=== PATIENT | female | born 1950 | race Caucasian/White ===

== ENCOUNTER 2023-05-04 09:55 | Outpatient (OUT) | payer MEDICARE, OTHER, SELFPAY | END 2023-05-04 09:56 | disposition home or self-care (01) | LOC: LAB 09:59 | PROVIDERS: PCP Family Medicine | DX: Z79.899 Other long term (current) drug therapy (principal) | CPT/HCPCS: 36415; 82607; 84443 ==

== ENCOUNTER 2023-08-05 08:02 | Outpatient (OUT) | payer MEDICARE, OTHER, SELFPAY ==
[2023-08-05 08:24] LABS: Basophils Percent Auto 0.4 % (0.2-2.0); Eosinophils Absolute Auto 0.1 10^3/uL (0.0-0.7); Eosinophils Percent Auto 2.2 % (0.9-7.0); Hematocrit 41.2 % (36.0-48.0); Hemoglobin 14.1 g/dL (12.0-16.0); Immature Granulocytes Abs Auto 0.01 10^3/uL (0.00-0.03); Immature Granulocytes Pct Auto 0.2 % (0.0-0.5); Lymphocytes Absolute Auto 1.4 10^3/uL (1.2-3.8); Lymphocytes Percent Auto 25.9 % (20.5-60.0); Mean Corpuscular HGB Conc 34.2 g/dL (29.9-35.2); Mean Corpuscular Hemoglobin 31.1 pg (26.7-34.0); Mean Corpuscular Volume 90.7 fL (81.0-99.0); Mean Platelet Volume 9.1 fL (9.5-13.5); Monocytes Absolute Auto 0.5 10^3/uL (0.3-0.8); Monocytes Percent Auto 9.2 % (1.7-12.0); Neutrophils Absolute Auto 3.4 10^3/uL (1.4-6.5); Neutrophils Percent Auto 62.1 % (43.0-75.0); Platelet Count 208 10^3/uL (150-450); Red Blood Count 4.54 10^6/uL (4.20-5.40); Red Cell Distribution Width 12.2 % (11.0-15.0); White Blood Count 5.5 10^3/uL (4.0-11.0)
[2023-08-05 09:19] LABS: Alanine Aminotransferase 31 U/L (14-59); Albumin Level 3.5 g/dL (3.4-5.0); Alkaline Phosphatase 61 U/L (46-116); Anion Gap 9.3; Aspartate Amino Transferase 14 U/L (15-37); BUN Creatinine Ratio 24.5; Bilirubin Total 0.5 mg/dL (0.2-1.0); Carbon Dioxide 30.6 mmol/L (21.0-32.0); Chloride 106 mmol/L (98-107); Chol HDL Ratio 3.9; Cholesterol 205 mg/dL (<=200); Estimated GFR (African America >60 (>=60); Estimated GFR (Non-African Ame >60 (>=60); Globulin 3.4 g/dL; Glucose 95 mg/dL (74-106); HDL Cholesterol 53 mg/dL (40-60); Potassium 3.9 mmol/L (3.5-5.1); Sodium 142 mmol/L (136-145); Total Protein 6.9 g/dL (6.4-8.2); Triglycerides 349 mg/dL (<=150); VLDL CHOLESTEROL 69.8 mg/dL
[2023-08-05 09:32] LABS: Free T4 1.32 ng/dL (0.76-1.46)
== END 2023-08-05 08:03 | disposition home or self-care (01) ==
LOC: LAB 08:05
PROVIDERS: PCP Family Medicine; Visit Provider Family Medicine
DX: Z00.00 Encounter for general adult medical examination without abnormal findings (principal); E03.9 Hypothyroidism, unspecified; E78.5 Hyperlipidemia, unspecified; I10 Essential (primary) hypertension
CPT/HCPCS: 36415; 80053; 80061; 84439; 84443; 85025

== ENCOUNTER 2023-10-29 09:12 | Outpatient (OUT) | payer MEDICARE, OTHER, SELFPAY ==
--- NOTE | 2023-10-29 09:16 | XR_ITS ---
The [address] [address] Patient Name: JAMES WOODS MRN: [id number] date: 1950 Sex: F Assigned Patient Location: [facility] Current Patient Location: [facility] Accession/Order Number: [id number] Exam Date: 10/29/2023 09:18 Report Date: 10/29/2023 10:54 At the request of: MARIFER BOYLE Procedure: XR hand LT min 3V PROCEDURE: XR hand LT min 3V COMPARISON: None. HISTORY: pain of left hand M79.642 FINDINGS: BONES:No acute fracture or dislocation. Degenerative changes most significant along the medial carpus with [id number] articulation of the scaphoid with the trapezium and trapezoid SOFT TISSUES:Negative. No visible soft tissue swelling. EFFUSION:None visible. OTHER: Negative. 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
== END 2023-10-29 09:13 | disposition home or self-care (01) ==
LOC: RAD 09:13
PROVIDERS: PCP Family Medicine; Visit Provider Family Medicine
DX: M79.642 Pain in left hand (principal)
CPT/HCPCS: 73130

== ENCOUNTER 2023-12-23 07:45 | Outpatient (OUT) | payer MEDICARE, OTHER, SELFPAY ==
--- NOTE | 2023-12-23 | NM_ITS ---
Patient Name: JAMES WOODS MR#: [id number] : 1950 Exam Date: 12/23/2023 Ordering Doctor: DR Shruthi Salvador M.D. RADIOLOGY REPORT PROCEDURE: NM YOLI PERF SPECT REST STR COMPARISON: None. INDICATIONS: DYSPNEA ON EXERTION TECHNIQUE: Exam Description: Stress/Rest one day protocol gated SPECT Rest Imagin.3 mCi Tc-99m Cardiolite IV on 12/23/2023 Stress Imaging 31.6 mCi Tc-99m Cardiolite IV on 12/23/2023 Exercise Protocol: Marlon Heart Rate (bpm): Rest: 71 Max: 134 PMHR: 90 Blood Pressure: Rest: 144/82 Max: 194/86 Exercise Time: Minutes: 7 Seconds: 43 Stage Reached: Stage: 3 Mets 10.10 Symptoms: Rest and peak stress ECG findings were normal and the exercise portion of the study was normal per attending physician Dr. Goss . For more details please see separate cardiac stress test report. FINDINGS: QUALITY OF STUDY: Excellent. PERFUSION DEFECT: None. LOCATION: N/A SIZE: N/A. SEVERITY: N/A. TYPE: N/A. WALL MOTION: Normal. LV SIZE: Normal. 74 mL. TID / TCD: None; 1.0 LVEF: Normal. Calculated EF 80%. SUMMARY: Myocardial perfusion imaging study is NORMAL. CONCLUSION: 1. Normal nuclear medicine myocardial perfusion scan. Dictated by: Martin Knight M.D. on 12/24/2023 at 14:40 Approved by: Martin Knight M.D. on 12/24/2023 at 14:44
--- NOTE | 2023-12-23 07:45 | PCN_ITS ---
CARDIAC STRESS TEST Requesting Physician:? Procedure Date:? 12/23/2023 INDICATION:? Dyspnea on exertion. METHOD:? After risks, benefits and alternatives were explained, written informed consent was obtained.? The patient was brought to the stress lab in a resting and fasting state. She was connected to the appropriate hemodynamic and electrocardiographic monitoring. She underwent a Marlon protocol for exercise.? At peak exercise, Technetium Cardiolite was injected.? She tolerated the procedure well.? There were no complications.? She was to be transferred to the nuclear lab for imaging. FINDINGS: STRESS TEST INFORMATION:? The patient exercised for 7 minutes and 43 seconds, reaching stage 3 of the Marlon protocol and 10.10 METS.?? Resting heart rate was 71 beats per minute, increasing to a maximum of 134 beats per minute, which is 90% of maximum predicted heart rate.? Resting blood pressure was 144/82, with a maximum heart rate of 194/86.? The patient had no symptoms during the test. ELECTROCARDIOGRAPHY:? Rest EKG:? This was sinus rhythm, 71 beats per minute, low voltage QRS complexes in the precordial leads, septal infarct age indeterminate, abnormal EKG. During exercise and recovery:? No significant ST-T wave changes noted, frequent premature ventricular contractions and supraventricular contractions noted. FINAL IMPRESSIONS: 1.? No ischemic EKG changes seen on treadmill Cardiolite stress test. 2.? Normal heart rate and blood pressure response to exercise. 3.? Lou treadmill score of 7.4; this is associated with a 0.5-0.6% estimated one year mortality.? Risk category is low risk.? Angiography is usually not indicated.? 4.? Nuclear images are to be read, interpreted and reported in a separate dictation. [facility]
--- OUTSIDE RECORDS SUMMARY | 2023-12-23 07:49 | XMS_ITS | CCD ---
Author Organization [facility] Care Team Providers Care Cage Maker Name Role Phone Gabriella Means Unavailable SHRUTHI BOYLE Primary Care Physician Shruthi Boyle Unavailable [place], DR SHRUTHI Hwang Primary Care Unavailable CHRISTINA, DR KAREN Woodard Attending Unavailable CHRISTINA, DR KAREN Woodard Admitting Unavailable CHRISTINA, DR KAREN Woodard Consulting Unavailable OROSCO, MARCOS Consulting Unavailable JB, DR FREY Primary Care Unavailable MONTA[place], DR SHRUTHI Hwang Attending Unavailable [place], DR SHRUTHI Hwang Admitting Unavailable GILDARDO, DR MARTIN Woodard Consulting Unavailable BOYLE, DR SHRUTHI Hwang Consulting Unavailable JB, DR FREY Primary Care Unavailable JB, DR FREY Consulting Unavailable JB, DR FREY Attending Unavailable JB, DR FREY Admitting Unavailable GILDARDO, DR MARTIN Woodard Consulting Unavailable Simone Muhammad Unavailable Stephanie Dover Unavailable Alonso CRUZ Attending Unavailable Sanam Salas Attending Unavailable Allergies Allergy Classification Reported Allergen(s) Allergy Type Date of Onset Reaction(s) Facility (16 sources) penicillAMINE Drug Allergy 4 [facility] (14 sources) Acetaminophen / HYDROcodone; Translations: [acetaminophen-hy drocodone] Drug Allergy Nausea (finding) [facility] (3 sources) Penicillin; Translations: [penicillin] Drug Allergy Unknown (qualifier value) [facility] (1 source) Acetaminophen / HYDROcodone Drug Allergy [facility] (4 sources) Penicillins Drug allergy (disorder) 4 Hives [facility] (11 sources) Substance with penicillin structure and antibacterial mechanism of action (substance) Drug allergy 1 Unknown [facility] Other (3 sources) Acetaminophen Drug Allergy 4 [facility] (3 sources) HYDROcodone Drug Allergy 4 [facility] Medications Current Medications Medication Drug Class(es) Dates Sig (Normalized) Sig (Original) [id number] 200 actuat albuterol 0.09 mg/actuat metered dose inhaler (10 sources) beta2-Adrenergic Agonist Start: 10-25-2023 take 2 puff(s) by inhalation every four hours as needed Albuterol Sulfate Active 2 PUFF INHALATION Every 4 hours October 25, 2023 12:00am FreeTextSi puff Inhalation every 4 hrs prn; Note: Source Status: Start; Refills: 1; Qty: 1 Each; Provider: [place] Hwang Start: 07-10-2023 take 2 puff(s) by in halation every four hours as needed Albuterol Sulfate HFA 108 (90 Base) MCG/ACT 2 puff Inhalation every 4 hrs prn Jun, Not-Taking/PRN amLODIPine 5 mg oral tablet (3 sources) Dihydropyridine Calcium Channel Alysha Start: 11-27-2023 End: 12-19-2023 take 5 mg by mouth once daily Amlodipine Active 5 MG PO Daily December 19, 2023 12:07pm Ascorbic Acid (11 sources) Vitamin C Vitamin C Active atorvastatin 20 mg oral tablet (20 sources) HMG-CoA Reductase Inhibitor Start: 10-21-2023 Atorvastatin Active 0 .ROUTE .COMPLEX October 21, 2023 11:53am TAKE 1 TABLET DAILY Start: 11-03-2020 End: 10-21-2023 take 20 mg by mouth once daily Atorvastatin Discontinu ed 20 MG PO Daily October 21, 2023 12:00am October 21, 2023 11:53am Atorvastatin Carlos cium Active azithromycin 250 mg oral tablet (2 sources) Macrolide Antimicrobial Start: 09-02-2023 Azithromycin 250 MG Take 2 tablets on first day then 1 tablet daily for 4 days Orally as directed for 5 Aug, Active Suzi-C (2 sources) Start: 11-04-2020 Suzi-C Oral, Daily, Refills(s) 0 Start Date: 11/04/20 Status: Ordered estradiol 0.1 mg/ml vaginal cream (4 sources) Estrogen Start: 01-09-2023 estradiol 0.1 mg/g Vag Crm 1 gm, Vaginal, MonWedFri, 42.5 gm, Refill(s) 4, [employer] [id number], 170, cm, 08/31/22 11:21:00 EST, Height/Length Dosing, 69.1, kg, 08/31/22 11:21:00 EST, Weight Dosing Start Date: 01/09/23 Status: Ordered Start: 12-29-2021 estradiol 0.1 mg/g Vag Crm 1 gm, Vaginal, MonWedFri, 42.5 gm, Refill(s) 4, [employer] [id number], 170, cm, 08/28/21 14:33:00 EST, Height/Length Dosing, 70, kg, 08/28/21 14:33:00 EST, Weight Dosing Start Date: 12/29/21 Status: Ordered Estradiol Active estrogens, conjugated (snf) 0.625 mg/ml vaginal cream (14 sources) Estrogen Start: 10-25-2023 Conjugated Est rogens (Premarin) 0.625 mg/gram cream Active 0.625 MG VAGINAL As Directed October 25, 2023 12:00am FreeTextSig: as directed Vaginal; Note: Source Status: Taking; Provider: [place] Hawkins ( ) Premarin 0.625 M G/GM as directed Vaginal Active Premarin 0.625 M G/GM as directed Vaginal Active levothyroxine sodium 0.137 mg oral tablet (18 sources) l-Thyroxine Start: 10-25-2023 take 1 tablet by mouth once daily Levothyroxine Active 137 MCG PO Daily October 25, 2023 12:00am FreeTextSig: TAKE 1 TABLET DAILY; Note: Source Status: Refill; Refills: 3; Qty: 90 Tablet; Provider: [place] Hwang Start: 11-03-2020 take 1 tablet by rene th once daily levothyroxine 112 mcg (0.112 mg) Tab 112 mcg = 1 tab(s), Oral, Daily, # 30 tab(s), Refills(s) 0 Start Date: 11/03/20 Status: Ordered Levothyroxine So dium 137 MCG TAKE 1 TABLET DAILY for 90 days Active Levothyroxine So dium 137 MCG TAKE 1 TABLET DAILY for 90 days Active Synthroid Active lisinopril 20 mg oral tablet (20 sources) Angiotensin Converting Enzyme Inhibitor Start: 10-21-2023 Lisinopril Active 0 .ROUTE .COMPLEX 90 October 21, 2023 11:53am TAKE 1 TABLET DAILY Start: 11-03-2020 End: 10-21-2023 take 20 mg by mouth once daily Lisinopril Discontinued 20 MG PO Daily October 21, 2023 12:00am October 21, 2023 11:53am Lisinopril Activ e methylPREDNISolone 4 mg oral tablet (8 sources) Corticosteroid Start: 12-19-2023 take 1 tablet by mouth once Methylprednisolone (Medrol (Jovany)) 4 mg tablets,dose pack Active 0 PO per package directions December 19, 2023 12:00am PO PER PKG DIR for 6 days Start: 07-10-2023 methylPREDNISo lone 4 MG as directed Orally for 6 days Jun, Not-Taking/PRN Multi Vitamin+ (2 sources) Start: 11-04-2020 Multi Vitamin+ Refill(s) 0 Start Date: 11/04/20 Status: Ordered Woodridge 3 (11 sources) Woodridge 3 Active Woodridge-3 (2 sources) Start: 11-04-2020 Woodridge-3 Refill (s) 0 Start Date: 11/04/20 Status: Ordered POLYETHYLENE GLYCOL 3350 (11 sources) Osmotic Laxative MiraLax Active Womens Multi (11 sources) Womens Multi Act tremayne Completed/Discontinued Medications Medication Drug Class(es) Dates Sig (Normalized) Sig (Original) benzonatate 200 mg oral capsule (10 sources) Non-narcotic Antitussive Start: 10-25-2023 End: 10-25-2023 take 1 capsule by mouth three times daily Benzonatate Discontinued 1 CAP PO Three times daily October 25, 2023 12:00am October 25, 2023 2:07pm FreeTextSi capsule Orally Three times a day; Note: Source Status: Start; Refills: 0; Qty: 30 Capsule; Provider: [place] Hwang Start: 07-10-2023 take 1 capsule by [facility] every eight hours Benzonatate 200 MG 1 capsule Orally Three times a day for 10 day(s) Jun, Not-Taking/PRN doxycycline hyclate 100 mg oral capsule (14 sources) Tetracycline-class Drug Start: 10-25-2023 End: 10-25-2023 take 1 capsule by mouth twice daily Doxycycline Hyclate Discontinued 1 CAP PO Twice daily October 25, 2023 12:00am October 25, 2023 2:07pm FreeTextSi capsule Orally twice daily; Note: Source Status: Taking; Refills: 0; Provider: Jb Hwang Start: 03-08-2023 take 1 capsule by mo uth twice daily as needed Doxycycline Hyclate 100 MG 1 capsule Orally twice daily for 7 days Feb, Not-Taking/PRN Melatonin (11 sources) Melatonin Not-Ta alexander/PRN Melatonin Active ondansetron 4 mg oral tablet (14 sources) Serotonin-3 Receptor Antagonist Start: 10-25-2023 End: 10-25-2023 take 1 tablet by mouth once daily Ondansetron Hcl Discontinued 1 TAB PO Daily October 25, 2023 12:00am October 25, 2023 2:08pm FreeTextSi tablet Orally Once a day; Note: Source Status: Not-Taking\PRN; Provider: [place] Hawkins ( ) take 1 tablet by rene th every twenty-four hours Ondansetron HCl 4 MG 1 tablet Orally Onc e a day Not-Taking/PRN paxlovid (300/100) 20 x 150 mg & 10 x 100mg tablet therapy pack (7 sources) Paxlovid (300/10 0) 20 x 150 MG & 10 x 100MG as directed Orally Not-Taking/PRN Paxlovid (300/10 0) 20 x 150 MG & 10 x 100MG as directed Orally Active Problems Active Problems Problem Classification Problem Date Documented Da te Episodic/Chronic Diseases of mouth; excluding dental (1 source) Cellulitis and abscess of mouth Episodic Disorders of lipid metabolism (20 sources) Hyperlipidemia, unspecified; Translations: [Pure hypercholesterolemi a, unspecified] Onset: 12-28-2021 Chronic Diverticulosis and diverticulitis (11 sources) Diverticulitis; Translations: [Diverticulitis of intestine, part unspecified, without perforation or abscess without bleeding] Chronic Essential hypertension (20 sources) Essential hypertension; Translations: [Essential (primary) hypertension] Onset: 09-28-2022 11-03-2020 Chronic Genitourinary congenital anomalies (2 sources) 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 Chronic Genitourinary symptoms and ill-defined conditions (4 sources) Stress incontinence (female) (male); Translations: [Genuine stress incontinence] Onset: 08-31-2022 Chronic Genitourinary symptoms and ill-defined conditions (4 sources) Retention of urine; Translations: [Retention of urine, unspecified] Onset: 08-31-2022 Episodic Menopausal disorders (6 sources) Atrophic vaginitis; Translations: [Postmenopausal atrophic vaginitis] Onset: 08-31-2022 Chronic Mycoses (2 sources) Candidiasis of vagina 11-03-2020 Episodic Nausea and vomiting (12 sources) Nausea with vomiting, unspecified; Translations: [Nausea] Onset: 12-28-2021 Episodic Other connective tissue disease (3 sources) Hand pain; Translations: [Pain in left hand] 10-29-2023 Episodic Other connective tissue disease (3 sources) Pain in left hand; Translations: [Pain in limb] 10-29-2023 Episodic Other diseases of bladder and urethra (4 sources) Urethral stricture; Translations: [Other urethral stricture, female] Onset: 08-31-2022 Episodic Other ear and sense organ disorders (11 sources) Tinnitus; Translations: [Tinnitus, right ear] Episodic Other hereditary and degenerative nervous system conditions (11 sources) Hereditary essential tremor; Translations: [Essential tremor] Chronic Other lower respiratory disease (12 sources) Dyspnea on exertion; Translations: [Other forms of dyspnea] 11-03-2020 Episodic Other lower respiratory disease (5 sources) Other forms of dyspnea; Translations: [Other respiratory abnormalities] 11-27-2023 Episodic Other screening for suspected conditions (not mental disorders or infectious disease) (20 sources) Serum lipids high; Translations: [Encounter for screening mammogram for malignant neoplasm of breast] Onset: 01-04-2022 11-03-2020 Episodic Residual codes; unclassified (2 sources) Family history of breast cancer 11-03-2020 Episodic Residual codes; unclassified (2 sources) Family history of diabetes mellitus 11-03-2020 Episodic Residual codes; unclassified (2 sources) Requires vaccination 11-03-2020 Episodic Residual codes; unclassified (1 source) Family history of malignant neoplasm of breast; Translations: [FAMILY HX MALIG NEOPLASM OF BREAST] Onset: 09-28-2022 Episodic Residual codes; unclassified (1 source) Family history of malignant neoplasm of other organs or systems; Translations: [FAM HX MALIG NEOPLASM OTH ORGN/SYS] Onset: 09-28-2022 Episodic Skin and subcutaneous tissue infections (1 source) Cellulitis of left upper limb Episodic Thyroid disorders (20 sources) Hypothyroidism; Translations: [Hypothyroidism, unspecified] Onset: 09-28-2022 11-03-2020 Chronic Past or Other Problems Problem Classification Problem Date Documented Da te Episodic/Chronic Conditions associated with dizziness or vertigo (5 sources) Dizziness and giddiness; Translations: [Labyrinthitis, unspecified ear] Onset: 12-27-2021 Episodic Open wounds of extremities (1 source) Laceration without foreign body of right thumb without damage to nail, initial encounter Onset: 12-11-2021 Resolved: 12-11-2021 Episodic Residual codes; unclassified (1 source) Acquired absence of other specified parts of digestive tract; Translations: [ACQ ABSENCE OTH PART DIGESTV TRACT] Onset: 12-28-2021 Episodic Screening and history of mental health and substance abuse codes (1 source) Personal history of nicotine dependence; Translations: [PERSONAL HISTORY OF NICOTINE DEPEND] Onset: 12-28-2021 Episodic Unclassified (1 source) Acute cough R05.1 Viral infection (1 source) COVID-19 Results Test Name Value Interpretation Reference Range Facility Screenson 11-27-2023 Screens [id number] Normal [facility] Patient Educationon 11-26-19 Patient Education Obstetrics and Gynecology Atrophic Vaginitis Atrophic vaginitis is a condition in which the tissues that line the vagina become dry and thin. This condition is most common in women who have stopped having regular menstrual periods (are in menopause). This usually starts when a woman is 45 to 55 years old. That is the time when a woman's estrogen levels begin to decrease. Estrogen is a female hormone. It helps to keep the tissues of the vagina moist. It stimulates the vagina to produce a clear fluid that lubricates the vagina for sex. This fluid also protects the vagina from infection. Lack of estrogen can cause the lining of the vagina to get thinner and dryer. The vagina may also shrink in size. It may become less elastic. Atrophic vaginitis tends to get worse over time as a woman's estrogen level drops. What are the causes? This condition is caused by the normal drop in estrogen that happens around the time of menopause. What increases the risk? Certain conditions or situations may lower a woman's estrogen level, leading to a higher risk for atrophic vaginitis. You are more likely to develop this condition if: ? You are taking medicines that block estrogen. ? You have had your ovaries removed. ? You are being treated for cancer with radiation or medicines (chemotherapy). ? You have given or are . ? You are older than age 50. ? You smoke. What are the signs or symptoms? Symptoms of this condition include: ? Pain, soreness, a feeling of pressure, or bleeding during sex (dyspareunia). ? Vaginal burning, irritation, or itching. ? Pain or bleeding when a speculum is used in a vaginal exam. ? Having burning pain while urinating. ? Vaginal discharge. In some cases, there are no symptoms. How is this diagnosed? This condition is diagnosed based on your medical history and a physical exam. This will include a pelvic exam that checks the vaginal tissues. Though rare, you may also have other tests, including: ? A urine test. ? A test that checks the acid balance in your vagina (acid balance test). How is this treated? Treatment for this condition depends on how severe your symptoms are. Treatment may include: ? Using an ddjr-mmp-swoyahc vaginal lubricant before sex. ? Using a long-acting vaginal moisturizer. ? Using low-dose estrogen for moderate to severe symptoms that do not respond to other treatments. Options include creams, tablets, and inserts (vaginal rings). Before you use a vaginal estrogen, tell your health care provider if you have a history of: ? Breast cancer. ? Endometrial cancer. ? Blood clots. If you are not sexually active and your symptoms are very mild, you may not need treatment. Follow these instructions at home: Medicines ? Take hvkp-iwc-gbcaqev and prescription medicines only as told by your health care provider. ? Do not use herbal or alternative medicines unless your health care provider says that you can. ? Use iodh-aza-fmqrqpd creams, lubricants, or moisturizers for dryness only as told by your health care provider. General instructions ? If your atrophic vaginitis is caused by menopause, discuss all of your menopause symptoms and treatment options with your health care provider. ? Do not douche. ? Do not use products that can make your vagina dry. These include: ? Scented feminine sprays. ? Scented tampons. ? Scented soaps. ? Vaginal sex can help to improve blood flow and elasticity of vaginal tissue. If you choose to have sex and it hurts, try using a water-soluble lubricant or moisturizer right before having sex. Contact a health care provider if: ? Your discharge looks different than normal. ? Your vagina has an unusual smell. ? You have new symptoms. ? Your symptoms do not improve with treatment. ? Your symptoms get worse. Summary ? Atrophic vaginitis is a condition in which the tissues that line the vagina become dry and thin. It is most common in women who have stopped having regular menstrual periods (are in menopause). ? Treatment options include using vaginal lubricants and low-dose vaginal estrogen. ? Contact a health care provider if your vagina has an unusual smell, or if your symptoms get worse or do not improve after treatment. This information is not intended to replace advice given to you by your health care provider. Make sure you discuss any questions you have with your health care provider. Document Revised: 01/05/2021 Document Reviewed: 01/05/2021 [employer] Patient Education ? 2022 [employer]. Kegel Exercises Kegel exercises can help strengthen your pelvic floor muscles. The pelvic floor is a group of muscles that support your rectum, small intestine, and bladder. In females, pelvic floor muscles also help support the uterus. These muscles help you control the flow of urine and stool (feces). Kegel exercises are painless and simple. They do not require (more content not included)... Normal [facility] Urology Office/Clinic Noteon 11-26-2023 Urology Office/Clinic Note Chief Complaint 1 yr f/u HPI Staff PRW pt 1yr DX: Atrophic Vaginitis, Incomplete Bladder Emptying, Urethral Stricture & Stress Incontinence *Estradiol cream 1gm 3x/week decreased to 2x/wk at last encounter Dysuria: denies Incomplete bladder emptying: denies Hematuria: denies Frequency: denies Urgency: yes Nocturia: denies Stream: stop and go Leaking: denies Post void dripping: denies Wearing pads/ Depends: denies Urge incontinence: denies Stress incontinence: yes Incontinence without Sensory Awareness: denies Abdominal pain: denies Flank pain: denies Sexual complaints: _ History of Present Illness I have reviewed and verified the staff HPI to be accurate for this encounter. Portions of this record may have been created with voice recognition artificial intelligence software, specifically Pictrition App, real trends and or Molecular Sensing. Substitutions may have occurred due to the inherent limitations of voice recognition and artificial intelligence software. Review of Systems PHQ Score Initial Depression Screen Score: 0 SCORE Physical Exam Vitals & Measurements T: 36.7 ?C(Temporal Artery) HR: 84(Peripheral) RR: 16 BP: 139/87 HT: 67 in HT: 170 cm WT: 72.7 kg WT: 159.94 lb BMI: 25.16 General: Well developed, well nourished, in no acute distress. Genitourinary: Flank Pain: none. Bladder: nonpalpable. Assessment/Plan 1. Atrophic vaginitis (N95.2: Postmenopausal atrophic vaginitis) Currently using Estrace cream 1 g 2 times/week vaginally as well as pea-sized amount around the urethra. This was reduced at prior office visit from 3 times/week. She is tolerating this well without side effects. Has not noticed any worsening symptoms with reduced dose. Patient does inquire if she should continue to reduce dose. However, we discussed that symptoms may increase with reduced dose. Continue current dose at 2 times/week. Patient to call for refills. UA today with trace intact blood. No signs of infection. Patient denies any episode of gross hematuria or urinary infection since prior office visit. Ordered: Urnls Dip Stick Auto w/o Microscopy POC 09734 2. Incomplete bladder emptying (R33.9: Retention of urine, unspecified) Patient notes that she routinely double voids and uses voiding maneuvers. She does feel empty after doing that. Ordered: Urnls Dip Stick Auto w/o Microscopy POC 35501 3. Other urethral stricture, female (N35.82: Other urethral stricture, female) S/p Cysto/UD done 11/08/20 [1] She denies any stream issues at this time. Does not feel that she needs repeat dilation. Ordered: Urnls Dip Stick Auto w/o Microscopy POC 82921 4. Stress incontinence (N39.3: Stress incontinence (female) (male)) BBSQ 12-13 Mild leaking with laughing Only wears a pad when she feels it is necessary which is rare Not bothersome to the patient at this time Strengthening pelvic floor with Kegel exercises, timed voids. Ordered: Urnls Dip Stick Auto w/o Microscopy POC 75642 Follow-up With When Contact Information Orzech [employer], [employer], Sanam X, FAM, URL Additional Instructions: 1 year Patient Education Atrophic Vaginitis Urinary Incontinence Kegel Exercises Problem List/Past Medical History Ongoing Atrophic vaginitis Dyspnea on exertion Essential hypertension Family history of breast cancer FH: diabetes mellitus Hypothyroid Incomplete bladder emptying Need for prophylactic vaccination against Streptococcus pneumoniae (pneumococcus) Other urethral stricture, female Postmenopausal atrophic vaginitis Serum lipids high Stress incontinence 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 Medications atorvastatin 20 mg Tab, Oral, Daily Suzi-C, Oral, Daily estradiol 0.1 mg/g Vag Crm, 1 gm, Vaginal, MonWedFri, 4 refills levothyroxine 112 mcg (0.112 mg) Tab, 112 mcg= 1 tab(s), Oral, Daily lisinopril 20 mg Tab, Oral, Daily Multi Vitamin+ Woodridge-3 Allergies Vicodin (Nausea) penicillin (Unknown) Social History Tobacco Former smoker, quit more than 30 days ago Tobacco Use:., 11/26/2023 Family History Hypertension: Mother and Father. Migraine: Child. Primary malignant neoplasm of female breast: Mother. Primary malignant neoplasm of lung: Grandparent. Stroke: Grandparent. Immunizations Vaccine Date Status influenza virus vaccine, inactivated 05/22/2023 Recorded tetanus-diphtheria toxoids 12/11/2021 Recorded SARSCoV2 mRNA(hxeybezxf-xrmn-dc cros) vac 09/01/2021 Recorded SARS-CoV-2 (COVID-19) mRNA BNT-162b2 vax 02/02/2021 Recorded SARS-CoV-2 (COVID-19) mRNA BNT-162b2 vax 01/12/2021 Recorded SARS-CoV-2 (COVID-19) mRNA BNT-162b2 vax 2020 Recorded influenza virus vaccine, inactivated 05/12/2020 Recorded pneumococcal 23-valent vaccine 06/05/2018 Alf (more content not included)... Normal [facility] Comment on above: Result Comment: Elec tronically Signed By: ANA LUISA Salas APRN, Sanam Allen\meggan\Date and Time Signed: 11/26/23 09:48 EDT COVID + FLU Quick Testingon 09-02-2023 SARS-CoV-2 (COVID-19) RNA ZOIE+probe Ql (Unsp spec) Negative [employer] [facility] Other COVID + FLU Quick Testing Negative [facility] Other CBC AUTO DIFFon 09-26-2022 BASO # 0.0 103/ul Normal 0.0-0.1 [facility] Comment on above: Performed By: #### C BC #### [facility] [address] [place] [address] Dr. Pam Rodgers Basophils/100 WBC (Bld) 0.6 % Normal 0.2-2.0 [facility] Comment on above: Performed By: #### C BC #### [facility] [address] [address] [address] Pam Rodgers EO # 0.2 103/ul Normal 0.0-0.7 [facility] Comment on above: Performed By: #### C BC #### [facility] [address] [address] [address] Pam Rodgers Eosinophils/100 WBC (Bld) 2.4 % Normal 0.9-7.0 [facility] Comment on above: Performed By: #### C BC #### [facility] [address] [address] [address] Pam Rodgers Erythrocyte distribution width (RBC) [Ratio] 12.0 % Normal 11.0-15.0 [facility] Comment on above: Performed By: #### C BC #### [facility] [address] [place] [address] Dr. Pam Rodgers Hematocrit (Bld) [Volume fraction] 44.2 % Normal 36.0-48.0 [facility] Comment on above: Performed By: #### C BC #### [facility] [address] [place] [place] [address] Dr. Pam Rodgers Hemoglobin (Bld) [Mass/Vol] 15.0 g/dL Normal 12.0-16.0 [facility] Comment on above: Performed By: #### C BC #### [facility] [address] [place] [address] Dr. Pam Rodgers IG # 0.01 10e3/ul Normal 0.00-0.03 [facility] Comment on above: Performed By: #### C BC #### [facility] [address] [place] [address] Dr. Pam Rodgers IG % 0.2 % Normal 0.0-0.5 [facility] Comment on above: Performed By: #### C BC #### [facility] [address] [place] [address] Dr. Pam Rodgers LYMPH # 1.4 103/ul Normal 1.2-3.8 [facility] Comment on above: Performed By: #### C BC #### [facility] [address] [place] [address] Dr. Pam Rodgers Lymphocytes/100 WBC (Bld) 22.6 % Normal 20.5-60.0 [facility] Comment on above: Performed By: #### C BC #### [facility] [address] [place] [address] Dr. Pam Rodgers MANUAL DIFF REQ NO Normal [facility] Comment on above: Performed By: #### C BC #### [facility] [address] [place] [address] Dr. Pam Rodgers MCH (RBC) [Entitic mass] 30.0 pg Normal 26.7-34.0 [facility] Comment on above: Performed By: #### C BC #### [facility] [address] [place] [address] Dr. Pam Rodgers MCHC (RBC) [Mass/Vol] 33.9 g/dL Normal 29.9-35.2 [facility] Comment on above: Performed By: #### C BC #### [facility] [address] [place] [address] Dr. Pam Rodgers MCV (RBC) [Entitic vol] 88.4 fL Normal 81.0-99.0 [facility] Comment on above: Performed By: #### C BC #### [facility] [address] [place] [address] Dr. Pam Rodgers MONO # 0.6 103/ul Normal 0.3-0.8 [facility] Comment on above: Performed By: #### C BC #### [facility] [address] [place] [address] Dr. Pam Rodgers Monocytes/100 WBC (Bld) 8.8 % Normal 1.7-12.0 [facility] Comment on above: Performed By: #### C BC #### [facility] [address] [place] [address] Dr. Pam Rodgers NEUT # 4.2 103/ul Normal 1.4-6.5 [facility] Comment on above: Performed By: #### C BC #### [facility] [address] [place] [address] Dr. Pam Rodgers Neutrophils/100 WBC (Bld) 65.4 % Normal 43.0-75.0 [facility] Comment on above: Performed By: #### C BC #### [facility] [address] [place] [address] Dr. Pam Rodgers Platelet mean volume (Bld) [Entitic vol] 9.2 fL Critically low 9.5-13.5 [facility] Comment on above: Performed By: #### C BC #### [facility] [address] [place] [address] Dr. Pam Rodgers PLT 243 103/ul Normal 150-450 [facility] Comment on above: Performed By: #### C BC #### [facility] [address] [place] [address] Dr. Pam Rodgers RBC 5.00 106/ul Normal 4.20-5.40 [facility] Comment on above: Performed By: #### C BC #### [facility] [address] [place] [address] Dr. Pam Rodgers WBC 6.4 103/ul Normal 4.0-11.0 [facility] Comment on above: Performed By: #### C BC #### [facility] [address] [address] [address] Pam Rodgers FREE T4on 09-26-2022 Free T4 [Mass/Vol] 1.06 ng/dL Normal 0.76-1.46 [facility] Comment on above: Performed By: #### F T4 #### [facility] [address] [address] [address] Pam Rodgers LIPID PROFILEon 09-26-2022 CHOL-HDL RATIO NORM SEE BELOW Normal [facility] Comment on above: Result Comment: 3.3 - 4.4 LOW RISK 4.4 - 7.1 AVERAGE RISK 7.1 - 11.0 MODERATE RISK >11.0 HIGH RISK Performed By: #### L IPID, TSH, CMP #### [facility] [address] [address] [address] Pam Rodgers Cholesterol [Mass/Vol] 189 mg/dL Normal <=200 [facility] Comment on above: Performed By: #### L IPID, TSH, CMP #### [facility] [address] [address] [address] Pam Rodgers Cholesterol in HDL [Mass/Vol] 60 mg/dL Normal 40-60 [facility] Comment on above: Performed By: #### L IPID, TSH, CMP #### [facility] [address] [address] [address] Pam Rodgers Cholesterol in LDL [Mass/Vol] 97.0 mg/dL Normal [facility] Comment on above: Performed By: #### L IPID, TSH, CMP #### [facility] [address] [address] [address] Pam Rodgers Cholesterol.total /Cholesterol in HDL [Mass ratio] 3.2 {ratio} Normal [facility] Comment on above: Performed By: #### L IPID, TSH, CMP #### [facility] [address] [address] [address] Pam Rodgers HDL NORMAL > or = 60 mg/dl - LO W CARDIOVASCULAR RISK <40 mg/dl - HIGH CARDIOVASCULAR RISK Normal [facility] Comment on above: Performed By: #### L IPID, TSH, CMP #### [facility] [address] [address] [address] Pam Rodgers LDL CALC NORMAL SEE BELOW Normal [facility] Comment on above: Result Comment: <100 mg/dl OPTIMAL 100 - 129 mg/dl NEAR OR ABOVE OPTIMAL 130 - 159 mg/dl BORDERLINE HIGH 160 - 189 mg/dl HIGH >190 mg/dl VERY HIGH Performed By: #### L IPID, TSH, CMP #### [facility] [address] [place], [place] [address] Dr. Pam Rodgers Triglyceride [Mass/Vol] 160 mg/dL Critically high <=150 [facility] Comment on above: Performed By: #### L IPID, TSH, CMP #### [facility] [address] [address] [address] Pam Rodgers VLDL CALC 32.0 mg/dL Normal [facility] Comment on above: Performed By: #### L IPID, TSH, CMP #### [facility] [address] [address] [address] Pam Rodgers MG MAMM SCREEN 3D GISELE CADon 09-26-2022 MG MAMM SCREEN 3D GISELE CAD Patient: JAMES WOODS Exam Date: 09/26/2022 : 1950 Gender:F Ordering : DR SHRUTHI BOYLE M.D. Admission #: [id number] Family : Order #: [id number] CLICK HERE TO VIEW EXAM RADIOLOGY REPORT PROCEDURE: MAMMOGRAM SCREENING 3D BILATERAL CAD COMPARISON: MG MAMM SCREEN 3D GISELE CAD, 04/17/2021. MG MAMM SCREEN GISELE W CAD, 04/01/2020. MG MAMM SCREEN GISELE W CAD, 09/16/2018. DIGITIZED_MAMMO, 05/13/2009. INDICATIONS: Screening mammography Calculator Name NCI Breast Cancer Risk Assessment Tool 5 Year Breast Cancer Risk 4.90% Lifetime Breast Cancer Risk 13.90% Personal Breast Cancer No Personal Ovarian Cancer No Treatments None Family Cancers Mother with breast cancer at age 50; Daughter with nasal cancer cancer at age 20; Unknown with brain cancer cancer at age 5. LOCATION: [facility] BREAST COMPOSITION: Scattered areas fibroglandular density. FINDINGS: DIAGNOSTIC CATEGORY 2--BENIGN FINDING: RIGHT BREAST: No significant suspicious finding. No significant change has occurred. LEFT BREAST: No significant suspicious finding. Stable chronic asymmetry posterior upper-outer quadrant. No significant change has occurred. RECOMMENDATIONS: ROUTINE MAMMOGRAM AND CLINICAL EVALUATION IN 12 MONTHS. PLEASE NOTE: A NORMAL MAMMOGRAM DOES NOT EXCLUDE THE POSSIBILITY OF BREAST CANCER. A CLINICALLY SUSPICIOUS PALPABLE LUMP SHOULD BE BIOPSIED. Dictated by: Martin Knight M.D. on 09/26/2022 at 17:08 Approved by: Martin Knight M.D. on 09/26/2022 at 17:14 Normal [facility] PROF 14(COMP METB)on 023 Albumin [Mass/Vol] 4.1 g/dL Normal 3.4-5.0 [facility] Comment on above: Performed By: #### L IPID, TSH, CMP #### [facility] [address] [address] [address] Pam Rodgers Albumin/Globulin [Mass ratio] 1.3 {ratio} Normal [facility] Comment on above: Performed By: #### L IPID, TSH, CMP #### [facility] [address] [address] [address] Pam Rodgers ALP [Catalytic activity/Vol] 63 U/L Normal 46-116 [facility] Comment on above: Performed By: #### L IPID, TSH, CMP #### [facility] [address] [address] [address] Pam Rodgers ALT [Catalytic activity/Vol] 27 U/L Normal 14-59 [facility] Comment on above: Performed By: #### L IPID, TSH, CMP #### [facility] [address] [address] [address] Pam Rodgers Anion gap [Moles/Vol] 12.1 mmol/L Normal [facility] Comment on above: Performed By: #### L IPID, TSH, CMP #### [facility] [address] [address] [address] Pam Rodgers AST [Catalytic activity/Vol] 22 U/L Normal 15-37 [facility] Comment on above: Performed By: #### L IPID, TSH, CMP #### [facility] [address] [address] [address] Pam Rodgers Bilirubin [Mass/Vol] 0.6 mg/dL Normal 0.2-1.0 [facility] Comment on above: Performed By: #### L IPID, TSH, CMP #### [facility] [address] [place] [address] Dr. Pam Rodgers Calcium [Mass/Vol] 9.3 mg/dL Normal 8.5-10.1 [facility] Comment on above: Performed By: #### L IPID, TSH, CMP #### [facility] [address] [place] [address] Dr. Pam Rodgers Chloride [Moles/Vol] 104 mmol/L Normal 98-107 [facility] Comment on above: Performed By: #### L IPID, TSH, CMP #### [facility] [address] [place] [address] Dr. Pam Rodgers CO2 [Moles/Vol] 28.2 mmol/L Normal 21.0-32.0 [facility] Comment on above: Performed By: #### L IPID, TSH, CMP #### [facility] [address] [place] [address] Dr. Pam Rodgers Creatinine [Mass/Vol] 0.62 mg/dL Normal 0.55-1.02 [facility] Comment on above: Performed By: #### L IPID, TSH, CMP #### [facility] [address] [place] [address] Dr. Pam Rodgers EGFR-AF [place] >60 Normal >=60 [facility] Comment on above: Performed By: #### L IPID, TSH, CMP #### [facility] [address] [place] [address] Dr. Pam Rodgers EGFR-NON AF [place] >60 Normal >=60 [facility] Comment on above: Performed By: #### L IPID, TSH, CMP #### [facility] [address] [place] [address] Dr. Pam Rodgers Globulin (S) [Mass/Vol] 3.2 g/dL Normal [facility] Comment on above: Performed By: #### L IPID, TSH, CMP #### [facility] [address] [address] [address] Pam Rodgers Glucose [Mass/Vol] 108 mg/dL Critically high 74-106 [facility] Comment on above: Performed By: #### L IPID, TSH, CMP #### [facility] [address] [address] [address] Pam Rodgers Potassium [Moles/Vol] 4.3 mmol/L Normal 3.5-5.1 [facility] Comment on above: Performed By: #### L IPID, TSH, CMP #### [facility] [address] [place] [address] Dr. Pam Rodgers Protein [Mass/Vol] 7.3 g/dL Normal 6.4-8.2 [facility] Comment on above: Performed By: #### L IPID, TSH, CMP #### [facility] [address] [place] [address] Dr. Pam Rodgers Sodium [Moles/Vol] 140 mmol/L Normal 136-145 [facility] Comment on above: Performed By: #### L IPID, TSH, CMP #### [facility] [address] [place] [address] Dr. Pam Rodgers Urea nitrogen [Mass/Vol] 12.0 mg/dL Normal 7.0-18.0 [facility] Comment on above: Performed By: #### L IPID, TSH, CMP #### [facility] [address] [place] [address] Dr. Pam Rodgers Urea nitrogen/Creatini ne [Mass ratio] 19.4 mg/mg Normal [facility] Comment on above: Performed By: #### L IPID, TSH, CMP #### [facility] [address] [place] [address] Dr. Pam Rodgers TSHon 09-26-2022 TSH 5.421 uIU/mL Critically high 0.358-3.740 [facility] Comment on above: Performed By: #### L IPID, TSH, CMP #### [facility] [address] [address] [address] Pam Rodgers NM STRESS/REST MULTIon 01-04 NM STRESS/REST MULTI Patient: JAMES WOODS Exam Date: 01/04/2022 : 1950 Gender:F Ordering : DR SIMONE MUHAMMAD D.O. Admission #: [id number] Family : Order #: [id number] CLICK HERE TO VIEW EXAM RADIOLOGY REPORT PROCEDURE: RADIONUCLIDE IMAGING STRESS/REST MULTI COMPARISON: NM STRESS/REST MULTI, 05/26/2020. INDICATIONS: Electrocardiogram abnormal TECHNIQUE: Exam Description: Stress/Rest one day protocol gated SPECT Rest Imagin.4 mCi Tc-99m Cardiolite IV on 01/04/2022 Stress Imaging 31.8 mCi Tc-99m Cardiolite IV on 01/04/2022 Exercise Protocol: Marlon Heart Rate (bpm): Rest: 71 Max: 137 PMHR: 91 Blood Pressure: Rest: 124/80 Max: 172/86 Exercise Time: Minutes: 5 Seconds: 00 Stage Reached: Stage: 1 Mets 7.0 Symptoms: Rest and peak stress ECG findings were normal and the exercise portion of the study was normal per attending physician Dr. Jas Muhammad . For more details please see separate cardiac stress test report. FINDINGS: QUALITY OF STUDY: Excellent. PERFUSION DEFECT: None. LOCATION: N/A SIZE: N/A. SEVERITY: N/A. TYPE: N/A. WALL MOTION: Normal. LV SIZE: Normal. 58 mL. TID / TCD: None; 0.8 LVEF: Normal. Calculated EF 81%. SUMMARY: Myocardial perfusion imaging study is NORMAL. CONCLUSION: 1. Normal nuclear medicine myocardial perfusion scan. Dictated by: Martin Knight M.D. on 01/05/2022 at 12:02 Approved by: Martin Knight M.D. on 01/05/2022 at 12:03 Normal [facility] CBC AUTO DIFFon 12-27-2021 BASO # 0.0 103/ul Normal 0.0-0.1 [facility] Comment on above: Performed By: #### C BC #### [facility] [address] [address] [address] Pam Rodgers Basophils/100 WBC (Bld) 0.5 % Normal 0.2-2.0 [facility] Comment on above: Performed By: #### C BC #### [facility] [address] [place] [address] Dr. Pam Rodgers EO # 0.1 103/ul Normal 0.0-0.7 [facility] Comment on above: Performed By: #### C BC #### [facility] [address] [place] [address] Dr. Pam Rodgers Eosinophils/100 WBC (Bld) 1.1 % Normal 0.9-7.0 [facility] Comment on above: Performed By: #### C BC #### [facility] [address] [place] [address] Dr. Pam Rodgers Erythrocyte distribution width (RBC) [Ratio] 17.7 % Critically high 11.0-15.0 [facility] Comment on above: Performed By: #### C BC #### [facility] [address] [place] [address] Dr. Pam Rodgers Hematocrit (Bld) [Volume fraction] 38.4 % Normal 36.0-48.0 [facility] Comment on above: Performed By: #### C BC #### [facility] [address] [place] [address] Dr. Pam Rodgers Hemoglobin (Bld) [Mass/Vol] 12.6 g/dL Normal 12.0-16.0 [facility] Comment on above: Performed By: #### C BC #### [facility] [address] [place] [address] Dr. Pam Rodgers IG # 0.03 10e3/ul Normal 0.00-0.03 [facility] Comment on above: Performed By: #### C BC #### [facility] [address] [place] [address] Dr. Pam Rodgers IG % 0.4 % Normal 0.0-0.5 [facility] Comment on above: Performed By: #### C BC #### [facility] [address] [place] [address] Dr. Pam Rodgers LYMPH # 1.4 103/ul Normal 1.2-3.8 [facility] Comment on above: Performed By: #### C BC #### [facility] [address] [place] [address] Dr. Pam Rodgers Lymphocytes/100 WBC (Bld) 18.3 % Critically low 20.5-60.0 [facility] Comment on above: Performed By: #### C BC #### [facility] [address] [place] [address] Dr. Pam Rodgers MANUAL DIFF REQ NO Normal [facility] Comment on above: Performed By: #### C BC #### [facility] [address] [place] [address] Dr. Pam Rodgers MCH (RBC) [Entitic mass] 27.9 pg Normal 26.7-34.0 [facility] Comment on above: Performed By: #### C BC #### [facility] [address] [place] [address] Dr. Pam Rodgers MCHC (RBC) [Mass/Vol] 32.8 g/dL Normal 29.9-35.2 [facility] Comment on above: Performed By: #### C BC #### [facility] [address] [place] [address] Dr. Pam Rodgers MCV (RBC) [Entitic vol] 85.1 fL Normal 81.0-99.0 [facility] Comment on above: Performed By: #### C BC #### [facility] [address] [place] [address] Dr. Pam Rodgers MONO # 0.6 103/ul Normal 0.3-0.8 [facility] Comment on above: Performed By: #### C BC #### [facility] [address] [place] [address] Dr. Pam Rodgers Monocytes/100 WBC (Bld) 7.3 % Normal 1.7-12.0 [facility] Comment on above: Performed By: #### C BC #### [facility] [address] [place] [address] Dr. Pam Rodgers NEUT # 5.7 103/ul Normal 1.4-6.5 [facility] Comment on above: Performed By: #### C BC #### [facility] [address] [place] [address] Dr. Pam Rodgers Neutrophils/100 WBC (Bld) 72.4 % Normal 43.0-75.0 [facility] Comment on above: Performed By: #### C BC #### [facility] [address] [place] [address] Dr. Pam Rodgers Platelet mean volume (Bld) [Entitic vol] 9.2 fL Critically low 9.5-13.5 [facility] Comment on above: Performed By: #### C BC #### [facility] [address] [place] [address] Dr. Pam Rodgers PLT 242 103/ul Normal 150-450 [facility] Comment on above: Performed By: #### C BC #### [facility] [address] [place] [address] Dr. Pam Rodgers RBC 4.51 106/ul Normal 4.20-5.40 [facility] Comment on above: Performed By: #### C BC #### [facility] [address] [place] [address] Dr. Pam Rodgers WBC 7.9 103/ul Normal 4.0-11.0 [facility] Comment on above: Performed By: #### C BC #### [facility] [address] [place] [address] HEAD WO CONon 12-27-2021 CT HEAD WO CON EXAMINATION: CT HEAD WO CON HISTORY: BENIGN PAROXYSMAL VERTIGO, UNSPECIFIED EAR COMPARISON: Correlation is made with MRI brain examination dated 08/15/2021. TECHNIQUE: CT examination of the head without IV contrast. Dose reduction techniques were achieved by using automated exposure control and/or adjustment of mA and/or kV according to patient size and/or use of iterative reconstruction technique. FINDINGS: There is mild generalized volume loss. The density of the cerebrum, brainstem, and cerebellum is unremarkable. There is no evidence of intracranial hemorrhage, mass, or midline shift. No extra-axial fluid collection is seen. The visualized paranasal sinuses and mastoid air cells are clear. No skull abnormalities are identified. IMPRESSION: 1. No acute intracranial abnormality. Electronically authenticated by: Mona OROSCO Date: 2021-12-26 23:43 Normal [facility] PROF 14(COMP METB)on 022 Albumin [Mass/Vol] 3.6 g/dL Normal 3.4-5.0 [facility] Comment on above: Performed By: #### C MP #### [facility] [address] [place] [address] Dr. Pam Rodgers Albumin/Globulin [Mass ratio] 1.1 {ratio} Normal [facility] Comment on above: Performed By: #### C MP #### [facility] [address] [place] [address] Dr. Pam Rodgers ALP [Catalytic activity/Vol] 77 U/L Normal 46-116 [facility] Comment on above: Performed By: #### C MP #### [facility] [address] [place] [address] Dr. Pam Rodgers ALT [Catalytic activity/Vol] 29 U/L Normal 14-59 [facility] Comment on above: Performed By: #### C MP #### [facility] [address] [place] [address] Dr. Pam Rodgers Anion gap [Moles/Vol] 11.2 mmol/L Normal [facility] Comment on above: Performed By: #### C MP #### [facility] [address] [place] [address] Dr. Pam Rodgers AST [Catalytic activity/Vol] 20 U/L Normal 15-37 [facility] Comment on above: Performed By: #### C MP #### [facility] [address] [place] [address] Dr. Pam Rodgers Bilirubin [Mass/Vol] 0.4 mg/dL Normal 0.2-1.0 [facility] Comment on above: Performed By: #### C MP #### [facility] [address] [place] [address] Dr. Pam Rodgers Calcium [Mass/Vol] 8.4 mg/dL Critically low 8.5-10.1 [facility] Comment on above: Performed By: #### C MP #### [facility] [address] [address] [address] Pam Rodgers Chloride [Moles/Vol] 104 mmol/L Normal 98-107 [facility] Comment on above: Performed By: #### C MP #### [facility] [address] [address] [address] Pam Rodgers CO2 [Moles/Vol] 27.7 mmol/L Normal 21.0-32.0 [facility] Comment on above: Performed By: #### C MP #### [facility] [address] [address] [address] Pam Rodgers Creatinine [Mass/Vol] 0.63 mg/dL Normal 0.55-1.02 [facility] Comment on above: Performed By: #### C MP #### [facility] [address] [place] [address] Dr. Pam Rodgers EGFR-AF [place] >60 Normal >=60 [facility] Comment on above: Performed By: #### C MP #### [facility] [address] [address] [address] Pam Rodgers EGFR-NON AF [place] >60 Normal >=60 [facility] Comment on above: Performed By: #### C MP #### [facility] [address] [address] [address] Pam Rodgers Globulin (S) [Mass/Vol] 3.2 g/dL Normal [facility] Comment on above: Performed By: #### C MP #### [facility] [address] [address] [address] Pam Rodgers Glucose [Mass/Vol] 131 mg/dL Critically high 74-106 [facility] Comment on above: Performed By: #### C MP #### [facility] [address] [address] [address] Pam Rodgers Potassium [Moles/Vol] 3.9 mmol/L Normal 3.5-5.1 [facility] Comment on above: Performed By: #### C MP #### [facility] [address] [address] [address] Pam Rodgers Protein [Mass/Vol] 6.8 g/dL Normal 6.4-8.2 [facility] Comment on above: Performed By: #### C MP #### [facility] [address] [address] [address] Pam Rodgers Sodium [Moles/Vol] 139 mmol/L Normal 136-145 [facility] Comment on above: Performed By: #### C MP #### [facility] [address] [address] [address] Pam Rodgers Urea nitrogen [Mass/Vol] 15.0 mg/dL Normal 7.0-18.0 [facility] Comment on above: Performed By: #### C MP #### [facility] [address] [address] [address] Pam Rodgers Urea nitrogen/Creatini ne [Mass ratio] 23.8 mg/mg Normal [facility] Comment on above: Performed By: #### C MP #### [facility] [address] [address] [address] Pam Rodgers Vital Signs Date Time Vital Sign Value Performing Clinician Facility 12-19-2023 11:55-0400 Body height 170.[address] [facility] 12-19-2023 11:55-0400 Body mass index (BMI) [Ratio] 25 kg/m2 [facility] 12-19-2023 11:55-0400 Body temperature 98.3 [degF] [facility] 12-19-2023 11:55-0400 Body weight 72.[address] [facility] 12-19-2023 11:55-0400 Diastolic blood pressure 81 mm[Hg] [facility] 12-19-2023 11:55-0400 Heart rate 80 /min [facility] 12-19-2023 11:55-0400 Systolic blood pressure 144 mm[Hg] [facility] 11-27-2023 08:33-0400 Body height 170.[address] [facility] 11-27-2023 08:33-0400 Body mass index (BMI) [Ratio] 25.3 kg/m2 [facility] 11-27-2023 08:33-0400 Body weight 73.[address] [facility] 11-27-2023 08:33-0400 Diastolic blood pressure 82 mm[Hg] [facility] 11-27-2023 08:33-0400 Heart rate 80 /min [facility] 11-27-2023 08:33-0400 Systolic blood pressure 159 mm[Hg] [facility] 11-26-2023 09:18-0400 Body temperature 98.06 [degF] Sanam Or[facility] 11-26-2023 09:18-0400 Diastolic blood pressure 87 mm[Hg] Sanam Orzech [facility] 11-26-2023 09:18-0400 Heart rate 84 /min Sanam Orzech [facility] 11-26-2023 09:18-0400 Respiratory rate 16 /min Sanam Orzech [facility] 11-26-2023 09:18-0400 Systolic blood pressure 139 mm[Hg] Sanam Orzech [facility] 10-29-2023 08:35-0400 Body height 170.[address] [facility] 10-29-2023 08:35-0400 Body mass index (BMI) [Ratio] 25 kg/m2 [facility] 10-29-2023 08:35-0400 Body weight 72.[address] [facility] 10-29-2023 08:35-0400 Diastolic blood pressure 78 mm[Hg] [facility] [facility] 10-29-2023 08:35-0400 Heart rate 87 /min [facility] 10-29-2023 08:35-0400 Systolic blood pressure 142 mm[Hg] [facility] 09-02-2023 09:25-0500 Body height 170.18 cm Stephanie Stanislaw Other [employer] Other 09-02-2023 09:25-0500 Body mass index (BMI) [Ratio] 25.06 kg/m2 Stephanie Stanislaw Other [employer] Other 09-02-2023 09:25-0500 Body temperature 99.8 [degF] Stephanie Stanislaw Other [employer] Other 09-02-2023 09:25-0500 Body weight 72.58 kg Stephanie Stanislaw Other [employer] Other 09-02-2023 09:25-0500 Respiratory rate 18 /min Stephanie Stanislaw Other [facility] Other 09-02-2023 09:25-0500 SaO2% (BldA) [Mass fraction] 97 % Stephanie Stanislaw Other [facility] Other 05-17-2023 09:30-0400 Body height 170.18 cm Shruthi Boyle Other [employer] Other 05-17-2023 09:30-0400 Body mass index (BMI) [Ratio] 25.21 kg/m2 Shruthi Boyle Other [employer] Other 05-17-2023 09:30-0400 Body weight 73.03 kg Shruthi Boyle Other [employer] Other 05-17-2023 09:30-0400 Diastolic blood pressure 74 mm[Hg] Shruthi Boyle Other [employer] Other 05-17-2023 09:30-0400 Systolic blood pressure 144 mm[Hg] Shruthi Boyle Other [employer] Other 03-08-2023 10:30-0400 Body height 170.18 cm Simone Ball Other [employer] Other 03-08-2023 10:30-0400 Body mass index (BMI) [Ratio] 25.09 kg/m2 Simone Ball Other [facility] Other 03-08-2023 10:30-0400 Body weight 72.67 kg Simone Ball Other [employer] [facility] Other 03-08-2023 10:30-0400 Diastolic blood pressure 77 mm[Hg] Simone Ball Other [employer] [facility] Other 03-08-2023 10:30-0400 Respiratory rate 12 /min Simone Ball Other [employer] [facility] Other 03-08-2023 10:30-0400 Systolic blood pressure 160 mm[Hg] Siomne Ball Other [employer] [facility] Other 08-31-2022 11:03-0500 Blood Pressure Location Alonso CRUZ [facility] 08-31-2022 11:03-0500 Diastolic blood pressure 83 mm[Hg] Alonso CRUZ [facility] 08-31-2022 11:03-0500 Heart rate 80 /min Alonso CRUZ [facility] 08-31-2022 11:03-0500 Respiratory rate 16 /min Alonso CRUZ [facility] 08-31-2022 11:03-0500 Systolic blood pressure 130 mm[Hg] Alonso CRUZ [facility] 12-11-2021 17:30-0400 Body temperature 97.9 [degF] Gabriella Leongmond Other [facility] Other 12-11-2021 17:30-0400 Respiratory rate 18 /min Gabriella Leongmond Other [facility] Other 12-11-2021 17:30-0400 SaO2% (BldA) [Mass fraction] 98 % Gabriella Means Other [employer] Other Encounters Encounter Date Encounter Type Care Provider Facility Start: 12-19-2023 End: 12-19-2023 ambulatory [facility] Work Phone: Start: 12-19-2023 End: 12-19-2023 Patient encounter procedure [facility] Work Phone: Start: 11-27-2023 End: 11-27-2023 ambulatory [facility] Work Phone: Start: 11-27-2023 End: 11-27-2023 Patient encounter procedure [facility] Work Phone: Start: 11-26-2023 End: 11-27-2023 ambulatory Sanam X Orzech Facility:[facility] Start: 11-26-2023 End: 11-26-2023 Patient encounter procedure Sanam X Orzech [facility] Start: 11-19-2023 ambulatory Alonso Quintanillai ty:ELVIN Stern Start: 10-29-2023 End: 10-29-2023 ambulatory [facility] Work Phone: Start: 10-29-2023 End: 10-29-2023 Patient encounter procedure [facility] Work Phone: Start: 10-21-2023 Non-patient / Non-visit [facility] [employer] Work Phone: Start: 09-02-2023 End: 09-02-2023 ambulatory Stephanienato Corderob Other [employer] Other Start: 09-02-2023 Office outpatient vi sit 15 minutes Stephanie Stanislaw [facility] Start: 09-02-2023 Telephone encounter Shruthi Montana [facility] Start: 08-06-2023 End: 08-06-2023 ambulatory Shruthi Boyle Other [facility] Other Start: 08-06-2023 Telephone encounter [facility]ruthi Boyle [facility] Start: 08-05-2023 End: 08-05-2023 ambulatory Shruthi Boyle Other [facility] Other Start: 08-05-2023 Encounter by compute r link Shruthi Boyle [facility] Start: 07-10-2023 End: 07-10-2023 ambulatory Shruthi Boyle Other [facility] Other Start: 07-10-2023 Office outpatient vi sit [address] [facility] Start: 05-17-2023 End: 05-17-2023 ambulatory Shruthi Boyle Other [employer] Other Start: 05-17-2023 Office outpatient vi sit [address] [facility] Start: 05-10-2023 End: 05-10-2023 ambulatory Shruthi Boyle Other [facility] Other Start: 05-10-2023 Telephone encounter Shruthi Boyle [facility] Start: 04-01-2023 End: 04-01-2023 ambulatory Shruthi Boyle Other [facility] Other Start: 04-01-2023 Telephone encounter Shruthi Boyle [facility] Start: 03-08-2023 End: 03-08-2023 ambulatory Simone Muhammad Other [facility] Other Start: 03-08-2023 Office outpatient vi sit [address] [facility] Start: 09-26-2022 End: 09-27-[address] SIMONE MUHAMMAD Facility:[facility] Start: 08-31-2022 End: 08-31-2022 Patient encounter procedure Alonso CRUZ [facility] Start: 08-03-2022 End: 08-03-2022 ambulatory Shruthi Boyle Other [facility] Other Start: 08-03-2022 Telephone encounter [facility]ruthi Boyle [facility] Start: 01-04-2022 End: 01-05-[address] SIMONE MUHAMMAD Facility:[facility] Start: 12-27-2021 End: 12-27-[address] SHRUTHI BOYLE Facility:[facility] Start: 12-11-2021 End: 12-11-2021 ambulatory Gabriella Means Other [facility] Other Start: 12-11-2021 Office outpatient ne w 20 minutes Gabriella Means [facility] Procedures Date Procedure Procedure Detail Performing Clinician Cholecystectomy Alonso MATIAS Colonoscopy Alonso CRUZ Hyperlipidemia (disorder) Jacek CRUZ Hypertensive disorde r, systemic arterial (disorder) Alonso CRUZ Tonsillectomy Alonso CRUZ Plan of Treatment Date Care Activity Detail Author MG Breast - bilateral Screening [facility] US Heart Transthoracic [facility] XR Hand - left GE 3 Views Fi [facility] ER Immunizations Immunization Date Immunization Notes Care Provider J Luis mireles 05-22-2023 influenza virus vaccine, unspecified formulation [facility] 04-30-2022 influenza virus vaccine, split virus (incl. purified surface antigen) Simone Muhammad Other [employer] Other 04-30-2022 influenza virus vaccine, unspecified formulation [facility] 12-11-2021 tetanus and diphther ia toxoids, adsorbed, preservative free, for adult use (5 Lf of tetanus toxoid and 2 Lf of diphtheria toxoid) Gabriella Clary Other [facility] 12-11-2021 tetanus and diphther ia toxoids, adsorbed, preservative free, for adult use (2 Lf of tetanus toxoid and 2 Lf of diphtheria toxoid) [facility] 09-01-2021 SARS-CoV-2 mRNA (rnrkjablakw-vhrq-asfyw se) vaccine [facility] 05-24-2021 influenza virus vaccine, split virus (incl. purified surface antigen) Simone Muhammad Other [employer] Other 05-24-2021 influenza virus vaccine, unspecified formulation [facility] 02-02-2021 COVID-19 Vaccine Pfi zer - Documentation Purposes Only Simone Muhammad Other [facility] 01-12-2021 COVID-19 Vaccine Pfi zer - Documentation Purposes Only Simone Muhammad Other [facility] 07-22-2020 SARS-CoV-2 (COVID-19 ) mRNA BNT-162b2 vax Alonso ANTHONY [facility] 05-12-2020 influenza virus vaccine, unspecified formulation [facility] 04-26-2020 influenza virus vaccine, split virus (incl. purified surface antigen) Simone Muhammad Other [employer] [facility] [employer] Other 04-26-2020 influenza virus vaccine, unspecified formulation [facility] 05-21-2019 influenza virus vaccine, split virus (incl. purified surface antigen) Simone Muhammad Other [facility] [employer] Other 05-21-2019 influenza virus vaccine, unspecified formulation [facility] 06-05-2018 influenza virus vaccine, split virus (incl. purified surface antigen) Simone Muhammad Other [facility] [employer] Other 06-05-2018 influenza virus vaccine, unspecified formulation [facility] 06-05-2018 pneumococcal polysaccharide vaccine, 23 valent Simone Muhammad Other [facility] 04-10-2017 influenza virus vaccine, split virus (incl. purified surface antigen) Simone Muhammad Other [facility] [employer] Other 04-10-2017 influenza virus vaccine, unspecified formulation [facility] 04-10-2017 pneumococcal conjuga te vaccine, 13 valent Simone Muhammad Other [facility] 05-07-2016 influenza virus vaccine, unspecified formulation Sanam Salas [facility] 07-05-2014 zoster vaccine, live Benjami yoni Muhammad Other [facility] 05-05-2013 tetanus and diphther ia toxoids, adsorbed, preservative free, for adult use (5 Lf of tetanus toxoid and 2 Lf of diphtheria toxoid) Simone Muhammad Other [facility] Payers Date Payer Category Payer Medicare [id number] [id number] [id number] 1958 Unknown [id number] 1950 Unknown [id number] 1950 Unknown [id number] 1950 Unknown [id number] 1950 Unknown [id number] 1950 Unknown [id number] Social History Date Type Detail Facility Unknown if ever smoked [employer] Other Sex Assigned At [facility] Start: 11-04-2020 End: 11-27-2023 Tobacco smoking status Ex-smoker (finding) [facility] Start: 1950 Sex Assigned At Female [facility] Functional Status Date Assessment Result Facility 11-26-2023 Functional Status N/A [facility] 08-31-2022 Functional Status N/A [facility] Clinical Notes 12-11-2021 to 11-26-2023 Note Date & Type Note Facility 11-26-2023 Hospital Discharg e instructions Patient Education 11/26/2023 09:47:56 Atrophic Vaginitis Atrophic Vaginitis Atrophic vaginitis is a condition in which the tissues that line the vagina become dry and thin. This condition is most common in women who have stopped having regular menstrual periods (are in menopause). This usually starts when a woman is 45 to 55 years old. That is the time when a woman's estrogen levels begin to decrease. Estrogen is a female hormone. It helps to keep the tissues of the vagina moist. It stimulates the vagina to produce a clear fluid that lubricates the vagina for sex. This fluid also protects the vagina from infection. Lack of estrogen can cause the lining of the vagina to get thinner and dryer. The vagina may also shrink in size. It may become less elastic. Atrophic vaginitis tends to get worse over time as a woman's estrogen level drops. What are the causes? This condition is caused by the normal drop in estrogen that happens around the time of menopause. What increases the risk? Certain conditions or situations may lower a woman's estrogen level, leading to a higher risk for atrophic vaginitis. You are more likely to develop this condition if: You are taking medicines that block estrogen. You have had your ovaries removed. You are being treated for cancer with radiation or medicines (chemotherapy). You have given or are . You are older than age 50. You smoke. What are the signs or symptoms? Symptoms of this condition include: Pain, soreness, a feeling of pressure, or bleeding during sex (dyspareunia). Vaginal burning, irritation, or itching. Pain or bleeding when a speculum is used in a vaginal exam. Having burning pain while urinating. Vaginal discharge. In some cases, there are no symptoms. How is this diagnosed? This condition is diagnosed based on your medical history and a physical exam. This will include a pelvic exam that checks the vaginal tissues. Though rare, you may also have other tests, including: A urine test. A test that checks the acid balance in your vagina (acid balance test). How is this treated? Treatment for this condition depends on how severe your symptoms are. Treatment may include: Using an cycq-gwc-hyhukke vaginal lubricant before sex. Using a long-acting vaginal moisturizer. Using low-dose estrogen for moderate to severe symptoms that do not respond to other treatments. Options include creams, tablets, and inserts (vaginal rings). Before you use a vaginal estrogen, tell your health care provider if you have a history of: ?Breast cancer. ?Endometrial cancer. ?Blood clots. If you are not sexually active and your symptoms are very mild, you may not need treatment. Follow these instructions at home: Medicines Take njko-qyk-lspkizu and prescription medicines only as told by your health care provider. Do not use herbal or alternative medicines unless your health care provider says that you can. Use fvfp-uuz-ujajxem creams, lubricants, or moisturizers for dryness only as told by your health care provider. General instructions If your atrophic vaginitis is caused by menopause, discuss all of your menopause symptoms and treatment options with your health care provider. Do not douche. Do not use products that can make your vagina dry. These include: ?Scented feminine sprays. ?Scented tampons. ?Scented soaps. Vaginal sex can help to improve blood flow and elasticity of vaginal tissue. If you choose to have sex and it hurts, try using a water-soluble lubricant or moisturizer right before having sex. Contact a health care provider if: Your discharge looks different than normal. Your vagina has an unusual smell. You have new symptoms. Your symptoms do not improve with treatment. Your symptoms get worse. Summary Atrophic vaginitis is a condition in which the tissues that line the vagina become dry and thin. It is most common in women who have stopped having regular menstrual periods (are in menopause). Treatment options include using vaginal lubricants and low-dose vaginal estrogen. Contact a health care provider if your vagina has an unusual smell, or if your symptoms get worse or do not improve after treatment. This information is not intended to replace advice given to you by your health care provider. Make sure you discuss any questions you have with your health care provider. Document Revised: 01/05/2021 Document Reviewed: 01/05/2021 [employer] Patient Education 2022 [employer]. 11/26/2023 09:47:53 Urinary Incontinence Urinary Incontinence Urinary incontinence refers to a condition in which a person is unable to control where and when to pass urine. A person with this condition will urinate involuntarily. This means that the person urinates when he or she does not mean to. What are the causes? This condition may be caused by: Medicines. Infections. Constipation. Overactive bladder muscles. Weak bladder muscles. Weak pelvic floor muscles. These muscles provide support for the bladder, intestine, and, in women, the uterus. Enlarged prostate in men. The prostate is a gland near the bladder. When it gets too big, it can pinch the urethra. With the urethra blocked, the bladder can weaken and lose the ability to empty properly. Surgery. Emotional factors, such as anxiety, stress, or post-traumatic stress disorder (PTSD). Spinal cord injury, nerve injury, or other neurological conditions. Pelvic organ prolapse. This happens in women when organs move out of place and into the vagina. This movement can prevent the bladder and urethra from working properly. What increases the risk? The following factors may make you more likely to develop this condition: Age. The older you are, the higher the risk. Obesity. Being physically inactive. and childbirth. Menopause. Diseases that affect the nerves or spinal cord. Long-term, or chronic, coughing. This can increase pressure on the bladder and pelvic floor muscles. What are the signs or symptoms? Symptoms may vary depending on the type of urinary incontinence you have. They include: A sudden urge to urinate, and passing urine involuntarily before you can get to a bathroom (urge incontinence). Suddenly passing urine when doing activities that force urine to pass, such as coughing, laughing, exercising, or sneezing (stress incontinence). Needing to urinate often but urinating only a small amount, or constantly dribbling urine (overflow incontinence). Urinating because you cannot get to the bathroom in time due to a physical disability, such as arthritis or injury, or due to a communication or thinking problem, such as Alzheimer's disease (functional incontinence). How is this diagnosed? This condition may be diagnosed based on: Your medical history. A physical exam. Tests, such as: ?Urine tests. ?X-rays of your kidney and bladder. ?Ultrasound. ?CT scan. ?Cystoscopy. In this procedure, a health care provider inserts a tube with a light and camera (cystoscope) through the urethra and into the bladder to check for problems. ?Urodynamic testing. These tests assess how well the bladder, urethra, and sphincter can store and release urine. There are different types of urodynamic tests, and they vary depending on what the test is measuring. To help diagnose your condition, your health care provider may recommend that you keep a log of when you urinate and how much you urinate. How is this treated? Treatment for this condition depends on the type of incontinence that you have and its cause. Treatment may include: Lifestyle changes, such as: ?Quitting smoking. ?Maintaining a healthy weight. ?Staying active. Try to get 150 minutes of moderate-intensity exercise every week. Ask your health care provider which activities are safe for you. ?Eating a healthy diet. ?Avoid high-fat foods, like fried foods. ?Avoid refined carbohydrates like white bread and white rice. ?Limit how much alcohol and caffeine you drink. ?Increase your fiber intake. Healthy sources of fiber include beans, whole grains, and fresh fruits and vegetables. Behavioral changes, such as: ?Pelvic floor muscle exercises. ?Bladder training, such as lengthening the amount of time between bathroom breaks, or using the bathroom at regular intervals. ?Using techniques to suppress bladder urges. This can include distraction techniques or controlled breathing exercises. Medicines, such as: ?Medicines to relax the bladder muscles and prevent bladder spasms. ?Medicines to help slow or prevent the growth of a man's prostate. ?Botox injections. These can help relax the bladder muscles. Treatments, such as: ?Using pulses of electricity to help change bladder reflexes (electrical nerve stimulation). ?For women, using a medical record consultant to prevent urine leaks. This is a small, tampon-like, disposable device that is inserted into the urethra. ?Injecting collagen or carbon beads (bulking agents) into the urinary sphincter. These can help thicken tissue and close the bladder opening. ?Surgery. Follow these instructions at home: Lifestyle Limit alcohol and caffeine. These can fill your bladder quickly and irritate it. Keep yourself clean to help prevent odors and skin damage. Ask your health care provider about special skin creams and cleansers that can protect the skin from urine. Consider wearing pads or adult diapers. Make sure to change them regularly, and always change them right after experiencing incontinence. General instructions Take pvod-ued-nnbkrsn and prescription medicines only as told by your health care provider. Use the bathroom about every 3 4 hours, even if you do not feel the need to urinate. Try to empty your bladder completely every time. After urinating, wait a minute. Then try to urinate again. Make sure you are in a relaxed position while urinating. If your incontinence is caused by nerve problems, keep a log of the medicines you take and the times you go to the bathroom. Keep all follow-up visits. This is important. Where to find more information [employer] [place] of [employer] and [employer]estive and Kidney Diseases: www.niddk.nih.gov [employer]: www.urologyhealth.org Contact a health care provider if: You have pain that gets worse. Your incontinence gets worse. Get help right away if: You have a fever or chills. You are unable to urinate. You have redness in your groin area or down your legs. Summary Urinary incontinence refers to a condition in which a person is unable to control where and when to pass urine. This condition may be caused by medicines, infection, weak bladder muscles, weak pelvic floor muscles, enlargement of the prostate (in men), or surgery. Factors such as older age, obesity, and childbirth, menopause, neurological diseases, and chronic coughing may increase your risk for developing this condition. Types of urinary incontinence include urge incontinence, stress incontinence, overflow incontinence, and functional incontinence. This condition is usually treated first with lifestyle and behavioral changes, such as quitting smoking, eating a healthier diet, and doing regular pelvic floor exercises. Other treatment options include medicines, bulking agents, medical devices, electrical nerve stimulation, or surgery. This information is not intended to replace advice given to you by your health care provider. Make sure you discuss any questions you have with your health care provider. Document Revised: 02/10/2021 Document Reviewed: 02/10/2021 [employer] Patient Education 2022 [employer]. 11/26/2023 09:47:52 Kegel Exercises Kegel Exercises Kegel exercises can help strengthen your pelvic floor muscles. The pelvic floor is a group of muscles that support your rectum, small intestine, and bladder. In females, pelvic floor muscles also help support the uterus. These muscles help you control the flow of urine and stool (feces). Kegel exercises are painless and simple. They do not require any equipment. Your provider may suggest Kegel exercises to: Improve bladder and bowel control. Improve sexual response. Improve weak pelvic floor muscles after surgery to remove the uterus (hysterectomy) or after , in females. Improve weak pelvic floor muscles after prostate gland removal or surgery, in males. Kegel exercises involve squeezing your pelvic floor muscles. These are the same muscles you squeeze when you try to stop the flow of urine or keep from passing gas. The exercises can be done while sitting, standing, or lying down, but it is best to vary your position. Ask your health care provider which exercises are safe for you. Do exercises exactly as told by your health care provider and adjust them as directed. Do not begin these exercises until told by your health care provider. Exercises How to do Kegel exercises: 1.Squeeze your pelvic floor muscles tight. You should feel a tight lift in your rectal area. If you are a female, you should also feel a tightness in your vaginal area. Keep your stomach, buttocks, and legs relaxed. 2.Hold the muscles tight for up to 10 seconds. 3.Breathe normally. 4.Relax your muscles for up to 10 seconds. 5.Repeat as told by your health care provider. Repeat this exercise daily as told by your health care provider. Continue to do this exercise for at least 4 6 weeks, or for as long as told by your health care provider. You may be referred to a physical therapist who can help you learn more about how to do Kegel exercises. Depending on your condition, your health care provider may recommend: Varying how long you squeeze your muscles. Doing several sets of exercises every day. Doing exercises for several weeks. Making Kegel exercises a part of your regular exercise routine. This information is not intended to replace advice given to you by your health care provider. Make sure you discuss any questions you have with your health care provider. Document Revised: 11/16/2021 Document Reviewed: 11/16/2021 [employer] Patient Education 2022 [employer]. Follow Up Care 08/31/2022 11:36:52 With:ANA LUISA Salas APRN, CHRISTOPHER Mcclelland, URL Address: When: Unknown Comments:1 year [facility] 11-26-2023 Note - From: Silvia Mckenzie To: EU - Administrative; Sent: 11/26/2023 09:38:12 EDT Show up: 11/26/2023 09:38:00 EDT Subject: Ambulatory Reminder Reminder/Recall Patient needs scheduled for a 1 yr follow up with [facility] office, around 11/28/[address] [facility] 09-02-2023 Evaluation note Encounter Date Diagnosis Assessment Notes Aug, Acute cough (ICD-10 - R05.1) Aug, Uvulitis (ICD-10 - K12.2) This. Plenty of fluids. Take ejpr-tfp-hiwith r Tylenol Motrin as needed for fever or discomfort. Take the antibiotic azithromycin as prescribed. As discussed follow-up with your primary care provider if symptoms persist or go to the ER if symptoms worsen or you develop difficulty swallowing difficulty breathing. Patient is a 72-year-old female who presents to urgent care with complaints of sore throat, nasal congestion, runny nose, fever, chills for the past day and a half. Patient denies any nausea, vomiting, diarrhea. Patient states that the symptoms slightly improved last night but worsened again today. Patient was swabbed during the visit for COVID and flu and was negative. Exam of the patient is indicative of uvulitis with a swollen uvula erythematous with exudate present. Patient has an erythematous posterior pharynx as well. No white patches present. Tonsils are surgically absent. Patient is being diagnosed with uvulitis likely of bacterial nature and prescribed azithromycin to take as directed. She is to follow-up with her primary care provider if symptoms persist or go to the ER if symptoms worsen and she can continue with rest, fluids, Tylenol Motrin chrs-fcw-aghbip r for fever or discomfort. [employer] [facility] 01-16-2024 Evaluation note* Encounter Date Diagnosis Assessment Notes Treatment Notes Treatment Clinical Notes Jul, Hypothyroid (ICD-10 - E03.9) [facility] 12-20-2023 Evaluation note* Encounter Date Diagnosis Assessment Notes Treatment Notes Treatment Clinical Notes Jun, Acute COVID-19 (ICD-10 - U07.1) Discussed quarantine protocol. had COVID before her. She agrees to the steroid and inhaler due to chest tightness. Tara understands to hold her lipitor while on paxlovid. [facility] 10-27-2023 Evaluation note* Encounter Date Diagnosis Assessment Notes Treatment Notes Treatment Clinical Notes Apr, Hypothyroid (ICD-10 - E03.9) Increased dose. Recheck labs in ~6 weeks. Chronic problem. Monitor results. [facility] 08-18-2023 Evaluation note* Encounter Date Diagnosis Assessment Notes Treatment Notes Treatment Clinical Notes Feb, Cellulitis of left upper extremity (ICD-10 - L03.114) Elevate and warm compresses. Call if worsens over the weekend. Warned about increased sun sensitivity w/ antibiotics Feb, Primary hypertension (ICD-10 - I10) This patient is instructed to consume a healthy, low-fat, low-salt diet. They are also encouraged to continue exercise to achieve/maintain a normal BMI. Patient is instructed on home BP measurements: - rest for 5 minutes w/o talking- positioned w/ feet on floor and arm supported- average best 2/3 readings w/ goal < 135-85 [facility] 02-10-2023 Hospital Discharge instructions Patient Education 08/31/2022 11:29:59 Atrophic Vaginitis Atrophic Vaginitis Atrophic vaginitis is a condition in which the tissues that line the vagina become dry and thin. This condition is most common in women who have stopped having regular menstrual periods (are in menopause). This usually starts when a woman is 45 55 years old. That is the time when a woman's estrogenlevels begin to drop (decrease). Estrogen is a female hormone. It helps to keep the tissues of the vagina moist. It stimulates the vagina to produce a clear fluid that lubricates the vagina for sexual intercourse. This fluid also protects the vagina from infection. Lack of estrogen can cause the lining of the vagina to get thinnerand dryer. The vagina may also shrink in size. It may become less elastic. Atrophic vaginitis tendsto get worse over time as a woman's estrogen level drops. What are the causes? This condition is caused by the normal drop in estrogen that happens around the time of menopause. What increases the risk? Certain conditions or situations may lower a woman's estrogen level, leading to a higher risk for atrophic vaginitis. You are more likely to develop this condition if: You are taking medicines that block estrogen. You have had your ovaries removed. You are being treated for cancer with X-ray (radiation) or medicines (chemotherapy). You have given or are . You are older than age 50. You smoke. What are the signs or symptoms? Symptoms of this condition include: Pain, soreness, or bleeding during sexual intercourse (dyspareunia). Vaginal burning, irritation, or itching. Pain or bleeding when a speculum is used in a vaginal exam (pelvic exam). Having burning pain when passing urine. Vaginal discharge that is brown or yellow. In some cases, there are no symptoms. How is this diagnosed? This condition is diagnosed by taking a medical history and doing a physical exam. This will include a pelvic exam that checks the vaginal tissues. Though rare, you may also have other tests, including: A urine test. A test that checks the acid balance in your vagina (acid balance test). How is this treated? Treatment for this condition depends on how severe your symptoms are. Treatment may include: Using an aont-bcj-cyjpplx vaginal lubricant before sex. Using a long-acting vaginal moisturizer. Using low-dose vaginal estrogen for moderate to severe symptoms that do not respond to other treatments. Options include creams, tablets, and inserts (vaginal rings). Before you use a vaginal estrogen, tell your health care provider if you have a history of: ?Breast cancer. ?Endometrial cancer. ?Blood clots. If you are not sexually active and your symptoms are very mild, you may not need treatment. Follow these instructions at home: Medicines Take exwd-kgq-qrxbzcr and prescription medicines only as told by your health care provider. Do not use herbal or alternative medicines unless your health care provider says that you can. Use lvsz-xtd-rrvclyp creams, lubricants, or moisturizers for dryness only as directed by your health care provider. General instructions If your atrophic vaginitis is caused by menopause, discuss all of your menopause symptoms and treatment options with your health care provider. Do not douche. Do not use products that can make your vagina dry. These include: ?Scented feminine sprays. ?Scented tampons. ?Scented soaps. Vaginal intercourse can help to improve blood flow and elasticity of vaginal tissue. If it hurts tohave sex, try using a lubricant or moisturizer just before having intercourse. Contact a health care provider if: Your discharge looks different than normal. Your vagina has an unusual smell. You have new symptoms. Your symptoms do not improve with treatment. Your symptoms get worse. Summary Atrophic vaginitis is a condition in which the tissues that line the vagina become dry and thin. Itis most common in women who have stopped having regular menstrual periods (are in menopause). Treatment options include using vaginal lubricants and low-dose vaginal estrogen. Contact a health care provider if your vagina has an unusual smell, or if your symptoms get worse or do not improve after treatment. This information is not intended to replace advice given to you by your health care provider. Make sure you discuss any questions you have with your health care provider. Document Released: 11/22/2015 Document Revised: 06/20/2018 Document Reviewed: 04/03/2018 [employer] Patient Education 2020 [employer]. Follow Up Care 08/28/2021 15:08:21 With:ANTHONY BYRD, Alonso Woodard, URL Address: [address] [place] [address]- When: Unknown [facility] 05-23-2022 Evaluation note* Encounter Date Diagnosis Assessment Notes Treatment Notes Treatment Clinical Notes November, Laceration of right thumb without foreign body without damage to nail, initial encounter (ICD-10 - S61.011A) Keep the wound clean and dry. Apply antibiotic ointment and a Band-Aid to the wound daily and change whenever it becomes dirty or wet. You may shower without covering the wound. Do not do dishes until the wound is completely healed. If he have to do dishes wear gloves. Have the stitches removed in 10 days by your physician, at this urgent care or any urgent care or emergency room. November, Other Laceration repa ir material was printed [employer] Other Evaluation + Plan note Future Appointments Appointment Date:09/06/2023 11:45:00 AM Scheduled Provider:Alonso CRUZ MD Location:[facility] Appointment Type:URO Office Visit [facility] evaluation noteNo Information[employer] Other Evaluation note* Diagnosis Onset Date Resolution Status Left hand pain acute [facility] Work Phone: Evaluation note* Diagnosis Onset Date Resolution Status Left hand pain acute Dyspnea on exertion acute Medicare annual wellness visit, subsequent acute [facility] Work Phone: Evaluation note* Diagnosis Onset Date Resolution Status Left hand pain acute Dyspnea on exertion acute Hyperlipidemia acute Hypertension acute Hypothyroid acute Medicare annual wellness visit, subsequent acute Screening mammogram, encounter for acute [facility] Work Phone: History general Narrative - Reported* Type Description Date Medical History High blood pressure Medical History High cholesterol Medical History Thyroid disease Surgical History tonsillectomy and adenoidectomy Surgical History laparoscopy cholecystectomy Surgical History D&C Hospitalization History Cellulitis [employer] [facility] Other History general Narrative - Reported* Type Description Date Medical History High blood pressure Medical History High cholesterol Medical History Thyroid disease Medical History Hypothyroid Medical History Abnormal EKG Medical History Diverticulitis Medical History Hyperlipidemia Medical History Tinnitus, right Medical History Hypertension Medical History Dyspnea on exertion Medical History Nausea alone Surgical History tonsillectomy and adenoidectomy Surgical History laparoscopy cholecystectomy Surgical History D&C Hospitalization History Cellulitis Hospitalization History SEE SRUGICAL HX [facility] [facility] Other Hospital course Narrative No data available for this section [facility] [employer] progress note No data available for this section [facility] [employer] Summary Purpose Family History Relationship Condition Age at Onset Recorded Date/T corky brother Heart disease Unknown Diabetes mellitus Unknown father Unknown Heart disease Unknown Not Specified Unknown Malignant neoplasm Unknown Advance Directives Advance Directive Response Recorded Date/ Time Advance Directives No October 20 10:14am Chief Complaint and Reason for Visit Chief Complaint Amb Documentation Finger Reason for Visit Left hand pain Chief Complaint Amb Documentation Finger Medicare Wellness Reason for Visit Left hand pain Dyspnea on exertion Medicare annual wellness visit, subsequent Chief Complaint Amb Documentation Finger Medicare Wellness cough Reason for Visit Left hand pain Dyspnea on exertion Hyperlipidemia Hypertension Hypothyroid Medicare annual wellness visit, subsequent Screening mammogram, encounter for Additional Source Comments REASON FOR VISIT (unrecogniz ed section and content) RIGHT THUMB LACERATIONNew Pa tient?left arm pain/rashRefilllab resultslab [phone] possible COVIDUpdate Demographics - Personal InfoUpdate Demographics - Personal InfolabsRefillCOUGH, CONGESTION, BODYACHES, FEVERSNo Information Patient Care team informatio n (unrecognized section and content) Team Status: Active Member Role Status Dates Shruthi Boyle MD Primary Care Provider Active Team Status: Active Member Role Status Dates Shruthi Boyle MD Primary Care Provider Active Start: October 21, 2023 HERIBERTO Triana Attending Provider Active Start : October 21, 2023 Team Status: Inactive Member Role Status Dates Shruthi Boyle MD Primary Care Provide r, Attending Provider Active Start: October 29, 2023 End: October 29, 2023 Team Status: Inactive Member Role Status Dates Shruthi Boyle MD Primary Care Provide r, Attending Provider Active Start: November 27, 2023 End: November 27, 2023 Team Status: Inactive Member Role Status Dates Shruthi Boyle MD Primary Care Provide r, Attending Provider Active Start: December 19, 2023 End: December 19, 2023 INFORMATION SOURCE (unrecogn ized section and content) DATE CREATED AUTHOR 09/29/2022 [facility] DATE CREATED AUTHOR AUTHOR'S ORGANIZ ATION 2023 [facility] Goals (unrecognized section and content) Goals may be documented in a n alternate section FOR RECORDS PERTAINING TO PATIENTS WHO ARE OR HAVE BEEN ENROLLED IN A CHEMICAL DEPENDENCY/SUBSTANCEABUSE PROGRAM, SOME INFORMATION MAY BE OMITTED. This clinical summary was aggregated from multiple sources. Caution should be exercised in using it in the provision of clinical care. This summary normalizes information from multiple sources, and as a consequence, information in this document may materially change the coding, format and clinical context of patient data. In addition, data may be omitted in some cases. CLINICAL DECISIONS SHOULD BE BASED ON THE PRIMARY CLINICAL RECORDS. [employer] [facility]. provides no warranty or guarantee of the accuracy or completeness of information in this document.
--- NOTE | 2023-12-23 08:49 | CA_ITS ---
Patient Name: JAMES WOODS MR#: [id number] : 1950 Exam Date: 12/23/2023 Ordering Doctor: DR Shruthi Salvador M.D. ECHOCARDIOGRAM REPORT PROCEDURE: CA ECHO DOPPLER COMPLETE INDICATIONS: [place] COMPARISON: None. DESCRIPTION: COMPLETE ECHOCARDIOGRAM Real-time transthoracic echocardiography with 2D, M-mode, spectral and color flow Doppler performed. QUALITY: Technical quality was good. LEFT VENTRICLE: Normal chamber size. Moderate concentric left ventricular hypertrophy. LV EF: Global left ventricular systolic function is normal. Visual estimation of left ventricular ejection fraction is 60-65%. No significant valvular abnormalities. DIASTOLIC: Normal diastolic function. ATRIAL SEPTUM: Inadequately seen. LEFT ATRIUM: Normal chamber size. RIGHT ATRIUM: Normal chamber size. RIGHT VENTRICLE: Normal chamber size. Normal right ventricular systolic function. TRICUSPID VALVE: Normal mobility and thickness. No stenosis with trivial regurgitation. No evidence of pulmonary hypertension. RVSP 32mmHg MITRAL VALVE: Normal mobility and thickness. No evidence of mitral valve stenosis. Moderate, nodular mitral annular calcification. Trivial mitral regurgitation. AORTIC VALVE: Normal trileaflet appearance. No visible sclerosis. Normal leaflet mobility. No evidence of aortic valve stenosis. No aortic regurgitation. AORTIC ROOT: Normal diameter and appearance. PULMONIC VALVE: Normal thickness and mobility. No stenosis. Trivial regurgitation. PERICARDIUM: No evidence of pericardial effusion. IVC: Collapses with inspirations. Mild dilatation measuring 2.2cm. CONCLUSION: 1. Global left ventricular systolic function is normal; visually estimated ejection fraction is 60 to 65% 2. Normal right ventricular size and systolic function 3. Moderately increased left ventricular wall thickness 4. Normal diastolic function 5. No significant valvular abnormalities Adult Echocardiography Procedure Report Left Ventricle LVEDD (3.7 - 5.6 cm): 4.40 cm LVESD (2.2 - 4.0 cm): 2.85 cm LVIVS thickness (0.6 - 1.2 cm): 1.32 cm LVPW thickness (0.5 - 1.0 cm): 1.31 cm e': 0.07 m/s E - e': 10.04 LVOT Max Gradient: 5.24 mm[Hg] LVOT Area (cm2): 1.14 m/s Peak Velocity (LVOT): 1.14 m/s Mean Velocity (LVOT): 0.77 m/s LVOT Diameter 2.29 cm Left Ventricular Ejection Fraction: 71.66 % Left Atrium LA Volume Index (2D A2C): 24.70 ml/m2 Left Atrium Systolic Dimension: 3.39 cm Mitral Valve MV E to A Ratio: 0.81 Mitral Valve A-Wave Peak Velocity: 0.92 m/s Mitral Valve E-Wave Peak Velocity: 0.74 m/s Right Ventricle RV Internal Diastolic Dimension: 3.13 cm Aorta AO Root Diam: 2.76 cm Ascending Ao Diam: 3.00 cm Aortic Valve AoV Area (Peak Huey): 2.88 cm2, 2.88 cm2 AoV Area (VTI): 2.66 cm2, 2.66 cm2 Peak Velocity(Antegrade Flow): 1.64 m/s Peak Gradient(Antegrade Flow): 10.72 mm[Hg] Mean Velocity(Antegrade Flow): 1.11 m/s Mean Gradient(Antegrade Flow): 5.66 mm[Hg] Velocity Time Integral: 42.32 cm Tricuspid Valve Peak Velocity (Regurgitant Flow): 1.90 m/s, 2.03 m/s, 2.50 m/s Pulmonic Valve Mean Gradient: 2.09 mm[Hg], 1.47 mm[Hg] Mean Velocity: 0.65 m/s, 0.56 m/s Peak Velocity: 1.08 m/s Peak Gradient: 5.65 mm[Hg], 3.84 mm[Hg] Right Atrium Right Atrium Systolic Pressure: 35.70 ml, 35.70 ml Dictated by: Mabel Goss M.D. on 12/23/2023 at 16:14 Approved by: Mabel Goss M.D. on 12/23/2023 at 16:18
== END 2023-12-23 07:46 | disposition home or self-care (01) ==
LOC: NM 07:45
PROVIDERS: PCP Family Medicine; Visit Provider Family Medicine
DX: R06.09 Other forms of dyspnea (principal)
CPT/HCPCS: 78452; 93017; 93306; A9500

== ENCOUNTER 2024-01-08 07:29 | Outpatient (OUT) | payer MEDICARE, OTHER, SELFPAY ==
--- NOTE | 2024-01-08 07:31 | MM_ITS ---
Patient Name: JAMES WOODS MR#: [id number] : 1950 Exam Date: 01/08/2024 Ordering Doctor: DR Shruthi Salvador M.D. RADIOLOGY REPORT PROCEDURE: MM TOMOSYNTHESIS SCREENING BI COMPARISON: MG MAMM SCREEN 3D GISELE CAD, 09/26/2022. MG MAMM SCREEN 3D GISELE CAD, 04/17/2021. MG MAMM SCREEN GISELE W CAD, 04/01/2020. MG MAMM GISELE SCRN W CAD DIG, 09/15/2013. INDICATIONS: Screening Calculator Name NCI Breast Cancer Risk Assessment Tool 5 Year Breast Cancer Risk 5.00% Lifetime Breast Cancer Risk 12.60% Personal Breast Cancer No Personal Ovarian Cancer No Treatments None Family Cancers Mother with breast cancer at age 50; Daughter with nasal cancer cancer at age ~20; Unknown with brain cancer cancer at age 5. LOCATION: [facility] BREAST COMPOSITION: There are scattered areas of fibroglandular density. FINDINGS: DIAGNOSTIC CATEGORY 1--NEGATIVE. RIGHT BREAST: No significant suspicious finding. No significant change has occurred. LEFT BREAST: No significant suspicious finding. No significant change has occurred. RECOMMENDATIONS: ROUTINE MAMMOGRAM AND CLINICAL EVALUATION IN 12 MONTHS. PLEASE NOTE: A NORMAL MAMMOGRAM DOES NOT EXCLUDE THE POSSIBILITY OF BREAST CANCER. A CLINICALLY SUSPICIOUS PALPABLE LUMP SHOULD BE BIOPSIED. Dictated by: Martin Knight M.D. on 01/09/2024 at 08:59 Approved by: Martin Knight M.D. on 01/09/2024 at 09:01
--- OUTSIDE RECORDS SUMMARY | 2024-01-08 07:32 | XMS_ITS | CCD ---
Author Organization [facility] Care Team Providers Care Gem Setter Name Role Phone ClarySuzetteGabriella Unavailable SHRUTHI BOYLE Primary Care Physician [phone] Shruthi Boyle Unavailable MON[place], DR SHRUTHI Hwang Primary Care Unavailable CHRISTINA, DR KAREN Woodard Attending Unavailable CHRISTINA, DR KAREN Woodard Admitting Unavailable CHRISTINA, DR KAREN Woodard Consulting Unavailable ANA LUISA, MARCOS Consulting Unavailable JB, DR FREY Primary Care Unavailable MONTA[place], DR SHRUTHI Hwang Attending Unavailable [place], DR SHRUTHI Hwang Admitting Unavailable GILDARDO, DR MARTIN Woodard Consulting Unavailable BOYLE, DR SHRUTHI Hwang Consulting Unavailable JB, DR FREY Primary Care Unavailable JB, DR FREY Consulting Unavailable JB, DR FREY Attending Unavailable BJ, DR FREY Admitting Unavailable ZISHIN, DR MARTIN Woodard Consulting Unavailable Jb, Simone Unavailable Stephanie Dover Unavailable Alonso CRUZ Attending Unavailable Sanam Salas Attending Unavailable Allergies Allergy Classification Reported Allergen(s) Allergy Type Date of Onset Reaction(s) Facility (16 sources) penicillAMINE Drug Allergy 4 [facility] (14 sources) Acetaminophen / HYDROcodone; Translations: [acetaminophen-hy drocodone] Drug Allergy Nausea (finding) [facility] (3 sources) Penicillin; Translations: [penicillin] Drug Allergy Unknown (qualifier value) [facility] (1 source) Acetaminophen / HYDROcodone Drug Allergy [facility] (4 sources) Penicillins Drug allergy (disorder) 4 Hives [facility] (11 sources) Substance with penicillin structure and antibacterial mechanism of action (substance) Drug allergy 1 Unknown [facility] Other (3 sources) Acetaminophen Drug Allergy 4 [facility] (3 sources) HYDROcodone Drug Allergy 4 [facility] Medications Current Medications Medication Drug Class(es) Dates Sig (Normalized) Sig (Original) [id number] 200 actuat albuterol 0.09 mg/actuat metered dose [...] gm, Vaginal, MonWedFri, 42.5 gm, Refill(s) 4, [email or web address] [facility], 170, cm, 08/31/22 11:21:00 EST, Height/Length Dosing, 69.1, kg, 08/31/22 11:21:00 EST, Weight Dosing Start Date: 01/09/23 Status: Ordered Start: 12-29-2021 estradiol 0.1 mg/g Vag Crm 1 gm, Vaginal, MonWedFri, 42.5 gm, Refill(s) 4, [email or web address] [facility], 170, cm, 08/28/21 14:33:00 EST, Height/Length Dosing, 70, kg, 08/28/21 14:33:00 EST, Weight Dosing Start Date: 12/29/21 Status: Ordered Estradiol Active estrogens, conjugated (halfway) 0.625 mg/ml vaginal cream (14 sources) Estrogen [...] Refill(s) 0 Start Date: 11/04/20 Status: Ordered [place] 3 (11 sources) [place] 3 Active [place]-3 (2 sources) Start: 11-04-2020 [place]-3 Refill (s) 0 Start Date: 11/04/20 Status: [...] Hwang Start: 07-10-2023 take 1 capsule by [facility] every eight hours Benzonatate 200 MG 1 [...] ( ) take 1 tablet by rene every twenty-four hours Ondansetron HCl 4 MG [...] Interpretation Reference Range Facility [facility] 11-27-2023 Screens [id number] Normal [facility] Patient Educationon 11-26-19 Patient Education Obstetrics and [...] are. Treatment may include: ? Using an pjfq-vzg-ebnidvv vaginal lubricant before sex. ? Using a [...] these instructions at home: Medicines ? Take bmtz-gnh-fswmysc and prescription medicines only as told by your health care provider. ? Do not use herbal or alternative medicines unless your health care provider says that you can. ? Use cnqv-mrn-rccsaai creams, lubricants, or moisturizers for dryness only [...] provider. Document Revised: 01/05/2021 Document Reviewed: 01/05/2021 [employer] Patient Education ? 2022 [employer]. Kegel Exercises Kegel exercises can help strengthen [...] (more content not included)... Normal [facility] Urology Office/Clinic Noteon 11-26-2023 Urology Office/Clinic Note [...] with voice recognition artificial intelligence software, specifically [employer] Mobile, Stream[employer] Era and or [employer]. Substitutions may have occurred due to the [...] Urnls Dip Stick Auto w/o Microscopy POC 90118 2. Incomplete bladder emptying (R33.9: Retention of urine, unspecified) Patient notes that she routinely double voids and uses voiding maneuvers. She does feel empty after doing that. Ordered: Urnls Dip Stick Auto w/o Microscopy POC 72235 3. Other urethral stricture, female (N35.82: Other urethral stricture, female) S/p Cysto/UD done 11/08/20 [1] She denies any stream issues at this time. Does not feel that she needs repeat dilation. Ordered: Urnls Dip Stick Auto w/o Microscopy POC 65414 4. Stress incontinence (N39.3: Stress incontinence (female) (male)) BBSQ 12-13 Mild leaking with laughing Only wears a pad when she feels it is necessary which is rare Not bothersome to the patient at this time Strengthening pelvic floor with Kegel exercises, timed voids. Ordered: Urnls Dip Stick Auto w/o Microscopy POC 96343 Follow-up With When Contact Information [place] CEASAR, [employer]IEF-C, Sanam X, FAM, URL Additional Instructions: 1 [...] 20 mg Tab, Oral, Daily Multi Vitamin+ [place]-3 Allergies Vicodin (Nausea) penicillin (Unknown) Social History Tobacco Former smoker, quit more than 30 days ago Tobacco Use:., 11/26/2023 Family History Hypertension: Mother and Father. Migraine: Child. Primary malignant neoplasm of female breast: Mother. Primary malignant neoplasm of lung: Grandparent. Stroke: Grandparent. Immunizations Vaccine Date Status influenza virus vaccine, inactivated 05/22/2023 Recorded tetanus-diphtheria toxoids 12/11/2021 Recorded SARSCoV2 mRNA(wyhlmzwcp-taah-qr cros) vac 09/01/2021 Recorded SARS-CoV-2 (COVID-19) mRNA BNT-162b2 vax 02/02/2021 Recorded SARS-CoV-2 (COVID-19) mRNA BNT-162b2 vax 01/12/2021 Recorded SARS-CoV-2 (COVID-19) mRNA BNT-162b2 vax 2020 Recorded influenza virus vaccine, inactivated 05/12/2020 Recorded pneumococcal 23-valent vaccine 06/05/2018 Alf (more content not included)... Normal [facility] Comment on above: Result Comment: Elec tronically Signed By: ANA LUISA Salas APRN, Sanam Allen\.batool\Date and Time Signed: 11/26/23 09:48 EDT COVID + FLU Quick Testingon 09-02-2023 SARS-CoV-2 (COVID-19) RNA ZOIE+probe Ql (Unsp spec) Negative [facility] Other COVID + FLU Quick Testing Negative [employer] [facility] Other CBC AUTO DIFFon 09-26-2022 BASO # 0.0 103/ul Normal 0.0-0.1 [facility] Comment on above: Performed By: #### C BC #### [facility] [address] [place] [address] Dr. Pam Rodgers Basophils/100 WBC (Bld) 0.6 % Normal 0.2-2.0 [facility] Comment on above: Performed By: #### C BC #### [facility] [address] [address] [address] Pam Rodgers EO # 0.2 103/ul Normal 0.0-0.7 [facility] Comment on above: Performed By: #### C BC #### [facility] [address] [place] [address] Dr. Pam Rodgers Eosinophils/100 WBC (Bld) 2.4 % Normal 0.9-7.0 [facility] Comment on above: Performed By: #### C BC #### [facility] [address] [place] [address] Dr. Pam Rodgers Erythrocyte distribution width (RBC) [Ratio] 12.0 % Normal 11.0-15.0 [facility] Comment on above: Performed By: #### C BC #### [facility] [address] [address] [address] Pam Rodgers Hematocrit (Bld) [Volume fraction] 44.2 % Normal 36.0-48.0 [facility] Comment on above: Performed By: #### C BC #### [facility] [address] [place] [address] Dr. Pam Rodgers Hemoglobin (Bld) [Mass/Vol] 15.0 g/dL Normal 12.0-16.0 [facility] Comment on above: Performed By: #### C BC #### [facility] [address] [place] [address] Dr. Pam Rodgers IG # 0.01 10e3/ul Normal 0.00-0.03 [facility] Comment on above: Performed By: #### C BC #### [facility] [address] [place] [address] Dr. Pam Rodgers IG % 0.2 % Normal 0.0-0.5 [facility] Comment on above: Performed By: #### C BC #### [facility] [address] [place] [address] Dr. Pam Rodgers LYMPH # 1.4 103/ul Normal 1.2-3.8 [facility] Comment on above: Performed By: #### C BC #### [facility] [address] [place] [address] Dr. Pam Rodgers Lymphocytes/100 WBC (Bld) 22.6 % Normal 20.5-60.0 [facility] Comment on above: Performed By: #### C BC #### [facility] [address] [place] [address] Dr. Pam Rodgers MANUAL DIFF REQ NO Normal [facility] Comment on above: Performed By: #### C BC #### [facility] [address] [place] [address] Dr. Pam Rodgers MCH (RBC) [Entitic mass] 30.0 pg Normal 26.7-34.0 [facility] Comment on above: Performed By: #### C BC #### [facility] [address] [place] [address] Dr. Pam Rodgers MCHC (RBC) [Mass/Vol] 33.9 g/dL Normal 29.9-35.2 [facility] Comment on above: Performed By: #### C BC #### [facility] [address] [place] [address] Dr. Pam Rodgers MCV (RBC) [Entitic vol] 88.4 fL Normal 81.0-99.0 [facility] Comment on above: Performed By: #### C BC #### [facility] [address] [place] [address] Dr. Pam Rodgers MONO # 0.6 103/ul Normal 0.3-0.8 [facility] Comment on above: Performed By: #### C BC #### [facility] [address] [place] [address] Dr. Pam Rodgers Monocytes/100 WBC (Bld) 8.8 % Normal 1.7-12.0 [facility] Comment on above: Performed By: #### C BC #### [facility] [address] [place] [address] Dr. Pam Rodgers NEUT # 4.2 103/ul Normal 1.4-6.5 [facility] Comment on above: Performed By: #### C BC #### [facility] [address] [place] [address] Dr. Pam Rodgers Neutrophils/100 WBC (Bld) 65.4 % Normal 43.0-75.0 [facility] Comment on above: Performed By: #### C BC #### [facility] [address] [place] [address] Dr. Pam Rodgers Platelet mean volume (Bld) [Entitic vol] 9.2 fL Critically low 9.5-13.5 [facility] Comment on above: Performed By: #### C BC #### [facility] [address] [place] [address] Dr. Pam Rodgers PLT 243 103/ul Normal 150-450 [facility] Comment on above: Performed By: #### C BC #### [facility] [address] [place] [address] Dr. Pam Rodgers RBC 5.00 106/ul Normal 4.20-5.40 [facility] Comment on above: Performed By: #### C BC #### [facility] [address] [place] [address] Dr. Pam Rodgers WBC 6.4 103/ul Normal 4.0-11.0 [facility] Comment on above: Performed By: #### C BC #### [facility] [address] [address] [address] Pam Rodgers FREE T4on 09-26-2022 Free T4 [Mass/Vol] 1.06 ng/dL Normal 0.76-1.46 [facility] Comment on above: Performed By: #### F T4 #### [facility] [address] [address] [address] Pam Rodgers LIPID PROFILEon 09-26-2022 CHOL-HDL RATIO NORM SEE BELOW Normal [facility] Comment on above: Result Comment: 3.3 - 4.4 LOW RISK 4.4 - 7.1 AVERAGE RISK 7.1 - 11.0 MODERATE RISK >11.0 HIGH RISK Performed By: #### L IPID, TSH, CMP #### [facility] [address] [place] [address] Dr. Pam Rodgers Cholesterol [Mass/Vol] 189 mg/dL Normal <=200 [facility] Comment on above: Performed By: #### L IPID, TSH, CMP #### [facility] [address] [address] [address] Pam Rodgers Cholesterol in HDL [Mass/Vol] 60 mg/dL Normal 40-60 [facility] Comment on above: Performed By: #### L IPID, TSH, CMP #### [facility] [address] [address] [address] Pam Rodgers Cholesterol in LDL [Mass/Vol] 97.0 mg/dL Normal [facility] Comment on above: Performed By: #### L IPID, TSH, CMP #### [facility] [address] [address] [address] Pam Rodgers Cholesterol.total /Cholesterol in HDL [Mass ratio] 3.2 {ratio} Normal [facility] Comment on above: Performed By: #### L IPID, TSH, CMP #### [facility] [address] [address] [address] Pam Rodgers HDL NORMAL > or = 60 mg/dl - LO W CARDIOVASCULAR RISK <40 mg/dl - HIGH CARDIOVASCULAR RISK Normal [facility] Comment on above: Performed By: #### L IPID, TSH, CMP #### [facility] [address] [address] [address] Pam Rodgers LDL CALC NORMAL SEE BELOW Normal [facility] Comment on above: Result Comment: <100 mg/dl OPTIMAL 100 - 129 mg/dl NEAR OR ABOVE OPTIMAL 130 - 159 mg/dl BORDERLINE HIGH 160 - 189 mg/dl HIGH >190 mg/dl VERY HIGH Performed By: #### L IPID, TSH, CMP #### [facility] [address] [address] [address] Pam Rodgers Triglyceride [Mass/Vol] 160 mg/dL Critically high <=150 [facility] Comment on above: Performed By: #### L IPID, TSH, CMP #### [facility] [address] [address] [address] Pam Rodgers VLDL CALC 32.0 mg/dL Normal [facility] Comment on above: Performed By: #### L IPID, TSH, CMP #### [facility] [address] [address] [address] Pam Rodgers MG MAMM SCREEN 3D GISELE CADon 09-26-2022 MG MAMM SCREEN 3D GISELE CAD Patient: JAMES WOODS Exam Date: 09/26/2022 : 1950 Gender:F Ordering : DR SHRUTHI BOYLE M.D. Admission #: [id number] Family : Order #: [id number] CLICK HERE TO VIEW EXAM RADIOLOGY REPORT [...] cancer cancer at age 6. LOCATION: [facility] BREAST COMPOSITION: Scattered areas fibroglandular density. FINDINGS: [...] M.D. on 09/26/2022 at 17:14 Normal [facility] PROF 14(COMP METB)on 023 Albumin [Mass/Vol] 4.1 g/dL Normal 3.4-5.0 [facility] Comment on above: Performed By: #### L IPID, TSH, CMP #### [facility] [address] [address] [address] Pam Rodgers Albumin/Globulin [Mass ratio] 1.3 {ratio} Normal [facility] Comment on above: Performed By: #### L IPID, TSH, CMP #### [facility] [address] [address] [address] Pam Rodgers ALP [Catalytic activity/Vol] 63 U/L Normal 46-116 [facility] Comment on above: Performed By: #### L IPID, TSH, CMP #### [facility] [address] [address] [address] Pam Rodgers ALT [Catalytic activity/Vol] 27 U/L Normal 14-59 [facility] Comment on above: Performed By: #### L IPID, TSH, CMP #### [facility] [address] [address] [address] Pam Rodgers Anion gap [Moles/Vol] 12.1 mmol/L Normal [facility] Comment on above: Performed By: #### L IPID, TSH, CMP #### [facility] [address] [address] [address] Pam Rodgers AST [Catalytic activity/Vol] 22 U/L Normal 15-37 [facility] Comment on above: Performed By: #### L IPID, TSH, CMP #### [facility] [address] [place] [address] Dr. Pam Rodgers Bilirubin [Mass/Vol] 0.6 mg/dL Normal 0.2-1.0 [facility] Comment on above: Performed By: #### L IPID, TSH, CMP #### [facility] [address] [place] [address] Dr. Pam Rodgers Calcium [Mass/Vol] 9.3 mg/dL Normal 8.5-10.1 [facility] Comment on above: Performed By: #### L IPID, TSH, CMP #### [facility] [address] [place] [address] Dr. Pam Rodgers Chloride [Moles/Vol] 104 mmol/L Normal 98-107 [facility] Comment on above: Performed By: #### L IPID, TSH, CMP #### [facility] [address] [place] [address] Dr. Pam Rodgers CO2 [Moles/Vol] 28.2 mmol/L Normal 21.0-32.0 [facility] Comment on above: Performed By: #### L IPID, TSH, CMP #### [facility] [address] [place] [address] Dr. Pam Rodgers Creatinine [Mass/Vol] 0.62 mg/dL Normal 0.55-1.02 [facility] Comment on above: Performed By: #### L IPID, TSH, CMP #### [facility] [address] [place] [address] Dr. Pam Rodgers EGFR-AF BHUTANESE >60 Normal >=60 [facility] Comment on above: Performed By: #### L IPID, TSH, CMP #### [facility] [address] [place] [address] Dr. Pam Rodgers EGFR-NON AF BHUTANESE >60 Normal >=60 [facility] Comment on above: Performed By: #### L IPID, TSH, CMP #### [facility] [address] [place] [address] Dr. Pam Rodgers Globulin (S) [Mass/Vol] 3.2 g/dL Normal [facility] Comment on above: Performed By: #### L IPID, TSH, CMP #### [facility] [address] [place] [address] Dr. Pam Rodgers Glucose [Mass/Vol] 108 mg/dL Critically high 74-106 [facility] Comment on above: Performed By: #### L IPID, TSH, CMP #### [facility] [address] [place] [address] Dr. Pam Rodgers Potassium [Moles/Vol] 4.3 mmol/L Normal 3.5-5.1 [facility] Comment on above: Performed By: #### L IPID, TSH, CMP #### [facility] [address] [place] [address] Dr. Pam Rodgers Protein [Mass/Vol] 7.3 g/dL Normal 6.4-8.2 [facility] Comment on above: Performed By: #### L IPID, TSH, CMP #### [facility] [address] [place] [address] Dr. Pam Rodgers Sodium [Moles/Vol] 140 mmol/L Normal 136-145 [facility] Comment on above: Performed By: #### L IPID, TSH, CMP #### [facility] [address] [place] [address] Dr. Pam Rodgers Urea nitrogen [Mass/Vol] 12.0 mg/dL Normal 7.0-18.0 [facility] Comment on above: Performed By: #### L IPID, TSH, CMP #### [facility] [address] [place] [address] Dr. Pam Rodgers Urea nitrogen/Creatini ne [Mass ratio] 19.4 mg/mg Normal [facility] Comment on above: Performed By: #### L IPID, TSH, CMP #### [facility] [address] [place] [address] Dr. Pam Rodgers TSHon 09-26-2022 TSH 5.421 uIU/mL Critically high 0.358-3.740 [facility] Comment on above: Performed By: #### L IPID, TSH, CMP #### [facility] [address] [address] [address] Pam Rodgers NM STRESS/REST MULTIon 01-04 NM STRESS/REST MULTI Patient: JAMES WOOSD Exam Date: 01/04/2022 : 1950 Gender:F Ordering : DR SIMONE MUHAMMAD D.O. Admission #: [id number] Family : Order #: [id number] CLICK HERE TO VIEW EXAM RADIOLOGY REPORT [...] M.D. on 01/05/2022 at 12:03 Normal [facility] CBC AUTO DIFFon 12-27-2021 BASO # 0.0 103/ul Normal 0.0-0.1 [facility] Comment on above: Performed By: #### C BC #### [facility] [address] [address] [address] Pam Rodgers Basophils/100 WBC (Bld) 0.5 % Normal 0.2-2.0 [facility] Comment on above: Performed By: #### C BC #### [facility] [address] [place] [address] Dr. Pam Rodgers EO # 0.1 103/ul Normal 0.0-0.7 [facility] Comment on above: Performed By: #### C BC #### [facility] [address] [place] [address] Dr. Pam Rodgers Eosinophils/100 WBC (Bld) 1.1 % Normal 0.9-7.0 [facility] Comment on above: Performed By: #### C BC #### [facility] [address] [place] [address] Dr. Pam Rodgers Erythrocyte distribution width (RBC) [Ratio] 17.7 % Critically high 11.0-15.0 [facility] Comment on above: Performed By: #### C BC #### [facility] [address] [place] [address] Dr. Pam Rodgers Hematocrit (Bld) [Volume fraction] 38.4 % Normal 36.0-48.0 [facility] Comment on above: Performed By: #### C BC #### [facility] [address] [place] [address] Dr. Pam Rodgers Hemoglobin (Bld) [Mass/Vol] 12.6 g/dL Normal 12.0-16.0 [facility] Comment on above: Performed By: #### C BC #### [facility] [address] [place] [address] Dr. Pam Rodgers IG # 0.03 10e3/ul Normal 0.00-0.03 [facility] Comment on above: Performed By: #### C BC #### [facility] [address] [place] [address] Dr. Pam Rodgers IG % 0.4 % Normal 0.0-0.5 [facility] Comment on above: Performed By: #### C BC #### [facility] [address] [place] [address] Dr. Pam Rodgers LYMPH # 1.4 103/ul Normal 1.2-3.8 [facility] Comment on above: Performed By: #### C BC #### [facility] [address] [place] [address] Dr. Pam Rodgers Lymphocytes/100 WBC (Bld) 18.3 % Critically low 20.5-60.0 [facility] Comment on above: Performed By: #### C BC #### [facility] [address] [place] [address] Dr. Pam Rodgers MANUAL DIFF REQ NO Normal [facility] Comment on above: Performed By: #### C BC #### [facility] [address] [place] [address] Dr. Pam Rodgers MCH (RBC) [Entitic mass] 27.9 pg Normal 26.7-34.0 [facility] Comment on above: Performed By: #### C BC #### [facility] [address] [place] [address] Dr. Pam Rodgers MCHC (RBC) [Mass/Vol] 32.8 g/dL Normal 29.9-35.2 [facility] Comment on above: Performed By: #### C BC #### [facility] [address] [place] [address] Dr. Pam Rodgers MCV (RBC) [Entitic vol] 85.1 fL Normal 81.0-99.0 [facility] Comment on above: Performed By: #### C BC #### [facility] [address] [place] [address] Dr. Pam Rodgers MONO # 0.6 103/ul Normal 0.3-0.8 [facility] Comment on above: Performed By: #### C BC #### [facility] [address] [place] [address] Dr. Pam Rodgers Monocytes/100 WBC (Bld) 7.3 % Normal 1.7-12.0 [facility] Comment on above: Performed By: #### C BC #### [facility] [address] [place] [address] Dr. Pam Rodgers NEUT # 5.7 103/ul Normal 1.4-6.5 [facility] Comment on above: Performed By: #### C BC #### [facility] [address] [address] [address] Pam Rodgers Neutrophils/100 WBC (Bld) 72.4 % Normal 43.0-75.0 [facility] Comment on above: Performed By: #### C BC #### [facility] [address] [place] [address] Dr. Pam Rodgers Platelet mean volume (Bld) [Entitic vol] 9.2 fL Critically low 9.5-13.5 [facility] Comment on above: Performed By: #### C BC #### [facility] [address] [place] [address] Dr. Pam Rodgers PLT 242 103/ul Normal 150-450 [facility] Comment on above: Performed By: #### C BC #### [facility] [address] [place] [address] Dr. Pam Rodgers RBC 4.51 106/ul Normal 4.20-5.40 [facility] Comment on above: Performed By: #### C BC #### [facility] [address] [place] [address] Dr. Pam Rodgers WBC 7.9 103/ul Normal 4.0-11.0 [facility] Comment on above: Performed By: #### C BC #### [facility] [address] [place] [address] HEAD WO CONon [...] Mona OROSCO Date: 2021-12-26 23:43 Normal [facility] PROF 14(COMP METB)on 022 Albumin [Mass/Vol] 3.6 g/dL Normal 3.4-5.0 [facility] Comment on above: Performed By: #### C MP #### [facility] [address] [place] [address] Dr. Pam Rodgers Albumin/Globulin [Mass ratio] 1.1 {ratio} Normal [facility] Comment on above: Performed By: #### C MP #### [facility] [address] [place] [address] Dr. Pam Rodgers ALP [Catalytic activity/Vol] 77 U/L Normal 46-116 [facility] Comment on above: Performed By: #### C MP #### [facility] [address] [place] [address] Dr. Pam Rodgers ALT [Catalytic activity/Vol] 29 U/L Normal 14-59 [facility] Comment on above: Performed By: #### C MP #### [facility] [address] [address] [address] Pam Rodgers Anion gap [Moles/Vol] 11.2 mmol/L Normal [facility] Comment on above: Performed By: #### C MP #### [facility] [address] [place] [address] Dr. Pam Rodgers AST [Catalytic activity/Vol] 20 U/L Normal 15-37 [facility] Comment on above: Performed By: #### C MP #### [facility] [address] [place] [address] Dr. Pam Rodgers Bilirubin [Mass/Vol] 0.4 mg/dL Normal 0.2-1.0 [facility] Comment on above: Performed By: #### C MP #### [facility] [address] [place] [address] Dr. Pam Rodgers Calcium [Mass/Vol] 8.4 mg/dL Critically low 8.5-10.1 [facility] Comment on above: Performed By: #### C MP #### [facility] [address] [address] [address] Pam Rodgers Chloride [Moles/Vol] 104 mmol/L Normal 98-107 [facility] Comment on above: Performed By: #### C MP #### [facility] [address] [place] [address] Dr. Pam Rodgers CO2 [Moles/Vol] 27.7 mmol/L Normal 21.0-32.0 [facility] Comment on above: Performed By: #### C MP #### [facility] [address] [place] [address] Dr. Pam Rodgers Creatinine [Mass/Vol] 0.63 mg/dL Normal 0.55-1.02 [facility] Comment on above: Performed By: #### C MP #### [facility] [address] [place] [address] Dr. Pam Rodgers EGFR-AF BHUTANESE >60 Normal >=60 [facility] Comment on above: Performed By: #### C MP #### [facility] [address] [place] [address] Dr. Pam Rodgers EGFR-NON AF BHUTANESE >60 Normal >=60 [facility] Comment on above: Performed By: #### C MP #### [facility] [address] [address] [address] Pam Rodgers Globulin (S) [Mass/Vol] 3.2 g/dL Normal [facility] Comment on above: Performed By: #### C MP #### [facility] [address] [address] [address] Pam Rodgers Glucose [Mass/Vol] 131 mg/dL Critically high 74-106 [facility] Comment on above: Performed By: #### C MP #### [facility] [address] [place] [address] Dr. Pam Rodgers Potassium [Moles/Vol] 3.9 mmol/L Normal 3.5-5.1 [facility] Comment on above: Performed By: #### C MP #### [facility] [address] [place] [address] Dr. Pam Rodgers Protein [Mass/Vol] 6.8 g/dL Normal 6.4-8.2 [facility] Comment on above: Performed By: #### C MP #### [facility] [address] [address] [address] Pam Rodgers Sodium [Moles/Vol] 139 mmol/L Normal 136-145 [facility] Comment on above: Performed By: #### C MP #### [facility] [address] [address] [address] Pam Rodgers Urea nitrogen [Mass/Vol] 15.0 mg/dL Normal 7.0-18.0 [facility] Comment on above: Performed By: #### C MP #### [facility] [address] [place] [address] Dr. Pam Rodgers Urea nitrogen/Creatini ne [Mass ratio] 23.8 mg/mg Normal [facility] Comment on above: Performed By: #### C MP #### [facility] [address] [place] [address] Dr. Pam Rodgers Vital Signs Date Time Vital Sign Value Performing Clinician Facility 12-19-2023 11:55-0400 Body height 170.18 cm [facility] 12-19-2023 11:55-0400 Body mass index (BMI) [Ratio] 25 kg/m2 [facility] 12-19-2023 11:55-0400 Body temperature 98.3 [degF] [facility] 12-19-2023 11:55-0400 Body weight 72.57 kg [facility] 12-19-2023 11:55-0400 Diastolic blood pressure 81 mm[Hg] [facility] 12-19-2023 11:55-0400 Heart rate 80 /min [facility] 12-19-2023 11:55-0400 Systolic blood pressure 144 mm[Hg] [facility] 11-27-2023 08:33-0400 Body height 170.18 cm [facility] 11-27-2023 08:33-0400 Body mass index (BMI) [Ratio] 25.3 kg/m2 [facility] 11-27-2023 08:33-0400 Body weight 73.48 kg [facility] 11-27-2023 08:33-0400 Diastolic blood pressure 82 mm[Hg] [facility] 11-27-2023 08:33-0400 Heart rate 80 /min [facility] 11-27-2023 08:33-0400 Systolic blood pressure 159 mm[Hg] [facility] 11-26-2023 09:18-0400 Body temperature 98.06 [degF] Sanam Orzech [facility] 11-26-2023 09:18-0400 Diastolic blood pressure 87 mm[Hg] Sanam Orzech [facility] 11-26-2023 09:18-0400 Heart rate 84 /min Sanam Orzech [facility] 11-26-2023 09:18-0400 Respiratory rate 16 /min Sanam Orzech [facility] 11-26-2023 09:18-0400 Systolic blood pressure 139 mm[Hg] Sanam Orzech [facility] 10-29-2023 08:35-0400 Body height 170.18 cm [facility] 10-29-2023 08:35-0400 Body mass index (BMI) [Ratio] 25 kg/m2 [facility] 10-29-2023 08:35-0400 Body weight 72.68 kg [facility] 10-29-2023 08:35-0400 Diastolic blood pressure 78 mm[Hg] [facility] 10-29-2023 08:35-0400 Heart rate 87 /min [facility] 10-29-2023 08:35-0400 Systolic blood pressure 142 mm[Hg] [facility] 09-02-2023 09:25-0500 Body height 170.18 cm Stephanie Dover Other [facility] Other 09-02-2023 09:25-0500 Body mass index (BMI) [Ratio] 25.06 kg/m2 Stephanie Stanislaw Other [facility] Other 09-02-2023 09:25-0500 Body temperature 99.8 [degF] Stephanie Stanislaw Other [facility] Other 09-02-2023 09:25-0500 Body weight 72.58 kg Stephanie Stanislaw Other [facility] Other 09-02-2023 09:25-0500 Respiratory rate 18 /min Stephanie Stanislaw Other [facility] Other 09-02-2023 09:25-0500 SaO2% (BldA) [Mass fraction] 97 % Stephanie Stanislaw Other [facility] Other 05-17-2023 09:30-0400 Body height 170.18 cm Shruthi Boyle Other [facility] Other 05-17-2023 09:30-0400 Body mass index (BMI) [Ratio] 25.21 kg/m2 Shruthi Boyle Other [facility] Other 05-17-2023 09:30-0400 Body weight 73.03 kg Shruthi Boyle Other [facility] Other 05-17-2023 09:30-0400 Diastolic blood pressure 74 mm[Hg] Shruthi Boyle Other [facility] Other 05-17-2023 09:30-0400 Systolic blood pressure 144 mm[Hg] Shruthi Boyle Other [facility] Other 03-08-2023 10:30-0400 Body height 170.18 cm Simone Ball Other [facility] Other 03-08-2023 10:30-0400 Body mass index (BMI) [Ratio] 25.09 kg/m2 Simone Ball Other [facility] Other 03-08-2023 10:30-0400 Body weight 72.67 kg Simone Ball Other [facility] Other 03-08-2023 10:30-0400 Diastolic blood pressure 77 mm[Hg] Simone Ball Other [facility] Other 03-08-2023 10:30-0400 Respiratory rate 12 /min Simone Ball Other [facility] Other 03-08-2023 10:30-0400 Systolic blood pressure 160 mm[Hg] Simone Ball Other [facility] Other 08-31-2022 11:03-0500 Blood Pressure Location Alonso CRUZ [facility] 08-31-2022 11:03-0500 Diastolic blood pressure 83 mm[Hg] Alonso CRUZ [facility] 08-31-2022 11:03-0500 Heart rate 80 /min Alonso CRUZ [facility] 08-31-2022 11:03-0500 Respiratory rate 16 /min Alonso CRUZ [facility] 08-31-2022 11:03-0500 Systolic blood pressure 130 mm[Hg] Alonso CRUZ [facility] 12-11-2021 17:30-0400 Body temperature 97.9 [degF] Gabriella Means Other [employer] Other 12-11-2021 17:30-0400 Respiratory rate 18 /min Gabriella Means Other [facility] Other 12-11-2021 17:30-0400 SaO2% (BldA) [Mass fraction] 98 % Gabriella Means Other [employer] Other Encounters Encounter Date Encounter Type Care Provider Facility Start: 12-19-2023 End: 12-19-2023 ambulatory [facility] Work Phone: Start: 12-19-2023 End: 12-19-2023 Patient encounter procedure [facility] Work Phone: Start: 11-27-2023 End: 11-27-2023 ambulatory [facility] Work Phone: Start: 11-27-2023 End: 11-27-[address] [facility] Work Phone: Start: 11-26-2023 End: 11-27-2023 ambulatory Sanam X Orzech Facility:[facility] Start: 11-26-2023 End: 11-26-2023 Patient encounter procedure Sanam X Orzech [facility] Start: 11-19-2023 ambulatory Alonso Frias ty:[facility] Stern Start: 10-29-2023 End: 10-29-2023 ambulatory [facility] Work Phone: Start: 10-29-2023 End: 10-29-2023 Patient encounter procedure [facility] Work Phone: Start: 10-21-2023 Non-patient / Non-visit [facility] Work Phone: Start: 09-02-2023 End: 09-02-2023 ambulatory Stephanie Dover Other [employer] Other Start: 09-02-2023 Office outpatient vi sit 15 minutes Stephanie Stanislaw [facility] Start: 09-02-2023 Telephone encounter Shruthi Montana [facility] Start: 08-06-2023 End: 08-06-2023 ambulatory Shruthi Boyle Other [employer] Other Start: 08-06-2023 Telephone encounter Shruthi Boyle [facility] Start: 08-05-2023 End: 08-05-2023 ambulatory Shruthi Boyle Other [employer] Other Start: 08-05-2023 Encounter by compute r link Shruthi Boyle [facility] Start: 07-10-2023 End: 07-10-2023 ambulatory Shruthi Boyle Other [employer] Other Start: 07-10-2023 Office outpatient vi sit 15 minutes Shruthi Boyle [facility] Start: 05-17-2023 End: 05-17-2023 ambulatory Shruthi Boyle Other [employer] Other Start: 05-17-2023 Office outpatient vi sit 15 minutes Shruthi Boyle [facility] Start: 05-10-2023 End: 05-10-2023 ambulatory Shruthi Boyle Other [employer] Other Start: 05-10-2023 Telephone encounter Shruthi Boyle [facility] Start: 04-01-2023 End: 04-01-2023 ambulatory Shruthi Boyle Other [employer] Other Start: 04-01-2023 Telephone encounter Shruthi Boyle [facility] Start: 03-08-2023 End: 03-08-2023 ambulatory Simone Muhammad Other [employer] Other Start: 03-08-2023 Office outpatient vi sit 15 minutes Simone Muhammad [facility] Start: 09-26-2022 End: 09-27-[address] SIMONE MUHAMMAD Facility:[facility] Start: 08-31-2022 End: 08-31-2022 Patient encounter procedure Alonso CRUZ [facility] Start: 08-03-2022 End: 08-03-2022 ambulatory Shruthi Boyle Other [employer] Other Start: 08-03-2022 Telephone encounter Shruthi Boyle [facility] Start: 01-04-2022 End: 01-05-[address] SIMONE MUHAMMAD Facility:[facility] Start: 12-27-2021 End: 12-27-[address] SHRUTHI BOYLE Facility:[facility] Start: 12-11-2021 End: 12-11-2021 ambulatory Gabriella Means Other [employer] Other Start: 12-11-2021 Office outpatient ne w 20 minutes Gabriella Means [facility] Procedures Date Procedure Procedure Detail Performing Clinician Cholecystectomy Alonso MATIAS Colonoscopy Alonso CRUZ Hyperlipidemia (disorder) Jacek CRUZ Hypertensive disorde r, systemic arterial (disorder) Alonso CRUZ Tonsillectomy Alonso CRUZ Plan of Treatment Date Care Activity Detail Author MG Breast - bilateral Screening [facility] US Heart Transthoracic [facility] XR Hand - left GE 3 Views [facility] Immunizations Immunization Date Immunization Notes Care Provider J Luis mireles 05-22-2023 influenza virus vaccine, unspecified formulation [facility] 04-30-2022 influenza virus vaccine, split virus (incl. purified surface antigen) Simoen Muhammad Other [employer] Other 04-30-2022 influenza virus vaccine, unspecified formulation [facility] 12-11-2021 tetanus and diphther ia toxoids, adsorbed, preservative free, for adult use (5 Lf of tetanus toxoid and 2 Lf of diphtheria toxoid) Gabriella Means Other [facility] 12-11-2021 tetanus and diphther ia toxoids, adsorbed, preservative free, for adult use (2 Lf of tetanus toxoid and 2 Lf of diphtheria toxoid) [facility] 09-01-2021 SARS-CoV-2 mRNA (fhzwfnyvgcq-ynxk-ipnzw se) vaccine [facility] 05-24-2021 influenza virus vaccine, split virus (incl. purified surface antigen) Simone Muhammad Other [employer] Other 05-24-2021 influenza virus vaccine, unspecified formulation [facility] 02-02-2021 COVID-19 Vaccine Pfi zer - Documentation Purposes Only Simone Muhammad Other [facility] 01-12-2021 COVID-19 Vaccine Pfi zer - Documentation Purposes Only Simone Muhammad Other [facility] 07-22-2020 SARS-CoV-2 (COVID-19 ) mRNA BNT-162b2 vax Alonso ANTHONY [facility] 05-12-2020 influenza virus vaccine, unspecified formulation [facility] 04-26-2020 influenza virus vaccine, split virus (incl. purified surface antigen) Simone Muhammad Other [facility] Other 04-26-2020 influenza virus vaccine, unspecified formulation [facility] 05-21-2019 influenza virus vaccine, split virus (incl. purified surface antigen) Simone Muhammad Other [facility] Other 05-21-2019 influenza virus vaccine, unspecified formulation [facility] 06-05-2018 influenza virus vaccine, split virus (incl. purified surface antigen) Simone Muhammad Other [facility] Other 06-05-2018 influenza virus vaccine, unspecified formulation [facility] 06-05-2018 pneumococcal polysaccharide vaccine, 23 valent Simone Muhammad Other [facility] 04-10-2017 influenza virus vaccine, split virus (incl. purified surface antigen) Simone Muhammad Other [facility] Other 04-10-2017 influenza virus vaccine, unspecified formulation [facility] 04-10-2017 pneumococcal conjuga te vaccine, 13 valent Simone Muhammad Other [facility] 05-07-2016 influenza virus vaccine, unspecified formulation Sanam Gregdori [facility] 07-05-2014 zoster vaccine, live Ricky Muhammad Other [facility] 05-05-2013 tetanus and diphther ia toxoids, adsorbed, preservative free, for adult use (5 Lf of tetanus toxoid and 2 Lf of diphtheria toxoid) Simone Muhammad Other [facility] Payers Date Payer Category Payer Medicare [id number] 1958 Unknown [id number] 1950 Unknown [id number] 1950 Unknown [id number] 1950 Unknown [id number] 1950 Unknown [id number] 1950 Unknown [id number] [id number] Social History Date Type Detail Facility Unknown if ever smoked [facility] Other Sex Assigned At [facility] Start: 11-04-2020 End: 11-27-2023 Tobacco smoking status Ex-smoker (finding) [facility] Start: 1950 Sex Assigned At Female F [facility] Functional Status Date Assessment Result Facility 11-26-2023 Functional Status N/A [facility] 08-31-2022 Functional Status N/A [facility] Clinical Notes 12-11-2021 to 11-26-2023 Note Date [...] symptoms are. Treatment may include: Using an yyxi-sax-gdgsmvc vaginal lubricant before sex. Using a long-acting [...] Follow these instructions at home: Medicines Take dzln-pyv-ocmrmrt and prescription medicines only as told by your health care provider. Do not use herbal or alternative medicines unless your health care provider says that you can. Use dkhe-drz-kuzzlar creams, lubricants, or moisturizers for dryness only [...] provider. Document Revised: 01/05/2021 Document Reviewed: 01/05/2021 [employer] Patient Education 2022 [employer]. 11/26/2023 09:47:53 Urinary Incontinence Urinary Incontinence Urinary [...] nerve stimulation). ?For women, using a medical practice assistant to prevent urine leaks. This is a [...] right after experiencing incontinence. General instructions Take ihms-jgh-lbwesjp and prescription medicines only as told by [...] important. Where to find more information National [place] of Diabetes and Digestive and Kidney Diseases: www.niddk.nih.gov [place] [employer]: www.urologyhealth.org Contact a health care [...] provider. Document Revised: 02/10/2021 Document Reviewed: 02/10/2021 [employer] Patient Education 2022 [employer]. 11/26/2023 09:47:52 Kegel Exercises Kegel Exercises Kegel [...] provider. Document Revised: 11/16/2021 Document Reviewed: 11/16/2021 [employer] Patient Education 2022 [employer]. Follow Up Care 08/31/2022 11:36:52 With:ANA LUISA Salas APRN, Sanam Allen, CHRISTOPHER, URL Address: When: Unknown Comments:1 year [facility] 11-26-2023 Note - From: Silvia Mckenzie To: [facility] - Administrative; Sent: 11/26/2023 09:38:12 EDT Show up: 11/26/2023 09:38:00 EDT Subject: Ambulatory Reminder Reminder/Recall Patient needs scheduled for a 1 yr follow up with Isac ESPINO office, around 11/28/24 [facility] 09-02-2023 Evaluation note Encounter Date Diagnosis Assessment Notes Aug, Acute cough (ICD-10 - R05.1) Aug, Uvulitis (ICD-10 - K12.2) This. Plenty of fluids. Take feft-oqr-ardmvb r Tylenol Motrin as needed for fever [...] can continue with rest, fluids, Tylenol Motrin jgjb-tmc-rtbvll r for fever or discomfort. [facility] Other 01-16-2024 Evaluation note* Encounter Date Diagnosis Assessment Notes Treatment Notes Treatment Clinical Notes Jul, Hypothyroid (ICD-10 - E03.9) [facility] Other 12-20-2023 Evaluation note* Encounter Date Diagnosis Assessment Notes Treatment Notes Treatment Clinical Notes Jun, Acute COVID-19 (ICD-10 - U07.1) Discussed quarantine protocol. had COVID before her. She agrees to the steroid and inhaler due to chest tightness. Tara understands to hold her lipitor while on paxlovid. [facility] Other 10-27-2023 Evaluation note* Encounter Date Diagnosis Assessment Notes Treatment Notes Treatment Clinical Notes Apr, Hypothyroid (ICD-10 - E03.9) Increased dose. Recheck labs in ~6 weeks. Chronic problem. Monitor results. [facility] Other 08-18-2023 Evaluation note* Encounter Date Diagnosis [...] best 2/3 readings w/ goal < 135-85 [facility] Other 02-10-2023 Hospital Discharge instructions Patient Education [...] symptoms are. Treatment may include: Using an qmed-evv-edovowo vaginal lubricant before sex. Using a long-acting [...] Follow these instructions at home: Medicines Take isno-amw-hqewmrd and prescription medicines only as told by your health care provider. Do not use herbal or alternative medicines unless your health care provider says that you can. Use pckw-unq-cqlszhx creams, lubricants, or moisturizers for dryness only [...] 11/22/2015 Document Revised: 06/20/2018 Document Reviewed: 04/03/2018 [employer] Patient Education 2020 [employer]. Follow Up Care 08/28/2021 15:08:21 With:ANTHONY BYRD, Alonso Woodard, URL Address: [address] [place], [place] [id number]- When: Unknown [facility] 05-23-2022 Evaluation note* Encounter Date Diagnosis Assessment [...] Other Laceration repa ir material was printed [employer] Other Evaluation + Plan note Future Appointments Appointment Date:09/06/2023 11:45:00 AM Scheduled Provider:Alonso CRUZ MD Location:[facility] Appointment Type:URO Office Visit [facility] evaluation noteNo [email or web address] Other Evaluation note* Diagnosis Onset Date Resolution Status Left hand pain acute [facility] Work Phone: Evaluation note* Diagnosis Onset Date Resolution Status Left hand pain acute Dyspnea on exertion acute Medicare annual wellness visit, subsequent acute [facility] Work Phone: Evaluation note* Diagnosis Onset Date Resolution Status Left hand pain acute Dyspnea on exertion acute Hyperlipidemia acute Hypertension acute Hypothyroid acute Medicare annual wellness visit, subsequent acute Screening mammogram, encounter for acute [facility] Work Phone: History general Narrative - Reported* Type Description Date Medical History High blood pressure Medical History High cholesterol Medical History Thyroid disease Surgical History tonsillectomy and adenoidectomy Surgical History laparoscopy cholecystectomy Surgical History D&C Hospitalization History Cellulitis [facility] Other History general Narrative - Reported* Type [...] History Cellulitis Hospitalization History SEE SRUGICAL HX [facility] Other Hospital course Narrative No data available for this section [facility] [employer] progress note No data available for this section [facility] [employer] Summary Purpose Family History Relationship Condition Age [...] THUMB LACERATIONNew Pa tient?left arm pain/rashRefilllab resultslab [id number] possible COVIDUpdate Demographics - Personal InfoUpdate Demographics [...] and content) DATE CREATED AUTHOR 09/29/2022 [facility] DATE CREATED AUTHOR AUTHOR'S ORGANIZ ATION 2023 [facility] Goals (unrecognized section and content) Goals [...] BE BASED ON THE PRIMARY CLINICAL RECORDS. [employer] provides no warranty or guarantee of the accuracy or completeness of information in this document.
== END 2024-01-08 07:30 | disposition home or self-care (01) ==
LOC: MAMMO 07:29
PROVIDERS: PCP Family Medicine; Visit Provider Family Medicine
DX: Z12.31 Encounter for screening mammogram for malignant neoplasm of breast (principal); Z80.3 Family history of malignant neoplasm of breast; Z80.8 Family history of malignant neoplasm of other organs or systems
CPT/HCPCS: 77063; 77067

== ENCOUNTER 2025-03-09 06:29 | Outpatient (OUT) | payer MEDICARE, OTHER, SELFPAY ==
--- OUTSIDE RECORDS SUMMARY | 2025-03-09 06:35 | XMS_ITS | CCD ---
Author Organization [facility] CliniSyky Care Team Providers Care Lithoduplicator Operator Name Role Phone Gabriella Means Unavailable MARIFER BOYLE Primary Care Physician Marifer Boyle Unavailable MONTANA, DR MARIFER Hwang Primary Care Unavailable CHRISTINA, DR KAREN Woodard Attending Unavailable CHRISTINA, DR KAREN Woodard Admitting Unavailable CHRISTINA, DR KAREN Woodard Consulting Unavailable ANA LUISA, MARCOS Consulting Unavailable ELGIN, DR FREY Primary Care Unavailable MONTANA, DR MARIFER Hwang Attending Unavailable MONTANA, DR MARIFER Hwang Admitting Unavailable GILDARDO, DR TRAY Woodard Consulting Unavailable MONTANA, DR MARIFER Hwang Consulting Unavailable ELGIN, DR FREY Primary Care Unavailable BALL, DR FREY Consulting Unavailable BALL, DR FREY Attending Unavailable BALL, DR FREY Admitting Unavailable ZISHIN, DR TRAY Woodard Consulting Unavailable Elgin, Simone Unavailable Stephanie Dover Unavailable MD Marifer Boyle Primary Care Provider [phone] MD Lisa Frank Attending Provider Unallocatharis BYRD, [place] Provider Primary Care Provi ksenia Unallocatharis BYRD [place] Provider Primary Care Provi ksenia MD Julio César Benton Attending Provider MD Marifer Boyle Primary Care Provider MD Lisa Frank Attending Provider MD Julio César Benton Attending Provider Julio César Benton Attending Unavailable Julio César Benton Admyovanny Unavailable Marifer Boyle Primary Care Unavailable Julio César Benton Attending Unavailable Julio César Benton Admitting Unavailable Marifer Boyle Primary Care Unavailable Lisa Frank Attending Unavailable Lisa Frank Admitting Unavailable Julio César Benton MD Unavailable JULIO CÉSAR BENTON Attending Unavailable JULIO CÉSAR BENTON Attending Unavailable JULIO CÉSAR BENTON Referring Unavailable JULIO CÉSAR BENTON Attending Unavailable JULIO CÉSAR BENTON Attending Unavailable Marifer Boyle MD Primary Care Provider MARIFER BOYLE Primary Care Unavailable CHASE MANNING Attending Unavailab le MASHA, CHASE RESENDIZ Admitting Unavailab Alonso Cr Attending Unavailable Orzech, Sanam X Attending Unavailable Orzech, Sanam X Attending Unavailable Orzech, Sanam X Attending Unavailable Orzech, Sanam X Admitting Unavailable Orzech, Sanam X Attending Unavailable AISHA MORAN Attending Unavailab CHASE Vera Referring Unavailab MARIFER Blackwell Primary Care Unavailable MARIFER BOYLE Primary Care Unavailable SUROVEC, LAURIE Referring Unavailable MARIFER BOYLE Primary Care Unavailable CHASE MANNING Attending Unavailab le SUROVEC, LAURIE Attending Unavailable MARIFER BOYLE Primary Care Unavailable MARIFER BOYLE Primary Care Unavailable SUROVEC, LAURIE Attending Unavailable MARIFER BOYLE Primary Care Unavailable SUROVEArun, LAURIE Referring Unavailable MARIFER BOYLE Primary Care Unavailable Marifer Boyle MD Primary Care Provider Madison Lozano APRN Attending Provider Allergies Allergy Classification Reported Allergen(s) Allergy Type Date of Onset Reaction(s) Facility (20 sources) penicillAMINE Drug Allergy 4 rash [facility] (20 sources) Acetaminophen / HYDROcodone; Translations: [acetaminophen-hy drocodone] Drug Allergy 4 Nausea (finding), GI Upset [facility] (8 sources) Penicillin; Translations: [penicillin] Drug Allergy Unknown (qualifier value) [facility] (1 source) Acetaminophen / HYDROcodone Drug Allergy [facility] (17 sources) Penicillins; Translations: [PENICILLINS] Drug allergy (disorder) 4 Hives, Rash, Unknown [facility] Comment on above: Onset Date: 06/27/20 21 (11 sources) Substance with penicillin structure and antibacterial mechanism of action (substance) Drug allergy 1 Unknown [facility] (17 sources) Acetaminophen; Translations: [acetaminophen] Drug Allergy 4 Hives [facility] (20 sources) HYDROcodone; Translations: [hydrocodone] Drug Allergy 2 Dizziness, Hives, GI intolerance [facility] (15 sources) Penicillins Drug Allergy 2 Hives, Rash, Unknown [facility] (1 source) penicillAMINE Drug Allergy 4 [facility] (1 source) Penicillins Drug allergy (disorder) 4 [facility] (2 sources) penicillAMINE Drug Allergy 4 Rash [facility] (6 sources) Penicillins Drug Allergy 2 Hives, Rash, Unknown [facility] (2 sources) Acetaminophen / HYDROcodone; Translations: [HYDROCODONE-ACET AMINOPHEN] Drug Allergy 4 [facility] Other [place] [facility] Medications Current Medications Medication Drug Class(es) Dates Sig (Normalized) Sig (Original) acetaminophen 500 mg oral tablet (2 sources) Start: 08-14-2024 End: 08-28-2024 take 2 tablets by mouth every six hours as needed acetaminophen (TYLENOL EXTRA STRENGTH) 500 mg tablet Take 2 tablets by mouth every 6 hours as needed for pain for up to 14 days. 50 tablet 08/14/2024 08/28/2024 Active [id number] 200 actuat albuterol 0.09 mg/actuat metered dose inhaler (20 sources) beta2-Adrenergic Agonist Start: 03-02-2025 take 1 puff(s) by inhalation every four hours Albuterol Sulfate 90 mcg/actuation HFA aerosol inhaler Active 2 PUFF INHALATION Every 4 hours 8.5 30 March 02, 2025 8:20am Complies with drug therapy Start: 10-25-2023 End: 03-02-2025 take 2 puff(s) by inhalation every four hours as needed Albuterol Sulfate 90 mcg/actuation HFA aerosol inhaler Discontinued 2 PUFF INHALATION Every 4 hours October 25, 2023 12:00am March 02, 2025 8:22am FreeTextSi puff Inhalation every 4 hrs prn; Note: Source Status: Start; Refills: 1; Qty: 1 Each; Provider: [place] Hwang Start: 07-10-2023 take 2 puff(s) by in halation every four hours as needed Albuterol Sulfate HFA 108 (90 Base) MCG/ACT 2 puff Inhalation every 4 hrs prn Jun, Not-Taking/PRN amLODIPine 5 mg oral tablet (20 sources) Dihydropyridine Calcium Channel Alysha Start: 06-09-2024 amLODIPine 5 mg Tab 5 mg = 1 tab(s), Refills(s) 0 Start Date: 06/09/24 Status: Ordered Start: 03-10-2024 End: 08-18-2024 Amlodipine 5 mg tablet Disco ntinued 0 .ROUTE .COMPLEX June 04, 2024 5:05pm August 18, 2024 5:40pm TAKE 1 TABLET DAILY Start: 11-27-2023 End: 03-10-2024 take 1 tablet by mouth once daily Amlodipine 5 mg tablet Discontinued 5 MG PO Daily December 19, 2023 12:21pm March 10, 2024 11:14am Ascorbic Acid (11 sources) Vitamin C Vitamin C Active Ascorbic Acid / Bioflavonoids (5 sources) Vitamin C Start: 11-04-2020 ascorbic acid/bioflavonoids (SUZI C ORAL) Take by mouth once daily. 11/04/2020 Active atorvastatin 20 mg oral tablet (20 sources) HMG-CoA Reductase Inhibitor Start: 10-21-2023 End: 10-14-2024 Atorvastatin 20 mg tablet Active 0 .ROUTE .COMPLEX October 14, 2024 8:18am TAKE 1 TABLET DAILY Complies with drug therapy Start: 11-03-2020 End: 10-21-2023 take 1 tablet by mouth once daily Atorvastatin 20 mg tablet Discontinued 20 MG PO Daily October 21, 2023 12:00am October 21, 2023 11:53am Atorvastatin Carlos cium Active azithromycin 250 mg oral tablet (3 sources) Macrolide Antimicrobial Start: 03-02-2025 Azithromycin 250 mg tablet Active 0 PO daily 6 5 March 02, 2025 12:00am Take 2 on day 1 and then take 1 for the next 4 days (days 2-5) Complies with drug therapy Start: 09-02-2023 Azithromycin 2 50 MG Take 2 tablets on first day then 1 tablet daily for 4 days Orally as directed for 5 Aug, Active benzonatate 200 mg oral capsule (20 sources) Non-narcotic Antitussive Start: 12-20-2023 End: 03-02-2025 Benzonatate 200 mg capsule Active 200 MG PO 2-3 TIMES PER DAY as needed for cough March 02, 2025 8:21am Complies with drug therapy Start: 10-25-2023 End: 10-25-2023 take 1 capsule by mouth three times daily Benzonatate 200 mg capsule Discontinued 1 CAP PO Three times daily October 25, 2023 12:00am October 25, 2023 2:07pm FreeTextSi capsule Orally Three times a day; Note: Source Status: Start; Refills: 0; Qty: 30 Capsule; Provider: [place] Hwang Start: 07-10-2023 take 1 capsule by [facility] every eight hours Benzonatate 200 MG 1 capsule Orally Three times a day for 10 day(s) Jun, Not-Taking/PRN Biotin (7 sources) BIOTIN ORAL Take by mouth as directed. Active Suzi-C (6 sources) Start: 11-04-2020 Suzi-C Oral, Daily, Refills(s) 0 Start Date: 11/04/20 Status: Ordered estrogens, conjugated (jail) 0.625 mg/ml vaginal cream (20 sources) Estrogen Start: 10-25-2023 Conjugated Est rogens (Premarin) 0.625 mg/gram cream Active 0.625 MG VAGINAL As Directed October 25, 2023 12:00am FreeTextSig: as directed Vaginal; Note: Source Status: Taking; Provider: Montana Hawkins ( ) Complies with drug therapy Premarin 0.625 M G/GM as directed Vaginal Active Premarin 0.625 M G/GM as directed Vaginal Active ibuprofen 600 mg oral tablet (3 sources) Nonsteroidal Anti-inflammatory Drug Start: 08-14-2024 take 1 tablet by mouth every six hours as needed ibuprofen (MOTRIN) 600 mg tablet Take 1 tablet by mouth every 6 hours as needed for pain. 50 tablet 08/14/2024 10:33 AM EST 08/14/2024 Active levothyroxine sodium 0.137 mg oral tablet (20 sources) l-Thyroxine Start: 07-02-2024 End: 10-14-2024 Levothyroxine 137 mcg tablet Active 0 .ROUTE .COMPLEX October 14, 2024 8:19am TAKE 1 TABLET DAILY Complies with drug therapy Start: 10-25-2023 End: 07-02-2024 take 1 tablet by mouth once daily Levothyroxine 137 mcg tablet Discontinued 137 MCG PO Daily October 25, 2023 12:00am July 02, 2024 9:44am FreeTextSig: TAKE 1 TABLET DAILY; Note: Source Status: Refill; Refills: 3; Qty: 90 Tablet; Provider: [place] Hwang Start: 11-03-2020 take 1 tablet by rene once daily levothyroxine 112 mcg (0.112 mg) Tab 112 mcg = 1 tab(s), Oral, Daily, # 30 tab(s), Refills(s) 0 Start Date: 11/03/20 Status: Ordered levothyroxine (S ynthroid, Levoxyl) 112 MCG tablet 1 (one) time each day at the same time Active Levothyroxine So dium 137 MCG TAKE 1 TABLET DAILY for 90 days Active Levothyroxine So dium 137 MCG TAKE 1 TABLET DAILY for 90 days Active Synthroid Active lisinopril 20 mg oral tablet (20 sources) Angiotensin Converting Enzyme Inhibitor Start: 10-21-2023 End: 10-14-2024 Lisinopril 20 mg tablet Active 0 .ROUTE .COMPLEX October 14, 2024 8:19am TAKE 1 TABLET DAILY Complies with drug therapy Start: 11-03-2020 End: 10-21-2023 take 1 tablet by mouth once daily Lisinopril 20 mg tablet Discontinued 20 MG PO Daily October 21, 2023 12:00am October 21, 2023 11:53am Lisinopril Activ e methylPREDNISolone 4 mg oral tablet (19 sources) Corticosteroid Start: 03-02-2025 take 1 tablet by mouth once Methylprednisolone (Medrol (Jovany)) 4 mg tablets,dose pack Active 0 PO per package directions March 02, 2025 12:00am PO PER PKG DIR Complies with drug therapy Start: 12-19-2023 End: 02-19-2024 take 1 tablet by mouth once Methylprednisolone (Medrol (Jovany)) 4 mg tablets,dose pack Discontinued 0 PO per package directions December 19, 2023 12:00am February 19, 2024 7:52am PO PER PKG DIR for 6 days Start: 07-10-2023 methylPREDNISo lone 4 MG as directed Orally for 6 days Jun, Not-Taking/PRN Multi Vitamin+ (6 sources) Start: 11-04-2020 Multi Vitamin+ Refill(s) 0 Start Date: 11/04/20 Status: Ordered multivit-min/ferrous fumarate (MULTI VITAMIN ORAL) (7 sources) Start: 11-04-2020 multivit-min/ferrou s fumarate (MULTI VITAMIN ORAL) Refill(s) 0 11/04/2020 Active nitrofurantoin, macrocrystals 25 mg / nitrofurantoin, monohydrate 75 mg oral capsule (4 sources) Nitrofuran Antibacterial Start: 06-09-2024 End: 06-14-2024 Macrobid 100 MG capsule Take 100 mg by mouth 06/09/2024 06/14/2024 Active [place] 3 (11 sources) [place] 3 Active [place]-3 (6 sources) Start: 11-04-2020 [place]-3 Refill(s) 0 Start Date: 11/04/20 Status: Ordered [id number]-FIS H OIL ORAL (7 sources) take 2 tablets by mouth once daily [id number]-FI SH OIL ORAL Take 2 tablets by mouth once daily. Active ondansetron 4 mg disintegrating oral tablet (20 sources) Serotonin-3 Receptor Antagonist Start: 08-14-2024 take 1 tablet by mouth every eight hours as needed ondansetron orally disintegrating (ZOFRAN ODT) 4 mg disintegrating tablet Take 1 tablet by mouth every 8 hours as needed for nausea/vomiting. 15 tablet 08/14/2024 10:33 AM EST 08/14/2024 Active Start: 10-25-2023 End: 10-25-2023 take 1 tablet by mouth once daily Ondansetron Hcl 4 mg tablet Discontinued 1 TAB PO Daily October 25, 2023 12:00am October 25, 2023 2:08pm FreeTextSi tablet Orally Once a day; Note: Source Status: Not-TakingundefinedPRN; Provider: Montana Hawkins ( ) take 1 tablet by rene th every twenty-four hours Ondansetron HCl 4 MG 1 tablet Orally Onc e a day Not-Taking/PRN oxyCODONE hydrochloride 5 mg oral tablet (1 source) Opioid Agonist Start: 08-14-2024 End: 08-19-2024 take 1 tablet by mouth every six hours as needed for pain oxyCODONE IR (ROXICODONE) 5 mg immediate release tablet Indications: Complex atypical endometrial hyperplasia Take 1 tablet by mouth every 6 hours as needed for pain for up to 5 days. 10 tablet 08/14/2024 08/19/2024 Active polyethylene glycol 3350 08664 mg powder for oral solution (16 sources) Osmotic Laxative polyethylene glycol 3350 (MIRALAX) 17 gram packet Take 17 g by mouth once daily. Dissolve dose in 4 - 8 ounces of liquid and take as directed. Active MiraLax Active sennosides, jail 8.6 mg oral tablet (3 sources) Start: 08-14-2024 take 1 tablet by mouth every twelve hours as needed Senna 8.6 mg tab Take 1 tablet by mouth two times a day as needed for constipation. 60 tablet 08/14/2024 10:33 AM EST 08/14/2024 Active Womens Multi (11 sources) Womens Multi Act tremayne Completed/Discontinued Medications Medication Drug Class(es) Dates Sig (Normalized) Sig (Original) doxycycline hyclate 100 mg oral capsule (20 sources) Tetracycline-cla ss Drug Start: 10-25-2023 End: 10-25-2023 take 1 capsule by mouth twice daily Doxycycline Hyclate 100 mg capsule Discontinued 1 CAP PO Twice daily October 25, 2023 12:00am October 25, 2023 2:07pm FreeTextSi capsule Orally twice daily; Note: Source Status: Taking; Refills: 0; Provider: [place] Hwang Start: 03-08-2023 take 1 capsule by mo [facility] twice daily as needed Doxycycline Hyclate 100 MG 1 capsule Orally twice daily for 7 days Feb, Not-Taking/PRN estradiol 0.1 mg/ml vaginal cream (20 sources) Estrogen Start: 09-17-2024 estradiol 0.1 mg/g Vag Crm See Instructions, 42.5 gm, Refill(s) 4, Apply pea-sized amount around the urethra 3x per week., [employer] #72, 170, cm, 09/17/24 11:39:00 EST, Height/Length Dosing, 73, kg, 09/17/24 11:39:00 EST, Weight Dosing Start Date: 09/17/24 Status: Ordered Start: 02-14-2024 estradiol 0.1 mg/g Vag Crm 1 gm, Vaginal, MonWedFri, 42.5 gm, Refill(s) 4, [employer] #72, 170, cm, 11/26/23 9:23:00 EDT, Height/Length Dosing, 72.7, kg, 11/26/23 9:23:00 EDT, Weight Dosing Start Date: 02/14/24 Status: Ordered Start: 01-09-2023 estradiol 0.1 mg/g Vag Crm 1 gm, Vaginal, MonWedFri, 42.5 gm, Refill(s) 4, [employer] #72, 170, cm, 08/31/22 11:21:00 EST, Height/Length Dosing, 69.1, kg, 08/31/22 11:21:00 EST, Weight Dosing Start Date: 01/09/23 Status: Ordered Start: 12-29-2021 estradiol 0.1 mg/g Vag Crm 1 gm, Vaginal, MonWedFri, 42.5 gm, Refill(s) 4, [employer] #72, 170, cm, 08/28/21 14:33:00 EST, Height/Length Dosing, 70, kg, 08/28/21 14:33:00 EST, Weight Dosing Start Date: 12/29/21 Status: Ordered Start: 11-08-2020 estradiol (EST RACE) 0.01 % (0.1 mg/gram) vaginal cream INSERT 1 GRAM VAGINALLY SATURDAY, SATURDAY, and Saturday11/08/2020 Active Estradiol Active Melatonin (11 sources) Melatonin Not-Ta alexander/PRN Melatonin Active paxlovid (300/100) 20 x 150 mg & 10 x 100mg tablet therapy pack (7 sources) Paxlovid (300/10 0) 20 x 150 MG & 10 x 100MG as directed Orally Not-Taking/PRN Paxlovid (300/10 0) 20 x 150 MG & 10 x 100MG as directed Orally Active Problems Active Problems Problem Classification Problem Date Documented Date Episodic/Chronic Cancer of uterus (1 source) Malignant neoplasm of endometrium of corpus uteri ; Translations: [Malignant neoplasm of endometrium] 06-12-2024 Chronic Chronic obstructive pulmonary disease and bronchiectasis (1 source) Bronchitis; Translations: [Bronchitis, not specified as acute or chronic] 03-02-2025 Episodic Diseases of mouth; excluding dental (1 source) Cellulitis and abscess of mouth Episodic Disorders of lipid metabolism (20 sources) Hyperlipidemia, unspecified; Translations: [Pure hypercholesterolemia, unspecified] Onset: 12-28-2021 Chronic Diverticulosis and diverticulitis (11 sources) Diverticulitis; Translations: [Diverticulitis of intestine, part unspecified, without perforation or abscess without bleeding] Chronic Essential hypertension (20 sources) Essential hypertension; Translations: [Essential (primary) hypertension] Onset: 09-28-2022 11-03-2020 Chronic Genitourinary congenital anomalies (6 sources) 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 Chronic Genitourinary symptoms and ill-defined conditions (10 sources) Stress incontinence (female) (male); Translations: [Genuine stress incontinence] Onset: 08-31-2022 Chronic Genitourinary symptoms and ill-defined conditions (15 sources) Retention of urine; Translations: [Retention of urine, unspecified] Onset: 08-31-2022 Episodic Immunizations and screening for infectious disease (11 sources) Patient encounter status; Translations: [Encounter for immunization] 04-30-2024 Episodic Menopausal disorders (20 sources) Atrophic vaginitis; Translations: [Postmenopausal atrophic vaginitis] Onset: 08-31-2022 Chronic Mycoses (6 sources) Candidiasis of vagina 11-03-2020 Episodic Nausea and vomiting (19 sources) Nausea with vomiting, unspecified; Translations: [Nausea] Onset: 12-28-2021 08-06-2024 Episodic Osteoarthritis (3 sources) Arthritis of first carpometacarpal joint of left hand; Translations: [Unilateral primary osteoarthritis of first carpometacarpal joint, left hand] 10-09-2024 Chronic Other aftercare (4 sources) Surgical follow-up; Translations: [Encounter for follow-up examination after completed treatment for conditions other than malignant neoplasm] 06-08-2024 Episodic Other aftercare (1 source) Encounter for follow-up examination after completed treatment for conditions other than malignant neoplasm; Translations: [Postop check] Onset: 08-26-2024 Episodic Other connective tissue disease (12 sources) Hand pain; Translations: [Pain in left hand] 10-29-2023 Episodic Other connective tissue disease (3 sources) Pain in left hand; Translations: [Pain in limb] 10-29-2023 Episodic Other connective tissue disease (1 source) Pain of left hand; Translations: [Pain in left hand] 10-29-2023 Episodic Other diseases of bladder and urethra (11 sources) Urethral stricture; Translations: [Other urethral stricture, female] Onset: 08-31-2022 Episodic Other ear and sense organ disorders (11 sources) Tinnitus; Translations: [Tinnitus, right ear] Episodic Other female genital disorders (2 sources) Atypical endometrial hyperplasia; 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]] 06-10-2024 Chronic Other female genital disorders (4 sources) Complex atypical endometrial hyperplasia; 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]] 06-28-2024 Chronic Other female genital disorders (2 sources) 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]; Translations: [Complex atypical endometrial hyperplasia] Onset: 08-06-2024 Chronic Other female genital disorders (4 sources) Mass of left ovary; Translations: [Other noninflammatory disorders of ovary, fallopian tube and broad ligament] 03-30-2024 Episodic Other hereditary and degenerative nervous system conditions (11 sources) Hereditary essential tremor; Translations: [Essential tremor] Chronic Other lower respiratory disease (20 sources) Dyspnea on exertion; Translations: [Other forms of dyspnea] 11-03-2020 Episodic Other lower respiratory disease (6 sources) Other forms of dyspnea; Translations: [Other respiratory abnormalities] 11-27-2023 Episodic Other nervous system disorders (10 sources) Carpal tunnel syndrome of left wrist; Translations: [Carpal tunnel syndrome, left upper limb] 02-19-2024 Chronic Other nervous system disorders (16 sources) Carpal tunnel syndrome, left upper limb; Translations: [Carpal tunnel syndrome] Onset: 03-04-2024 02-19-2024 Chronic Other screening for suspected conditions (not mental disorders or infectious disease) (5 sources) Endometrium thickened; Translations: [Abnormal findings on diagnostic imaging of other specified body structures] Onset: 08-06-2024 07-01-2024 Chronic Other screening for suspected conditions (not mental disorders or infectious disease) (20 sources) Serum lipids high; Translations: [Encounter for screening mammogram for malignant neoplasm of breast] Onset: 01-04-2022 11-03-2020 Episodic Other upper respiratory disease (10 sources) Allergic rhinitis; Translations: [Allergic rhinitis, unspecified] 12-19-2023 Chronic Other upper respiratory disease (3 sources) Allergic rhinitis, unspecified; Translations: [Allergic rhinitis, cause unspecified] 12-19-2023 Chronic Ovarian cyst (5 sources) Cyst of left ovary; Translations: [Unspecified ovarian cyst, left side] Onset: 08-06-2024 07-01-2024 Episodic Residual codes; unclassified (6 sources) Family history of breast cancer 11-03-2020 Episodic Residual codes; unclassified (6 sources) Family history of diabetes mellitus 11-03-2020 Episodic Residual codes; unclassified (6 sources) Requires vaccination 11-03-2020 Episodic Residual codes; unclassified (1 source) Family history of malignant neoplasm of breast; Translations: [FAMILY HX MALIG NEOPLASM OF BREAST] Onset: 09-28-2022 Episodic Residual codes; unclassified (1 source) Family history of malignant neoplasm of other organs or systems; Translations: [FAM HX MALIG NEOPLASM OTH ORGN/SYS] Onset: 09-28-2022 Episodic Residual codes; unclassified (1 source) Procedure related finding; Translations: [Encounter for other prophylactic surgery] 08-06-2024 Episodic Residual codes; unclassified (1 source) Other specified postprocedural states; Translations: [PONV (postoperative nausea and vomiting)] Onset: 08-06-2024 Episodic Residual codes; unclassified (1 source) Encounter for other prophylactic surgery; Translations: [Encounter for other prophylactic surgery] Onset: 08-06-2024 Episodic Skin and subcutaneous tissue infections (1 source) Cellulitis of left upper limb Episodic Substance-related disorders (7 sources) Smoker; Translations: [Nicotine dependence, unspecified, uncomplicated] Onset: 08-05-2024 08-05-2024 Chronic Thyroid disorders (20 sources) Hypothyroidism; Translations: [Hypothyroidism, [...] Test Name Value Interpretation Reference Range [facility] [place] [facility] Visit ([facility]) Office ([facility]NOS[facility]) ----- JAMES WOODS ([id number]) 1950 F Date Time Provider Department 09/23/24 11:00 AM LAURIE JONES During your visit today, we recorded the following information about you: Temperature Pulse Respiration Blood pressure 97.9 degrees 83/minute 18/minute 127/79 Weight 72.9 kg Laurie Jones APRN.CNP 09/23/2024 4:38 PM Signed DATE OF SERVICE: 09/23/2024 REASON FOR VISIT: PMB, echogenic lesion left adnexa-CAH Consultation requested by Dr. Benton. My final recommendations will be communicated back to the requesting physician by way of shared Medical record or letter to requesting physician via US mail. Communication back to the referring provider will be sent by way of medical record. DIAGNOSIS: atypical epithelial cells on path. HPI: James Woods is a 73 yo with a PMH of HTN, HLD, and hypothyroid. Patient presented to Dr Benton in February with c/o PMB. 10 days of bleeding, started light, then heavy, then tapered off. 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 Benton. Sono showed a thickened endometrium with possible polyp, and an echogenic lesion in the left ovary. CT was essentially normal, with an echogenic lesion in the left adnexa, but no ovarian masses/cysts or assoc signs of malignancy. See imaging below. On 05/27/2024 she underwent DANDC with findings of: PATHOLOGY: fragments of benign endometrial stroma and cervical mucosa, with a MINUTE FOCUS OF MARKED EPITHELIAL ATYPIA Patient states she feels good overall. Patient reports bowel and bladder issues. She had her urethra stretched 3 [address] Cruz. She has diverticulosis. She is taking miralax and that has helped. No bleeding, discharge, or pain. No shortness of breath, cough, or chest pain. [facility] path review: FINAL DIAGNOSIS Outside case [id number], collected 05/27/2024 Endometrium, curettage: - Limited superficial inactive endometrium (see comment). - Predominantly benign squamous and endocervical epithelium with atrophic changes. DATE OF LAST VISIT: n/a OBSTETRIC/ GYNECOLOGY HISTORY: Gynecologic surgery: DANDC LMP: menopause Last Pap: 03/14-neg Last HPV: unsure-never PAST MEDICAL HISTORY Diagnosis Date HLD (hyperlipidemia) HTN (hypertension) Hx of tonsillectomy Hypothyroidism PAST SURGICAL HISTORY Procedure Laterality Date DANDC, DIAG AND/OR THERAPEUTIC DANDC, DIAG AND/OR THERAPEUTIC REMOVAL GALLBLADDER TONSILLECTOMY AND ADENOIDECTOMY URETHRAL DILATION, MALE SUBSQ Family History Problem Relation Age of Onset Breast Cancer Mother Heart disease Mother Heart disease Father Heart disease Brother Diabetes Brother Stroke Maternal Grandmother Lung Cancer Paternal Grandfather RECENT IMAGING: Date: 03/30/2024-CT ABD PEL- FINDINGS: Uterus is unremarkable. Left ovary contains a 7 mm calcification. However, no fat is present. Therefore, this is an incidental finding and a dermoid or teratoma is not confirmed. Right adnexa is unremarkable. No free fluid is present. There is moderate degenerative change of the hips. No fracture or osteolysis is apparent. IMPRESSION: Isolated small calcification in the left ovary. No additional features to suggest a teratoma are identified at this time. This is generally considered an incidental finding. Sonographic followup to document stability is recommended. All CT scans at this institution are performed using dose optimization techniques as appropriate for the performed exam including the following: Automated exposure control Adjustment of the mA and/or kV according to patient size Use of iterative reconstruction technique Date: 03/30/[id number] s SURGICAL PROCEDURE-08/14/2024-Robo tic assisted total laparoscopic hysterectomy with bilateral salpingo-oophorectomy cystoscopy 08/14/2024-SURGICAL PATH- FINAL DIAGNOSIS A. Uterus, cervix, bilateral fallopian tubes and ovaries, hysterectomy and bilateral salpingooophorectomy: Cervix: Nabothian cysts and chronic cervicitis. Endometrium- Inactive endometrium. Myometrium- Extensive adenomyosis. 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 Left and right fallopian tubes - No significant pathologic findings. HEALTH MAINTENANCE: Last mammogram: UTD normal Last colonoscopy: less than 5 years-needs 5 year follow up ECOG performance status ECOG PERFORMANCE STATUS: 0- Fully active, able to carry on all pre-disease performance w/o restriction. SUBJECTIVE/INTERVAL HISTORY: James Woods reports that she feels well. No fever or chills. No shortness of breath, cough, or chest pain. No incisional redness, swelling, or drainage. Patient reports that her appetite is good. No abdominal pain, nausea, vomiting, diarrhea, or constipation. Some new noc (more content not included)... Normal [facility] Office/Clinic Noteon 09-17-2024 Urology Office/Clinic Note Urology Office/Clinic Note Chief Complaint discuss medication HPI Staff 73yr old female pt here to discuss med management. Had previously been on estradiol cream but began having bleeding last Mar. OBGYN told her to discontinue it. She had a hysterectomy 5wks ago. Has f/u with OBGYN next week. Was told she had to wait 6wks after her surgery to resume cream. She would like to discuss if she should resume using the cream. S/p cysto/UD done 11/08/20. Previous Dx: bacteriuria, other urethral stricture, incomplete bladder emptying, atrophic vaginitis, stress incontinence Review of Systems PHQ Score Initial Depression Screen Score: 0 SCORE no fever, chills, malaise, myalgia. no rash/lesions. no chest pain, palpitations, or SOB. no abdominal pain, nausea, vomiting. Physical Exam Vitals & Measurements HR: 73(Peripheral) RR: 18 BP: 137/81 HT: 67 in HT: 170 cm WT: 73 kg WT: 160.937 lb BMI: 25.26 nontoxic Assessment/Plan UA completed in office today shows no microhematuria or signs of infection. 1. Other urethral stricture, female (N35.82: Other urethral stricture, female) Sp Cysto/UD 11/08/20. Thought sx were recurring/time for another UD 06/09/24 but ended up resolving w abx tx for +cx (E Coli, borrego-S). Since that time pt has had hysterectomy. Wondering if she should resume estrogen cream (stopped it after developing vaginal bleeding in Mar 2024). Rationale for use/risks/benefits/side effects discussed. We agree if PATIENT SERVICES COORDINATOR ok with it, she should resume it. All questions answered. Ordered: Body Mass Index (BMI) documented 3008F Current tobacco non-user 1036F Depression Screening Negative 3352F E&M of Est. Patient Low 20-29 Min 57848 Influenza immunization status assessed 1030F Medication list documented in medical record 1159F Most recent diastolic blood pressure 80-89 mm Hg 3079F Patient screen for fall risk: no falls in last year or 1 fall with no injury in last year 1101F Review of all meds by a prescribing practitioner or clinical pharmacist documented in EHR 1160F Systolic BP 130-139 mm Hg (Most Recent) 3075F Urnls Dip Stick Auto w/o Microscopy POC 80109 Orders: estradiol topical, See Instructions, 42.5 gm, Refill(s) 4, Apply pea-sized amount around the urethra 3x per week., Libretto #72, 170, cm, 09/17/24 11:39:00 EST, Height/Length Dosing, 73, kg, 09/17/24 11:39:00 EST, Weight Dosing Follow-up With When Contact Information [facility] Additional Instructions: Only if needed/new problems arise. No scheduled appointment indicated at this time. 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 Medications amLODIPine 5 mg Tab, 5 mg= 1 tab(s) atorvastatin 20 mg Tab, Oral, Daily Suzi-C, Oral, Daily estradiol 0.1 mg/g Vag Crm, See Instructions, 4 refills levothyroxine 112 mcg (0.112 mg) Tab, 112 mcg= 1 tab(s), Oral, Daily lisinopril 20 mg Tab, Oral, Daily Multi Vitamin+ [place]-3 Allergies Vicodin (Nausea) penicillin (Unknown) Social History Alcohol Current. Beer, Wine., 09/17/2024 Substance Abuse Never., 06/09/2024 Tobacco Former smoker, quit more than 30 days ago Tobacco Use:. Never Smokeless Tobacco Use:. Cigarettes, 09/17/2024 Family History Hypertension: Mother and Father. Migraine: Child. Primary malignant neoplasm of female breast: Mother. Primary malignant neoplasm of lung: Grandparent. Stroke: Grandparent. Immunizations Vaccine Date Status influenza virus vaccine, inactivated 04/30/2024 Recorded influenza virus vaccine, inactivated 05/22/2023 Recorded tetanus-diphtheria toxoids 12/11/2021 Recorded SARSCoV2 mRNA(hpqdkasgq-akrr-rfuxw s) vac 09/01/2021 Recorded SARS-CoV-2 (COVID-19) mRNA BNT-162b2 vax 02/02/2021 Recorded SARS-CoV-2 (COVID-19) mRNA BNT-162b2 vax 01/12/2021 Recorded SARS-CoV-2 (COVID-19) mRNA BNT-162b2 vax 2020 Recorded influenza virus vaccine, inactivated 05/12/2020 Recorded pneumococcal 23-valent vaccine 06/05/2018 Recorded pneumococcal 13-valent vaccine 04/10/2017 Recorded influenza virus vaccine, inactivated 04/10/2017 Recorded influenza virus vaccine, inactivated 05/07/2016 Recorded Lab Results Ambulatory Point of Care Results Bilirubin Urine Dipstick: Negative (09/17/24 11:30:00) Blood Urine Dipstick (more content not included)... Normal [facility] Comment on above: Result Comment: Elec tronically Signed By: MADISON MORAN PA-C\Date and Time Signed: 09/17/24 12:18 EST Provider Letteron 09-09-2024 Provider Letter Provider Letter September 09, 2024 JAMES WOODS [address] [place] [id number] : 1950 Dear MsCourtney Woods, During review of your medical record we noticed that a follow up appointment was not scheduled. We have attempted to reach you to verify your condition and conclude treatment. Please call our office today to reschedule this appointment. Sincerely, [facility] [place] [address] ext.3 [facility] Reminderson 09-09-2024 Reminders Reminders From: Silvia Mckenzie To: [facility] - Administrative; Sent: 11/26/2023 09:38:12 EDT Show up: 11/26/2023 09:38:00 EDT Subject: Ambulatory Reminder Reminder/Recall Patient needs scheduled for a 1 yr follow up with [facility] office, around 11/28/24 Letter sent to pt stating call back to schedule appointment. Normal [facility] CNOVSPon 08-26-2024 CNOVSP Visit (SP) Office ([facility]) ----- JAMES WOODS ([id number]) 1950 F Date Time Provider Department 08/26/24 10:30 AM LAURIE JONES During your visit today, we recorded the following information about you: Temperature Pulse Respiration Blood pressure 98 degrees 82/minute 16/minute 129/72 Weight Height 72.5 kg 1.702 m Laurie Jones APRN.CNP 08/26/2024 12:53 PM Signed DATE OF SERVICE: 08/26/2024 REASON FOR VISIT: PMB, echogenic lesion left adnexa-CAH Consultation requested by Dr. Benton. My final recommendations will be communicated back to the requesting physician by way of shared Medical record or letter to requesting physician via US mail. Communication back to the referring provider will be sent by way of medical record. DIAGNOSIS: atypical epithelial cells on path. HPI: James Woods is a 73 yo with a PMH of HTN, HLD, and hypothyroid. Patient presented to Dr Benton in February with c/o PMB. 10 days of bleeding, started light, then heavy, then tapered off. 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 Benton. Sono showed a thickened endometrium with possible polyp, and an echogenic lesion in the left ovary. CT was essentially normal, with an echogenic lesion in the left adnexa, but no ovarian masses/cysts or assoc signs of malignancy. See imaging below. On 05/27/2024 she underwent DANDC with findings of: PATHOLOGY: fragments of benign endometrial stroma and cervical mucosa, with a MINUTE FOCUS OF MARKED EPITHELIAL ATYPIA Patient states she feels good overall. Patient reports bowel and bladder issues. She had her urethra stretched 3 years ago[address] She sees Dr. Cruz. She has diverticulosis. She is taking miralax and that has helped. No bleeding, discharge, or pain. No shortness of breath, cough, or chest pain. [facility] path review: FINAL DIAGNOSIS Outside case [id number], collected 05/27/2024 Endometrium, curettage: - Limited superficial inactive endometrium (see comment). - Predominantly benign squamous and endocervical epithelium with atrophic changes. DATE OF LAST VISIT: n/a OBSTETRIC/ GYNECOLOGY HISTORY: Gynecologic surgery: DANDC LMP: menopause Last Pap: 03/14-neg Last HPV: unsure-never PAST MEDICAL HISTORY Diagnosis Date HLD (hyperlipidemia) HTN (hypertension) Hx of tonsillectomy Hypothyroidism PAST SURGICAL HISTORY Procedure Laterality Date DANDC, DIAG AND/OR THERAPEUTIC DANDC, DIAG AND/OR THERAPEUTIC REMOVAL GALLBLADDER TONSILLECTOMY AND ADENOIDECTOMY URETHRAL DILATION, MALE SUBSQ Family History Problem Relation Age of Onset Breast Cancer Mother Heart disease Mother Heart disease Father Heart disease Brother Diabetes Brother Stroke Maternal Grandmother Lung Cancer Paternal Grandfather RECENT IMAGING: Date: 03/30/2024-CT ABD PEL- FINDINGS: Uterus is unremarkable. Left ovary contains a 7 mm calcification. However, no fat is present. Therefore, this is an incidental finding and a dermoid or teratoma is not confirmed. Right adnexa is unremarkable. No free fluid is present. There is moderate degenerative change of the hips. No fracture or osteolysis is apparent. IMPRESSION: Isolated small calcification in the left ovary. No additional features to suggest a teratoma are identified at this time. This is generally considered an incidental finding. Sonographic followup to document stability is recommended. All CT scans at this institution are performed using dose optimization techniques as appropriate for the performed exam including the following: Automated exposure control Adjustment of the mA and/or kV according to patient size Use of iterative reconstruction technique Date: 03/30/20243330-[id number]-etvov s SURGICAL PROCEDURE-08/14/2024-Robo tic assisted total laparoscopic hysterectomy with bilateral salpingo-oophorectomy cystoscopy 08/14/2024-SURGICAL PATH- FINAL DIAGNOSIS A. Uterus, cervix, bilateral fallopian tubes and ovaries, hysterectomy and bilateral salpingooophorectomy: Cervix: Nabothian cysts and chronic cervicitis. Endometrium- Inactive endometrium. Myometrium- Extensive adenomyosis. 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 Left and right fallopian tubes - No significant pathologic findings. HEALTH MAINTENANCE: Last mammogram: UTD normal Last colonoscopy: less than 5 years-needs 5 year follow up ECOG performance status ECOG PERFORMANCE STATUS: 0- Fully active, able to carry on all pre-disease performance w/o restriction. SUBJECTIVE/INTERVAL HISTORY: James Woods reports that she feels well. No fever or chills. No shortness of breath, cough, or chest pain. No incisional redness, swelling, or drainage. Patient reports that her appetite is good. No abdominal pain, nausea, vomiting, diarrhea, or constipation. (more content not included)... Normal [facility] - Chemistry and C hemistry - challengeon 08-26-2024 Bilirubin Ql (U) Negative Negative [facility] Glucose (U) [Mass/Vol] Negative [facility] Ketones Ql (U) Trace Abnormal Negative [facility] pH (U) 5.5 [pH] <8.5 [facility] Specific gravity (U) [Rel density] 1.024 1.005-1.03 0 [facility] Laboratory - Specimen inform ationon 08-26-2024 Appearance (U) Clear Clear [facility] Color (U) Yellow Yellow [facility] Laboratory - Urinalysison Bacteria LM.HPF (Urine sed) [#/Area] Negative Negative [facility] Hyaline casts LM Ql (Urine sed) 0 /LPF 0 /LPF [facility] Leukocyte esterase Test strip Ql (U) 1+ Abnormal Negative [facility] Nitrite Ql (U) Negative Negative [facility] Protein Ql (U) Negative Negative [facility] No Panel Informationon 08-26 Urine Calcium Oxalate Crystals Few [HPF] Abnormal None Seen [facility] Urine Occult Blood Negative Negative [facility] Urine RBC 3-5 /HPF Abnormal 0-2 /HPF [facility] Urine Squamous Epithelial Cells Few [HPF] [facility] Urine Urobilinogen 0.2 EU/dL 0.2-1.0 EU/dL [facility] Urine WBC 0-5 /HPF 0-5 /HPF [facility] Urinalysis complete panel (U )on 08-26-2024 Bacteria LM.HPF (Urine sed) [#/Area] Negative Negative /HPF [facility] Bilirubin Ql (U) Negative Negative [facility] Calcium Oxalate Crystals Few Abnormal None Seen /HPF [facility] Clarity (Unsp spec) Clear Clear [facility] Color (U) Yellow Yellow [facility] Epithelial cells LM.HPF (Urine sed) [#/Area] Few /HPF [facility] Glucose Test strip (U) [Mass/Vol] Negative Negative [facility] Hemoglobin Ql (U) Negative Negative [facility] Hyaline casts (Urine sed) [#/Area] 0 /[LPF] 0 /LPF [facility] Interpretation and review of laboratory results Abnormal [facility] Ketones Ql (U) Trace Abnormal Negative [facility] Leukocyte esterase Test strip Ql (U) 1+ Abnormal Negative [facility] Nitrite Ql (U) Negative Negative [facility] pH (U) 5.5 [pH] NINF - 8.5 [facility] Protein (U) [Mass/Vol] Negative Negative [facility] RBC LM.HPF (Urine sed) [#/Area] 3-5 /HPF Abnormal 0-2 /HPF [facility] Specific gravity (U) [Rel density] 1.024 1.005 - 1.030 [facility] Urobilinogen Ql (U) 0.2 EU/dL 0.2-1.0 EU/dL [facility] WBC LM.HPF (Urine sed) [#/Area] 0-5 /HPF 0-5 /HPF [facility] This test was ingris mckoy and its performance characteristics determined by [facility]'s [facility] [place] ([facility]). It has not been cleared or approved by the FDA. [facility] is regulated under CLIA as qualified to perform high-complexity testing. This test is used for clinical purposes. It should not be regarded as investigational or for research. [facility] Bacteria LM.HPF (Urine sed) [#/Area] Negative Normal Negative [facility] Comment on above: Order Comment: Speci men Type: BLOOD SPECIMEN Ordering Facility: [facility] Address: [address] [place] [address] Performed By: #### 2 4108-3, 2038-12 #### [facility] CLIA [id number] [address] [place] [address] [place] Bilirubin Ql (U) Negative Normal Negative [facility] Comment on above: Order Comment: Speci men Type: BLOOD SPECIMEN Ordering Facility: [facility] Address: [address] [place] [address] Performed By: #### 2 4108-3, 2038-12 #### [facility] CLIA [id number] [address] [place] [address] [place] CALCIUM OXALATE CRYSTALS (UA) Few Abnormal None Seen [facility] Comment on above: Order Comment: Speci men Type: BLOOD SPECIMEN Ordering Facility: [facility] Address: [address] [place] [address] Performed By: #### 2 4108-3, 2038-12 #### [facility] CLIA [id number] [address] [place] [address] [place] Clarity (Unsp spec) Clear Normal Clear [facility] Comment on above: Order Comment: Speci men Type: BLOOD SPECIMEN Ordering Facility: [facility] Address: [address] [place] [address] Performed By: #### 2 8-3, 2038-12 #### [facility] CLIA [id number] [address] [place] [address] [place] Color (U) Yellow Normal Yellow [facility] Comment on above: Order Comment: Speci men Type: BLOOD SPECIMEN Ordering Facility: [facility] Address: [address] [place] [address] Performed By: #### 2 8-3, 2038-12 #### [facility] CLIA [id number] [address] [place] [address] [place] Epithelial cells LM.HPF (Urine sed) [#/Area] Few Normal [facility] Comment on above: Order Comment: Speci men Type: BLOOD SPECIMEN Ordering Facility: [facility] Address: [address] [place], [place] [id number] Performed By: #### 2 8-3, 2038-12 #### [facility] CLIA [id number] [address] [place] [address] [place] Glucose Test strip (U) [Mass/Vol] Negative Normal Negative [facility] Comment on above: Order Comment: Speci men Type: BLOOD SPECIMEN Ordering Facility: [facility] Address: [address] [place] [address] Performed By: #### 2 4108-3, 2038-12 #### [facility] CLIA [id number] [address] [place] [address] [place] Hemoglobin Ql (U) Negative Normal Negative [facility] Comment on above: Order Comment: Speci men Type: BLOOD SPECIMEN Ordering Facility: [facility] Address: [address] [place] [address] Performed By: #### 2 8-3, 2038-12 #### [facility] CLIA [id number] [address] [place] [address] [place] Hyaline casts (Urine sed) [#/Area] 0 /[LPF] Normal 0 /LPF [facility] Comment on above: Order Comment: Speci men Type: BLOOD SPECIMEN Ordering Facility: [facility] Address: [address] [place] [address] Performed By: #### 2 8-3, 2038-12 #### [facility] CLIA [id number] [address] [place] [address] [place] Ketones Ql (U) Trace Abnormal Negative [facility] Comment on above: Order Comment: Speci men Type: BLOOD SPECIMEN Ordering Facility: [facility] Address: [address] [place] [address] Performed By: #### 2 83, 2038-12 #### [facility] CLIA [id number] [address] [place], [place] [address] [place] Leukocyte esterase Test strip Ql (U) 1+ Abnormal Negative [facility] Comment on above: Order Comment: Speci men Type: BLOOD SPECIMEN Ordering Facility: [facility] Address: [address] [place], [place] [address] Performed By: #### 2 4108-3, 2038-12 #### [facility] CLIA [id number] [address] [place], [place] [address] [place] Nitrite Ql (U) Negative Normal Negative [facility] Comment on above: Order Comment: Speci men Type: BLOOD SPECIMEN Ordering Facility: [facility] Address: [address] [place] [address] Performed By: #### 2 4108-3, 2038-12 #### [facility] CLIA [id number] [address] [place] [address] [place] pH (U) 5.5 [pH] Normal <8.5 [facility] Comment on above: Order Comment: Speci men Type: BLOOD SPECIMEN Ordering Facility: [facility] Address: [address] [place] [address] Performed By: #### 2 8-3, 2038-12 #### [facility] CLIA [id number] [address] [place] [address] [place] Protein (U) [Mass/Vol] Negative Normal Negative [facility] Comment on above: Order Comment: Speci men Type: BLOOD SPECIMEN Ordering Facility: [facility] Address: [address] [place] [address] Performed By: #### 2 8-3, 2038-12 #### [facility] CLIA [id number] [address] [place] [address] [place] RBC LM.HPF (Urine sed) [#/Area] 3-5 /HPF Abnormal 0-2 /HPF [facility] Comment on above: Order Comment: Speci men Type: BLOOD SPECIMEN Ordering Facility: [facility] Address: [address] [place] [address] Performed By: #### 2 4108-3, 2038-12 #### [facility] CLIA [id number] [address] [place] [address] [place] Specific gravity (U) [Rel density] 1.024 Normal 1.005-1.03 0 [facility] Comment on above: Order Comment: Speci men Type: BLOOD SPECIMEN Ordering Facility: [facility] Address: [address] [place] [address] Performed By: #### 2 4108-3, 2038-12 #### [facility] CLIA [id number] [address] [place] [address] [place] Urobilinogen Ql (U) 0.2 EU/dL Normal 0.2-1.0 EU/dL [facility] Comment on above: Order Comment: Speci men Type: BLOOD SPECIMEN [facility] [facility] Address: [address] [place] [address] Performed By: #### 2 4108-3, 2038-12 #### [facility] CLIA [id number] [address] [place] [address] [place] WBC LM.HPF (Urine sed) [#/Area] 0-5 /HPF Normal 0-5 /HPF [facility] Comment on above: Order Comment: Speci men Type: BLOOD SPECIMEN Ordering Facility: [facility] Address: [address] [place] [address] Performed By: #### 2 4108-3, 2038-12 #### [facility] CLIA [id number] [address] [place] [address] [place] CNPDebo 08-[facility] ----- JAMES WOODS ([id number]) 1950 F Date Time Provider Department 08/17/24 [facility] During your visit today, we recorded the following information about you: Tasha Herrera RN 08/17/2024 11:49 AM Signed August 17, 2024 11:23 AM Patient had Robotic assisted total laparoscopic hysterectomy with bilateral salpingo-oophorectomy Cystoscopy with Dr. Manning on 08/14/2024 Patient called for post op follow up assessment. Reports she is doing well. Pain: Patient rates pain 3 on a scale of 0-10. 0 being no pain and 10 being worst pain imaginable. Patient states pain is tolerable. Diet: Patient is able tolerate fluids and normal diet. Bowel Movement: Patient is able to pass gas and has had a bowel movement. Voiding: Patient is able to void without difficult.. Vaginal Discharge: Denies heavy vaginal bleeding Skin Incision: Denies drainage, redness, or signs of infection. Medication: Denies questions or concerns about medication. Post op restrictions reviewed with patient including - activity- no heavy lifting, on pelvic rest - keep incision clean and dry. Ok to use mild antibacterial soap. - reviewed signs and symptoms to notify office including signs of infection, fever, heavy vaginal bleeding. - she is aware of post op appointment with [employer] [facility] on 08/26/2024 in [place] Patient verbalized understanding and denies further questions at this time. Understands to call the office with further concerns/questions. Survivorship treatment summary initiated: Awaiting pathology Tasha Herrera RN Allergies As of Date: 08/17/2024 Noted Allergy Reaction HYDROCODONE-ACETAMINOPHEN 07/01/2024 8 - GI Upset PENICILLINS 08/04/2021 4 - Hives 2 - Rash 16 - Unknown Date Reviewed: 08/14/2024 Reviewed by: Terri Hart RN - Fully Assessed Reason for Visit: Surgical Followup [104] Prescriptions as of 08/17/2024 - oxyCODONE IR (ROXICODONE) 5 mg immediate release tablet Take 1 tablet by mouth every 6 hours as needed for pain for up to 5 days. - acetaminophen (TYLENOL EXTRA STRENGTH) 500 mg tablet Take 2 tablets by mouth every 6 hours as needed for pain for up to 14 days. - ibuprofen (MOTRIN) 600 mg tablet Take 1 tablet by mouth every 6 hours as needed for pain. - ondansetron orally disintegrating (ZOFRAN ODT) 4 mg disintegrating tablet Take 1 tablet by mouth every 8 hours as needed for nausea/vomiting. - Senna 8.6 mg tab Take 1 tablet by mouth two times a day as needed for constipation. - ascorbic acid/bioflavonoids (SUZI C ORAL) Take by mouth once daily. - polyethylene glycol 3350 (MIRALAX) 17 gram packet Take 17 g by mouth once daily. Dissolve dose in 4 - 8 ounces of liquid and take as directed. - FIHXC-6X-PZL-EPA-FISH OIL ORAL Take 2 tablets by mouth once daily. - multivit-min/ferrous fumarate (MULTI VITAMIN ORAL) Refill(s) 0 - lisinopril (ZESTRIL) 20 mg tablet .COMPLEX - levothyroxine (SYNTHROID) 137 mcg tablet once daily. - estradiol (ESTRACE) 0.01 % (0.1 mg/gram) vaginal cream INSERT 1 GRAM VAGINALLY SATURDAY, SATURDAY, and SATURDAY - amLODIPine (NORVASC) 5 mg tablet Take 5 mg by mouth once daily. - BIOTIN ORAL Take by mouth as directed. - atorvastatin (LIPITOR) 20 mg tablet .COMPLEX Problem List As Of Date 08/17/2024 Noted Resolved Hypertension [I10] 08/05/2024 Hypothyroid [E03.9] 08/05/2024 Hyperlipidemia [E78.5] 08/05/2024 Current smoker [F17.200] 08/05/2024 PONV (postoperative nausea and vomiting) [R11.2*08/06/2024 Encounter Status:Closed by TASHA HERRERA on 08/17/24 [facility] ANES POSTPROC EVALon 025 ANES POSTPROC EVAL HNO ID: [id number] Author: TRAY MONTAGUE MD Service: Anesthesiology Author Type: Anesthesiologist Type: Anesthesia Postprocedure Evaluation Filed: 08/14/2024 13:28 Note Text: POST ANESTHESIA EVALUATION NOTE : 1950 Procedure Summary Date: 08/14/24 Room / Location: OR10 / [facility] OR Anesthesia Start: 0741 Anesthesia Stop: 1033 Procedure: ROBOTIC LAPAROSCOPIC TOTAL HYSTERECTOMY W/ BSO UTERUS=<250G (Bilateral) Diagnosis: Complex atypical endometrial hyperplasia Post-menopausal bleeding Thickened endometrium Left ovarian cyst Preop examination (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]) (Post-menopausal bleeding [N95.0]) (Thickened endometrium [R93.89]) (Left ovarian cyst [N83.202]) (Preop examination [Z01.818]) Surgeons: Chase Manning MD Responsible Provider: Tray Montague MD Anesthesia Type: general ASA Status: 3 Anesthesia Type: general Airway Type: ETT Last Vitals Vitals Value Taken Time BP 121/68 08/14/24 1315 Temp 36.5 ?C (97.7 ?F) 08/14/24 1030 Pulse 83 08/14/24 1327 Resp 18 08/14/24 1327 SpO2 95 % 08/14/24 1327 Vitals shown include unfiled device data. Post Anesthesia Patient Status Patient Evaluation: PACU. PACU/ICU Patient Condition: stable. Anticipated Disposition: phase 2 then home. Neurological Status: aware and responsive. Pulmonary Status: breathing comfortably on room air Airway Control: returned to baseline unsupported. Cardiovascular Status: stable. Pain Management: clinically adequate Postoperative Hydration: acceptable. Intraoperative Events: no significant anesthesia events Post Operative Nausea/Vomiting Status: no significant post operative nausea or vomiting Recommendation: continue current plan of care. Anesthesia Observations No Documentation SIGNATURE: Tray Montague MD PATIENT NAME: James Woods DATE: August 14, 2024 TIME: 1:28 PM CSN: [id number] [facility] ANES PRE-OPon 08-14-2024 ANES PRE-OP HNO ID: [id number] Author: TRAY MONTAGUE MD Service: Anesthesiology Author Type: Anesthesiologist Type: Anesthesia Preprocedure Evaluation Filed: 08/14/2024 07:12 Note Text: ANESTHESIOLOGY DAY OF SURGERY NOTE : 1950 Procedure Information Date/Time: 08/14/24729 Procedure: ROBOTIC LAPAROSCOPIC TOTAL HYSTERECTOMY W/ BSO UTERUS=<250G (Bilateral) Location: [facility] OR10 / [facility] OR Surgeons: Chase Manning MD Estimated body mass index is 24.86 kg/m? as calculated from the following: Height as of 08/06/24: 170.2 cm (5' 7 ). Weight as of 08/06/24: 72 kg (158 lb 11.7 oz). Most recent hematocrit and potassium results: Hematocrit 45.3 08/06/2024 Potassium 4.5 08/06/2024 Relevant Problems ANESTHESIA (+) PONV (postoperative nausea and vomiting) CARDIO (+) Hypertension ENDO (+) Hypothyroid I - PHYSICAL EVALUATION AIRWAY Patient intubated: No. Tracheostomy tube not present Mallampati: II. TM distance: >3 FB. Neck ROM: full ROM without neurological symptoms. Mouth opening: adequate. Short neck: no. Thick neck: no DENTAL Dental findings: teeth intact. Additional exam findings: yes. CARDIOVASCULAR Rate: normal PULMONARY Breath sounds clear to auscultation. II - ANESTHESIA PLAN ASA Score: 3 Anesthetic Plan: general Airway type: ETT The patient is not a current smoker. Beta Alysha Monitoring Plan Monitoring plan: standard ASA. Post Procedure Analgesic Plan Postoperative analgesic plan: multimodal analgesia. Informed Consent Anesthetic risks, benefits, alternatives, personnel and consent discussed: yes. Patient / Responsible Green Party agrees to proceed: yes Patient / Surrogate agrees to blood products: Yes DNR status not reviewed with patient and/or family prior to surgery. Significant changes in the patient condition since the History and Physical, not otherwise documented in primary service progress note: no. Potential Anesthesia issues that may suggest increased risk of complications or contraindication to planned procedure: none. Vitals Value Taken Time BP 153/83 08/14/24 0629 Pulse 77 08/14/24 0629 Resp 16 08/14/24 06 Temp 37 ?C (98.6 ?F) 08/14/24 06 SpO2 96 % 08/14/24 0629 Facility-Administered Medications as of 08/14/2024 Medication Dose Route Frequency lidocaine (PF) 10 mg/mL (1 %) 1-2 mg injection (XYLOCAINE) 0.1-0.2 mL INTRADERMAL PRN NaCl 0.9% iv flush bag 20 mL INTRAVENOUS PRN metroNIDAZOLE iv piggyback 500 mg in NaCl (iso-osmotic) 100 mL (FLAGYL) 500 mg INTRAVENOUS Pre-Op Once And aztreonam 2 g in D5W 100 mL Vial-Bag (AZACTAM) 2 g INTRAVENOUS Pre-Op Once acetaminophen 1,000 mg tab(s) (TYLENOL) 1,000 mg ORAL ONCE lactated ringers iv infusion 30 mL/hr INTRAVENOUS CONTINUOUS Outpatient Medications as of 08/14/2024 Medication Sig ascorbic acid/bioflavonoids (SUZI C ORAL) Take by mouth once daily. lisinopril (ZESTRIL) 20 mg tablet .COMPLEX levothyroxine (SYNTHROID) 137 mcg tablet once daily. atorvastatin (LIPITOR) 20 mg tablet .COMPLEX multivit-min/ferrous fumarate (MULTI VITAMIN ORAL) Refill(s) 0 estradiol (ESTRACE) 0.01 % (0.1 mg/gram) vaginal cream INSERT 1 GRAM VAGINALLY SATURDAY, SATURDAY, and SATURDAY I have interviewed and examined the patient. I have reviewed the medical record and/or the pre-anesthesia evaluation, pertinent labs, and test results. This contains updated information obtained within 48 hours of Surgery/Procedure. SIGNATURE: Tray Montague MD PATIENT NAME: James Woods DATE: August 14, 2024 TIME: 7:12 AM CSN: [id number] [facility] BRIEF OP NOTon 08-14-2024 BRIEF OP NOT HNO ID: [id number] Author: KENIA ARORA MD Service: Gynecology Oncology Author Type: Fellow Type: Brief Op Note Filed: 08/14/2024 10:34 Note Text: BRIEF OPERATIVE / PROCEDURE NOTE LOG ID: [id number] SURGERY/PROCEDURE DATE: 08/14/2024 INCISION/PROCEDURE START TIME: 8:22 AM INCISION CLOSE/PROCEDURE END TIME: 10:18 AM SURGEON(S)/PROCEDURALIST( S) AND ACOUSTIC WARFARE ANALYST(S): Surgeons and Role: * Chase Manning MD - Primary * Kenia Arora MD - Fellow Physician Field Party Manager: Yissel Khoury PA-C SURGERY/PROCEDURE(S): RA-TLH, BSO, cysto ANESTHESIA: Choice - Anesthesia Consult FINDINGS: Normal appearing uterus, tubes, and ovaries. Mild omental adhesions to anterior abdominal wall in LUQ. No carcinomatosis. Cysto with strong bilateral ureteral jets, no bladder lesions or injury. Frozen c/w benign findings. ESTIMATED BLOOD LOSS: 25 mls SPECIMENS: ID Type Source Tests Collected by Time A : Tissue Uterus, Cervix, Bilateral Fallopian Tubes, and Bilateral Ovaries SURGICAL PATHOLOGY Chase Manning MD 08/14/2024 9:13 AM COMPLICATIONS: None CLOSURE TECHNIQUE: Primary PRE-OP/PRE-PROCEDURE DIAGNOSIS: Atypical endometrial epithelium POST-OP/POST-PROCEDURE DIAGNOSIS: Same as Preop Patient was accompanied to the next level of care by a licensed practitioner from the surgical team pending completion of this brief op note (or operative note) SIGNATURE: Kenia Arora MD PATIENT NAME: James Woods DATE: August 14, 2024 TIME: 10:31 AM [facility] OPERATIVE NOon 08-14-2024 OPERATIVE NO HNO ID: [id number] Author: CHASE MANNING MD Service: Gynecology Oncology Author Type: Physician Type: Operative Report Filed: 08/14/2024 10:40 Note Text: OPERATIVE/PROCEDURE REPORT LOG ID: [id number] SURGERY/PROCEDURE DATE: 08/14/2024 INCISION/PROCEDURE START TIME: 8:22 AM INCISION CLOSE/PROCEDURE END TIME: 10:18 AM SURGEON(S)/PROCEDURALIST( S) AND ACOUSTIC WARFARE ANALYST(S): Surgeons and Role: * Chase Manning MD - Primary * Kenia Arora MD - Fellow Physician Field Party Manager: Yissel Khoury PA-C SURGERY/PROCEDURE(S): Robotic assisted total laparoscopic hysterectomy with bilateral salpingo-oophorectomy cystoscopy ANESTHESIA: Choice - Anesthesia Consult INDICATION FOR PROCEDURE: James Woods is a 73 year old y.o with PMH of HTN, HLD, and hypothyroid and PSH of dANDc and gallbladder removal who presents for surgical management of post menopausal bleeding, thickened endometrium and echogenic lesion left adnexa. Endometrial biopsy did not show evidence of invasion pre operatively. Normal tumor markers. INTRAOPERATIVE FINDINGS: Exam under anesthesia revealed normal vagina and cervix. Intraabdominal evaluation was unremarkable without evidence of invasive disease. Frozen pathology consistent with benign endometrium and benign left ovarian lesion. SURGERY/PROCEDURE DETAILS: After informed consent was obtained patient was taken to the operating room and placed under general anesthesia. She was positioned in dorsal lithotomy position with legs in ruben stirrups with care taken to avoid excessive pressure on the lateral leg or hyperextension/flexion of the hip. Arms were tucked at the side padded and secured. She was prepped and draped in a normal sterile fashion. Dye catheter was placed into the bladder. Patient received prophylactic antibiotics prior to incision. SCDs were in place for DVT prophylaxis. Surgical time out was performed confirming patient and procedure. A speculum was placed into the vagina and cervix grasped with single tooth tenaculum. The uterus sounded to 7cm and was serially dilated. A [employer] uterine manipulator was carefully placed into the endometrial cavity without complication. We then turned attention to the abdomen where A 8mm umbilical incision was made after injection of marcaine. Veress needle was used for entry into the peritoneal cavity on a single attempt and abdomen was insufflated up to 15mmhg. A 5mm port was placed under direct visualization. Initial survey of the abdomen was noted as above. Two additional 8mm ports were placed in the left lower quadrant followed by one additional 5mm port and an 8mm port in the RLQ. Umbilical port was exchanged for 8mm robotic port. All ports were placed under direct visualization with care taken to avoid the inferior epigastric vasculature. Robot was then docked in standard fashion using prograsp in arm 1, vessel sealer device in arm 2 and monopolar scissors in arm 4. Using monopolar cautery, a peritoneal incision was made lateral to the left gonadal vessels to enter the retroperitoneal space. The left ureter was again identified and the IP ligament was ligated and transected using ligasure device above the ureter, the posterior leaf of the broad ligament was taken down towards the uterus. The left round ligament was then ligated and transected and the anterior leaf of the broad ligament was taken down towards the bladder. The uterine artery was skeletonized, ligated and transected at the level of the colpotomy cup. Dissection occurred in the same fashion on the right side. Uterine artery pedicles were lateralized away from the colpotomy cup . Bladder flap was taken down below the level of the colpotomy cup. A colpotomy was then created using monopolar energy. The uterus,cervix, tubes and ovaries were delivered through the vagina and sent to pathology. Frozen section consistent with benign endometrium and benign left ovarian lesion. The vagina was closed laparoscopically in a running fashion with 0 vloc suture. The pelvis was thoroughly irrigated and hemostasis was achieved without difficulty. Abdomen was deflated. Cystoscopy was then performed noting normal bladder survey and bilateral ureteral jets.. All ports were removed from the abdomen, Skin was closed with 4-0 monocryl in a running fashion. Counts were correct x 2 at the end of the procedure, patient tolerated the procedure well and was transferred to PACU in stable condition. PRE-OP/PRE-PROCEDURE DIAGNOSIS: post menopausal bleeding, thickened endometrium and echogenic lesion left adnexa POST-OP/POST-PROCEDURE DIAGNOSIS: Same as Preop ESTIMATED BLOOD LOSS: 25 mls SPECIMENS: ID Type Source Tests Collected by Time Destination A : Tissue Uterus, Cervix, Bilateral Fallopian Tubes, and Bilateral Ovaries SURGICAL PATHOLOGY Chase Manning MD 08/14/2024 9:13 AM IMPLANTABLE DEVICES: NONE DRAINS: None HEMOSTATIC AGENTS: N (more content not included)... Normal [facility] SURGICAL PATHOLOGYon 025 CASE REPORT [facility] Comment on above: Order Comment: Speci men Type: TISSUE SPECIMEN Ordering Facility: [facility] Address: [address] [place] [address] Result Comment: Surg ical Pathology Report Case: [id number] Authorizing Provider: Chase Mannign MD Collected: 08/14/2024 09:13 AM Ordering Location: [facility] Received: 08/14/2024 09:24 AM Operating Room Pathologist: Meghna Gramajo MD Intraop: Karen Lainez MD Specimen: Uterus, Cervix, Bilateral Fallopian Tubes, and Bilateral Ovaries Performed By: #### S #### [facility] CLIA [id number] [address] [place] [address] OF [facility] CLIA [id number] [address] [place] [address] [place] CLINICAL HISTORY [facility] Comment on above: Order Comment: Speci men Type: TISSUE SPECIMEN Ordering Facility: [facility] Address: [address] [place] [address] Result Comment: Pre- op diagnosis: 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] Post-menopausal bleeding [N95.0] Thickened endometrium [R93.89] Left ovarian cyst [N83.202] Preop examination [Z01.818] Performed By: #### S #### [facility] CLIA [id number] [address] [place] [address] OF [facility] CLIA [id number] [address] [place] [address] [place] DIAGNOSIS COMMENT Normal [facility] Comment on above: Order Comment: Speci men Type: TISSUE SPECIMEN Ordering Facility: [facility] Address: [address] [place] [address] Result Comment: Immu nohistochemical stain for GATA3 is positive and PAX8 is negative on A2, supporting the diagnosis of Matthew tumor. Laboratory Developed Test (LDT) Disclaimer: Performance characteristics of immunohistochemical, immunofluorescent and chromogenic in-situ hybridization tests have been determined by the performing laboratory within [facility]???s [facility] and Laboratory Medicine Department ([facility], [facility], [facility], [facility], [facility], [facility], or [facility]) in a manner consistent with CLIA requirements. One or more of these tests have not been cleared or approved by the FDA. [facility] is regulated under CLIA as qualified to perform high-complexity testing. These tests are used for clinical purposes. They should not be regarded as investigational or for research. Positive and negative controls stain appropriately. Performed By: #### S #### [facility] CLIA [id number] [address] [place] [address] LABORATORY CLIA [id number] [address] [place] [address] FINAL DIAGNOSIS [facility] Comment on above: Order Comment: Speci men Type: TISSUE SPECIMEN Ordering Facility: [facility] Address: [address] [place] [address] Result Comment: A. U terus, cervix, bilateral fallopian tubes and ovaries, hysterectomy and bilateral salpingooophorectomy: Cervix: Nabothian cysts and chronic cervicitis. Endometrium- Inactive endometrium. Myometrium- Extensive adenomyosis. 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 Left and right fallopian tubes - No significant pathologic findings. Performed By: #### S #### [facility] CLIA [id number] [address] [place] [address] LABORATORY CLIA [id number] [address] [place] [address] FINAL PERFORMING LAB [facility] Comment on above: Order Comment: Speci men Type: TISSUE SPECIMEN Ordering Facility: [facility] Address: [address] [place] [address] Result Comment: Diag nostic interpretation performed at: [facility], [address] [place] [address] CLIA# [id number] Asphalt Paving Supervisor: Fermin Mcdaniels MD Performed By: #### S #### [facility] CLIA [id number] [address] [place] [address] STATES OF [facility] CLIA [id number] GROSS DESCRIPTION Normal [facility] Comment on above: Order Comment: Speci men Type: TISSUE SPECIMEN Ordering Facility: [facility] Address: [address] [place] [address] Result Comment: A. U terus, Cervix, Bilateral Fallopian Tubes, and Bilateral Ovaries Received fresh for intraoperative frozen diagnosis designated uterus, cervix, bilateral fallopian tubes and bilateral ovaries is a uterus with attached cervix and attached bilateral fallopian tubes and ovaries. The uterus and cervix weighs 58.5 g and measures 7 x 5.8 x 2.4 cm. The serosal aspect is bush-pink and smooth. The cervix measures 2.6 x 2.6 cm and has a slitlike os present. No lesions are grossly appreciated on the surface of the cervix. The vaginal cuff is not present. The endocervical canal measures 2.1 cm in length. The endometrial cavity measures 3.7 cm x 3.4 cm. The endometrium is bush-pink smooth averaging 0.1 cm in thickness. No masses or polyps are grossly appreciated. Sectioning of the myometrium reveals multiple white whorled bulging roughly spherical masses measuring up to 0.8 cm in greatest dimension intramural in location. The myometrium averages 1.5 cm in thickness. There are multiple cystic spaces subendometrial in location measuring up to 0.1 cm in greatest dimension. The right fallopian tube measures 7 cm in length by 0.4 cm in diameter. The fimbriated end has a normal appearance. Sectioning reveals a pinpoint lumen. The right ovary weighs 2.5 g and measures 2.5 x 1.4 x 0.8 cm. The external surface is bush and smooth. Sectioning reveals an ovoid white firm nodule measuring 1 x 0.7 x 0.4 cm which contain cystic spaces measuring up to 0.3 cm in greatest dimension containing a clear mucinous material. Focal calcification is identified. A simple cyst is identified measuring 0.5 cm in greatest dimension containing a clear mucinous material. The left fallopian tube measures 5.6 cm in length by 0.4 cm in diameter. The fimbriated end has a normal appearance. Sectioning reveals a pinpoint lumen. The left ovary weighs 3 g and measures 2.2 x 1.2 x 1.2 cm. The external surface is bush-white and smooth. Sectioning reveals a white ovoid nodule measuring 1.5 x 1.2 x 1.2 cm. Within the nodule is a cyst measuring 0.2 cm in greatest dimension containing a clear mucinous material. Developer Relations Manager sections are submitted as follows: FSA1 endometrium with uterine wall full-thickness, FSA2 left ovarian nodule, A3 anterior uterine wall full-thickness, A4-A5 remainder anterior endometrium, A6 posterior uterine wall full-thickness, A7-A8 remainder posterior endometrium, A9 largest myometrial mass, A10 second largest myometrial mass, A11 third largest myometrial mass, A12 right fallopian tube fimbriated end totally submitted along with medical collections representative cross-sections, A13 right ovary nodule, A14 focal area of right ovary submitted after light formic decalcification, A15 left fallopian tube fimbriated end totally submitted along with medical collections representative cross-sections, A16 left ovary with nodule, A17 anterior cervix, A18 posterior cervix. BF August 14, 2024 12:10 PM Gross examination performed at [facility], [address] [place] [address] Performed By: #### S #### [facility] CLIA [id number] [address] [place] [address] [place] [address] [place] [facility] CLIA [id number] [address] [place] [address] [place] INTRAOPERATIVE DIAGNOSIS Normal [facility] Comment on above: Order Comment: Speci men Type: TISSUE SPECIMEN Ordering Facility: [facility] Address: [address] [place] [address] Result Comment: A. U terus, Cervix, Bilateral Fallopian Tubes, and Bilateral Ovaries FSA1 endometrium-benign endometrium with adenomyosis (Dr. Lainez). 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 Lainez). Intraoperative diagnosis performed at [facility], [address] [place] [address] CLIA # [id number] Performed By: #### S #### [facility] CLIA [id number] [address] [place] [address] [place] [facility] CLIA [id number] [place] [address] [place] Basophils Auto (Bld) [#/Vol] on 08-06-2024 Basophils (Bld) [#/Vol] Automated basophil count <0.11 [facility] Basophils/100 WBC Auto (Bld) on 08-06-2024 Basophils/100 WBC (Bld) Automated basophil % [facility] Blood manual differential co mment interpretation narrativeon 08-06-2024 Manual differential comment Aries (Bld) [Interp] Blood manual differential comment interpretation narrative [facility] CBC W Auto Differential pane l (Bld)on 08-06-2024 Basophils (Bld) [#/Vol] 0.04 10*3/uL Normal <0.11 [facility] Comment on above: Order Comment: Speci men Type: BLOOD SPECIMEN Ordering Facility: [facility] Address: [address] [place] [address] Performed By: #### 2 41083, 2038-12 #### [facility] CLIA [id number] [address] [place] [address] [place] Basophils/100 WBC (Bld) 0.6 % Normal [facility] Comment on above: Order Comment: Speci men Type: BLOOD SPECIMEN Ordering Facility: [facility] Address: [address] [place] [address] Performed By: #### 2 4108-3, 2038-12 #### [facility] CLIA [id number] [address] [place] [address] [place] Differential cell count method Nom (Bld) Auto Normal [facility] Comment on above: Order Comment: Speci men Type: BLOOD SPECIMEN Ordering Facility: [facility] Address: [address] [place] [address] Performed By: #### 2 4108-3, 2038-12 #### [facility] CLIA [id number] [address] [place] [address] [place] Eosinophils (Bld) [#/Vol] 0.09 10*3/uL Normal <0.46 [facility] Comment on above: Order Comment: Speci men Type: BLOOD SPECIMEN Ordering Facility: [facility] Address: [address] [place] [address] Performed By: #### 2 4108-3, 2038-12 #### [facility] CLIA [id number] [address] [place] [address] [place] Eosinophils/100 WBC (Bld) 1.3 % Normal [facility] Comment on above: Order Comment: Speci men Type: BLOOD SPECIMEN Ordering Facility: [facility] Address: [address] [place] [address] Performed By: #### 2 4108-3, 2038-12 #### [facility] CLIA [id number] [address] [place] [address] [place] Erythrocyte distribution width (RBC) [Ratio] 12.3 % Normal 11.5-15.0 [facility] Comment on above: Order Comment: Speci men Type: BLOOD SPECIMEN Ordering Facility: [facility] Address: [address] [place] [address] Performed By: #### 2 4108-3, 2038-12 #### [facility] CLIA [id number] [address] [place] [address] [place] Hematocrit (Bld) [Volume fraction] 45.3 % Normal 36.0-46.0 [facility] Comment on above: Order Comment: Speci men Type: BLOOD SPECIMEN Ordering Facility: [facility] Address: [address] [place] [address] Performed By: #### 2 4108-3, 2038-12 #### [facility] CLIA [id number] [address] [place] [address] [place] Hemoglobin (Bld) [Mass/Vol] 14.9 g/dL Normal 11.5-15.5 [facility] Comment on above: Order Comment: Speci men Type: BLOOD SPECIMEN Ordering Facility: [facility] Address: [address] [place] [address] Performed By: #### 2 4108-3, 2038-12 #### [facility] CLIA [id number] [address] [place] [address] [place] Immature granulocytes (Bld) [#/Vol] 10*3/uL Normal <0.10 [facility] Comment on above: Order Comment: Speci men Type: BLOOD SPECIMEN Ordering Facility: [facility] Address: [address] [place] [address] Performed By: #### 2 4108-3, 2038-12 #### [facility] CLIA [id number] [address] [place] [address] [place] Immature granulocytes/100 WBC (Bld) 0.3 % Normal [facility] Comment on above: Order Comment: Speci men Type: BLOOD SPECIMEN Ordering Facility: [facility] Address: [address] [place] [address] Performed By: #### 2 4108-3, 2038-12 #### [facility] CLIA [id number] [address] [place] [address] [place] Lymphocytes (Bld) [#/Vol] 1.65 10*3/uL Normal 1.00-4.00 [facility] Comment on above: Order Comment: Speci men Type: BLOOD SPECIMEN Ordering Facility: [facility] Address: [address] [place] [address] Performed By: #### 2 4108-3, 2038-12 #### [facility] CLIA [id number] [address] [place] [address] [place] Lymphocytes/100 WBC (Bld) 24.1 % Normal [facility] Comment on above: Order Comment: Speci men Type: BLOOD SPECIMEN Ordering Facility: [facility] Address: [address] [place] [address] Performed By: #### 2 4108-3, 2038-12 #### [facility] CLIA [id number] [address] [place] [address] [place] MCH (RBC) [Entitic mass] 30.1 pg Normal 26.0-34.0 [facility] Comment on above: Order Comment: Speci men Type: BLOOD SPECIMEN Ordering Facility: [facility] Address: [address] [place] [address] Performed By: #### 2 4108-3, 2038-12 #### [facility] CLIA [id number] [address] [place] [address] [place] MCHC (RBC) [Mass/Vol] 32.9 g/dL Normal 30.5-36.[address] [facility] Comment on above: Order Comment: Speci men Type: BLOOD SPECIMEN Ordering Facility: [facility] Address: [address] [place] [address] Performed By: #### 2 4108-3, 2038-12 #### [facility] CLIA [id number] [address] [place] [address] [place] MCV (RBC) [Entitic vol] 91.5 fL Normal 80.0-100.0 [facility] Comment on above: Order Comment: Speci men Type: BLOOD SPECIMEN Ordering Facility: [facility] Address: [address] [place] [address] Performed By: #### 2 4108-3, 2038-12 #### [facility] CLIA [id number] [address] [place] [address] [place] Monocytes (Bld) [#/Vol] 0.63 10*3/uL Normal <0.87 [facility] Comment on above: Order Comment: Speci men Type: BLOOD SPECIMEN Ordering Facility: [facility] Address: [address] [place] [address] Performed By: #### 2 4108-3, 2038-12 #### [facility] CLIA [id number] [address] [place] [address] [place] Monocytes/100 WBC (Bld) 9.2 % Normal [facility] Comment on above: Order Comment: Speci men Type: BLOOD SPECIMEN Ordering Facility: [facility] Address: [address] [place] [address] Performed By: #### 2 4108-3, 2038-12 #### [facility] CLIA [id number] [address] [place] [address] [place] Neutrophils (Bld) [#/Vol] 4.41 10*3/uL Normal 1.45-7.50 [facility] Comment on above: Order Comment: Speci men Type: BLOOD SPECIMEN Ordering Facility: [facility] Address: [address] [place] [address] Performed By: #### 2 4108-3, 2038-12 #### [facility] CLIA [id number] [address] [place] [address] [place] Neutrophils/100 WBC (Bld) 64.5 % Normal [facility] Comment on above: Order Comment: Speci men Type: BLOOD SPECIMEN Ordering Facility: [facility] Address: [address] [place] [address] Performed By: #### 2 4108-3, 2038-12 #### [facility] CLIA [id number] [address] [place] [address] [place] Nucleated RBC (Bld) [#/Vol] 10*3/uL Normal <0.01 [facility] Comment on above: Order Comment: Speci men Type: BLOOD SPECIMEN Ordering Facility: [facility] Address: [address] [place] [address] Performed By: #### 2 4108-3, 2038-12 #### [facility] CLIA [id number] [address] [place], [place] [address] [place] Nucleated RBC/100 WBC (Bld) [Ratio] 0.0 /100 WBC Normal [facility] Comment on above: Order Comment: Speci men Type: BLOOD SPECIMEN Ordering Facility: [facility] Address: [address] [place] [address] Performed By: #### 2 4108-3, 2038-12 #### [facility] CLIA [id number] [address] [place] [address] [place] Platelet mean volume (Bld) [Entitic vol] 9.5 fL Normal 9.0-12.7 [facility] Comment on above: Order Comment: Speci men Type: BLOOD SPECIMEN Ordering Facility: [facility] Address: [address] [place] [address] Performed By: #### 2 4108-3, 2038-12 #### [facility] CLIA [id number] [address] [place] [address] [place] Platelets (Bld) [#/Vol] 293 10*3/uL Normal 150-400 [facility] Comment on above: Order Comment: Speci men Type: BLOOD SPECIMEN Ordering Facility: [facility] Address: [address] [place] [address] Performed By: #### 2 4108-3, 2038-12 #### [facility] CLIA [id number] [address] [place] [address] [place] RBC (Bld) [#/Vol] 4.95 10*6/uL Normal 3.90-5.20 [facility] Comment on above: Order Comment: Speci men Type: BLOOD SPECIMEN Ordering Facility: [facility] Address: [address] [place] [address] Performed By: #### 2 4108-3, 2038-12 #### [facility] CLIA [id number] [address] [place] [address] [place] WBC (Bld) [#/Vol] 6.84 10*3/uL Normal 3.70-11.00 [facility] Comment on above: Order Comment: Speci men Type: BLOOD SPECIMEN Ordering Facility: [facility] Address: [address] [place] [address] Performed By: #### 2 41083, 2038-12 #### [facility] CLIA [id number] [address] [place] [address] [place] CEA SerPl-mCncon 08-06-2024 Carcinoembryonic Ag [Mass/Vol] 1.6 ng/mL Normal <=2.9 [facility] Comment on above: Order Comment: Speci men Type: BLOOD SPECIMEN Ordering Facility: [facility] Address: [address] [place] [address] Result Comment: Carc inoembryonic antigen test is used as an aid in monitoring response to treatment or recurrence in patients with established colorectal, breast, lung, prostatic, pancreatic, and ovarian carcinomas. Clinical correlation is required. The Carcinoembryonic antigen test was performed using the [employer] DXI paramagnetic particle chemiluminescent immunoassay method. Results obtained with different assay methods or kits cannot be used interchangeably. Performed By: #### 2 4108-3, 2038-12 #### [facility] CLIA [id number] [address] [place] [address] [place] CONFIRM BLOOD TYPEon 025 ABO O Normal [facility] Comment on above: Order Comment: Speci men Type: BLOOD SPECIMEN Ordering Facility: [facility] Address: [address] [place] [address] Performed By: #### C ONABO #### [facility] CLIA [id number] [address] [place] [address] [place] Rh Nom (Bld) Negative Normal [facility] Comment on above: Order Comment: [place] Type: BLOOD SPECIMEN Ordering Facility: [facility] Address: [address] [place] [address] Performed By: #### C ONABO #### [facility] CLIA [id number] [address] [place] [address] [facility] Cancer Ag125 SerPl-aCncon Cancer Ag 125 Qn 6 [arb'U]/mL Normal <39 [facility] Comment on above: Order Comment: [place] Type: BLOOD SPECIMEN Ordering Facility: [facility] Address: [address] [place] [address] Result Comment: CA 1 25 test methodology used is the Electrochemiluminescence Immunoassay by [employer]. Results obtained with different methods or kits cannot be used interchangeably. The reference interval is based on the 95th percentile of 240 apparently healthy premenopausal and postmenopausal women. At a cutoff value of 65 U/mL, the test sensitivity to distinguish ovarian carcinoma (FIGO stage I to IV) versus benign gynecological disease is 79%, with a specificity of 82%. Reference: Cancer Antigen 125 (CA 125 II) [package insert V 1.0 [place]]. [employer], [place], [place] (April 2015) Performed By: #### 2 4108-3, 9-6 #### [facility] CLIA [id number] [address] [place] [address] [facility] Cancer Ag19-9 SerPl-aCncon 0 08-06-2024 Cancer Ag 19-9 Qn 7.0 [arb'U]/mL Normal <36.[address] [facility] Comment on above: Order Comment: [place] Type: BLOOD SPECIMEN Ordering Facility: [facility] Address: [address] [place] [address] Result Comment: [facility] er antigen 19-9 test is used as an aid in monitoring response to treatment or recurrence in patients with established pancreatic, hepatobiliary, or gastrointestinal malignancies. Clinical correlation is required. The CA 19-9 Antigen test was performed using the [employer] DXI paramagnetic particle chemiluminescent immunoassay method. Results obtained with different assay methods or kits cannot be used interchangeably. Performed By: #### 2 4108-3, 2038-12 #### [facility] CLIA [id number] [address] [place] [address] [place] Comprehensive metabolic 2000 panelon 08-06-2024 Albumin [Mass/Vol] 4.8 g/dL Normal 3.9-4.9 [facility] Comment on above: Order Comment: Speci men Type: BLOOD SPECIMEN Ordering Facility: [facility] Address: [address] [place] [address] Performed By: #### 2 8-3, 2038-12 #### [facility] CLIA [id number] [address] [place] [address] [place] ALP [Catalytic activity/Vol] 85 U/L Normal 34-123 [facility] Comment on above: Order Comment: Speci men Type: BLOOD SPECIMEN Ordering Facility: [facility] Address: [address] [place] [address] Performed By: #### 2 4108-3, 2038-12 #### [facility] CLIA [id number] [address] [place] [address] [place] ALT [Catalytic activity/Vol] 22 U/L Normal 7-38 [facility] Comment on above: Order Comment: Speci men Type: BLOOD SPECIMEN Ordering Facility: [facility] Address: [address] [place] [address] Performed By: #### 2 4108-3, 2038-12 #### [facility] CLIA [id number] [address] [place], [place] [address] [place] Anion gap [Moles/Vol] 8 mmol/L Normal 8-[address] [facility] Comment on above: Order Comment: Speci men Type: BLOOD SPECIMEN Ordering Facility: [facility] Address: [address] [place], [place] [address] Performed By: #### 2 4108-3, 2038-12 #### [facility] CLIA [id number] [address] [place] [address] [place] AST [Catalytic activity/Vol] 20 U/L Normal 13-35 [facility] Comment on above: Order Comment: Speci men Type: BLOOD SPECIMEN Ordering Facility: [facility] Address: [address] [place] [address] Performed By: #### 2 4108-3, 2038-12 #### [facility] CLIA [id number] [address] [place] [address] [place] Bilirubin [Mass/Vol] 0.4 mg/dL Normal 0.2-1.3 [facility] Comment on above: Order Comment: Speci men Type: BLOOD SPECIMEN Ordering Facility: [facility] Address: [address] [place] [address] Performed By: #### 2 41083, 2038-12 #### [facility] CLIA [id number] [address] [place] [address] [place] Calcium [Mass/Vol] 10.0 mg/dL Normal 8.5-10.2 [facility] Comment on above: Order Comment: Speci men Type: BLOOD SPECIMEN Ordering Facility: [facility] Address: [address] [place] [address] Performed By: #### 2 4108-3, 2038-12 #### [facility] CLIA [id number] [address] [place], [place] [address] [place] Chloride [Moles/Vol] 104 mmol/L Normal 98-107 [facility] Comment on above: Order Comment: Speci men Type: BLOOD SPECIMEN Ordering Facility: [facility] Address: [address] [place], [place] [address] Performed By: #### 2 4108-3, 2038-12 #### [facility] CLIA [id number] [address] [place] [address] [place] CO2 [Moles/Vol] 28 mmol/L Normal 22-30 [facility] Comment on above: Order Comment: [place] Type: BLOOD SPECIMEN Ordering Facility: [facility] Address: [address] [place] [address] Performed By: #### 2 4108-3, 2038-12 #### [facility] CLIA [id number] [address] [place] [address] [place] Creatinine [Mass/Vol] 0.53 mg/dL Low 0.58-0.[address] [facility] Comment on above: Order Comment: Mu [place] Type: BLOOD SPECIMEN Ordering Facility: [facility] Address: [address] [place] [address] Performed By: #### 2 4108-3, 2038-12 #### [facility] CLIA [id number] [address] [place] [address] [place] Creatinine and Glomerular filtration rate.predicted panel (S/P/Bld) 98 mL/min/1.73m??? Normal >=60 [facility] Comment on above: Order Comment: [place] Type: BLOOD SPECIMEN Ordering Facility: [facility] Address: [address] [place] [address] Result Comment: Ni mated Glomerular Filtration Rate (eGFR) is calculated using the 2020 CKD-EPI creatinine equation. This equation utilizes serum creatinine, sex, and age as parameters. The creatinine assay has traceable calibration to isotope dilution-mass spectrometry. Refer to KDIGO guidelines for clinical interpretation. In patients with unstable renal function, e.g. those with acute kidney injury, the eGFR may not accurately reflect actual GFR. Performed By: #### 2 4108-3, 2038-12 #### [facility] CLIA [id number] [address] [place] [address] [place] Glucose [Mass/Vol] 109 mg/dL High 74-99 [facility] Comment on above: Order Comment: [place] Type: BLOOD SPECIMEN Ordering Facility: [facility] Address: [address] [id number] Result Comment: The [place] Diabetes Association (ADA) provides guidance for cutoff values for fasting glucose and random glucose. The ADA defines fasting as no caloric intake for at least 8 hours. Fasting plasma glucose results between 100 to 125 mg/dL indicate increased risk for diabetes (prediabetes). Fasting plasma glucose results greater than or equal to 126 mg/dL meet the criteria for diagnosis of diabetes. In the absence of unequivocal hyperglycemia, results should be confirmed by repeat testing. In a patient with classic symptoms of hyperglycemia or hyperglycemic crisis, random plasma glucose results greater than or equal to 200 mg/dL meet the criteria for diagnosis of diabetes. Reference: Standards of Medical Care in Diabetes 2016, [place] Diabetes Association. Diabetes Care. 2016.39(Suppl 1). Performed By: #### 2 4108-3, 2038-12 #### [facility] CLIA [id number] [address] [place] [address] [place] Potassium [Moles/Vol] 4.5 mmol/L Normal 3.7-5.[address] [facility] Comment on above: Order Comment: Speci men Type: BLOOD SPECIMEN Ordering Facility: [facility] Address: [address] [place] [address] Performed By: #### 2 4108-3, 2038-12 #### [facility] CLIA [id number] [address] [place] [address] [place] Protein [Mass/Vol] 7.3 g/dL Normal 6.3-8.0 [facility] Comment on above: Order Comment: Speci men Type: BLOOD SPECIMEN Ordering Facility: [facility] Address: [address] [place], [place] [address] Performed By: #### 2 4108-3, 2038-12 #### [facility] CLIA [id number] [address] [place] [address] [place] Sodium [Moles/Vol] 140 mmol/L Normal 136-144 [facility] Comment on above: Order Comment: Speci men Type: BLOOD SPECIMEN Ordering Facility: [facility] Address: [address] [address] Performed By: #### 2 4108-3, 2038-12 #### [facility] CLIA [id number] [address] [place] [address] [place] Urea nitrogen [Mass/Vol] 12 mg/dL Normal 7-21 [facility] Comment on above: Order Comment: Speci men Type: BLOOD SPECIMEN Ordering Facility: [facility] Address: [address] [place] [address] Performed By: #### 2 4108-3, 2038-12 #### [facility] CLIA [id number] [address] [place] [address] [place] ECG COMPLETEon 08-06-2024 ECG COMPLETE Ventricular Rate : 7 5 BPM Atrial Rate : 75 BPM P-R Interval : 180 ms QRS Duration : 80 ms Q-T Interval : 392 ms QTC Calculation(Bazett) : 437 ms Calculated P River : 46 degrees Calculated R River : -10 degrees Calculated T River : 34 degrees NORMAL SINUS RHYTHM CANNOT EXCLUDE INFERIOR MYOCARDIAL INFARCTION , AGE UNDETERMINED ABNORMAL ECG Confirmed by GARIMA RODRIGUEZ MD ([id number]) on 08/07/2024 6:26:38 AM NAME : JAMES WOODS PID : [id number] : 1950 Gender : Female Race : ORD : [id number] Procedure Date : Aug 06 2024 07:58:04 Edit Date : Aug 07 2024 06:26:39 Diagnosis: NORMAL SINUS RHYTHM CANNOT EXCLUDE INFERIOR MYOCARDIAL INFARCTION , AGE UNDETERMINED ABNORMAL ECG Confirmed by GARIMA RODRIGUEZ MD ([id number]) on 08/07/2024 6:26:38 AM Test Reason : I10 Hypertension, unspecified type Location : 145 : LOCARD Overread By : GARIMA RODRIGUEZ MD Edited By : GARIMA RODRIGUEZ MD Referred By : CHASE MANNING Acquired by : am, [facility] Eosinophils/100 WBC Auto (Bl d)on 08-06-2024 Eosinophils/100 WBC (Bld) Automated eosinophil % [facility] Erythrocyte distribution wid th Auto (RBC) [Ratio]on 08-06-2024 Erythrocyte distribution width (RBC) [Ratio] Erythrocyte distribution width [Ratio] by Automated count 11.5-15.0 [facility] HISTORY PHYSICALon HISTORY PHYSICAL HNO ID: [id number] Author: NHAN HUYNH APRN.VALERIE Service: ? Author Type: Nurse Practitioner Type: H&P Filed: 08/07/2024 08:10 Note Text: [facility] HISTORY AND PHYSICAL EXAMINATION SERVICE DATE: 08/06/2024 SERVICE TIME: 8:01 AM PRIMARY CARE PHYSICIAN: Marifer Boyle MD REASON FOR VISIT: James Woods is a 73 year old female who is scheduled for Bilateral - ROBOTIC LAPAROSCOPIC TOTAL HYSTERECTOMY W/ BSO UTERUS=<250G at the request of Dr. Chase Manning for consultation. My final recommendation will be communicated back to the requesting physician by way of shared medical record or letter. Assessment Hypertension Assessment: Stable on medication Today 143/80 Does not complain of any chest pain, shortness of breath, lower extremity edema, or palpitations Hyperlipidemia Assessment: stable on medication Hypothyroid Assessment: stable on Levothyroxine(Synthroid) Former smoker Assessment: Current: 1.5 packs/day; Average: 1.5 packs/day for 25.1 years; Total pack years: 37.6; PONV (postoperative nausea and vomiting) Assessment: states gets PONV with Anesthesia Lou Activity Status Index: METS: Walk indoors, such as around the house (1.75 METs) Do light work around the house, such as dusting or washing dishes (2.70 METs) Take care of self; that is eating, dressing, bathing, using the toilet (2.75 METs) Walk a block or two on level ground (2.75 METs) Do moderate work around the house, such as vacuuming, sweeping floors, or carrying in groceries (3.50 METs) Do yardwork, such as raking leaves, weeding, or pushing a power mower (4.50 METs) Climb a flight of stairs or walk up a hill (5.50 METs) DASI Score: 23.45 Patient denies any chest pain or undue shortness of breath with the above physical activity. Clinical Frailty Scale: 2. Well STOP-Bang Score: Has or is being treated for high blood pressure Patient over 50 years old Denies snoring loudly Denies feeling tired, fatigued, or sleepy during the daytime Has not been observed to stop breathing or choking/gasping during sleep BMI less than or equal to 35 kg/m2 Does not have a large neck Non-male patient STOP-Bang Score: 2 [id number] Score: Age: 65-74 Sex: female CHF history: No Hypertension history: Yes Stroke/TIA/thromboembolis m history: No Vascular disease history: No Diabetes history: No [id number] Score: 3 ARISCAT Score: Age: 51-80 Preoperative SpO2: >=96% Respiratory infection in the last month: No Preoperative anemia: Yes Surgical incision: upper abdominal Duration of surgery: 2-3 hrs Emergency procedure: No ARISCAT Score: 45 ANESTHESIA FINDINGS: Intubation History: No history of difficult intubation. No abnormal airway history Significant Anesthesia Considerations: potential postop nausea/vomiting Airway History: No history of difficult airway No abnormal airway history I - PHYSICAL EVALUATION AIRWAY Patient intubated: No. Tracheostomy tube not present Mallampati: II. TM distance: >3 FB. Neck ROM: full ROM without neurological symptoms. Mouth opening: adequate. Short neck: no. Thick neck: no Dutton present: no Lip Bite Test: I Microretrognathia/Microna gthia/Recessed Chin: No DENTAL Dental findings: teeth intact. II - ANESTHESIA PLAN Anesthetic plan additional comments: *PACC/TCI - anesthesia choice. Beta Alysha Monitoring Plan Post Procedure Analgesic Plan Prepared for surgery: This patient is optimally prepared for surgery CONSULTS: Patient does not require consults for optimization at this time. The Following Tests/Procedures Have Been Initiated: Orders Placed This Encounter Complete Blood Count and Differential Standing Status: Future Standing Expiration Date: 11/05/2024 CMP Standing Status: Future Standing Expiration Date: 11/05/2024 Confirm Blood Type Standing Status: Future Standing Expiration Date: 11/05/2024 Order Specific Question: Did Blood Bank direct you to place this order: Answer: No - Emergency ascorbic acid/bioflavonoids (SUZI C ORAL) Sig: Take by mouth once daily. polyethylene glycol 3350 (MIRALAX) 17 gram packet Sig: Take 17 g by mouth once daily. Dissolve dose in 4 - 8 ounces of liquid and take as directed. ECG (IN OFFICE) Planned Anesthetic: Per anesthesia choice Subjective CHIEF COMPLAINT: PMB HPI: 73 yo with c/o PMB. In February had 10 days of bleeding, started light, then heavy, then tapered off. 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 Benton. Sono showed a thickened endometrium with possible polyp, and an echogenic lesion in the left ovary. CT was essentially normal, with an echogenic lesion in the left adnexa, but no ovarian masses/cysts or assoc signs of malignancy REVIEW OF SYSTEMS: PAIN ASSESSMENT: General: No weight loss, malaise or fevers. Neuro: No history of (more content not included)... [facility] Hematocrit Auto (Bld) [Volum e fraction]on 08-06-2024 Hematocrit (Bld) [Volume fraction] Hematocrit [Volume Fraction] of Blood by Automated count 36.0-46.0 [facility] Hemoglobin [Mass/volume] in Bloodon 08-06-2024 Hemoglobin (Bld) [Mass/Vol] Hemoglobin [Mass/volume] in Blood 11.5-15.5 [facility] Laboratory - Chemistry and C hemistry - challengeon 08-06-2024 Albumin [Mass/Vol] 4.8 g/dL 3.9-4.9 [facility] ALP [Catalytic activity/Vol] 85 U/L 34-123 [facility] ALT [Catalytic activity/Vol] 22 U/L 7-38 [facility] AST [Catalytic activity/Vol] 20 U/L 13-35 [facility] Bilirubin [Mass/Vol] 0.4 mg/dL 0.2-1.3 [facility] Calcium [Mass/Vol] 10.0 mg/dL 8.5-10.2 [facility] Chloride [Moles/Vol] 104 mmol/L 98-107 [facility] CO2 [Moles/Vol] 28 mmol/L 22-30 [facility] Creatinine [Mass/Vol] 0.53 mg/dL Low 0.58-0.96 [facility] Glucose [Mass/Vol] 109 mg/dL High 74-99 [facility] Comment on above: The [place] Diabete s Association (ADA) provides guidance for cutoff values for fasting glucose and random glucose. The ADA defines fasting as no caloric intake for at least 8 hours. Fasting plasma glucose results between 100 to 125 mg/dL indicate increased risk for diabetes (prediabetes).Fasting plasma glucose results greater than or equal to 126 mg/dL meet the criteria for diagnosis of diabetes. In the absence of unequivocal hyperglycemia, results should be confirmed by repeat testing. In a patient with classic symptoms of hyperglycemia or hyperglycemic crisis, random plasma glucose results greater than or equal to 200 mg/dL meet the criteria for diagnosis of diabetes.Reference: Standards of Medical Care in Diabetes 2016, [place] Diabetes Association. Diabetes Care. 2016.39(Suppl 1). Potassium [Moles/Vol] 4.5 mmol/L 3.7-5.1 [facility] Sodium [Moles/Vol] 140 mmol/L 136-144 [facility] Urea nitrogen [Mass/Vol] 12 mg/dL 7-21 [facility] Laboratory - Hematology and Cell countson 08-06-2024 Eosinophils (Bld) [#/Vol] 0.09 10*3/uL <0.46 [facility] Immature granulocytes/100 WBC (Bld) 0.3 % [facility] Leukocytes [#/volume] correc carl for nucleated erythrocytes in Blood by Automated counon 08-06-2024 WBC corrected for nucl RBC Auto (Bld) [#/Vol] Leukocytes [#/volume] corrected for nucleated erythrocytes in Blood by Automated coun 3.70-11.00 [facility] Lymphocytes Auto (Bld) [#/Vo l]on 08-06-2024 Lymphocytes (Bld) [#/Vol] Lymphocytes [#/volume] in Blood by Automated count 1.00-4.00 [facility] Lymphocytes/100 WBC Auto (Bl d)on 08-06-2024 Lymphocytes/100 WBC (Bld) Lymphocytes/100 leukocytes in Blood by Automated count [facility] MCH Auto (RBC) [Entitic mass ]on 08-06-2024 MCH (RBC) [Entitic mass] MCH [Entitic mass] by Automated count 26.0-34.0 [facility] MCHC Auto (RBC) [Mass/Vol]on 08-06-2024 MCHC (RBC) [Mass/Vol] MCHC [Mass/volume] by Automated count 30.5-36.0 [facility] MCV Auto (RBC) [Entitic vol] on 08-06-2024 MCV (RBC) [Entitic vol] MCV [Entitic volume] by Automated count 80.0-100.0 [facility] Monocytes Auto (Bld) [#/Vol] on 08-06-2024 Monocytes (Bld) [#/Vol] Automated blood monocyte count <0.87 [facility] Monocytes/100 WBC Auto (Bld) on 08-06-2024 Monocytes/100 WBC (Bld) Automated monocyte % [facility] Neutrophils Auto (Bld) [#/Vo l]on 08-06-2024 Neutrophils (Bld) [#/Vol] Neutrophils [#/volume] in Blood by Automated count 1.45-7.50 [facility] Neutrophils/100 WBC Auto (Bl d)on 08-06-2024 Neutrophils/100 WBC (Bld) Automated neutrophil % [facility] No Panel Informationon 08-06 Estimated GFR (CKD-EPI) 98 mL/min/1.73m??? >=60 [facility] Comment on above: Estimated Glomerular Filtration Rate (eGFR) is calculated using the 2020 CKD-EPI creatinine equation. This equation utilizes serum creatinine, sex, and age as parameters. The creatinine assay has traceable calibration to isotope dilution-mass spectrometry. Refer to KDIGO guidelines for clinical interpretation. In patients with unstable renal function, e.g. those with acute kidney injury, the eGFR may not accurately reflect actual GFR. Immature Granulocyte # (Auto) <0.03 k/uL <0.10 [facility] Nucleated RBC Auto (Bld) [#/ Vol]on 08-06-2024 Nucleated RBC (Bld) [#/Vol] Nucleated erythrocytes [#/volume] in Blood by Automated count <0.01 [facility] Nucleated erythrocytes [Pres ence] in Blood by Automated counton 08-06-2024 Nucleated RBC Auto Ql (Bld) Nucleated erythrocytes [Presence] in Blood by Automated count [facility] Platelet mean volume Auto (B ld) [Entitic vol]on 08-06-2024 Platelet mean volume (Bld) [Entitic vol] Platelet mean volume [Entitic volume] in Blood by Automated count 9.0-12.7 [facility] Platelets Auto (Bld) [#/Vol] on 08-06-2024 Platelets (Bld) [#/Vol] Platelets [#/volume] in Blood by Automated count 150-400 [facility] Protein [Mass/volume] in Ser um or Plasmaon 08-06-2024 Protein [Mass/Vol] Protein [Mass/volume ] in Serum or Plasma 6.3-8.0 [facility] RBC Auto (Bld) [#/Vol]on RBC (Bld) [#/Vol] Erythrocytes [#/volu me] in Blood by Automated count 3.90-5.20 [facility] Serum or plasma anion gap de terminationon 08-06-2024 Anion gap [Moles/Vol] Serum or plasma an ion gap determination 8-15 [facility] Serum or plasma cancer antig en 125 (CA-125) measurement (units/volume)on 08-06-2024 Cancer Ag 125 Qn Serum or plasma canc er antigen 125 (CA-125) measurement (units/volume) <39 [facility] Comment on above: CA 125 test methodol ogy used is the Electrochemiluminescence Immunoassay by [employer]. Results obtained with different methods or kits cannot be used interchangeably.The reference interval is based on the 95th percentile of 240 apparently healthy premenopausal and postmenopausal women. At a cutoff value of 65 U/mL, the test sensitivity to distinguish ovarian carcinoma (FIGO stage I to IV) versus benign gynecological disease is 79%, with a specificity of 82%.Reference: Cancer Antigen 125 (CA 125 II) [package insert V 1.0 [place]]. [employer] [facility], [place], [place] (April 2015) Serum or plasma cancer antig en 19-9 measurement (units/volume)on 08-06-2024 Cancer Ag 19-9 Qn Serum or plasma canc er antigen 19-9 measurement (units/volume) <36.0 [facility] Comment on above: Cancer antigen 19-9 test is used as an aid in monitoring response to treatment or recurrence in patients with established pancreatic, hepatobiliary, or gastrointestinal malignancies. Clinical correlation is required.The CA 19-9 Antigen test was performed using the Total Eclipseel DXI paramagnetic particle chemiluminescent immunoassay method. Results obtained with different assay methods or kits cannot be used interchangeably. TYPE AND SCREEN,30 DAYon ABO O [facility] Comment on above: Order Comment: Speci men Type: BLOOD SPECIMEN Ordering Facility: [facility] Address: [address] [place] [address] Performed By: #### T [id number] #### [facility] CLIA [id number] [address] [place] [address] OF [facility] Rh Nom (Bld) Negative [facility] Comment on above: Order Comment: Speci men Type: BLOOD SPECIMEN Ordering Facility: [facility] Address: [address] [place] [address] Performed By: #### T SCR30 #### [facility] CLIA [id number] [address] [place] [address] [place] XR CHEST 2V FRONTAL/LATon XR CHEST 2V FRONTAL/LAT * * *Final Report* * * DATE OF EXAM: Aug 06 2024 8:57AM [id number] - XR CHEST 2V FRONTAL/LAT / PROCEDURE REASON: multiple diagnoses * * * * Physician Interpretation * * * * FRONTAL AND LATERAL CHEST RADIOGRAPHS HISTORY: Complex atypical endometrial hyperplasia Post-menopausal bleeding Thickened endometrium Left ovarian cyst. TECHNIQUE: Frontal and lateral views of the chest were obtained. COMPARISON: No available comparisons. RESULT: Cardiomediastinal silhouette is normal. No consolidative opacity. No pleural effusion or pneumothorax. Pulmonary vasculature is unremarkable. IMPRESSION: No acute cardiopulmonary process. Camper Assembler: PSCB Transcribe Date/Time: Aug 06 2024 9:01A Dictated by : SASCHA CLEMENS MD This examination was interpreted and the report reviewed and electronically signed by: SASCHA CLEMENS MD on Aug 06 2024 9:05AM EST [id number] [facility] XR Chest PA and Lateralon IMPRESSION: No acute cardiopulmonary process. Camper Assembler: PSCB Transcribe Date/Time: Aug 06 2024 9:01A Dictated by : SASCHA CLEMENS MD This examination was interpreted and the report reviewed and electronically signed by: SASCHA CLEMENS MD on Aug 06 2024 9:05AM [facility] DIVISION OF RADIOLOGY * * *Final Report* * * DATE OF EXAM: Aug 06 2024 8:57AM [id number] - XR CHEST 2V FRONTAL/LAT / PROCEDURE REASON: multiple diagnoses * * * * Physician Interpretation * * * * FRONTAL AND LATERAL CHEST RADIOGRAPHS HISTORY: Complex atypical endometrial hyperplasia Post-menopausal bleeding Thickened endometrium Left ovarian cyst. TECHNIQUE: Frontal and lateral views of the chest were obtained. COMPARISON: No available comparisons. RESULT: Cardiomediastinal silhouette is normal. No consolidative opacity. No pleural effusion or pneumothorax. Pulmonary vasculature is unremarkable. DIVISION OF RADIOLOGY Provider, Kecia Ace [facility] - 08/06/2024 * * *Final Report* * * DATE OF EXAM: Aug 06 2024 8:57AM [id number] [id number] - XR CHEST 2V FRONTAL/LAT / PROCEDURE REASON: multiple diagnoses * * * * Physician Interpretation * * * * FRONTAL AND LATERAL CHEST RADIOGRAPHS HISTORY: Complex atypical endometrial hyperplasia Post-menopausal bleeding Thickened endometrium Left ovarian cyst. TECHNIQUE: Frontal and lateral views of the chest were obtained. COMPARISON: No available comparisons. RESULT: Cardiomediastinal silhouette is normal. No consolidative opacity. No pleural effusion or pneumothorax. Pulmonary vasculature is unremarkable. IMPRESSION IMPRESSION: No acute cardiopulmonary process. Camper Assembler: PSCB Transcribe Date/Time: Aug 06 2024 9:01A Dictated by : SASCHA CLEMENS MD This examination was interpreted and the report reviewed and electronically signed by: SASCHA CLEMENS MD on Aug 06 2024 9:05AM [facility] Radiology Study observation (narrative) [facility] XR Chest PA and LateralOrder ed By: [facility] Provider on 08-06-2024 [facility] Tomeka 07-24-2024 CNPN Telephone (GYN) ----- JAMES WOODS ([id number]) 1950 F Date Time Provider Department 07/24/24 ЕЛЕНА AMATO During your visit today, we recorded the following information about you: Елена Amato, RN 07/24/2024 10:08 AM Signed Procedure: Pelvic exam under anesthesia, laparoscopic removal of uterus, cervix, tubes and ovaries, possible : lymphadenectomy, omentectomy, blood transfusion, any other indicated procedure Physician: Chase Manning Location: [facility]: [phone] Date AND Time: 08/14/24 MEDICAL CLEARANCE: TBD CARDIAC CLEARANCE: TBD PRE ADMISSION TESTIN08/06/24 AT: Todd Dubose THE FOLLOWING WAS EVALUATED Motivation To Learn: Interested Family/Significant Other Support: Unable to assess - Family not present Cognitive Ability: Alert and oriented Patient Learns Best By: Individual Instruction Verbal Instruction The Following Influencing Factors Were Barriers To This Education Session: None The Following Physical Limitations Were Barriers To This Education Session: None Instruction Provided To: Patient MEDICATION INFORMATION ASPIRIN and ADVIL can make you more prone to bleeding after surgery. Please STOP taking these medications at least (5) days before and for (3) days after surgery or procedure. Some common medications that contain ASPIRIN or act like Aspirin are TO BE AVOIDED: This is a list of the medications you should avoid: Advill Celebrex Motrin Aggrenox Clinoril Naprosyn(naproxen) Agrylin NSAIDS Pepto-Bismol Aleve Ecotrin Persantine Janel-[place] Excedrin Plaquenil Anacin Heparin Plavix Ascriptin Herbals Pletal Aspergum Ibuprofen Ticlid Barrett Indocin Trental Bextra Midol [place] Bufferin Gingko Biloba Vitamin E (MVI) MEDICATIONS YOU MAY SUBSTITUTE Anacin 3 Fioricet * Tylenol with codeine * Darvocet N 100 * Plenadol Percocet * Datril Sine-Aide Tylenol Excedrin PM (*Denotes prescription needed to obtain these medications) Learning Topic: Pre/post op information Instructions reviewed for arrival time, parking and admission. Specific topics reviewed and discussed with all surgical patients include: No eating, drinking, or smoking after midnight prior to surgery. Medications as prescribed by anesthesia or the physician. Bowel Prep as indicated. None Review of information contained in surgical packet Pre-operative and intra-operative general activities were reviewed including: Holding Area, assessments, surgical positioning, and Family Waiting Area. Written post-operative instructions were given to the patient regarding post-op activity, pain control, symptoms to report. Post-operative instructions provided and reviewed with patient/family: ACTIVITY - No heavy lifting (>5-10 lbs), no pushing/pulling, OK to climb stairs DRIVING - No driving while taking prescription pain medication, or within 24 hours of anesthesia, OK to ride in a car. DIET - Advance diet as tolerated and as ordered by MD, drink 8 glasses of water a day, eat a diet high in protein and fiber unless otherwise directed by MD. CATHETER - Will be inserted during surgery, you may go home with a catheter. If you go home with a catheter you will have to come back to the office for a voiding trial, UTI symptoms reviewed and patient instructed to notify MD of any of these symptoms. INCISION CARE - Keep incision clean and dry, marquis to be removed 7-10 days after surgery, steristrips do not need to be removed by MD BATHING - OK to shower after surgery unless otherwise directed by MD, no tub baths. PAIN MEDICATION - IV pain medication after surgery, IV SOUND EFFECTS SUPERVISOR if ordered by MD, discharged home with a prescription for PO pain medication, pain management after surgery, side effects of pain medication (including constipation, dizziness, drowsiness, and medication interactions). DVT PROPHYLAXIS - Early ambulation, SCDs, injectable anticoagulants (heparin, lovenox, etc) RESPIRATORY - Incentive spirometer, coughing/deep breathing exercises, ambulation. RETURN TO WORK - As directed by physician, please send any FMLA papers to physician's admin secretary. SYMPTOMS TO NOTIFY MD - Fever, chills, nausea, vomiting, increased or severe pain, heavy vaginal bleeding, foul smelling vaginal drainage, pain or swelling in extremities. URGENT SYMPTOMS - Call 911 or go to ER if any shortness of breath, difficulty breathing, or chest pain. HOW TO CONTACT PHYSICIAN - Physician's office phone number given to patient, if after hours patient instructed to call wastewater treatment plant operator and ask for the doctor chef concierge. Patient and family have phone number to call 24 hours/day. Patient Evaluation: Verbalizes understanding Patient and/or family express understanding of upcoming surgery and the operative process. Questions answered. Follow Up Plan: Follow up as needed Supplemental Material Given: Pre-operative te (more content not included)... [facility] CNOVSPon 07-01-2024 CNOVSP Visit (SP) Office (GYNOSA) ----- JAMES WOODS ([id number]) 1950 F Date Time Provider Department 07/01/24 10:00 AM CHASE MANNING During your visit today, we recorded the following information about you: Temperature Pulse Respiration Blood pressure 97.9 degrees 91/minute 16/minute 151/84 Weight Height 70.9 kg 1.703 m Chase Manning MD 07/01/2024 11:51 AM Signed DATE OF SERVICE: 07/01/2024 REASON FOR VISIT: PMB, echogenic lesion left adnexa-CAH Consultation requested by Dr. Benton. My final recommendations will be communicated back to the requesting physician by way of shared Medical record or letter to requesting physician via US mail. Communication back to the referring provider will be sent by way of medical record. DIAGNOSIS: atypical epithelial cells on path. HPI: James Woods is a 73 yo with a PMH of HTN, HLD, and hypothyroid. Patient presented to Dr Benton in February with c/o PMB. 10 days of bleeding, started light, then heavy, then tapered off. 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 Benton. Sono showed a thickened endometrium with possible polyp, and an echogenic lesion in the left ovary. CT was essentially normal, with an echogenic lesion in the left adnexa, but no ovarian masses/cysts or assoc signs of malignancy. See imaging below. On 05/27/2024 she underwent DANDC with findings of: PATHOLOGY: fragments of benign endometrial stroma and cervical mucosa, with a MINUTE FOCUS OF MARKED EPITHELIAL ATYPIA Patient states she feels good overall. Patient reports bowel and bladder issues. She had her urethra stretched 3 years ago[address] She sees Dr[address] Cruz. She has diverticulosis. She is taking miralax and that has helped. No bleeding, discharge, or pain. No shortness of breath, cough, or chest pain. [facility] path review: FINAL DIAGNOSIS Outside case [id number], collected 05/27/2024 Endometrium, curettage: - Limited superficial inactive endometrium (see comment). - Predominantly benign squamous and endocervical epithelium with atrophic changes. DATE OF LAST VISIT: n/a OBSTETRIC/ GYNECOLOGY HISTORY: Gynecologic surgery: DANDC LMP: menopause Last Pap: 03/14-neg Last HPV: unsure-never PAST MEDICAL HISTORY Diagnosis Date HLD (hyperlipidemia) HTN (hypertension) Hx of tonsillectomy Hypothyroidism PAST SURGICAL HISTORY Procedure Laterality Date DANDC, DIAG AND/OR THERAPEUTIC REMOVAL GALLBLADDER TONSILLECTOMY AND ADENOIDECTOMY URETHRAL DILATION, MALE SUBSQ Family History Problem Relation Age of Onset Breast Cancer Mother Heart disease Mother Heart disease Father Heart disease Brother Diabetes Brother Stroke Maternal Grandmother Lung Cancer Paternal Grandfather RECENT IMAGING: Date: 03/30/2024-CT ABD PEL- FINDINGS: Uterus is unremarkable. Left ovary contains a 7 mm calcification. However, no fat is present. Therefore, this is an incidental finding and a dermoid or teratoma is not confirmed. Right adnexa is unremarkable. No free fluid is present. There is moderate degenerative change of the hips. No fracture or osteolysis is apparent. IMPRESSION: Isolated small calcification in the left ovary. No additional features to suggest a teratoma are identified at this time. This is generally considered an incidental finding. Sonographic followup to document stability is recommended. All CT scans at this institution are performed using dose optimization techniques as appropriate for the performed exam including the following: Automated exposure control Adjustment of the mA and/or kV according to patient size Use of iterative reconstruction technique Date: 03/30/20245854-[id number] s HEALTH MAINTENANCE: Last mammogram: UTD normal Last colonoscopy: less than 5 years-needs 5 year follow up ECOG performance status ECOG PERFORMANCE STATUS: 0- Fully active, able to carry on all pre-disease performance w/o restriction. REVIEW OF SYSTEMS PAIN ASSESSMENT: Negative for pain, history of chronic pain, or current treatment for a chronic pain condition. GENERAL: No weight loss, malaise or fevers HEENT: Negative for frequent or significant headaches, No changes in hearing or vision, no nose bleeds or other nasal problems NECK: Negative for lumps, goiter, pain and significant neck swelling RESPIRATORY: Negative for cough, hemoptysis, wheezing, COPD, dyspnea or shortness of breath CARDIOVASCULAR: occasional palpitations-currently being treated, + HTN, neg CAD GI: No nausea, vomiting, or diarrhea : stopped estradiol cream, had UTI after DANDC-completed antibiotics PATIENT SERVICES COORDINATOR: SEE HPI MUSCULOSKELETAL: Negative for joint pain or swelling, back pain or muscle pain SKIN: Negative for lesions, rash, and itching PSYCH: Negative for sleep disturbance, mood disorder and recent psychosocial stressors HEMATOLOGY/L (more content not included)... [facility] OUTSIDE SURG PATH SLIDE REVI EWon 06-15-2024 CASE REPORT [facility] Comment on above: Order Comment: Speci men Type: FORMALIN-FIXED PARAFFIN-EMBEDDED TISSUE SPECIMEN Ordering Facility: [facility] Review Address: , , Result Comment: Surg ical Pathology Report Case: [id number] Authorizing Provider: Chase Manning MD Collected: 06/15/2024 08:58 AM Ordering Location: [facility] Received: 06/15/2024 08:57 AM [facility] Pathologist: Meghna Gramajo MD Specimen: Slide(s), 2 SLIDES [id number] Performed By: #### L [id number] #### [facility] CLIA [id number] [address] [place] [address] OF CHRIST DIAGNOSIS COMMENT Follow-up and anothe r sampling is recommended if clinically indicated. This case has been reviewed at the gynecologic pathology consensus meeting with Meena Gamble, Messi, Ida and Esther , who concur. [facility] Comment on above: Order Comment: Speci men Type: FORMALIN-FIXED PARAFFIN-EMBEDDED TISSUE SPECIMEN Ordering Facility: [facility] Review Address: , , Performed By: #### L [id number] #### [facility] CLIA [id number] [address] [place] [address] [place] OF [place]ST FINAL DIAGNOSIS Normal [facility] Comment on above: Order Comment: Speci men Type: FORMALIN-FIXED PARAFFIN-EMBEDDED TISSUE SPECIMEN Ordering Facility: [facility] Review Address: , , Result Comment: Outs chris case [id number], collected 05/27/2024 Endometrium, curettage: - Limited superficial inactive endometrium (see comment). - Predominantly benign squamous and endocervical epithelium with atrophic changes. Performed By: #### L [id number] #### [facility] CLIA [id number] [address] [place] [address] FINAL PERFORMING LAB Normal [facility] Comment on above: Order Comment: Speci men Type: FORMALIN-FIXED PARAFFIN-EMBEDDED TISSUE SPECIMEN Ordering Facility: [facility] Review Address: , , Result Comment: Diag nostic interpretation performed at: [facility], [address] [place] [address] CLIA# [id number] [employer] Supervisor: Fermin Mcdaniels MD Performed By: #### L [id number] #### [facility] CLIA [id number] [address] [place] [address] C Urineon 06-11-2024 Bacteria identified Cx Nom (U) Microbiology PROCEDURE: Urine Culture [R1] SOURCE: U Random BODY SITE: COLLECTED DATE/TIME: 06/09/2024 13:38 EST RECEIVED DATE/TIME: 06/09/2024 17:56 EST START DATE/TIME: 06/09/2024 17:56 EST FREE TEXT SOURCE: Josue MCDONOUGH, SMOKING PIPE MOUNTER-C, Josue MCDONOUGH, SMOKING PIPE MOUNTER-C, Sanam X Sanam X FINAL REPORTS Final Report [] Verified Date/Time: 06/11/2024 09:36 EST >100,000 cfu/ml Escherichia coli SUSCEPTIBILITY RESULTS __ LEGEND: S=Susceptible, N/R=Not Reported, Blank=Data not available, or drug not advisable or tested, I=Intermediate, ESBL=Extended spectrum beta-lactamase, R=Resistant, TFG=Thymidine-dependent strain, VINAYAK=Beta-lactamase positive, STEPHANIE=mcg/m;(mg/L), S*=Predicted susceptible interp, R*=Predicted resistant interp EC Antibiotic STEPHANIE Dilutn STEPHANIE Interp Ampicillin <=8 S Ampicillin/ <=8/4 S Sulbactam Aztreonam <=4 S Cefazolin <=2 S Cefepime <=2 S Ceftazidime <=1 S Ceftazidime/ <=8 S Avibactam Ceftriaxone <=1 S Cefuroxime <=4 S Ciprofloxacin <=0.25 S Ertapenem <=0.5 S Gentamicin <=2 S Levofloxacin <=0.5 S Meropenem <=1 S Nitrofurantoin <=32 S Piperacillin/ <=8 S Tazobactam Tetracycline <=4 S Tobramycin <=2 S Trimethoprim/ <=2/38 S Sulfa Performing Locations R1: This test was performed at: [facility], [address] [place] [address], [id number] , [place], [facility] Comment on above: Performed By: #### 2 [id number] #### [facility] [address] [place] [id number] Urology Office/Clinic Noteon 06-09-2024 Urology Office/Clinic Note Urology Office/Clinic Note Chief Complaint urinary symptoms HPI Staff 73 year old female here due to worsening urinary issues. In February pt had vaginal bleeding x10 days. She saw an OBGYN, who then took her off of estradiol for now. Pt then stopped bleeding. OBGYN did a D&C. After D&C, the urinary symptoms started. Pt states she was doubling over in pain while urinating & had spotting while wiping. Now she says about 50% of the time, she has discomfort while urinating. She is seeing her OBGYN tomorrow for 2wk f/u. Pt had urethral dilation done in the past and she believes she might need it again, as these are the same symptoms she had previously when she needed the dilation. Previous DX: atrophic vaginitis, incomplete bladder emptying, other urethral stricture and stress incontinence. S/p Cysto/UD done 11/08/20 Prescribed Estrace cream 1 g 2 times/week - holding off until approved to resume by OBGYN PVR today - 0mL Dysuria: sometimes, or has burning after urinating Incomplete bladder emptying: sometimes yes, she pushes to get urine out Hematuria: only saw blood when wiping 2 times Frequency: about every 1-2hrs Urgency: comes and go , states she can talk herself out of going to the bathroom Nocturia: 1-2x per night Stream: sometimes very little, as the day goes on she says stream gets stronger after drinking water Leaking: rarely Post void dripping: Wearing pads/ Depends: rarely - if she does, its precautionary Urge incontinence: sometimes - only small dribbles, if she holds urine too long Stress incontinence: sometimes - only small dribbles Incontinence without Sensory Awareness: denies Abdominal pain: a few times a day, has discomfort Flank pain: denies History of Present Illness I have reviewed and verified the staff HPI to be accurate for this encounter. Portions of this record may have been created with voice recognition artificial intelligence software, specifically [employer] [address], [employer] and or [employer]. Substitutions may have occurred due to the inherent limitations of voice recognition and artificial intelligence software. Review of Systems PHQ Score Initial Depression Screen Score: 0 SCORE Physical Exam Vitals & Measurements T: 37 ???C(Oral) HR: 84(Peripheral) RR: 16 BP: 143/86 HT: 67 in HT: 170 cm WT: 72 kg WT: 158.733 lb BMI: 24.91 General: Well developed, well nourished, in no acute distress. Assessment/Plan PRW pt 1. Bacteriuria (R82.71: Bacteriuria) Patient complaining of intense bladder pain with voiding, frequency, urgency, weak stream x 5 to 6 days. She did have recent D&C with PATIENT SERVICES COORDINATOR on 05/27/2024. UA today with large blood, moderate leukocytes. Discussed possibility of urinary tract infection, which patient states she has never had versus possibility of postop changes being captured on urine. Given patient's symptoms, we will start on antibiotic treatment today. Start Macrobid 100 mg twice daily x 5 days. Rx sent to pharmacy. Discussed side effects. Will contact patient if needing to change treatment course. Increase fluid intake, avoid bladder irritants ER for fever, NV, severe flank pain, inability to urinate -Urine sent for culture today -Start Macrobid Ordered: nitrofurantoin, 100 mg = 1 cap(s), Oral, BID, X 5 day(s), # 10 cap(s), Refills(s) 0, Pharmacy: [facility], 170, cm, 06/09/24 13:30:00 EST, Height/Length Dosing, 72, kg, 06/09/24 13:30:00 EST, Weight Dosing 2. Other urethral stricture, female (N35.82: Other urethral stricture, female) S/p Cysto/UD done 11/08/20 [1] Patient is concerned that it may be time for another urethral dilation. Today she complains of frequency, urgency, bladder discomfort, weak stream. Will schedule Cysto with UD. The procedure risks, benefits, details, and treatment alternatives have been discussed with the patient. These include bleeding, infection, recurrent scar in over 50%, need for repeat dilation or other procedures, no symptom relief with dilation, among others. Will order Local anesthesia. Given scheduling timing, patient would like to schedule cystoscopy/UD. -Schedule cysto/UD per patient request. Okay to cancel if symptoms resolve with treatment of possible infection Ordered: [id number] Measure Post Void residual urine and/or bladder capacity by US- non-imaging Body Mass Index (BMI) documented 3008F Current tobacco non-user 1036F Depression Screening Negative 3352F Influenza immunization status assessed 1030F Medication list documented in medical record 1159F Most recent diastolic blood pressure 80-89 mm Hg 3079F Most recent systolic blood pressure >= 140 mm Hg 3077F Patient screen for fall risk: no falls in last year or 1 fall with no injury in last year 1101F Review of all meds by a prescribing practitioner or clinical pharmacist documented in EHR 1160F Urine Culture 3. Incomplete bladder emptying (R33.9: Retention of urine, unspecified) Patient does routinel (more content not included)... Normal [facility] Comment on above: Result Comment: Elec tronically Signed By: ANA LUISA Salas APRN, Sanam Allen\.br\Date and Time Signed: 06/09/24 13:59 EST [place] 05-27-2024 L ----- Specimen: [id number] Received: 05/27/24 Status: YULI Johnston Num: [id number] Spec Type: Surgical Subm Dr: JULIO CÉSAR BENTON MD Tissues: A Endometrium - Curettings (ENDOMETRIAL CURETTINGS) Procedures: HE/Rosalva Armenta/Feliz L4 Age/ Patient Sex Location Account Attending Physician James Woods 73/F [place] [id number] JULIO CÉSAR BENTON MD SPEC NUM: [id number] RECD: 05/27/24 STATUS: YULI JOHNSTON NUM: [id number] RICKY: 05/27/[address] [facility] [address]: JULIO CÉSAR BENTON MD ENTERED: 05/27/24 [facility] DR: [facility] SPEC TYPE: Surgical DEPT: S ENTERED BY: [id number] RECV BY: [id number] ORDERED: HE/2, Gross/Micro L4 ORDERED: HE/2, Gross/Micro L4 Pathological Diagnosis Endometrium, curettage: Mostly fragments of benign endometrial stroma and cervical mucosa, with only a minute focus of marked epithelial atypia. Follow-up is recommended. Clinical Information Postmenopausal bleeding Gross Description A. Received in formalin labeled endometrial curettings is a Telfa pad with adherent bush- pink to red-brown, delicate soft tissue fragments, 1.5 x 1 x 0.2 cm in aggregate. The specimen is filtered and entirely submitted in a single cassette. (1, ns, [id number] A) CPT Codes 68471 Specimen: [id number] Received: 05/27/24 Status: YULI Johnston Num: [id number] Spec Type: Surgical Subm Dr: JULIO CÉSAR BENTON MD Tissues: A Endometrium - Curettings (ENDOMETRIAL CURETTINGS) Procedures: HE/2, Gross/Micro L4 Patient: James Woods [id number] (Continued) Signed (signature on file) Valeriano Anaya MD 05/28/24 1540 Normal [facility] Alanine aminotransferase [En zymatic activity/volume] in Serum or PlasmaOrdered By: JULIO CÉSAR BENTON on 05-12-2024 ALT [Catalytic activity/Vol] 20 U/L Normal 7-52 [facility] Comment on above: Performed By: #### C BC, CMP #### [address] Albumin [Mass/volume] in Ser um or Plasma by Bromocresol green (BCG) dye binding methoOrdered By: JULIO CÉSAR BENTON on 05-12-2024 Albumin BCG dye [Mass/Vol] 4.3 g/dL 3.5-5.7 [facility] Alkaline phosphatase [Enzyma tic activity/volume] in Serum or PlasmaOrdered By: JULIO CÉSAR BENTON on 05-12-2024 ALP [Catalytic activity/Vol] 71 U/L Normal 34-104 [facility] Comment on above: Result Comment: PERF ORMED BY: [place] [address] PATHOLOGIST [employer] KASSANDRA GARCIA M.D. Performed By: #### C BC, CMP #### [address] Aspartate aminotransferase [ Enzymatic activity/volume] in Serum or PlasmaOrdered By: JULIO CÉSAR BENTON on 05-12-2024 AST [Catalytic activity/Vol] 17 U/L Normal 13-39 [facility] Comment on above: Performed By: #### C BC, CMP #### [address] Automated basophil %Ordered By: JULIO CÉSAR BENTON on 05-12-2024 Basophils/100 WBC (Bld) 0.4 % Normal . [facility] Comment on above: Performed By: #### C BC, CMP #### [address] Automated basophil countOrde red By: JULIO CÉSAR BENTON on 05-12-2024 Basophils (Bld) [#/Vol] 0.0 10*3/uL Normal 0.0-0.2 [facility] Comment on above: Result Comment: PERF ORMED BY: [place] [address] PATHOLOGIST [employer] KASSANDRA GARCIA M.D. Performed By: #### C BC, CMP #### [address] Automated blood monocyte cou ntOrdered By: JULIO CÉSAR BENTON on 05-12-2024 Monocytes (Bld) [#/Vol] 0.6 10*3/uL Normal 0.0-0.8 [facility] Comment on above: Performed By: #### C BC, CMP #### [address] Automated eosinophil %Ordere d By: JULIO CÉSAR BENTON on 05-12-2024 Eosinophils/100 WBC (Bld) 2.0 % Normal . [facility] Comment on above: Performed By: #### C BC, CMP #### [address] Automated eosinophil countOr dered By: JULIO CÉSAR BENTON on 05-12-2024 Eosinophils (Bld) [#/Vol] 0.1 10*3/uL Normal 0.0-0.45 [facility] Comment on above: Performed By: #### C CRISTOPHER, CMP #### [address] Automated monocyte %Ordered By: JULIO CÉSAR BENTON on 05-12-2024 Monocytes/100 WBC (Bld) 8.8 % Normal . [facility] Comment on above: Performed By: #### C CRISTOPHER, CMP #### [address] Automated neutrophil %Ordere d By: JULIO CÉSAR BENTON on 05-12-2024 Neutrophils/100 WBC (Bld) 73.3 % Normal . [facility] Comment on above: Performed By: #### C CRISTOPHER, CMP #### [address] Bilirubin.total [Mass/volume ] in Serum or PlasmaOrdered By: JULIO CÉSAR BENTON on 05-12-2024 Bilirubin [Mass/Vol] 0.5 mg/dL Normal 0.3-1.0 [facility] Comment on above: Performed By: #### C BC, CMP #### [address] CBC W Auto Differential pane l (Bld)on 05-12-2024 Basophils (Bld) [#/Vol] 0 10*3/uL 0.0 - 0.2 10*3/uL [facility] Basophils/100 WBC Manual cnt (Syn fld) 0.4 % . [facility] Eosinophils (Bld) [#/Vol] 0.1 10*3/uL 0.0 - 0.45 10*3/uL [facility] Eosinophils/100 WBC Manual cnt (Syn fld) 2 % . [facility] Erythrocyte distribution width (RBC) [Ratio] 13.2 % 11.9 - 15.3 % [facility] Hematocrit (Bld) [Volume fraction] 42.1 % 34.0 - 46.4 % [facility] Hemoglobin (Bld) [Mass/Vol] 14.4 g/dL 11.8 - 15.4 g/dL [facility] Lymphocytes (Bld) [#/Vol] 1.1 10*3/uL 1.00 - 4.8 10*3/uL [facility] Lymphocytes/100 WBC Manual cnt (Syn fld) 15.5 % . [facility] MCH (RBC) [Entitic mass] 30.6 pg 24.7 - 34.3 pg [facility] MCHC (RBC) [Mass/Vol] 34.1 g/dL 32.0 - 35.0 g/dL [facility] MCV (RBC) [Entitic vol] 89.9 fL 80 - 100 fL [facility] Monocytes (Bld) [#/Vol] 0.6 10*3/uL 0.0 - 0.8 10*3/uL [facility] Monocytes+Macrophages/ 100 WBC Manual cnt (Syn fld) 8.8 % . [facility] Neutrophils (Bld) [#/Vol] 5.3 10*3/uL 1.8 - 7.7 10*3/uL [facility] Neutrophils/100 WBC Manual cnt (Syn fld) 73.3 % . [facility] NRBC 0.1 /100{WBC} 0 - 0.5 /100{WBC} [facility] Platelet mean volume (Bld) [Entitic vol] 7.8 fL 6.3 - 10.7 fL [facility] Platelets (Bld) [#/Vol] 242 10*3/uL 150 - 450 10*3/uL [facility] RBC LM.HPF (Urine sed) [#/Area] 4.69 /[HPF] 3.60 - 5.00 [facility] WBC (Bld) [#/Vol] 7.2 10*3/uL 3.8 - 11.6 10*3/uL [facility] WBC LM.HPF (Urine sed) [#/Area] 7.2 10*3/uL 3.8 - 11.6 10*3/uL [facility] Calcium [Mass/volume] in Ser um or PlasmaOrdered By: JULIO CÉSAR BENTON on 05-12-2024 Calcium [Mass/Vol] 9.5 mg/dL Normal 8.6-10.3 [facility] Comment on above: Performed By: #### C BC, CMP #### [address] Carbon dioxide, total [Moles /volume] in Serum or PlasmaOrdered By: JULIO CÉSAR BENTON on 05-12-2024 CO2 [Moles/Vol] 28.9 mmol/L Normal 21.0-31.0 [facility] Comment on above: Performed By: #### C BC, CMP #### [address] Chloride [Moles/volume] in S alfie or PlasmaOrdered By: JULIO CÉSAR BENTON on 05-12-2024 Chloride [Moles/Vol] 104 mmol/L Normal 98-107 [facility] Comment on above: Performed By: #### C BC, CMP #### [address] Complete Blood Count Auto Di ffon 05-12-2024 Mean Corpuscular HGB Conc 34.1 g/dL Normal 32.0-35.0 [facility] Comment on above: Performed By: #### C BC, CMP #### [address] NRBC% 0.1 /100{WBC} Normal 0-0.5 [facility] Comment on above: Performed By: #### C BC, CMP #### [address] Comprehensive Metabolic Pane [place] 05-12-2024 Albumin [Mass/Vol] 4.3 g/dL Normal 3.5-5.7 [facility] Comment on above: Performed By: #### C BC, CMP #### [place] [address] [place] GFR/1.73 sq M.predicted MDRD (S/P/Bld) [Vol rate/Area] mL/min/{1.73_m2} Normal [facility] Comment on above: Performed By: #### C BC, CMP #### [facility] [address] [id number] [facility] Comprehensive metabolic pane [facility] 05-12-2024 Albumin [Mass/Vol] 4.3 g/dL 3.5 - 5.7 g/dL [facility] Albumin/Globulin [Mass ratio] 1.9 {ratio} [facility] ALP [Catalytic activity/Vol] 71 U/L 34 - 104 U/L [facility] ALT [Catalytic activity/Vol] 20 U/L 7 - 52 U/L [facility] Anion gap [Moles/Vol] 12.5 mmol/L 6.0 - 15.0 NO [facility] AST [Catalytic activity/Vol] 17 U/L 13 - 39 U/L [facility] Bilirubin [Mass/Vol] 0.5 mg/dL 0.3 - 1 .0 mg/dL [facility] Calcium [Mass/Vol] 9.5 mg/dL 8.6 - 10. 3 mg/dL [facility] Chloride [Moles/Vol] 104 mmol/L 98 - 10 7 mmol/L [facility] CO2 [Moles/Vol] 28.9 mmol/L 21.0 - 31.0 mmol/L [facility] Creatinine (U) [Mass/Vol] 0.58 mg/dL Low 0.60 - 1.20 mg/dL [facility] GFR/1.73 sq M.predicted MDRD (S/P/Bld) [Vol rate/Area] mL/min/{1.73_m2} [facility] Globulin (S) [Mass/Vol] 2.3 g/dL [facility] Glucose [Mass/Vol] 99 mg/dL 70 - 100 mg/dL [facility] Comment on above: Random Glucose Refer ence Range is dependent on time and content of last meal. Glucose of more than 200 mg/dL in a nonstressed, ambulatory subject supports the diagnosis of Diabetes Mellitus. ADA recommended reference range Interpretation and review of laboratory results Abnormal [facility] Potassium [Moles/Vol] 4.4 mmol/L 3.5 - 5.1 mmol/L [facility] Protein [Mass/Vol] 6.6 g/dL 6.4 - 8.9 g/dL [facility] Sodium [Moles/Vol] 141 mmol/L 136 - 145 mmol/L [facility] Urea nitrogen [Mass/Vol] 13 mg/dL 7 - 25 mg/dL [facility] Creatinine [Mass/volume] in Serum or PlasmaOrdered By: JULIO CÉSAR BENTON on 05-12-2024 Creatinine [Mass/Vol] 0.58 mg/dL Low 0.60-1.20 [facility] Comment on above: Performed By: #### C BC, CMP #### [address] ECG 12 lead ECGon 05-12-2024 ECG 12 lead ECG [facility] [place] [address] [place] [address] Electrocardiograph Report Signed Patient: James Woods MR#: [id number] : 1950 Acct:[id number] Age/Sex: 73 / F ADM Date: 05/12/24 Loc: Room: Type: [facility] Attending Dr: Julio César Benton MD Ordering Provider: JULIO CÉSAR BENTON MD Date of Service: 05/12/24 ECG/ECG 12 lead ECG: pst Copies to: Test Reason : Blood Pressure : */* mmHG Vent. Rate : 83 BPM Atrial Rate : 83 BPM P-R Int : 176 ms QRS Dur : 80 ms QT Int : 356 ms P-R-T Axes : 7 76 24 degrees QTcB Int : 418 ms Normal sinus rhythm Septal infarct , age undetermined Abnormal ECG No previous ECGs available Confirmed by [facility] ([id number][facility] on 05/12/2024 2:37:47 PM Referred By: Electronically Signed By: DC [facility]ENG [facility] Transcribed By: MUS Signed By Dc Cheng MD, FACC 05/12/24 1437 Normal [facility] Erythrocyte distribution wid th [Ratio] by Automated countOrdered By: JULIO CÉSAR BENTON on 05-12-2024 Erythrocyte distribution width (RBC) [Ratio] 13.2 % Normal 11.9-15.3 [facility] Comment on above: Performed By: #### C CRISTOPHER, CMP #### [address] [place] [address] [place] Erythrocytes [#/volume] in B lood by Automated countOrdered By: JULIO CÉSAR BENTON on 05-12-2024 RBC (Bld) [#/Vol] 4.69 10*6/uL Normal 3.60-5.00 [facility] Comment on above: Performed By: #### C CRISTOPHER, CMP #### [address] Glucose [Mass/volume] in Ser um or PlasmaOrdered By: JULIO CÉSAR BENTON on 05-12-2024 Glucose [Mass/Vol] 99 mg/dL Normal 70-100 [facility] Comment on above: ADA recommended refe rence rangeRandom Glucose Reference Range is dependent on time and content of last meal. Glucose of more than 200 mg/dL in a nonstressed, ambulatory subject supports the diagnosis of Diabetes Mellitus. Result Comment: [place] Glucose Reference Range is dependent on time and content of last meal. Glucose of more than 200 mg/dL in a nonstressed, ambulatory subject supports the diagnosis of Diabetes Mellitus. ADA recommended reference range Performed By: #### C CRISTOPHER, CMP #### [address] Hematocrit [Volume Fraction] of Blood by Automated countOrdered By: JULIO CÉSAR BENTON on 05-12-2024 Hematocrit (Bld) [Volume fraction] 42.1 % Normal 34.0-46.4 [facility] Comment on above: Performed By: #### C CRISTOPHER, CMP #### [place] [address] [place] Hemoglobin [Mass/volume] in BloodOrdered By: JULIO CÉSAR BENTON on 05-12-2024 Hemoglobin (Bld) [Mass/Vol] 14.4 g/dL Normal 11.8-15.4 [facility] Comment on above: Performed By: #### C CRISTOPHER, CMP #### [place] [address] [place] Leukocytes [#/volume] correc carl for nucleated erythrocytes in Blood by Automated counOrdered By: JULIO CÉSAR BENTON on 05-12-2024 WBC corrected for nucl RBC Auto (Bld) [#/Vol] 7.2 10*3/uL 3.8-11.6 [facility] Leukocytes [#/volume] in Blo od by Automated countOrdered By: JULIO CÉSAR BENTON on 05-12-2024 WBC (Bld) [#/Vol] 7.2 10*3/uL Normal 3.8-11.6 [facility] Comment on above: Performed By: #### C BC, CMP #### [address] Lymphocytes [#/volume] in Bl ood by Automated countOrdered By: JULIO CÉSAR BENTON on 05-12-2024 Lymphocytes (Bld) [#/Vol] 1.1 10*3/uL Normal 1.00-4.8 [facility] Comment on above: Performed By: #### C BC, CMP #### [address] Lymphocytes/100 leukocytes i n Blood by Automated countOrdered By: JULIO CÉSRA BENTON on 05-12-2024 Lymphocytes/100 WBC (Bld) 15.5 % Normal . [facility] Comment on above: Performed By: #### C BC, CMP #### [address] MCH [Entitic mass] by Automa carl countOrdered By: JULIO CÉSAR BENTON on 05-12-2024 MCH (RBC) [Entitic mass] 30.6 pg Normal 24.7-34.3 [facility] Comment on above: Performed By: #### C BC, CMP #### [address] MCHC Auto (RBC) [Mass/Vol]Or dered By: JULIO CÉSAR BENTON on 05-12-2024 MCHC (RBC) [Mass/Vol] 34.1 g/dL 32.0-35.0 [facility] MCV [Entitic volume] by Auto mated countOrdered By: JULIO CÉSAR BENTON on 05-12-2024 MCV (RBC) [Entitic vol] 89.9 fL Normal 80-100 [facility] Comment on above: Performed By: #### C BC, CMP #### [facility] [address] Neutrophils [#/volume] in Bl ood by Automated countOrdered By: JULIO CÉSAR BENTON on 05-12-2024 Neutrophils (Bld) [#/Vol] 5.3 10*3/uL Normal 1.8-7.7 [facility] Comment on above: Performed By: #### C BC, CMP #### [address] No Panel InformationOrdered By: JULIO CÉSAR BENTON on 05-12-2024 Estimated GFR (CKD-EPI) > 60.0 mL/Min [facility] Creatinine Clearance (Chem N/A [facility] Nucleated erythrocytes [Pres ence] in Blood by Automated countOrdered By: JULIO CÉSAR BENTON on 05-12-2024 Nucleated RBC Auto Ql (Bld) 0.1 /100{WBC} 0-0.5 [facility] Platelet mean volume [Entiti c volume] in Blood by Automated countOrdered By: JULIO CÉSAR BENTON on 05-12-2024 Platelet mean volume (Bld) [Entitic vol] 7.8 fL Normal 6.3-10.7 [facility] Comment on above: Performed By: #### C BC, CMP #### [address] Platelets [#/volume] in Bloo d by Automated countOrdered By: JULIO CÉSAR BENTON on 05-12-2024 Platelets (Bld) [#/Vol] 242 10*3/uL Normal 150-450 [facility] Comment on above: Performed By: #### C BC, CMP #### [place] [address] [place] Potassium [Moles/volume] in Serum or PlasmaOrdered By: JULIO CÉSAR BENTON on 05-12-2024 Potassium [Moles/Vol] 4.4 mmol/L Normal 3.5-5.1 [facility] Comment on above: Performed By: #### C BC, CMP #### [place] [address] [place] Protein [Mass/volume] in Ser um or PlasmaOrdered By: JULIO CÉSAR BENTON on 05-12-2024 Protein [Mass/Vol] 6.6 g/dL Normal 6.4-8.9 [facility] Comment on above: Performed By: #### C BC, CMP #### [address] Serum globulin measurement b y calculation (mass/volume)Ordered By: JULIO CÉSAR BENTON on 05-12-2024 Globulin (S) [Mass/Vol] 2.3 g/dL Normal [facility] Comment on above: Performed By: #### C BC, CMP #### [address] Serum or plasma albumin/glob ulin mass ratioOrdered By: JULIO CÉSAR BENTON on 05-12-2024 Albumin/Globulin [Mass ratio] 1.9 {ratio} [facility] Comment on above: Performed By: #### C BC, CMP #### [address] Serum or plasma anion gap de terminationOrdered By: JULIO CÉSAR BENTON on 05-12-2024 Anion gap [Moles/Vol] 12.5 mmol/L Normal 6.0-15.0 [facility] Comment on above: Performed By: #### C BC, CMP #### [address] Sodium [Moles/volume] in Ser um or PlasmaOrdered By: JULIO CÉSAR BENTON on 05-12-2024 Sodium [Moles/Vol] 141 mmol/L Normal 136-145 [facility] Comment on above: Performed By: #### C BC, CMP #### [address] Urea nitrogen [Mass/volume] in Serum or PlasmaOrdered By: JULIO CÉSAR BENTON on 05-12-2024 Urea nitrogen [Mass/Vol] 13 mg/dL Normal 7-25 [facility] Comment on above: Performed By: #### C BC, CMP #### [address] PELVIS WO IV CONTRASTon 0 9-09-2024 CT PELVIS WO IV CONTRAST EXAM: CT Pelvis without Contrast: REASON FOR EXAM: Recent vaginal bleeding for nine days with slight cramping, abnormal previous ultrasound. COMPARISON: 03/30/2024. TECHNIQUE: Spiral images through the pelvis are obtained without IV contrast. FINDINGS: Uterus is unremarkable. Left ovary contains a 7 mm calcification. However, no fat is present. Therefore, this is an incidental finding and a dermoid or teratoma is not confirmed. Right adnexa is unremarkable. No free fluid is present. There is moderate degenerative change of the hips. No fracture or osteolysis is apparent. IMPRESSION: Isolated small calcification in the left ovary. No additional features to suggest a teratoma are identified at this time. This is generally considered an incidental finding. Sonographic followup to document stability is recommended. All CT scans at this institution are performed using dose optimization techniques as appropriate for the performed exam including the following: Automated exposure control Adjustment of the mA and/or kV according to patient size Use of iterative reconstruction technique *This report is generated using voice recognition reporting (Boxbe). On occasion Boxbe erroneously drops words from the report or replaces the spoken word with similar sounding words. Please call with any questions/concerns regarding this report.* Dictated and transcribed 04/07/2024/tatianna This report has been electronically signed and approved by the interpreting radiologist. Electronically Signed Amrit Sullivan M.D. 2024-04-07 17:14:05 Normal Not Available IGP,rfx Aptima HPV all pthon 03-16-2024 . Comment [facility] Comment on above: The HPV DNA reflex c riteria were not met with this specimen result therefore, no HPV testing was performed. Silver Brazer Cyto stain Nom (Cvx/Vag) [ID] Comment [facility] Comment on above: Marine daugherty, Formation Testing Operator (ASCP) Cytology report Cyto stain Doc (Cvx/Vag) Comment [facility] Comment on above: NEGATIVE FOR INTRAEP ITHELIAL LESION OR MALIGNANCY. Cytology report Cyto stain.thin prep Doc (Cvx/Vag) Comment [facility] Comment on above: This liquid based Th inPrep(R) pap test was screened with the use of an image guided system. Diagnosis ICD code [Identifier] Comment [facility] Comment on above: Z12.4 Z11.51 Microscopic observation Other stain Nom (Unsp spec) . [facility] Note: Comment [facility] Comment on above: The Pap smear is a s creening test designed to aid in the detection of premalignant and malignant conditions of the uterine cervix. It is not a diagnostic procedure and should not be used as the sole means of detecting cervical cancer. Both false-positive and false-negative reports do occur. Statement of adequacy Cyto stain (Cvx/Vag) [Interp] Comment [facility] Comment on above: Satisfactory for nya luation. Endocervical and/or squamous metaplastic cells (endocervical component) are present. Performed at: 01 - [facility] Mina Juarez W [id number] Burner Machine Operator: Wanda Bradley MD, Phone: [phone] Specimen Comment: No. of containers..01 ThinPrep Vial [facility] Screenson 11-27-2023 Screens [id number] Normal [facility] Patient Educationon 11-26-19 24 Patient Education Obstetrics and Gynec ology Atrophic Vaginitis Atrophic vaginitis is a condition [...] are. Treatment may include: ? Using an namo-fry-ifnnzhg vaginal lubricant before sex. ? Using a [...] these instructions at home: Medicines ? Take gbwy-vxc-pqfaoeq and prescription medicines only as told by your health care provider. ? Do not use herbal or alternative medicines unless your health care provider says that you can. ? Use uwjb-jqb-elkzdfs creams, lubricants, or moisturizers for dryness only [...] provider. Document Revised: 01/05/2021 Document Reviewed: 01/05/2021 [employer] Patient Education ? 2022 [employer]. Kegel Exercises Kegel exercises can help strengthen [...] not require (more content not included)... Normal [facility] Urology Office/Clinic Noteon 11-26-2023 Urology Office/Clinic Note [...] with voice recognition artificial intelligence software, specifically [address], [employer] and or [employer]. Substitutions may have occurred due to the [...] Urnls Dip Stick Auto w/o Microscopy POC 65421 2. Incomplete bladder emptying (R33.9: Retention of urine, unspecified) Patient notes that she routinely double voids and uses voiding maneuvers. She does feel empty after doing that. Ordered: Urnls Dip Stick Auto w/o Microscopy POC 79667 3. Other urethral stricture, female (N35.82: Other urethral stricture, female) S/p Cysto/UD done 11/08/20 [1] She denies any stream issues at this time. Does not feel that she needs repeat dilation. Ordered: Urnls Dip Stick Auto w/o Microscopy POC 04294 4. Stress incontinence (N39.3: Stress incontinence (female) (male)) BBSQ 12-13 Mild leaking with laughing Only wears a pad when she feels it is necessary which is rare Not bothersome to the patient at this time Strengthening pelvic floor with Kegel exercises, timed voids. Ordered: Urnls Dip Stick Auto w/o Microscopy POC 71609 Follow-up With When Contact Information Orzech CEASAR, ASHLEY-C, Sanam X, FAM, URL Additional Instructions: 1 [...] 20 mg Tab, Oral, Daily Multi Vitamin+ [place]-3 Allergies Vicodin (Nausea) penicillin (Unknown) Social History Tobacco Former smoker, quit more than 30 days ago Tobacco Use:., 11/26/2023 Family History Hypertension: Mother and Father. Migraine: Child. Primary malignant neoplasm of female breast: Mother. Primary malignant neoplasm of lung: Grandparent. Stroke: Grandparent. Immunizations Vaccine Date Status influenza virus vaccine, inactivated 05/22/2023 Recorded tetanus-diphtheria toxoids 12/11/2021 Recorded SARSCoV2 mRNA(xbizihyar-iiix-qgvep s) vac 09/01/2021 Recorded SARS-CoV-2 (COVID-19) mRNA BNT-162b2 vax 02/02/2021 Recorded SARS-CoV-2 (COVID-19) mRNA BNT-162b2 vax 01/12/2021 Recorded SARS-CoV-2 (COVID-19) mRNA BNT-162b2 vax 2020 Recorded influenza virus vaccine, inactivated 05/12/2020 Recorded pneumococcal 23-valent vaccine 06/05/2018 Alf (more content not included)... Normal [facility] Comment on above: Result Comment: Elec tronically Signed By: ANA LUISA Salas APRN, [place] [employer]\.br\Date and Time Signed: 11/26/23 09:48 EDT COVID + FLU Quick Testingon 09-02-2023 SARS-CoV-2 (COVID-19) RNA ZOIE+probe Ql (Unsp spec) Negative [employer] Other COVID + FLU Quick Testing Negative [facility] [employer] Other CBC AUTO DIFFon 09-26-2022 BASO # 0.0 103/ul Normal 0.0-0.1 [facility] Comment on above: Performed By: #### C BC #### [facility] [address] [address] [address] Pam Rodgers Basophils/100 WBC (Bld) 0.6 % Normal 0.2-2.0 [facility] Comment on above: Performed By: #### C BC #### [facility] [address] [address] [address] Pam Rodgers EO # 0.2 103/ul Normal 0.0-0.7 [facility] Comment on above: Performed By: #### C BC #### [facility] [address] [address] [address] Pam Rodgers Eosinophils/100 WBC (Bld) 2.4 % Normal 0.9-7.0 [facility] Comment on above: Performed By: #### C BC #### [facility] [address] [address] [address] Pam Rodgers Erythrocyte distribution width (RBC) [Ratio] 12.0 % Normal 11.0-15.0 [facility] Comment on above: Performed By: #### C BC #### [facility] [address] [address] [address] Pam Rodgers Hematocrit (Bld) [Volume fraction] 44.2 % Normal 36.0-48.0 [facility] Comment on above: Performed By: #### C BC #### [facility] [address] [address] [address] Pam Rodgers Hemoglobin (Bld) [Mass/Vol] 15.0 g/dL Normal 12.0-16.0 [facility] Comment on above: Performed By: #### C BC #### [facility] [address] [address] [address] Pam Rodgers IG # 0.01 10e3/ul Normal 0.00-0.03 [facility] Comment on above: Performed By: #### C BC #### [facility] [address] [place] [address] Dr. Pam Rodgers IG % 0.2 % Normal 0.0-0.5 [facility] Comment on above: Performed By: #### C BC #### [facility] [address] [place] [address] Dr. Pam Rodgers LYMPH # 1.4 103/ul Normal 1.2-3.8 [facility] Comment on above: Performed By: #### C BC #### [facility] [address] [place] [address] Dr. Pam Rodgers Lymphocytes/100 WBC (Bld) 22.6 % Normal 20.5-60.0 [facility] Comment on above: Performed By: #### C BC #### [facility] [address] [place] [address] Dr. Pam Rodgers MANUAL DIFF REQ NO Normal [facility] Comment on above: Performed By: #### C BC #### [facility] [address] [place] [address] Dr. Pam Rodgers MCH (RBC) [Entitic mass] 30.0 pg Normal 26.7-34.0 [facility] Comment on above: Performed By: #### C BC #### [facility] [address] [place] [address] Dr. Pam Rodgers MCHC (RBC) [Mass/Vol] 33.9 g/dL Normal 29.9-35.2 [facility] Comment on above: Performed By: #### C BC #### [facility] [address] [place] [address] Dr. Pam Rodgers MCV (RBC) [Entitic vol] 88.4 fL Normal 81.0-99.0 [facility] Comment on above: Performed By: #### C BC #### [facility] [address] [place] [address] Dr. Pam Rodgers MONO # 0.6 103/ul Normal 0.3-0.8 [facility] Comment on above: Performed By: #### C BC #### [facility] [address] [place] [address] Dr. Pam Rodgers Monocytes/100 WBC (Bld) 8.8 % Normal 1.7-12.0 [facility] Comment on above: Performed By: #### C BC #### [facility] [address] [place] [address] Dr. Pam Rodgers NEUT # 4.2 103/ul Normal 1.4-6.5 [facility] Comment on above: Performed By: #### C BC #### [facility] [address] [place] [address] Dr. Pam Rodgers Neutrophils/100 WBC (Bld) 65.4 % Normal 43.0-75.0 [facility] Comment on above: Performed By: #### C BC #### [facility] [address] [place] [address] Dr. Pam Rodgers Platelet mean volume (Bld) [Entitic vol] 9.2 fL Critically low 9.5-13.5 [facility] Comment on above: Performed By: #### C BC #### [facility] [address] [place] [address] Dr. Pam Rodgers PLT 243 103/ul Normal 150-450 [facility] Comment on above: Performed By: #### C BC #### [facility] [address] [place] [address] Dr. Pam Rodgers RBC 5.00 106/ul Normal 4.20-5.40 [facility] Comment on above: Performed By: #### C BC #### [facility] [address] [place] [address] Dr. Pam Rodgers WBC 6.4 103/ul Normal 4.0-11.0 [facility] Comment on above: Performed By: #### C BC #### [facility] [address] [place] [address] Dr. Pam Rodgers FREE T4on 09-26-2022 Free T4 [Mass/Vol] 1.06 ng/dL Normal 0.76-1.46 [facility] Comment on above: Performed By: #### F T4 #### [facility] [address] [address] [address] Pam Rodgers LIPID PROFILEon 09-26-2022 CHOL-HDL RATIO NORM SEE BELOW Normal [facility] Comment on above: Result Comment: 3.3 - 4.4 LOW RISK 4.4 - 7.1 AVERAGE RISK 7.1 - 11.0 MODERATE RISK >11.0 HIGH RISK Performed By: #### L IPID, TSH, CMP #### [facility] [address] [address] [address] Pam Rodgers Cholesterol [Mass/Vol] 189 mg/dL Normal <=200 [facility] Comment on above: Performed By: #### L IPID, TSH, CMP #### [facility] [address] [place] [address] Dr. Pam Rodgers Cholesterol in HDL [Mass/Vol] 60 mg/dL Normal 40-60 [facility] Comment on above: Performed By: #### L IPID, TSH, CMP #### [facility] [address] [address] [address] Pam Rodgers Cholesterol in LDL [Mass/Vol] 97.0 mg/dL Normal [facility] Comment on above: Performed By: #### L IPID, TSH, CMP #### [facility] [address] [place] [address] Dr. Pam Rodgers Cholesterol.total/Chol esterol in HDL [Mass ratio] 3.2 {ratio} Normal [facility] Comment on above: Performed By: #### L IPID, TSH, CMP #### [facility] [address] [place] [address] Dr. Pam Rodgers HDL NORMAL > or = 60 mg/dl - LO W CARDIOVASCULAR RISK <40 mg/dl - HIGH CARDIOVASCULAR RISK Normal [facility] Comment on above: Performed By: #### L IPID, TSH, CMP #### [facility] [address] [place] [address] Dr. Pam Rodgers LDL CALC NORMAL SEE BELOW Normal [facility] Comment on above: Result Comment: <100 mg/dl OPTIMAL 100 - 129 mg/dl NEAR OR ABOVE OPTIMAL 130 - 159 mg/dl BORDERLINE HIGH 160 - 189 mg/dl HIGH >190 mg/dl VERY HIGH Performed By: #### L IPID, TSH, CMP #### [facility] [address] [place], [place] [address] Dr. Pam Rodgers Triglyceride [Mass/Vol] 160 mg/dL Critically high <=150 [facility] Comment on above: Performed By: #### L IPID, TSH, CMP #### [facility] [address] [place], [place] [address] Dr. Pam Rodgers VLDL CALC 32.0 mg/dL Normal [facility] Comment on above: Performed By: #### L IPID, TSH, CMP #### [facility] [address] [place], [place] [address] Dr. Pam Rodgers MG MAMM SCREEN 3D GISELE CADon 09-26-2022 MG MAMM SCREEN 3D GISELE CAD Patient: JAMES WOODS Exam Date: 09/26/2022 : 1950 Gender:F Ordering : DR MARIFER BOYLE M.D. Admission #: [id number] Family : Order #: [id number] CLICK HERE TO VIEW EXAM RADIOLOGY REPORT [...] cancer cancer at age 6. LOCATION: [facility] BREAST COMPOSITION: Scattered areas fibroglandular density. [...] PALPABLE LUMP SHOULD BE BIOPSIED. Dictated by: Tray Knight M.D. on 09/26/2022 at 17:08 Approved by: Tray Knight M.D. on 09/26/2022 at 17:14 Normal [facility] PROF 14(COMP METB)on 023 Albumin [Mass/Vol] 4.1 g/dL Normal 3.4-5.0 [facility] Comment on above: Performed By: #### L IPID, TSH, CMP #### [facility] [address] [address] [address] Pam Rodgers Albumin/Globulin [Mass ratio] 1.3 {ratio} Normal [facility] Comment on above: Performed By: #### L IPID, TSH, CMP #### [facility] [address] [place] [address] Dr. Pam Rodgers ALP [Catalytic activity/Vol] 63 U/L Normal 46-116 [facility] Comment on above: Performed By: #### L IPID, TSH, CMP #### [facility] [address] [place] [address] Dr. Pam Rodgers ALT [Catalytic activity/Vol] 27 U/L Normal 14-59 [facility] Comment on above: Performed By: #### L IPID, TSH, CMP #### [facility] [address] [place] [address] Dr. Pam Rodgers Anion gap [Moles/Vol] 12.1 mmol/L Normal [facility] Comment on above: Performed By: #### L IPID, TSH, CMP #### [facility] [address] [place] [address] Dr. Pam Rodgers AST [Catalytic activity/Vol] 22 U/L Normal 15-37 [facility] Comment on above: Performed By: #### L IPID, TSH, CMP #### [facility] [address] [place] [address] Dr. Pam Rodgers Bilirubin [Mass/Vol] 0.6 mg/dL Normal 0.2-1.0 [facility] Comment on above: Performed By: #### L IPID, TSH, CMP #### [facility] [address] [address] [address] Pam Rodgers Calcium [Mass/Vol] 9.3 mg/dL Normal 8.5-10.1 [facility] Comment on above: Performed By: #### L IPID, TSH, CMP #### [facility] [address] [address] [address] Pam Rodgers Chloride [Moles/Vol] 104 mmol/L Normal 98-107 [facility] Comment on above: Performed By: #### L IPID, TSH, CMP #### [facility] [address] [place] [address] Dr. Pam Rodgers CO2 [Moles/Vol] 28.2 mmol/L Normal 21.0-32.0 [facility] Comment on above: Performed By: #### L IPID, TSH, CMP #### [facility] [address] [place] [address] Dr. Pam Rodgers Creatinine [Mass/Vol] 0.62 mg/dL Normal 0.55-1.02 [facility] Comment on above: Performed By: #### L IPID, TSH, CMP #### [facility] [address] [place] [address] Dr. Pam Rodgers EGFR-AF SENEGALESE >60 Normal >=60 [facility] Comment on above: Performed By: #### L IPID, TSH, CMP #### [facility] [address] [place] [address] Dr. Pam Rodgers EGFR-NON AF SENEGALESE >60 Normal >=60 [facility] Comment on above: Performed By: #### L IPID, TSH, CMP #### [facility] [address] [place] [address] Dr. Pam Rdogers Globulin (S) [Mass/Vol] 3.2 g/dL Normal [facility] Comment on above: Performed By: #### L IPID, TSH, CMP #### [facility] [address] [place] [address] Dr. Pam Rodgers Glucose [Mass/Vol] 108 mg/dL Critically high 74-106 T [facility] Comment on above: Performed By: #### L IPID, TSH, CMP #### [facility] [address] [place] [address] Dr. Pam Rodgers Potassium [Moles/Vol] 4.3 mmol/L Normal 3.5-5.1 [facility] Comment on above: Performed By: #### L IPID, TSH, CMP #### [facility] [address] [place] [address] Dr. Pam Rodgers Protein [Mass/Vol] 7.3 g/dL Normal 6.4-8.2 [facility] Comment on above: Performed By: #### L IPID, TSH, CMP #### [facility] [address] [place] [address] Dr. Pam Rodgers Sodium [Moles/Vol] 140 mmol/L Normal 136-145 [facility] Comment on above: Performed By: #### L IPID, TSH, CMP #### [facility] [address] [place] [address] Dr. Pam Rodgers Urea nitrogen [Mass/Vol] 12.0 mg/dL Normal 7.0-18.0 [facility] Comment on above: Performed By: #### L IPID, TSH, CMP #### [facility] [address] [place] [address] Dr. Pam Rodgers Urea nitrogen/Creatinine [Mass ratio] 19.4 mg/mg Normal [facility] Comment on above: Performed By: #### L IPID, TSH, CMP #### [facility] [address] [place] [address] Dr. Pam Rodgers TSHon 09-26-2022 TSH 5.421 uIU/mL Critically high 0.358-3.74 0 [facility] Comment on above: Performed By: #### L IPID, TSH, CMP #### [facility] [address] [place] [address] Dr. Pam Rodgers NM STRESS/REST MULTIon 01-04 NM STRESS/REST MULTI Patient: Sharri WOODSoCurtney Exam Date: 01/04/2022 : 1950 Gender:F Ordering : DR SIMONE EISENBERG D.O. Admission #: [id number] Family : Order #: [id number] CLICK HERE TO VIEW EXAM RADIOLOGY REPORT [...] was normal per attending physician Dr. Jas Eisenberg . For more details please see separate cardiac stress test report. FINDINGS: QUALITY OF STUDY: Excellent. PERFUSION DEFECT: None. LOCATION: N/A SIZE: N/A. SEVERITY: N/A. TYPE: N/A. WALL MOTION: Normal. LV SIZE: Normal. 58 mL. TID / TCD: None; 0.8 LVEF: Normal. Calculated EF 81%. SUMMARY: Myocardial perfusion imaging study is NORMAL. CONCLUSION: 1. Normal nuclear medicine myocardial perfusion scan. Dictated by: Tray Knight M.D. on 01/05/2022 at 12:02 Approved by: Tray Knight M.D. on 01/05/2022 at 12:03 Normal [facility] CBC AUTO DIFFon 12-27-2021 BASO # 0.0 103/ul Normal 0.0-0.1 [facility] Comment on above: Performed By: #### C BC #### [facility] [address] [address] [address] Pam Rodgers Basophils/100 WBC (Bld) 0.5 % Normal 0.2-2.0 [facility] Comment on above: Performed By: #### C BC #### [facility] [address] [place] [address] Dr. Pam Rodgers EO # 0.1 103/ul Normal 0.0-0.7 [facility] Comment on above: Performed By: #### C BC #### [facility] [address] [place] [address] Dr. Pam Rodgers Eosinophils/100 WBC (Bld) 1.1 % Normal 0.9-7.0 [facility] Comment on above: Performed By: #### C BC #### [facility] [address] [place] [address] Dr. Pam Rodgers Erythrocyte distribution width (RBC) [Ratio] 17.7 % Critically high 11.0-15.0 [facility] Comment on above: Performed By: #### C BC #### [facility] Laboratory [address] [place] [address] Dr. Pam Rodgers Hematocrit (Bld) [Volume fraction] 38.4 % Normal 36.0-48.0 [facility] Comment on above: Performed By: #### C BC #### [facility] [address] [place] [address] Dr. Pam Rodgers Hemoglobin (Bld) [Mass/Vol] 12.6 g/dL Normal 12.0-16.0 [facility] Comment on above: Performed By: #### C BC #### [facility] [address] [place] [address] Dr. Pam Rodgers IG # 0.03 10e3/ul Normal 0.00-0.03 [facility] Comment on above: Performed By: #### C BC #### [facility] [address] [place] [address] Dr. Pam Rodgers IG % 0.4 % Normal 0.0-0.5 [facility] Comment on above: Performed By: #### C BC #### [facility] [address] [place] [address] Dr. Pam Rodgers LYMPH # 1.4 103/ul Normal 1.2-3.8 [facility] Comment on above: Performed By: #### C BC #### [facility] [address] [place] [address] Dr. Pam Rodgers Lymphocytes/100 WBC (Bld) 18.3 % Critically low 20.5-60.0 [facility] Comment on above: Performed By: #### C BC #### [facility] [address] [place] [address] Dr. Pam Rodgers MANUAL DIFF REQ NO Normal [facility] Comment on above: Performed By: #### C BC #### [facility] [address] [place] [address] Dr. Pam Rodgers MCH (RBC) [Entitic mass] 27.9 pg Normal 26.7-34.0 [facility] Comment on above: Performed By: #### C BC #### [facility] [address] [place] [address] Dr. Pam Rodgers MCHC (RBC) [Mass/Vol] 32.8 g/dL Normal 29.9-35.2 [facility] Comment on above: Performed By: #### C BC #### [facility] [address] [place] [address] Dr. Pam Rodgers MCV (RBC) [Entitic vol] 85.1 fL Normal 81.0-99.0 [facility] Comment on above: Performed By: #### C BC #### [facility] [address] [place] [address] Dr. Pam Rodgers MONO # 0.6 103/ul Normal 0.3-0.8 [facility] Comment on above: Performed By: #### C BC #### [facility] [address] [place] [address] Dr. Pam Rodgers Monocytes/100 WBC (Bld) 7.3 % Normal 1.7-12.0 [facility] Comment on above: Performed By: #### C BC #### [facility] [address] [place] [address] Dr. Pam Rodgers NEUT # 5.7 103/ul Normal 1.4-6.5 [facility] Comment on above: Performed By: #### C BC #### [facility] [address] [place] [address] Dr. Pam Rodgers Neutrophils/100 WBC (Bld) 72.4 % Normal 43.0-75.0 [facility] Comment on above: Performed By: #### C BC #### [facility] [address] [address] [address] Pam Rodgers Platelet mean volume (Bld) [Entitic vol] 9.2 fL Critically low 9.5-13.5 [facility] Comment on above: Performed By: #### C BC #### [facility] [address] [address] [address] Pam Rodgers PLT 242 103/ul Normal 150-450 [facility] Comment on above: Performed By: #### C BC #### [facility] [address] [address] [address] Pam Rodgers RBC 4.51 106/ul Normal 4.20-5.40 [facility] Comment on above: Performed By: #### C BC #### [facility] [address] [address] [address] Pam Rodgers WBC 7.9 103/ul Normal 4.0-11.0 [facility] Comment on above: Performed By: #### C BC #### [facility] [address] [place] [address] HEAD WO CONon [...] Mona OROSCO Date: 2021-12-26 23:43 Normal [facility] PROF 14(COMP METB)on 022 Albumin [Mass/Vol] 3.6 g/dL Normal 3.4-5.0 [facility] Comment on above: Performed By: #### C MP #### [facility] [address] [place] [address] Dr. Pam Rodgers Albumin/Globulin [Mass ratio] 1.1 {ratio} Normal [facility] Comment on above: Performed By: #### C MP #### [facility] [address] [place] [address] Dr. Pam Rodgers ALP [Catalytic activity/Vol] 77 U/L Normal 46-116 [facility] Comment on above: Performed By: #### C MP #### [facility] [address] [place] [address] Dr. Pam Rodgers ALT [Catalytic activity/Vol] 29 U/L Normal 14-59 [facility] Comment on above: Performed By: #### C MP #### [facility] [address] [place] [address] Dr. Pam Rodgers Anion gap [Moles/Vol] 11.2 mmol/L Normal [facility] Comment on above: Performed By: #### C MP #### [facility] [address] [place] [address] Dr. Pam Rodgers AST [Catalytic activity/Vol] 20 U/L Normal 15-37 [facility] Comment on above: Performed By: #### C MP #### [facility] [address] [place] [address] Dr. Pam Rodgers Bilirubin [Mass/Vol] 0.4 mg/dL Normal 0.2-1.0 [facility] Comment on above: Performed By: #### C MP #### [facility] [address] [place] [address] Dr. Pam Rodgers Calcium [Mass/Vol] 8.4 mg/dL Critically low 8.5-10.1 [facility] Comment on above: Performed By: #### C MP #### [facility] [address] [place] [address] Dr. Pam Rodgers Chloride [Moles/Vol] 104 mmol/L Normal 98-107 [facility] Comment on above: Performed By: #### C MP #### [facility] [address] [place] [address] Dr. Pam Rodgers CO2 [Moles/Vol] 27.7 mmol/L Normal 21.0-32.0 [facility] Comment on above: Performed By: #### C MP #### [facility] [address] [address] [address] Pam Rodgers Creatinine [Mass/Vol] 0.63 mg/dL Normal 0.55-1.02 [facility] Comment on above: Performed By: #### C MP #### [facility] [address] [address] [address] Pam Rodgers EGFR-AF SENEGALESE >60 Normal >=60 [facility] Comment on above: Performed By: #### C MP #### [facility] [address] [address] [address] Pam Rodgers EGFR-NON AF SENEGALESE >60 Normal >=60 [facility] Comment on above: Performed By: #### C MP #### [facility] [address] [address] [address] Pam Rodgers Globulin (S) [Mass/Vol] 3.2 g/dL Normal [facility] Comment on above: Performed By: #### C MP #### [facility] [address] [address] [address] Pam Rodgers Glucose [Mass/Vol] 131 mg/dL Critically high 74-106 [facility] Comment on above: Performed By: #### C MP #### [facility] [address] [address] [address] Pam Rodgers Potassium [Moles/Vol] 3.9 mmol/L Normal 3.5-5.1 [facility] Comment on above: Performed By: #### C MP #### [facility] [address] [address] [address] Pam Rodgers Protein [Mass/Vol] 6.8 g/dL Normal 6.4-8.2 [facility] Comment on above: Performed By: #### C MP #### [facility] [address] [address] [address] Pam Rodgers Sodium [Moles/Vol] 139 mmol/L Normal 136-145 [facility] Comment on above: Performed By: #### C MP #### [facility] [address] [place], [place] [address] Dr. Pam Rodgers Urea nitrogen [Mass/Vol] 15.0 mg/dL Normal 7.0-18.0 [facility] Comment on above: Performed By: #### C MP #### [facility] [address] [place], [place] [address] Dr. Pam Rodgers Urea nitrogen/Creatinine [Mass ratio] 23.8 mg/mg Normal [facility] Comment on above: Performed By: #### C MP #### [facility] [address] [place], [place] [address] Dr. Pam Rodgers Vital Signs Date Time Vital Sign Value Performing Clinician Facility 03-02-2025 08:06-0400 Body height 170.18 cm Marifer Boyle MD Work Phone: [facility] 03-02-2025 08:06-0400 Body mass index (BMI) [Ratio] 24.7 kg/m2 Marifer Boyle MD Work Phone: [facility] 03-02-2025 08:06-0400 Body temperature 97.9 [degF] Marifer Boyle MD Work Phone: [facility] 03-02-2025 08:06-0400 Body weight 71.66 kg Marifer Boyle MD Work Phone: [facility] 03-02-2025 08:06-0400 Diastolic blood pressure 82 mm[Hg] Marifer Boyle MD Work Phone: [facility] 03-02-2025 08:06-0400 Heart rate 74 /min Marifer Boyle MD Work Phone: [facility] 03-02-2025 08:06-0400 SaO2% (BldA) [Mass fraction] 96 % Marifer Boyle MD Work Phone: [facility] 03-02-2025 08:06-0400 Systolic blood pressure 130 mm[Hg] Marifer Boyle MD Work Phone: [facility] 09-23-2024 10:50-0500 Body mass index (BMI) [Ratio] 25.17 kg/m2 Laurie Surovec [employer] WORK[employer] Work Phone: [facility] 09-23-2024 10:50-0500 Body temperature 97.9 [degF] Laurie Surovec [employer] Work Phone: [facility] 09-23-2024 10:50-0500 Body weight 72.9 kg Laurie Surovec [employer] Work Phone: [facility] 09-23-2024 10:50-0500 Diastolic blood pressure 79 mm[Hg] Laurie Surovec [employer] WORK[employer] Work Phone: [facility] 09-23-2024 10:50-0500 Heart rate 83 /min Laurie Surovec [employer] WORK[employer] Work Phone: [facility] 09-23-2024 10:50-0500 Respiratory rate 18 /min Laurie Surovec [employer] Work Phone: [facility] 09-23-2024 10:50-0500 SaO2% (BldA) [Mass fraction] 97 % Laurie Surove [employer] Work Phone: [facility] 09-23-2024 10:50-0500 Systolic blood pressure 127 mm[Hg] Laurie Surovec [employer] WORK[employer] Work Phone: [facility] 09-17-2024 11:36-0500 Blood Pressure Location MADISON MORAN [facility] 09-17-2024 11:36-0500 Diastolic blood pressure 81 mm[Hg] MADISON MORAN [facility] 09-17-2024 11:36-0500 Heart rate 73 /min MADISON MORAN [facility] 09-17-2024 11:36-0500 Respiratory rate 18 /min MADISON MORAN [facility] 09-17-2024 11:36-0500 Systolic blood pressure 137 mm[Hg] MADISON MORAN [facility] 08-26-2024 10:17-0500 Body height 170.2 [facility] Work Phone: [facility] 08-26-2024 10:17-0500 Body mass index (BMI) [Ratio] 25.03 kg/m2 Laurie Surove [employer] WORK[employer] Work Phone: [facility] 08-26-2024 10:17-0500 Body temperature 98.01 [degF] [facility] [employer] Work Phone: [facility] 08-26-2024 10:17-0500 Body weight 72.5 kg [facility] [employer] WORK[employer] Work Phone: [facility] 08-26-2024 10:17-0500 Diastolic blood pressure 72 mm[Hg] [facility] Work Phone: [facility] 08-26-2024 10:17-0500 Heart rate 82 /min [facility] [employer] [facility] Work Phone: [facility] 08-26-2024 10:17-0500 Respiratory rate 16 /min [facility] [employer] WORK[facility] Work Phone: [facility] 08-26-2024 10:17-0500 SaO2% (BldA) [Mass fraction] 96 % [facility] [employer] WORK[facility] Work Phone: [facility] 08-26-2024 10:17-0500 Systolic blood pressure 129 mm[Hg] [facility] Work Phone: [facility] 08-06-2024 07:42-0500 Body height 170.2 cm Pacc 2 Work Phone: [facility] 08-06-2024 07:42-0500 Body mass index (BMI) [Ratio] 24.86 kg/m2 Pacc 2 Work Phone: [facility] 08-06-2024 07:42-0500 Body temperature 98.49 [degF] Pacc 2 Work Phone: [facility] 08-06-2024 07:42-0500 Body weight 72 kg Pacc 2 Work Phone: [facility] 08-06-2024 07:42-0500 Diastolic blood pressure 80 mm[Hg] Pacc 2 Work Phone: [facility] 08-06-2024 07:42-0500 Heart rate 73 /min Pacc 2 Work Phone: [facility] 08-06-2024 07:42-0500 Respiratory rate 16 /min Pacc 2 Work Phone: [facility] 08-06-2024 07:42-0500 SaO2% (BldA) [Mass fraction] 98 % Pacc 2 Work Phone: [facility] 08-06-2024 07:42-0500 Systolic blood pressure 143 mm[Hg] Pacc 2 Work Phone: [facility] 07-01-2024 09:46-0500 Body height 170.3 cm Chase Manning MD Work Phone: [facility] Comment on above: shoes off verified 2 MA's 07-01-2024 09:46-0500 Body mass index (BMI) [Ratio] 24.45 kg/m2 Chase Manning MD Work Phone: [facility] 07-01-2024 09:46-0500 Body temperature 97.9 [degF] Chase Manning MD Work Phone: [facility] 07-01-2024 09:46-0500 Body weight 70.9 kg Chase Manning MD Work Phone: [facility] 07-01-2024 09:46-0500 Diastolic blood pressure 84 mm[Hg] Chase Manning MD Work Phone: [facility] 07-01-2024 09:46-0500 Heart rate 91 /min Chase Manning MD Work Phone: [facility] 07-01-2024 09:46-0500 Respiratory rate 16 /min Chase Manning MD Work Phone: [facility] 07-01-2024 09:46-0500 SaO2% (BldA) [Mass fraction] 99 % Chase Manning MD Work Phone: [facility] 07-01-2024 09:46-0500 Systolic blood pressure 151 mm[Hg] Chase Manning MD Work Phone: [facility] 06-10-2024 10:17-0500 Body mass index (BMI) [Ratio] 21.77 kg/m2 Julio César Benton MD Work Phone: [facility] 06-10-2024 10:17-0500 Body weight 63.05 kg Julio César Benton MD Work Phone: [facility] 06-10-2024 10:17-0500 Diastolic blood pressure 70 mm[Hg] Julio César Benton MD Work Phone: [facility] 06-10-2024 10:17-0500 Systolic blood pressure 120 mm[Hg] Julio César Benton MD Work Phone: [facility] 06-09-2024 13:30-0500 Diastolic blood pressure 86 mm[Hg] Sanam Orzech [facility] 06-09-2024 13:30-0500 Mean blood pressure 105 mm[Hg] Sanma Orzech [facility] 06-09-2024 13:30-0500 Systolic blood pressure 143 mm[Hg] Sanam Orzech [facility] 06-09-2024 13:26-0500 Blood Pressure Location Sanam Orzech [facility] 06-09-2024 13:26-0500 Body temperature 98.6 [degF] Sanam Orzech [facility] 06-09-2024 13:26-0500 Diastolic blood pressure 88 mm[Hg] Sanam Orzech [facility] 06-09-2024 13:26-0500 Heart rate 84 /min Sanam Orzech [facility] 06-09-2024 13:26-0500 Respiratory rate 16 /min Sanam Orzech [facility] 06-09-2024 13:26-0500 Systolic blood pressure 155 mm[Hg] Sanam Orzech [facility] 04-14-2024 13:20-0400 Body mass index (BMI) [Ratio] 23.49 kg/m2 Julio César Benton MD Work Phone: [facility] 04-14-2024 13:20-0400 Body weight 68.04 kg Julio César Benton MD Work Phone: [facility] 04-14-2024 13:20-0400 Diastolic blood pressure 76 mm[Hg] Julio César Benton MD Work Phone: [facility] 04-14-2024 13:20-0400 Systolic blood pressure 128 mm[Hg] Julio César Benton MD Work Phone: [facility] 03-30-2024 15:44-0400 Body mass index (BMI) [Ratio] 23.65 kg/m2 Julio César Benton MD Work Phone: [facility] 03-30-2024 15:44-0400 Body weight 68.49 kg Julio César Benton MD Work Phone: [facility] 03-30-2024 15:44-0400 Diastolic blood pressure 72 mm[Hg] Julio César Benton MD Work Phone: [facility] 03-30-2024 15:44-0400 Systolic blood pressure 122 mm[Hg] Julio César Benton MD Work Phone: [facility] 03-10-2024 14:00-0400 Body mass index (BMI) [Ratio] 23.49 kg/m2 Julio César Benton MD Work Phone: [facility] 03-10-2024 14:00-0400 Body weight 68.04 kg Julio César Benton MD Work Phone: [facility] 03-10-2024 14:00-0400 Diastolic blood pressure 82 mm[Hg] Julio César Benton MD Work Phone: [facility] 03-10-2024 14:00-0400 Systolic blood pressure 128 mm[Hg] Julio César Benton MD Work Phone: [facility] 12-19-2023 11:55-0400 Body height 170.18 cm [facility] 12-19-2023 11:55-0400 Body mass index (BMI) [Ratio] 25 kg/m2 [facility] 12-19-2023 11:55-0400 Body temperature 98.3 [degF] [facility] 12-19-2023 11:55-0400 Body weight 72.57 kg [facility] 12-19-2023 11:55-0400 Diastolic blood pressure 81 mm[Hg] [facility] 12-19-2023 11:55-0400 Heart rate 80 /min [facility] 12-19-2023 11:55-0400 Systolic blood pressure 144 mm[Hg] [facility] 11-27-2023 08:33-0400 Body height 170.18 cm [facility] 11-27-2023 08:33-0400 Body mass index (BMI) [Ratio] 25.3 kg/m2 [facility] 11-27-2023 08:33-0400 Body weight 73.48 kg [facility] 11-27-2023 08:33-0400 Diastolic blood pressure 82 mm[Hg] [facility] 11-27-2023 08:33-0400 Heart rate 80 /min [facility] 11-27-2023 08:33-0400 Systolic blood pressure 159 mm[Hg] [facility] 11-26-2023 09:18-0400 Body temperature 98.06 [degF] Sanam Orzech [facility] 11-26-2023 09:18-0400 Diastolic blood pressure 87 mm[Hg] Sanam Orzech [facility] 11-26-2023 09:18-0400 Heart rate 84 /min Sanam Orzech [facility] 11-26-2023 09:18-0400 Respiratory rate 16 /min Sanam Orzech [facility] 11-26-2023 09:18-0400 Systolic blood pressure 139 mm[Hg] Sanam Orzech [facility] 10-29-2023 08:35-0400 Body height 170.18 cm [facility] 10-29-2023 08:35-0400 Body mass index (BMI) [Ratio] 25 kg/m2 [facility] 10-29-2023 08:35-0400 Body weight 72.68 kg [facility] 10-29-2023 08:35-0400 Diastolic blood pressure 78 mm[Hg] [facility] 10-29-2023 08:35-0400 Heart rate 87 /min [facility] 10-29-2023 08:35-0400 Systolic blood pressure 142 mm[Hg] [facility] 09-02-2023 09:25-0500 Body height 170.18 cm Stephanie Stanislaw Other [employer] Other 09-02-2023 09:25-0500 Body mass index (BMI) [Ratio] 25.06 kg/m2 Stephanie Stanislaw Other [employer] Other 09-02-2023 09:25-0500 Body temperature 99.8 [degF] Stephanie Stanislaw Other [employer] Other 09-02-2023 09:25-0500 Body weight 72.58 kg Stephanie Stanislaw Other [employer] Other 09-02-2023 09:25-0500 Respiratory rate 18 /min Stephanie Stanislaw Other [employer] Other 09-02-2023 09:25-0500 SaO2% (BldA) [Mass fraction] 97 % Stephanie Stanislaw Other [employer] Other 05-17-2023 09:30-0400 Body height 170.18 cm Marifer Boyle Other [employer] Other 05-17-2023 09:30-0400 Body mass index (BMI) [Ratio] 25.21 kg/m2 Marifer Boyle Other [employer] Other 05-17-2023 09:30-0400 Body weight 73.03 kg Marifer Boyle Other [employer] Other 05-17-2023 09:30-0400 Diastolic blood pressure 74 mm[Hg] Marifer Boyle Other [employer] Other 05-17-2023 09:30-0400 Systolic blood pressure 144 mm[Hg] Marifer Montana Other [employer] Other 03-08-2023 10:30-0400 Body height 170.18 cm Simone Ball Other [employer] Other 03-08-2023 10:30-0400 Body mass index (BMI) [Ratio] 25.09 kg/m2 Simone Ball Other [employer] Other 03-08-2023 10:30-0400 Body weight 72.67 kg Simone Ball Other [employer] Other 03-08-2023 10:30-0400 Diastolic blood pressure 77 mm[Hg] Simone Ball Other [employer] Other 03-08-2023 10:30-0400 Respiratory rate 12 /min Simone Ball Other [employer] Other 03-08-2023 10:30-0400 Systolic blood pressure 160 mm[Hg] Simone Ball Other [employer] Other 08-31-2022 11:03-0500 Blood Pressure Location Alonso CRUZ [facility] 08-31-2022 11:03-0500 Diastolic blood pressure 83 mm[Hg] Alonso CRUZ [facility] 08-31-2022 11:03-0500 Heart rate 80 /min Alonso CRUZ [facility] 08-31-2022 11:03-0500 Respiratory rate 16 /min Alonso CRUZ [facility] 08-31-2022 11:03-0500 Systolic blood pressure 130 mm[Hg] Alonso CRUZ [facility] 12-11-2021 17:30-0400 Body temperature 97.9 [degF] Gabriella Means Other [employer] Other 12-11-2021 17:30-0400 Respiratory rate 18 /min Gabriella Means Other [employer] Other 12-11-2021 17:30-0400 SaO2% (BldA) [Mass fraction] 98 % Gabriella Means Other [employer] Other Encounters Encounter Date Encounter Type Care Provider Facility Start: 03-02-2025 End: 03-02-2025 ambulatory Marifer Boyle MD Work Phone: [facility] Work Phone: Start: 03-02-2025 End: 03-02-2025 Patient encounter procedure Madison Lozano APRN [employer] [facility] Work Phone: Start: 10-09-2024 End: 10-09-2024 ambulatory [facility] Work Phone: Start: 10-09-2024 End: 10-09-2024 Patient encounter procedure [facility] Work Phone: Start: 09-23-2024 End: 09-23-2024 ambulatory Laurie Jones [employer] WORK[employer] Work Phone: Gynecology Oncology Comment on above: Postop check (Primar y Dx) Start: 09-23-2024 End: 09-23-2024 Patient encounter procedure Laurie Jones [employer] WORK[employer] Work Phone: Gynecology Oncology Start: 09-17-2024 End: 09-17-2024 ambulatory AISHA MORAN Facility:[place] Start: 09-17-2024 End: 09-17-2024 Patient encounter procedure MADISON MORAN [facility] Start: 09-08-2024 End: 09-08-2024 ambulatory [facility] Work Phone: Start: 09-08-2024 End: 09-08-2024 Patient encounter procedure [facility] Work Phone: Start: 08-26-2024 Non-patient / Non-visit [facility] Work Phone: Start: 08-26-2024 End: 08-26-2024 ambulatory Laurie Jones [employer] WORKER[employer] Work Phone: Gynecology Oncology Comment on above: Postop check (Primar y Dx); Complex atypical endometrial hyperplasia; Urinary frequency Start: 08-26-2024 End: 08-26-2024 Patient encounter procedure Laurie Jones [employer] WORKER[employer] Work Phone: Gynecology Oncology Start: 08-17-2024 End: 08-17-2024 Telephone encounter Tasha Herrera RN Work Phone: Urology Comment on above: Surgical Followup Start: 08-14-2024 End: 08-14-2024 ambulatory MARIFER BOYLE Facility:[facility] Start: 08-14-2024 Encounter for other [facility]procedural [facility] Start: 08-06-2024 Non-patient / Non-visit [facility] Work Phone: Start: 08-06-2024 End: 08-06-2024 ambulatory LAURIEEri BUTCHER Facility:[facility] Start: 08-06-2024 End: 08-06-2024 Subsequent hospital visit by physician Kelechi [facility] Comment on above: Complex atypical end ometrial hyperplasia [N85.02] Start: 08-06-2024 End: 08-06-2024 Admission to [facility] Work Phone: Pre Anesthesia Start: 08-06-2024 End: 08-06-2024 Admission to [facility] day [facility] center [facility] [facility] Work Phone: Pre Anesthesia Comment on above: Hypertension, unspec ified type (Primary Dx); Hyperlipidemia, unspecified hyperlipidemia type; Hypothyroidism, unspecified type; Current smoker; Complex atypical endometrial hyperplasia; Post-menopausal bleeding; Thickened endometrium; Left ovarian cyst; Preop examination; PONV (postoperative nausea and vomiting); Encounter for other prophylactic surgery Start: 08-06-2024 Encounter for other preprocedural examination CHASE MANNING [facility] Start: 08-06-2024 End: 08-06-2024 [facility] Start: 08-06-2024 End: 08-06-2024 ambulatory MARIFER BOYLE Facility:[facility] Start: 07-24-2024 End: 07-24-2024 Telephone encounter Елена Amato RN Gynecology Comment on above: Pre-Op Teaching Start: 07-01-2024 End: 07-01-2024 ambulatory Chase Manning MD Work Phone: Gynecology Oncology Comment on above: Complex atypical end ometrial hyperplasia (Primary Dx); Post-menopausal bleeding; Thickened endometrium; Left ovarian cyst; Preop examination; Other abnormal tumor markers Start: 07-01-2024 End: 07-01-2024 Patient encounter procedure Chase Manning MD Work Phone: Gynecology Oncology Start: 07-01-2024 End: 07-01-2024 Preprocedural examination done Chase Manning MD Work Phone: [facility] Start: 06-12-2024 End: 06-12-2024 Orders Only Laurie Jones DRUM WORKER[employer] Work Phone: Gynecology Oncology Comment on above: Endometrial cancer ( HCC) (Primary Dx) Start: 06-10-2024 End: 06-10-2024 Bamboo flowsheet Julio César Benton MD Work Phone: [facility] Start: 06-10-2024 End: 06-10-2024 Bamboo flowsheet Julio César Benton MD Work Phone: [facility] Start: 06-10-2024 End: 06-10-2024 Postop follow up visit related to original px Julio César Benton MD Work Phone: [facility] Comment on above: PMB (postmenopausal bleeding) (Primary Dx); Surgery follow-up; Endometrial hyperplasia with atypia Start: 06-10-2024 End: 06-10-2024 ambulatory JULIO CÉSAR BENTON Not Available Start: 06-09-2024 End: 06-09-2024 Lab Drop off Sanam X Orzech [facility] Start: 06-09-2024 End: 06-09-2024 ambulatory Sanam X Orzech Facility:[facility] Start: 06-09-2024 End: 06-09-2024 Patient encounter procedure Sanam X Orzech [facility] Start: 05-27-2024 End: 05-27-2024 ambulatory MD Marifer Boyle Work Phone: [facility] Work Phone: Start: 05-27-2024 End: 05-27-2024 Departed Referred MD Marifer Boyle Work Phone: [facility] [place] Work Phone: Start: 05-20-2024 End: 05-20-2024 ambulatory MD Marifer Boyle Work Phone: [facility] Work Phone: Start: 05-20-2024 End: 05-20-2024 Patient encounter procedure MD Marifer Boyle Work Phone: [facility] Work Phone: Start: 05-12-2024 End: 05-12-2024 External Result Encounter Julio César Benton MD Work Phone: [facility] Unsolicited Start: 05-12-2024 End: 05-12-2024 External Result Encounter Julio César Benton MD Work Phone: [facility] Unsolicited Start: 05-12-2024 End: 05-12-2024 Patient encounter procedure MD Marifer Boyle Work Phone: [facility] Work Phone: Start: 05-12-2024 End: 05-12-2024 ambulatory MD Marifer Boyle Work Phone: [facility] Work Phone: Start: 05-12-2024 Encounter for other preprocedural examination Julio César Benton [facility] Start: 04-30-2024 End: 04-30-2024 ambulatory MD aMrifer Boyle Work Phone: [facility] Work Phone: Start: 04-30-2024 End: 04-30-2024 Patient encounter procedure MD Marifer Boyle Work Phone: [facility] Work Phone: Start: 04-14-2024 End: 04-14-2024 Bamboo flowsheet Julio César Benton MD Work Phone: [facility] Start: 04-14-2024 End: 04-14-2024 Bamboo flowsheet Jluio César Benton MD Work Phone: [facility] Start: 04-14-2024 End: 04-14-2024 Office outpatient visit 25 minutes Julio César Benton MD Work Phone: [facility] Comment on above: PMB (postmenopausal bleeding); Ovarian mass, left Start: 04-14-2024 End: 04-14-2024 ambulatory JULIO CÉSAR BENTON Not Available Start: 04-14-2024 Non-patient / Non-visit MD Trina Boyle Work Phone: [facility] Work Phone: Start: 04-07-2024 End: 04-07-2024 ambulatory JULIO CÉSAR BENTON Not Available Start: 03-30-2024 End: 03-30-2024 Office outpatient visit 15 minutes Julio César Benton MD Work Phone: [facility] Comment on above: PMB (postmenopausal bleeding); Ovarian mass, left Start: 03-30-2024 End: 03-30-2024 ambulatory JULIO CÉSAR BENTON Not Available Start: 03-30-2024 End: 03-30-2024 Bamboo flowsheet Julio César Benton MD Work Phone: [facility] Start: 03-30-2024 End: 03-30-2024 Bammyo flowsmarianela Benton MD Work Phone: [facility] Start: 03-18-2024 End: 03-18-2024 ambulatory MD Marifer Boyle Work Phone: [facility] Work Phone: Start: 03-18-2024 End: 03-18-2024 Patient encounter procedure MD Marifer Boyle Work Phone: [facility] Work Phone: Start: 03-10-2024 End: 03-10-2024 Office outpatient new 45 minutes Julio César Benton MD Work Phone: [facility] Comment on above: Well woman exam with routine gynecological exam; Cervical cancer screening; Screening for HPV (human papillomavirus); Other screening mammogram; PMB (postmenopausal bleeding) Start: 03-10-2024 End: 03-10-2024 Patient encounter procedure Julio César Benton MD Work Phone: [facility] Start: 03-10-2024 End: 03-10-2024 Bamboo flowsheet Julio César Benton MD Work Phone: [facility] Start: 03-10-2024 End: 03-10-2024 Bamboo flowsheet Julio César Benton MD Work Phone: [facility] Start: 03-10-2024 End: 03-16-2024 Orders Only Julio César Benton MD Work Phone: [facility] External Department Unsolicited Start: 03-10-2024 End: 03-10-2024 ambulatory JULIO CÉSAR BENTON Not Available Start: 03-04-2024 End: 04-21-2024 Telephone encounter Julio César Benton MD Work Phone: [facility] Start: 03-04-2024 End: 03-04-2024 Patient encounter procedure MD Marifer Boyle Work Phone: [facility] Work Phone: Start: 03-04-2024 End: 03-04-2024 ambulatory MD Marifer Boyle Work Phone: [facility] Work Phone: Start: 02-19-2024 End: 02-19-2024 ambulatory [facility] Work Phone: Start: 02-19-2024 End: 02-19-2024 Patient encounter procedure [facility] Work Phone: Start: 12-19-2023 End: 12-19-2023 ambulatory [facility] Work Phone: Start: 12-19-2023 End: 12-19-2023 Patient encounter procedure [facility] Work Phone: Start: 11-27-2023 End: 11-27-2023 ambulatory [facility] Work Phone: Start: 11-27-2023 End: 11-27-2023 Patient encounter procedure [facility] Work Phone: Start: 11-26-2023 End: 11-26-2023 ambulatory Sanam X Orzech Facility:[facility] Start: 11-26-2023 End: 11-26-2023 Patient encounter procedure Sanam X Orzech [facility] Start: 11-19-2023 ambulatory Alonso Woodard ANTHONY Frias ty:[facility] Start: 10-29-2023 End: 10-29-2023 ambulatory [facility] Work Phone: Start: 10-29-2023 End: 10-29-2023 Patient encounter procedure [facility] Work Phone: Start: 10-21-2023 Non-patient / Non-visit [facility] Work Phone: Start: 09-02-2023 End: 09-02-2023 ambulatory Stephanie Dover Other [employer] Other Start: 09-02-2023 Office outpatient vi sit 15 minutes Stephanie Dover [facility] Start: 09-02-2023 Telephone encounter Marifer Boyle [facility] Start: 08-06-2023 End: 08-06-2023 ambulatory Marifer Boyle Other [employer] Other Start: 08-06-2023 Telephone encounter Marifer Boyle [facility] Start: 08-05-2023 End: 08-05-2023 ambulatory Marifer Boyle Other [employer] Other Start: 08-05-2023 Encounter by kelin Boyle [facility] Start: 07-10-2023 End: 07-10-2023 ambulatory Marifer Boyle Other [employer] Other Start: 07-10-2023 Office outpatient vi sit 15 minutes Marifer Boyle [facility] Start: 05-17-2023 End: 05-17-2023 ambulatory Marifer Boyle Other [employer] Other Start: 05-17-2023 Office outpatient vi sit 15 minutes Marifer Boyle [facility] Start: 05-10-2023 End: 05-10-2023 ambulatory Marifer Boyle Other [employer] Other Start: 05-10-2023 Telephone encounter Marifer Boyle [facility] Start: 04-01-2023 End: 04-01-2023 ambulatory Marifer Boyle Other [employer] Other Start: 04-01-2023 Telephone encounter Marifer Boyle [facility] Start: 03-08-2023 End: 03-08-2023 ambulatory Simone Eisenberg Other [employer] Other Start: 03-08-2023 Office outpatient vi sit 15 minutes Simone Eisenberg [facility] Start: 09-26-2022 End: 09-27-[address] SIMONE EISENBERG Facility:[facility] Start: 08-31-2022 End: 08-31-2022 Patient encounter procedure Alonso CRUZ [facility] Start: 08-03-2022 End: 08-03-2022 ambulatory Marifer Boyle Other [employer] Other Start: 08-03-2022 Telephone encounter Marifer Boyle [facility] Start: 01-04-2022 End: 01-05-[address] SIMONE EISENBERG Facility:[facility] Start: 12-27-2021 End: 12-27-[address] MARIFER BOYLE Facility:[facility] Start: 12-11-2021 End: 12-11-2021 ambulatory Gabriella Means Other [employer] Other Start: 12-11-2021 Office outpatient ne w 20 minutes Gabriella Means [facility] Procedures Date Procedure Procedure Detail Performing Clinician Start: 08-06-2024 Radiologic exam ches t 2 views Laurie Gwendolync DRUM WORKER.[employer] Work Phone: Start: 08-06-2024 Antibody screen SANDRITA E KUZNICKI Comment on above: Order Comment: Speci men Type: BLOOD SPECIMEN Ordering Facility: [facility] Address: [address] [place] [address] Performed By: #### T [id number] #### CC [facility]IN [facility]LOOD [facility] CLIA [id number] [address] [facility] [place] [address] [place] Start: 08-06-2024 Carcinoembryonic ant igen cea Comment on above: Carcinoembryonic ant igen test is used as an aid in monitoring response to treatment or recurrence in patients with established colorectal, breast, lung, prostatic, pancreatic, and ovarian carcinomas. Clinical correlation is required.The Carcinoembryonic antigen test was performed using the [employer] DXI paramagnetic particle chemiluminescent immunoassay method. Results obtained with different assay methods or kits cannot be used interchangeably. Start: 05-27-2024 Dilation and curettage Sanam [employer] Start: 05-12-2024 Complete blood count with white cell differential, automated Julio César Benton MD Work Phone: Start: 05-12-2024 Comprehensive metabo lic panel Julio César Benton MD Work Phone: Start: 03-10-2024 Cytp c/v auto thin l yr prepj scr mnl rescr phys Julio César Benton MD Work Phone: Cholecystectomy Alonso MATIAS Colonoscopy Alonso CRUZ Hyperlipidemia (disorder) Pa gabo CRUZ Hypertensive disorde r, systemic arterial (disorder) Alonso CRUZ Hysterectomy Sanam Salas Laboratory test resu lt abnormal Other abnormal tumor markers Chase Manning MD Work Phone: Tonsillectomy Alonso CRUZ Plan of Treatment Date Care Activity Detail Author Start: 08-06-2027 Diabetes Screening Diabetes Screening [facility] Start: 05-12-2027 Diabetes Screening Diabetes Screening [facility] Start: 11-27-2026 RSV Vaccine (1 - 1-dose 75+ series) RSV Vaccine (1 - 1-dose 75+ series) [facility] Start: 09-23-2025 BP Controlled (<130/80) BP Controlled (<130/80) [facility] in Start: 08-26-2025 BP Controlled (<130/80) BP Controlled (<130/80) [facility] Start: 09-23-2024 End: 09-23-2024 ambulatory 09/23/2024 9:30 AM EST Visit (SP) Office Gynecology Oncology [address] [place] [address] [place] [address] Laurie Jones APRN.[employer] [address] [place] [address] POST OP Gynecology Oncology Comment on above: POST OP Start: 08-26-2024 End: 08-26-2024 ambulatory 08/26/2024 10:30 AM EST Visit (SP) Office Gynecology Oncology [address] [place] [address] [place] [address] Laurie Jones APRN.[employer] [address] [place] [address] POST OP Gynecology Oncology Comment on above: POST OP Start: 08-14-2024 End: 08-14-2024 Admission to same day surgery center 08/14/2024 7:30 AM EST - 08/14/2024 10:20 AM EST Surgery [facility] [address] [place] [address] Chase Manning MD [address] [place], [place] [id number] ROBOTIC LAPAROSCOPIC TOTAL HYSTERECTOMY W/ BSO UTERUS=<250G [facility] Comment on above: ROBOTIC LAPAROSCOPIC TOTAL HYSTERECTOMY W/ BSO UTERUS=<250G Start: 08-14-2024 End: 08-14-2024 Laps total hysterect 250 gm/< w/rmvl tube/ovary ROBOTIC LAPAROSCOPIC TOTAL HYSTERECTOMY W/ BSO UTERUS=<250G Complex atypical endometrial hyperplasia Post-menopausal bleeding Thickened endometrium Left ovarian cyst Preop examination 08/14/2024 7:30 AM EST [facility] Start: 08-14-2024 Subsequent hospital visit by physician 08/14/2024 7:30 AM EST Hospital Encounter [facility] [address] [place] [address] Chase Manning MD [address] [place] [address] 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], Post-menopausal bleeding [N95.0], Thickened endometrium [R93.89], Left ovarian cyst [N83.202], Preop examination [Z01.818] [facility] Comment on above: 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], Post-menopausal bleeding [N95.0], Thickened endometrium [R93.89], Left ovarian cyst [N83.202], Preop examination [Z01.818] Start: 08-06-2024 End: 11-05-2024 CBC W Auto Differential panel - Blood [facility] Comment on above: Expected: 08/06/2024, Expires: Start: 08-06-2024 End: 11-05-2024 Comprehensive metabolic 2000 panel - Serum or Plasma [facility] Comment on above: Expected: 08/06/2024, Expires: 5 Start: 08-06-2024 End: 11-05-2024 CONFIRM BLOOD TYPE [facility] Work Phone: Comment on above: Expected: 08/06/2024, Expires: 5 Start: 08-06-2024 End: 08-06-2024 Anesthesia consultation 08/06/2024 7:40 AM EST PAT Pre Anesthesia [address] [place] [address] 2, [facility] [place] [address] [place] [address] P[facility] Pre Anesthesia Comment on above: PACC Start: 07-22-2024 Advance Directive Discussion Advance Directive Discussion [facility] Start: 07-01-2024 End: 09-30-2024 Cancer Ag 125 [Units/volume] in Serum or Plasma CA 125 Lab Routine Left ovarian cyst Other abnormal tumor markers Expected: 07/01/2024, Expires: 09/30/2024 [facility] Work Phone: Comment on above: Expected: 07/01/2024, Expires: Start: 07-01-2024 End: 09-30-2024 Cancer Ag 19-9 [Units/volume] in Serum or Plasma CA 19-9 Lab Routine Left ovarian cyst Other abnormal tumor markers Expected: 07/01/2024, Expires: 09/30/2024 [facility] Comment on above: Expected: 07/01/2024, Expires: Start: 07-01-2024 End: 09-30-2024 Carcinoembryonic Ag [Mass/volume] in Serum or Plasma CARCINOEMBRYONIC ANTIGEN Lab Routine Left ovarian cyst Other abnormal tumor markers Expected: 07/01/2024, Expires: 09/30/2024 [facility] Comment on above: Expected: 07/01/2024, Expires: Start: 07-01-2024 End: 08-01-2024 CBC panel - Blood by Automated count COMPLETE BLOOD COUNT Lab Routine Complex atypical endometrial hyperplasia Post-menopausal bleeding Thickened endometrium Left ovarian cyst Preop examination Expected: 07/01/2024, Expires: 08/01/2024 [facility] Comment on above: Expected: 07/01/2024, Expires: Start: 07-01-2024 End: 08-01-2024 Comprehensive metabolic 2000 panel - Serum or Plasma COMPREHENSIVE METABOLIC PANEL Lab Routine Complex atypical endometrial hyperplasia Post-menopausal bleeding Thickened endometrium Left ovarian cyst Preop examination Expected: 07/01/2024 (Approximate), Expires: 08/01/2024 [facility] Comment on above: Expected: 07/01/2024 (Approximate), Expi res: 08/01/2024 Start: 07-01-2024 End: 09-30-2024 TYPE AND SCREEN,30 DAY TYPE AND SCREEN,30 DAY Blood Bank Routine Complex atypical endometrial hyperplasia Post-menopausal bleeding Thickened endometrium Left ovarian cyst Preop examination Expected: 07/01/2024, Expires: 09/30/2024 [facility] Comment on above: Expected: 07/01/2024, Expires: Start: 07-01-2024 End: 07-01-2024 ambulatory 07/01/2024 10:00 AM EST Visit (SP) Office Gynecology Oncology [address] [place] [address] [place] [address] Chase Manning MD [address] [place] [address] DX Endometrail Intrapithelial Neoplasia/Postmenopausal Bleeding Gy[facility]cology Oncology Comment on above: DX Endometrail Intrapithelial Neoplasia/ Postmenopausal Bleeding Start: 06-10-2024 End: 06-10-2024 Patient encounter procedure [facility] Comment on above: Surgery follow-up; PMB (postmenopausal bleeding) Start: 04-14-2024 End: 04-14-2024 Patient encounter procedure 04/14/2024 1:30 PM EDT Office Visit [facility] [address] [place] [id number] Julio César Benton MD [address] [place] [address] PMB (postmenopausal bleeding); Ovarian mass, left [facility] Comment on above: PMB (postmenopausal bleeding); Ovarian mass, left Start: 03-30-2024 End: 03-30-2024 Patient encounter procedure [facility] Comment on above: PMB (postmenopausal bleeding) Start: 03-30-2024 End: 03-30-2024 Professional / ancillary services management [facility] Comment on above: PMB (postmenopausal bleeding) Start: 03-22-2024 Covid-19 Vaccine ( season) Covid-19 Vaccine ( season) [facility] Start: 03-22-2024 Covid-19 Vaccine ( season) Covid-19 Vaccine ( season) [facility] Start: 03-22-2024 Influenza [facility] Start: 03-10-2024 End: 03-10-2024 Patient encounter procedure 03/10/2024 2:15 PM EDT Office Visit [facility] [address] [place] [id number] Julio César Benton MD [address] [place] [address] Well woman exam with routine gynecological exam; Cervical cancer screening; Screening for HPV (human papillomavirus); Other screening mammogram; PMB (postmenopausal bleeding) [facility] Comment on above: Well woman exam with routine gynecologic al exam; Cervical cancer screening; Screening for HPV (human papillomavirus); Other screening mammogram; PMB (postmenopausal bleeding) Start: 07-22-2023 Advance Directive Discussion Advance Directive Discussion [facility] Start: 12-12-2021 Urine microalbumin profile DTaP,Tdap,Td Vaccine (1 - Tdap) [facility] Start: 11-27-2016 Pneumococcal Vaccine: 65+ (1 of 1 - PCV) Pneumococcal Vaccine: 65+ (1 of 1 - PCV) [facility] Start: 11-27-2016 Screening for osteoporosis Bone Density Screening [facility] Start: 08-30-2014 Shingrix Vaccine (2 of 3) Shingrix Vaccine (2 of 3) [facility] Start: 2011 RSV Vaccine (1 - Risk 60-74 years 1-dose series) RSV Vaccine (1 - Risk 60-74 years 1-dose series) [facility] Start: 11-27-2001 Shingrix Vaccine (1 of 2) Shingrix Vaccine (1 of 2) [facility] Start: 11-27-1996 Lipid panel Lipid Screening [facility] Start: 11-27-1996 Screening for malignant neoplasm of colon [facility] Start: 1991 Screening for malignant neoplasm of breast [facility] Start: 11-27-1970 Urine microalbumin profile DTaP,Tdap,Td Vaccine (1 - Tdap) [facility] Start: 11-27-1969 Annual PCP Team Chronic Disease Visit Annual PCP Team Chronic Disease Visit [facility] Start: 11-27-1969 Anxiety Screening Anxiety Screening [facility] Start: 11-27-1969 BP Controlled (<130/80) BP Controlled (<130/80) [facility] Start: 11-27-1969 Depression Screening Depression Screening [facility] Start: 11-27-1969 Hepatitis C screening Hepatitis C Screening [facility] Start: 1950 Medicare Annual Wellness (AWV) Medicare Annual Wellness (AWV) [facility] Start: 1950 Screening for malignant neoplasm of colon [facility] CT Pelvis WO contrast CT pelvis wo IV contrast Imaging Routine PMB (postmenopausal bleeding) Ovarian mass, left Ordered: 03/30/2024 [facility] [employer] Work Phone: Comment on above: Ordered: 03/30/2024 End: 07-01-2025 ECG COMPLETE ECG COMPLETE ECG Routine Complex atypical endometrial hyperplasia Post-menopausal bleeding Thickened endometrium Left ovarian cyst Preop examination 1 Occurrences starting 07/01/2024 until 07/01/2025 [facility] Comment on above: 1 Occurrences starting 07/01/2024 until 07/01/2025 ECG COMPLETE ECG COMPLETE ECG Routine Hypertension, unspecified type Hyperlipidemia, unspecified hyperlipidemia type Hypothyroidism, unspecified type Current smoker Complex atypical endometrial hyperplasia Post-menopausal bleeding Thickened endometrium Left ovarian cyst Preop examination PONV (postoperative nausea and vomiting) Ordered: 08/06/2024 [facility] Comment on above: Ordered: 08/06/[address] [facility] Laps total hysterect 250 gm/< w/rmvl tube/ovary LAPAROSCOPIC HYSTERECTOMY TOTAL FOR UTERUS 250 G OR LESS W/REMOVAL TUBE(S) AND/OR OVARY(S) Complex atypical endometrial hyperplasia Post-menopausal bleeding Thickened endometrium Left ovarian cyst Preop examination [facility] MG Breast - bilatera l Screening [facility] OUTSIDE SURG PATH SL CHRIS REVIEW OUTSIDE SURG PATH SLIDE REVIEW Lab Routine Endometrial cancer (HCC) Ordered: 06/12/2024 [facility] Work Phone: Comment on above: Ordered: 06/12/2024 PAP IG, RFX HPV ALL PTH ([facility]) PAP IG, RFX HPV ALL PTH ([facility]) Lab Routine Cervical cancer screening Screening for HPV (human papillomavirus) Ordered: 03/10/2024 [facility] [employer] Work Phone: Comment on above: Ordered: 03/10/2024 REFER FOR ADMIT INTERVIEW REFER FOR ADMIT INTERVIEW Procedures Routine Complex atypical endometrial hyperplasia Post-menopausal bleeding Thickened endometrium Left ovarian cyst Preop examination Ordered: 07/01/2024 [facility] Comment on above: Ordered: 07/01/2024 US Heart Transthoracic [facility] End: 07-31-2025 XR Chest PA and Lateral XR CHEST 2V FRONTAL/LAT Radiology Routine Complex atypical endometrial hyperplasia Post-menopausal bleeding Thickened endometrium Left ovarian cyst Preop examination 1 Occurrences starting 07/01/2024 until 07/31/2025 [facility] Work Phone: Comment on above: 1 Occurrences starting 07/01/2024 until 07/31/2025 XR Hand - left GE 3 Views [facility] Immunizations Immunization Date Immunization Notes [facility] 04-30-2024 influenza virus vaccine, unspecified formulation [employer] [facility] 04-30-2024 influenza, high dose seasonal, preservative-free MD Marifer Boyle Work Phone: [facility] 05-22-2023 influenza virus vaccine, unspecified formulation [employer] [facility] 04-30-2022 influenza virus vaccine, split virus (incl. purified surface antigen) Simone Eisenberg Other [employer] Other 04-30-2022 influenza virus vaccine, unspecified formulation [facility] 12-11-2021 tetanus and diphther ia toxoids, adsorbed, preservative free, for adult use (5 Lf of tetanus toxoid and 2 Lf of diphtheria toxoid) Gabriella Means Other [facility] 12-11-2021 tetanus and diphther ia toxoids, adsorbed, preservative free, for adult use (2 Lf of tetanus toxoid and 2 Lf of diphtheria toxoid) [employer] [facility] 09-01-2021 SARS-CoV-2 mRNA (lohngkhvjit-tkab-pvzrj se) vaccine [employer] [facility] 05-24-2021 influenza virus vaccine, split virus (incl. purified surface antigen) Simone Eisenberg Other [employer] [facility] [employer] Other 05-24-2021 influenza virus vaccine, unspecified formulation [facility] 02-02-2021 COVID-19 Vaccine Pfi zer - Documentation Purposes Only Simone Eisenberg Other [facility] 01-12-2021 COVID-19 Vaccine Pfi zer - Documentation Purposes Only Simone Eisenberg Other [facility] 07-22-2020 SARS-CoV-2 (COVID-19 ) mRNA BNT-162b2 vax Alonso CRUZ [facility] 05-12-2020 influenza virus vaccine, unspecified formulation Saanm Salas [facility] 04-26-2020 influenza virus vaccine, split virus (incl. purified surface antigen) Simone Eisenberg Other [facility] [employer] Other 04-26-2020 influenza virus vaccine, unspecified formulation [facility] 05-21-2019 influenza virus vaccine, split virus (incl. purified surface antigen) Simone Eisenberg Other [facility] [employer] Other 05-21-2019 influenza virus vaccine, unspecified formulation [facility] 06-05-2018 influenza virus vaccine, split virus (incl. purified surface antigen) Simone Eisenberg Other [facility] [employer] Other 06-05-2018 influenza virus vaccine, unspecified formulation [facility] 06-05-2018 pneumococcal polysaccharide vaccine, 23 valent Simone Eisenberg Other [facility] 04-10-2017 influenza virus vaccine, split virus (incl. purified surface antigen) Simone Eisenberg Other [facility] [employer] Other 04-10-2017 influenza virus vaccine, unspecified formulation [facility] 04-10-2017 pneumococcal conjuga te vaccine, 13 valent Simone Eisenberg Other [facility] 05-07-2016 influenza virus vaccine, unspecified formulation Sanam Ticotoña [facility] 07-05-2014 zoster vaccine, live Benjami yoni [place] Other [facility] 05-05-2013 tetanus and diphther ia toxoids, adsorbed, preservative free, for adult use (5 Lf of tetanus toxoid and 2 Lf of diphtheria toxoid) Simone Eisenberg Other [facility] Payers Date Payer Category Payer Self-pay 2023 Unknown [id number] 2019 Private Health Insurance [id number] 2016 Medicare [id number] 1959 Medicare [id number] 2.1 [id number] 1959 Unknown [id number] 2.16 .[id number] 1951 Unknown [id number] 2.16.84 0.1.229377.3.579.2.593 1950 Unknown [id number] 2.16.84 0.1.974127.3.579.2.593 1950 Unknown [id number] 2.16.84 0.1.987548.3.579.2.593 1950 Unknown [id number] 2.16.84 0.1.506991.3.579.2.1259 1951 Unknown [id number] 2.16.84 0.1.652116.3.579.2.1259 1951 Unknown [id number] 2.16.84 0.1.840955.3.579.2.1259 1951 Unknown [id number] 2.16.84 0.1.733634.3.579.2.125 1951 Unknown [id number] 2.16.84 0.1.237141.3.579.2.1259 1951 Unknown [id number] 2.16.84 0.1.207989.3.579.2.125 1951 Unknown [id number] 2.16.8 40.1.584518.3.579.2.727 1950 Unknown [id number] 2.16.8 40.1.415908.3.579.2.727 1951 Unknown [id number] 2.16.8 40.1.379079.3.579.2.727 1950 Unknown [id number] 2.16.8 40.1.170047.3.579.2.727 1950 Unknown [id number] 2.16.8 40.1.811065.3.579.2.727 1950 Unknown [id number] 2.16.8 40.1.805045.3.579.2.727 Unknown [id number] 2.16.8 40.1.502901.3.579.2.531 Unknown [id number] 2.16.8 40.1.246470.3.579.2.531 Unknown [id number] 2.16.8 40.1.463267.3.579.2.531 Social History Date Type Detail Facility Unknown if ever smoked [employer] Other Start: 04-14-2024 End: 08-06-2024 Sex Assigned At [facility] Start: 11-04-2020 End: 11-27-2023 Tobacco smoking status Ex-smoker (finding) [facility] Start: 1950 Sex Assigned At Female [facility] Tobacco smoking status NHIS Tobacco smoking consumption unknown [facility] Start: 04-14-2024 End: 08-06-2024 History of Social function [facility] Start: 03-04-2024 Gender identity Identifies as female gender (finding) [facility] Start: 03-10-2024 Tobacco smoking status MOIS Never smoked tobacco [facility] Start: 03-10-2024 End: 08-06-2024 Tobacco use and exposure Smokeless tobacco non-user [facility] Start: 04-14-2024 End: 09-23-2024 Alcoholic beverage intake Current drinker of alcohol (finding) [facility] Tobacco smoking status Never [facility] Start: 1950 Sex assigned at Not on file [facility] Start: 07-01-1999 History of tobacco use Current smoker [facility] Start: 07-01-1999 History of tobacco use Cigarette Smoker [facility] Start: 08-06-2024 Tobacco Comment Quit in 1997 [facility] Start: 08-06-2024 Alcohol Comment at least 1 mix ed drink per day. [facility] Start: 09-08-2024 End: 10-09-2024 Sex Female (finding) [facility] Functional Status Date Assessment Result Facility 09-17-2024 Functional Status N/A [facility] 06-09-2024 Functional Status N/A [facility] 11-26-2023 Functional Status N/A [facility] 08-31-2022 Functional Status N/A [facility] Clinical Notes 12-11-2021 to 09-23-2024 Laurie Jones APRN.[employer] - 09/23/2024 11:00 AM EST Note Date & Type Note Facility 09-23-2024 History of Presen t illness Narrative Images from the original note were not included. DATE OF SERVICE: 09/23/2024 REASON FOR VISIT: PMB, echogenic lesion left adnexa-[facility] Consultation requested by Dr. Benton. My final recommendations will be communicated back to the requesting physician by way of shared Medical record or letter to requesting physician via US mail. Communication back to the referring provider will be sent by way of medical record. DIAGNOSIS: atypical epithelial cells on path. HPI: James Woods is a 73 yo with a PMH of HTN, HLD, and hypothyroid. Patient presented to Dr Benton in February with c/o PMB. 10 days of bleeding, started light, then heavy, then tapered off. 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 Benton. Sono showed a thickened endometrium with possible polyp, and an echogenic lesion in the left ovary. CT was essentially normal, with an echogenic lesion in the left adnexa, but no ovarian masses/cysts or assoc signs of malignancy. See imaging below. On 05/27/2024 she underwent D&C with findings of: PATHOLOGY: fragments of benign endometrial stroma and cervical mucosa, with a MINUTE FOCUS OF MARKED EPITHELIAL ATYPIA Patient states she feels good overall. Patient reports bowel and bladder issues. She had her urethra stretched 3 years ago[address] She sees Dr. Cruz. She has diverticulosis. She is taking miralax and that has helped. No bleeding, discharge, or pain. No shortness of breath, cough, or chest pain. [facility] path review: FINAL DIAGNOSIS Outside case [id number], collected 05/27/2024 Endometrium, curettage: - Limited superficial inactive endometrium (see comment). - Predominantly benign squamous and endocervical epithelium with atrophic changes. DATE OF LAST VISIT: n/a OBSTETRIC/ GYNECOLOGY HISTORY: Gynecologic surgery: D&C LMP: menopause Last Pap: 03/14-neg Last HPV: unsure-never PAST MEDICAL HISTORY Diagnosis Date HLD (hyperlipidemia) HTN (hypertension) Hx of tonsillectomy Hypothyroidism PAST SURGICAL HISTORY Procedure Laterality Date D&C, DIAG AND/OR THERAPEUTIC D&C, DIAG AND/OR THERAPEUTIC REMOVAL GALLBLADDER TONSILLECTOMY & ADENOIDECTOMY <AGE 13 URETHRAL DILATION, MALE SUBSQ Family History Problem Relation Age of Onset Breast Cancer Mother Heart disease Mother Heart disease Father Heart disease Brother Diabetes Brother Stroke Maternal Grandmother Lung Cancer Paternal Grandfather RECENT IMAGING: Date: 03/30/2024-CT ABD PEL- FINDINGS: Uterus is unremarkable. Left ovary contains a 7 mm calcification. However, no fat is present. Therefore, this is an incidental finding and a dermoid or teratoma is not confirmed. Right adnexa is unremarkable. No free fluid is present. There is moderate degenerative change of the hips. No fracture or osteolysis is apparent. IMPRESSION: Isolated small calcification in the left ovary. No additional features to suggest a teratoma are identified at this time. This is generally considered an incidental finding. Sonographic followup to document stability is recommended. All CT scans at this institution are performed using dose optimization techniques as appropriate for the performed exam including the following: Automated exposure control Adjustment of the mA and/or kV according to patient size Use of iterative reconstruction technique Date: 03/30/20242091-[id number] SURGICAL PROCEDURE-08/14/2024-Robotic assisted total laparoscopic hysterectomy with bilateral salpingo-oophorectomy cystoscopy 08/14/2024-SURGICAL PATH- FINAL DIAGNOSIS A. Uterus, cervix, bilateral fallopian tubes and ovaries, hysterectomy and bilateral salpingooophorectomy: Cervix: Nabothian cysts and chronic cervicitis. Endometrium- Inactive endometrium. Myometrium- Extensive adenomyosis. 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 Left and right fallopian tubes - No significant pathologic findings. HEALTH MAINTENANCE: Last mammogram: UTD normal Last colonoscopy: less than 5 years-needs 5 year follow up ECOG performance status ECOG PERFORMANCE STATUS: 0- Fully active, able to carry on all pre-disease performance w/o restriction. SUBJECTIVE/INTERVAL HISTORY: James Woods reports that she feels well. No fever or chills. No shortness of breath, cough, or chest pain. No incisional redness, swelling, or drainage. Patient reports that her appetite is good. No abdominal pain, nausea, vomiting, diarrhea, or constipation. Some new nocturia, but no other sign of UTI. Her ECOG performance status is zero (fully active, able to carry on all pre-disease performance without restriction). Laurie Jones, CEASAR.[employer] 09/23/24-Patient states she feels well overall. Patient reports no bowel or bladder issues. No bleeding, discharge, or pain. No shortness of breath, cough, or chest pain. OBJECTIVE: VITALS: BP 127/79 Pulse 83 Temp (Src) 97.9 (Temporal) Resp 18 Wt 160 lb 11.5 oz (72.9kg) SpO2 97% GENERAL-well appearing ABDOMEN: Abdomen soft, non-tender, no hepatosplenomegaly. Incision healing well. PELVIC-EGBUS normal, speculum exam reveals healed cuff. Bimanual with smooth and intact vaginal cuff. LOWER EXTREMITIES: No pitting edema, no palpable cords, and no skin changes. Gaggerman for exam: n/a ASSESSMENT: James Woods is a 73 year old y.o with PMH of HTN, HLD, and hypothyroid and PSH of d&c and gallbladder removal who presents for evaluation of PMB, thickened endometrium and echogenic lesion left adnexa-[facility]. Documentation reviewed: office notes obgyn Pathology reviewed: 05/27/2022 pathology and [facility] path review Imaging reviewed: 04/07CT scan ,03/30/24 US (ET 12.5mm, left ovary 13mm echogenic structure with posterior shadowing and indistinct borders). S/P 08/14/2024 Robotic assisted total laparoscopic hysterectomy with bilateral salpingo-oophorectomy Cystoscopy-for benign pathology PLAN: Path benign, continue yearly PATIENT SERVICES COORDINATOR exams Cuff healed, ok'd for lifting, regular activity. Laurie Jones APRN.CNP The previous note from Dr. Manning on 08/26/2024 was copied forward and the necessary changes were made above. documented in this encounter [facility] 09-23-2024 Note HNO ID: [id number] Author: LAURIE JONES APRN.CNP Service: ? Author Type: Nurse Practitioner Type: Progress Notes Filed: 09/23/2024 16:38 Note Text: DATE OF SERVICE: 09/23/2024 REASON FOR VISIT: PMB, echogenic lesion left adnexa-[facility] Consultation requested by Dr. Benton. My final recommendations will be communicated back to the requesting physician by way of shared Medical record or letter to requesting physician via US mail. Communication back to the referring provider will be sent by way of medical record. DIAGNOSIS: atypical epithelial cells on path. HPI: James Woods is a 73 yo with a PMH of HTN, HLD, and hypothyroid. Patient presented to Dr Benton in February with c/o PMB. 10 days of bleeding, started light, then heavy, then tapered off. 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 Benton. Sono showed a thickened endometrium with possible polyp, and an echogenic lesion in the left ovary. CT was essentially normal, with an echogenic lesion in the left adnexa, but no ovarian masses/cysts or assoc signs of malignancy. See imaging below. On 05/27/2024 she underwent DANDC with findings of: PATHOLOGY: fragments of benign endometrial stroma and cervical mucosa, with a MINUTE FOCUS OF MARKED EPITHELIAL ATYPIA Patient states she feels good overall. Patient reports bowel and bladder issues. She had her urethra stretched 3 years ago[address] She sees Dr. Cruz. She has diverticulosis. She is taking miralax and that has helped. No bleeding, discharge, or pain. No shortness of breath, cough, or chest pain. [facility] path review: FINAL DIAGNOSIS Outside case [id number], collected 05/27/2024 Endometrium, curettage: - Limited superficial inactive endometrium (see comment). - Predominantly benign squamous and endocervical epithelium with atrophic changes. DATE OF LAST VISIT: n/a OBSTETRIC/ GYNECOLOGY HISTORY: Gynecologic surgery: DANDC LMP: menopause Last Pap: 03/14-neg Last HPV: unsure-never PAST MEDICAL HISTORY Diagnosis Date HLD (hyperlipidemia) HTN (hypertension) Hx of tonsillectomy Hypothyroidism PAST SURGICAL HISTORY Procedure Laterality Date DANDC, DIAG AND/OR THERAPEUTIC DANDC, DIAG AND/OR THERAPEUTIC REMOVAL GALLBLADDER TONSILLECTOMY AND ADENOIDECTOMY URETHRAL DILATION, MALE SUBSQ Family History Problem Relation Age of Onset Breast Cancer Mother Heart disease Mother Heart disease Father Heart disease Brother Diabetes Brother Stroke Maternal Grandmother Lung Cancer Paternal Grandfather RECENT IMAGING: Date: 03/30/2024-CT ABD PEL- FINDINGS: Uterus is unremarkable. Left ovary contains a 7 mm calcification. However, no fat is present. Therefore, this is an incidental finding and a dermoid or teratoma is not confirmed. Right adnexa is unremarkable. No free fluid is present. There is moderate degenerative change of the hips. No fracture or osteolysis is apparent. IMPRESSION: Isolated small calcification in the left ovary. No additional features to suggest a teratoma are identified at this time. This is generally considered an incidental finding. Sonographic followup to document stability is recommended. All CT scans at this institution are performed using dose optimization techniques as appropriate for the performed exam including the following: Automated exposure control Adjustment of the mA and/or kV according to patient size Use of iterative reconstruction technique Date: 03/30/[id number] SURGICAL PROCEDURE-08/14/2024-Robotic assisted total laparoscopic hysterectomy with bilateral salpingo-oophorectomy cystoscopy 08/14/2024-SURGICAL PATH- FINAL DIAGNOSIS A. Uterus, cervix, bilateral fallopian tubes and ovaries, hysterectomy and bilateral salpingooophorectomy: Cervix: Nabothian cysts and chronic cervicitis. Endometrium- Inactive endometrium. Myometrium- Extensive adenomyosis. 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 Left and right fallopian tubes - No significant pathologic findings. HEALTH MAINTENANCE: Last mammogram: UTD normal Last colonoscopy: less than 5 years-needs 5 year follow up ECOG performance status ECOG PERFORMANCE STATUS: 0- Fully active, able to carry on all pre-disease performance w/o restriction. SUBJECTIVE/INTERVAL HISTORY: James Woods reports that she feels well. No fever or chills. No shortness of breath, cough, or chest pain. No incisional redness, swelling, or drainage. Patient reports that her appetite is good. No abdominal pain, nausea, vomiting, diarrhea, or constipation. Some new nocturia, but no other sign of UTI. Her ECOG performance status is zero (fully active, able to carry on all pre-disease performance without restriction). Laurie Jones, DRUM WORKER.[employer] 09/23/24-Patient states she feels well overall. Patient reports no bowel or bladder issues. No bleeding, dischar (more content not included)... [facility] 09-17-2024 Hospital Discharg e instructions Patient Education 09/17/2024 12:01:26 Urethral Stricture Urethral Stricture Urethral stricture is when the tube that drains pee (urine) from the bladder out of the body (urethra) becomes too narrow. The urethra can become narrow because of scar tissue, infection, surgery, or an injury. This can make it difficult to pee (urinate). In females, the urethra opens above the vaginal opening. In males, the urethra opens at the tip of the penis, and the urethra is much longer than it is in females. Because of the length of the male urethra, urethral stricture is much more common in males. What are the causes? In males and females, common causes of urethral stricture include: Urinary tract infection (UTI). Sexually transmitted infection (STI). Using a soft tube in the urethra to drain pee from the bladder (urinary catheter). Urinary tract surgery. In males, common causes of urethral stricture include: A severe injury to the pelvis. Prostate surgery. Injury to the penis. In many cases, the cause of urethral stricture is not known. What increases the risk? You are more likely to develop this condition if you: Are male. Males who have had prostate surgery are at risk of developing this condition. Use a urinary catheter. Have had urinary tract surgery. What are the signs or symptoms? The main symptom of this condition is trouble peeing. This may cause decreased pee flow, dribbling, or spraying of pee. Other symptom of this condition may include: Frequent UTIs. Blood in the pee. Pain when peeing. Swelling of the penis in males. Not being able to pee. How is this diagnosed? This condition may be diagnosed based on: Your medical history and a physical exam. Tests of your pee to check for infection or bleeding. X-rays. Ultrasound. Retrograde urethrogram. With this test, a dye is injected into the urethra and then an X-ray is taken. Urethroscopy. This is when a thin tube with a light and camera on the end (urethroscope) is used to look at the urethra. A CT scan or MRI. How is this treated? This condition is treated with surgery or other procedures. The type of surgery that you have depends on the severity of your condition. You may have: Urethral dilation. In this procedure, the narrow part of the urethra is stretched open (dilated) with dilating instruments or a small balloon. Urethrotomy. In this procedure, a urethroscope is placed into the urethra, and the narrow part of the urethra is cut open with a surgical blade or laser inserted through the urethroscope. Urethroplasty. In this procedure, an incision is made in the urethra and the narrow part is removed. Then, the urethra is reconstructed. Follow these instructions at home: Take [id number] and prescription medicines only as told by your health care provider. If you were prescribed antibiotics, take them as told by your provider. Do not stop using the antibiotic even if you start to feel better. Drink enough fluid to keep your pee pale yellow. Keep all follow-up visits. Your provider will check your healing and adjust your treatment plan as needed. Contact a health care provider if: You have frequent peeing or you are only peeing small amounts often. You feel the need to pee urgently. You have pain or burning when you pee. Your pee smells bad or unusual. Your pee is bloody or cloudy. You have pain in your lower abdomen or back. Your genital area is swollen, bruised, or discolored. This includes: ?The penis, scrotum, and inner thighs for males. ?The outer genital organs (vulva) and inner thighs for females. You have a fever. You develop swelling in your legs. Get help right away if: You cannot pee. You have trouble breathing. These symptoms may be an emergency. Get help right away. Call 911. Do not wait to see if the symptoms will go away. Do not drive yourself to the hospital. This information is not intended to replace advice given to you by your health care provider. Make sure you discuss any questions you have with your health care provider. Document Revised: 05/02/2023 Document Reviewed: 05/02/2023 [employer] Patient Education 2023 [employer]. Follow Up Care 09/17/2024 10:36:52 With:[facility] Address: When: Unknown Comments:Only if needed/new problems arise. No scheduled appointment indicated at this time. [facility] 09-17-2024 Note Patient Education Urology Urethral Stricture Urethral stricture is when the tube that drains pee (urine) from the bladder out of the body (urethra) becomes too narrow. The urethra can become narrow because of scar tissue, infection, surgery, or an injury. This can make it difficult to pee (urinate). In females, the urethra opens above the vaginal opening. In males, the urethra opens at the tip of the penis, and the urethra is much longer than it is in females. Because of the length of the male urethra, urethral stricture is much more common in males. What are the causes? In males and females, common causes of urethral stricture include: ??? Urinary tract infection (UTI). ??? Sexually transmitted infection (STI). ??? Using a soft tube in the urethra to drain pee from the bladder (urinary catheter). ??? Urinary tract surgery. In males, common causes of urethral stricture include: ??? A severe injury to the pelvis. ??? Prostate surgery. ??? Injury to the penis. In many cases, the cause of urethral stricture is not known. What increases the risk? You are more likely to develop this condition if you: ??? Are male. Males who have had prostate surgery are at risk of developing this condition. ??? Use a urinary catheter. ??? Have had urinary tract surgery. What are the signs or symptoms? The main symptom of this condition is trouble peeing. This may cause decreased pee flow, dribbling, or spraying of pee. Other symptom of this condition may include: ??? Frequent UTIs. ??? Blood in the pee. ??? Pain when peeing. ??? Swelling of the penis in males. ??? Not being able to pee. How is this diagnosed? This condition may be diagnosed based on: ??? Your medical history and a physical exam. ??? Tests of your pee to check for infection or bleeding. ??? X-rays. ??? Ultrasound. ??? Retrograde urethrogram. With this test, a dye is injected into the urethra and then an X-ray is taken. ??? Urethroscopy. This is when a thin tube with a light and camera on the end (urethroscope) is used to look at the urethra. ??? A CT scan or MRI. How is this treated? This condition is treated with surgery or other procedures. The type of surgery that you have depends on the severity of your condition. You may have: ??? Urethral dilation. In this procedure, the narrow part of the urethra is stretched open (dilated) with dilating instruments or a small balloon. ??? Urethrotomy. In this procedure, a urethroscope is placed into the urethra, and the narrow part of the urethra is cut open with a surgical blade or laser inserted through the urethroscope. ??? Urethroplasty. In this procedure, an incision is made in the urethra and the narrow part is removed. Then, the urethra is reconstructed. Follow these instructions at home: ??? Take [id number] and prescription medicines only as told by your health care provider. ??? If you were prescribed antibiotics, take them as told by your provider. Do not stop using the antibiotic even if you start to feel better. ??? Drink enough fluid to keep your pee pale yellow. ??? Keep all follow-up visits. Your provider will check your healing and adjust your treatment plan as needed. Contact a health care provider if: ??? You have frequent peeing or you are only peeing small amounts often. ??? You feel the need to pee urgently. ??? You have pain or burning when you pee. ??? Your pee smells bad or unusual. ??? Your pee is bloody or cloudy. ??? You have pain in your lower abdomen or back. ??? Your genital area is swollen, bruised, or discolored. This includes: ? The penis, scrotum, and inner thighs for males. ? The outer genital organs (vulva) and inner thighs for females. ??? You have a fever. ??? You develop swelling in your legs. Get help right away if: ??? You cannot pee. ??? You have trouble breathing. These symptoms may be an emergency. Get help right away. Call 911. ??? Do not wait to see if the symptoms will go away. ??? Do not drive yourself to the hospital. This information is not intended to replace advice given to you by your health care provider. Make sure you discuss any questions you have with your health care provider. Document Revised: 05/02/2023 Document Reviewed: 05/02/2023 Elsevier Patient Education ? 2023 [employer] [facility] 09-08-2024 Evaluation note Diagnosis Onset Date Resolution Left carpal tunnel syndrome acute September 08, 2 025 10:50am Arthritis of carpometacarpal (CMC) joint of left thumb acute October 09, 2024 10:08am Left carpal tunnel syndrome acute October 09, 2024 10:08am [facility] Work Phone: 1(602) 121-425502-05-2025 History of Present illness Narrative* GwendolynarunLaurieCEASAR.BLOCKER METAL BASE - 08/26/2024 10:30 AM EST Images from the original note were not included. DATE OF SERVICE: 08/26/2024 REASON FOR VISIT: PMB, echogenic lesion left adnexa-CAH Consultation requested by Dr. Benton. My final recommendations will be communicated back to the requesting physician by way of shared Medical record or letter to requesting physician via US mail. Communication back to the referring provider will be sent by way of medical record. DIAGNOSIS: atypical epithelial cells on path. HPI: James Woods is a 73 yo with a PMH of HTN, HLD, and hypothyroid. Patient presented to Dr Benton in February with c/o PMB. 10 days of bleeding, started light, then heavy, then tapered off. 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 Benton. Sono showed a thickened endometrium with possible polyp, and an echogenic lesion in the left ovary. CT was essentially normal, with an echogenic lesion in the left adnexa, but no ovarian masses/cysts or assoc signs of malignancy. Seeimaging below. On 05/27/2024 she underwent D&C with findings of: PATHOLOGY: fragments of benign endometrial stroma and cervical mucosa, with a MINUTE FOCUS OF MARKED EPITHELIAL ATYPIA Patient states she feels good overall. Patient reports bowel and bladder issues. She had her urethra stretched 3 years ago[address] She sees Dr. Cruz. She has diverticulosis. She is taking miralax and thathas helped. No bleeding, discharge, or pain. No shortness of breath, cough, or chest pain. [facility] path review: FINAL DIAGNOSIS Outside case [id number], collected 05/27/2024 Endometrium, curettage: - Limited superficial inactive endometrium (see comment). - Predominantly benign squamous and endocervical epithelium with atrophic changes. DATE OF LAST VISIT: n/a OBSTETRIC/ GYNECOLOGY HISTORY: Gynecologic surgery: D&C LMP: menopause Last Pap: 03/14-neg Last HPV: unsure-never PAST MEDICAL HISTORY Diagnosis Date HLD (hyperlipidemia) HTN (hypertension) Hx of tonsillectomy Hypothyroidism PAST SURGICAL HISTORY Procedure Laterality Date D&C, DIAG AND/OR THERAPEUTIC D&C, DIAG AND/OR THERAPEUTIC REMOVAL GALLBLADDER TONSILLECTOMY & ADENOIDECTOMY <AGE 13 URETHRAL DILATION, MALE SUBSQ Family History Problem Relation Age of Onset Breast Cancer Mother Heart disease Mother Heart disease Father Heart disease Brother Diabetes Brother Stroke Maternal Grandmother Lung Cancer Paternal Grandfather RECENT IMAGING: Date: 03/30/2024-CT ABD PEL- FINDINGS: Uterus is unremarkable. Left ovary contains a 7 mm calcification. However, no fat is present. Therefore, this is an incidental finding and a dermoid or teratoma is not confirmed. Right adnexa is unremarkable. No free fluid is present. There is moderate degenerative change of the hips. No fracture or osteolysis is apparent. IMPRESSION: Isolated small calcification in the left ovary. No additional features to suggest a teratoma are identified at this time. This is generally considered an incidental finding. Sonographic followup to document stability is recommended. All CT scans at this institution are performed using dose optimization techniques as appropriate for the performed exam including the following: Automated exposure control Adjustment of the mA and/or kV according to patient size Use of iterative reconstruction technique Date: 03/30/20243543-jusjmbchyi-byblog SURGICAL PROCEDURE-08/14/2024-Robotic assisted total laparoscopic hysterectomy with bilateral salpingo-oophorectomy cystoscopy 08/14/2024-SURGICAL PATH- FINAL DIAGNOSIS A. Uterus, cervix, bilateral fallopian tubes and ovaries, hysterectomy and bilateral salpingooophorectomy: Cervix: Nabothian cysts and chronic cervicitis. Endometrium- Inactive endometrium. Myometrium- Extensive adenomyosis. 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 Left and right fallopian tubes - No significant pathologic findings. HEALTH MAINTENANCE: Last mammogram: UTD normal Last colonoscopy: less than 5 years-needs 5 year follow up ECOG performance status ECOG PERFORMANCE STATUS: 0- Fully active, able to carry on all pre-disease performance w/o restriction. SUBJECTIVE/INTERVAL HISTORY: James Woods reports that she feels well. No fever or chills. No shortness of breath, cough, or chest pain. No incisional redness, swelling, or drainage. Patient reports that her appetite is good. No abdominal pain, nausea, vomiting, diarrhea, or constipation. Some new nocturia, but no other sign of UTI. Her ECOG performance status is zero (fully active, able to carry on all pre-disease performance without restriction). Laurie Jones APRN.VALERIE OBJECTIVE: VITALS: BP 129/72 Pulse 82 Temp (Src) 98 (Temporal) Resp 16 Ht 5' 7.008 (1.70m) Wt 159 lb 13.3 oz (72.5kg) SpO2 96% BMI 25.03 kg/(m^2). GENERAL-well appearing ABDOMEN: Abdomen soft, non-tender, no hepatosplenomegaly. Incision healing well. LOWER EXTREMITIES: No pitting edema, no palpable cords, and no skin changes. Gaggerman for exam: n/a 08/26/24-Patient states she feels well overall, she has not had a lot of stamina but it is improving daily. Patient reports no bowel issues but she is complaining of nocturia 2-3x. No bleeding, discharge, or pain. No shortness of breath, cough, or chest pain. ASSESSMENT: James Woods is a 73 year old y.o with PMH of HTN, HLD, and hypothyroid and PSH of d&c and gallbladder removal who presents for evaluation of PMB, thickened endometrium and echogenic lesion left adnexa-CAH. Documentation reviewed: office notes obgyn Pathology reviewed: 05/27/2022 pathology and [facility] path review Imaging reviewed: 04/07CT scan ,03/30/24 US (ET 12.5mm, left ovary 13mm echogenic structure with posterior shadowing and indistinct borders). S/P 08/14/2024 Robotic assisted total laparoscopic hysterectomy with bilateral salpingo-oophorectomy Cystoscopy-for benign pathology PLAN: Path benign, continue yearly PATIENT SERVICES COORDINATOR exams RTC 6 weeks cuff check Laurie Jones APRN.CNP The previous note from Dr. Manning on 07/01/2024 was copied forward and the necessary changes weremade above. [facility] NoteHNO ID: [id number] Author: LAURIE JONES APRN.CNP Service: ? Author Type: Nurse Practitioner Type: Progress Notes Filed: 08/26/2024 12:53 Note Text: DATE OF SERVICE: 08/26/2024 REASON FOR VISIT: PMB, echogenic lesion left adnexa-CAH Consultation requested by Dr. Benton. My final recommendations will be communicated back to the requesting physician by way of shared Medical record or letter to requesting physician via US mail. Communication back to the referring provider will be sent by way of medical record. DIAGNOSIS: atypical epithelial cells on path. HPI: James Woods is a 73 yo with a PMH of HTN, HLD, and hypothyroid. Patient presented to Dr Benton in February with c/o PMB. 10 days of bleeding, started light, then heavy, then tapered off. 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 Benton. Sono showed a thickened endometrium with possible polyp, and an echogenic lesion in the left ovary. CT was essentially normal, with an echogenic lesion in the left adnexa, but no ovarian masses/cysts or assoc signs of malignancy. See imaging below. On 05/27/2024 she underwent DANDC with findings of: PATHOLOGY: fragments of benign endometrial stroma and cervical mucosa, with a MINUTE FOCUS OF MARKED EPITHELIAL ATYPIA Patient states she feels good overall. Patient reports bowel and bladder issues. She had her urethra stretched 3 years ago[address] She sees Dr. Cruz. She has diverticulosis. She is taking miralax and that has helped. No bleeding, discharge, or pain. No shortness of breath, cough, or chest pain. [facility] path review: FINAL DIAGNOSIS Outside case [id number], collected 05/27/2024 Endometrium, curettage: - Limited superficial inactive endometrium (see comment). - Predominantly benign squamous and endocervical epithelium with atrophic changes. DATE OF LAST VISIT: n/a OBSTETRIC/ GYNECOLOGY HISTORY: Gynecologic surgery: DANDC LMP: menopause Last Pap: 03/14-neg Last HPV: unsure-never PAST MEDICAL HISTORY Diagnosis Date HLD (hyperlipidemia) HTN (hypertension) Hx of tonsillectomy Hypothyroidism PAST SURGICAL HISTORY Procedure Laterality Date DANDC, DIAG AND/OR THERAPEUTIC DANDC, DIAG AND/OR THERAPEUTIC REMOVAL GALLBLADDER TONSILLECTOMY AND ADENOIDECTOMY URETHRAL DILATION, MALE SUBSQ Family History Problem Relation Age of Onset Breast Cancer Mother Heart disease Mother Heart disease Father Heart disease Brother Diabetes Brother Stroke Maternal Grandmother Lung Cancer Paternal Grandfather RECENT IMAGING: Date: 03/30/2024-CT ABD PEL- FINDINGS: Uterus is unremarkable. Left ovary contains a 7 mm calcification. However, no fat is present. Therefore, this is an incidental finding and a dermoid or teratoma is not confirmed. Right adnexa is unremarkable. No free fluid is present. There is moderate degenerative change of the hips. No fracture or osteolysis is apparent. IMPRESSION: Isolated small calcification in the left ovary. No additional features to suggest a teratoma are identified at this time. This is generally considered an incidental finding. Sonographic followup to document stability is recommended. All CT scans at this institution are performed using dose optimization techniques as appropriate for the performed exam including the following: Automated exposure control Adjustment of the mA and/or kV according to patient size Use of iterative reconstruction technique Date: 03/30/20246714-seizzolezb-tprzcb SURGICAL PROCEDURE-08/14/2024-Robotic assisted total laparoscopic hysterectomy with bilateral salpingo-oophorectomy cystoscopy 08/14/2024-SURGICAL PATH- FINAL DIAGNOSIS A. Uterus, cervix, bilateral fallopian tubes and ovaries, hysterectomy and bilateral salpingooophorectomy: Cervix: Nabothian cysts and chronic cervicitis. Endometrium- Inactive endometrium. Myometrium- Extensive adenomyosis. 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 Left and right fallopian tubes - No significant pathologic findings. HEALTH MAINTENANCE: Last mammogram: UTD normal Last colonoscopy: less than 5 years-needs 5 year follow up ECOG performance status ECOG PERFORMANCE STATUS: 0- Fully active, able to carry on all pre-disease performance w/o restriction. SUBJECTIVE/INTERVAL HISTORY: James Woods reports that she feels well. No fever or chills. No shortness of breath, cough, or chest pain. No incisional redness, swelling, or drainage. Patient reports that her appetite is good. No abdominal pain, nausea, vomiting, diarrhea, or constipation. Some new nocturia, but no other sign of UTI. Her ECOG performance status is zero (fully active, able to carry on all pre-disease performance without restriction). Laurie Jones, DRUM WORKER.BLOCKER METAL BASE OBJECTIVE: VITALS: BP 129/72 Pulse 82 Temp (Src) 98 (Temporal) Resp 16 Ht 5' 7.008 (1.70m) Wt 159 l (more content not included)...[facility] 08-17-2024 Telephone encounter Note* Telephone Encounter - Tasha Herrera RN - 08/17/2024 11:23 AM EST August 17, 2024 11:23 AM Patient had Robotic assisted total laparoscopic hysterectomy with bilateral salpingo-oophorectomy Cystoscopy with Dr. Manning on 08/14/2024 Patient called for post op follow up assessment. Reports she is doing well. Pain: Patient rates pain 3 on a scale of 0-10. 0 being no pain and 10 being worst pain imaginable. Patient states pain is tolerable. Diet: Patient is able tolerate fluids and normal diet. Bowel Movement: Patient is able to pass gas and has had a bowel movement. Voiding: Patient is able to void without difficult.. Vaginal Discharge: Denies heavy vaginal bleeding Skin Incision: Denies drainage, redness, or signs of infection. Medication: Denies questions or concerns about medication. Post op restrictions reviewed with patient including - activity- no heavy lifting, on pelvic rest - keep incision clean and dry. Ok to use mild antibacterial soap. - reviewed signs and symptoms to notify office including signs of infection, fever, heavy vaginal bleeding. - she is aware of post op appointment with [employer] [facility] on 08/26/2024 in [place] Patient verbalized understanding and denies further questions at this time. Understands to call theoffice with further concerns/questions. Survivorship treatment summary initiated: Awaiting pathology Tasha Herrera RN [facility] Work Phone: 1(326) 194-851601-27-2025 Miscellaneous Notes* Telephone Encounter - Tasha Herrera RN - 08/17/2024 11:23 AM EST August 17, 2024 11:23 AM Patient had Robotic assisted total laparoscopic hysterectomy with bilateral salpingo-oophorectomy Cystoscopy with Dr. Manning on 08/14/2024 Patient called for post op follow up assessment. Reports she is doing well. Pain: Patient rates pain 3 on a scale of 0-10. 0 being no pain and 10 being worst pain imaginable. Patient states pain is tolerable. Diet: Patient is able tolerate fluids and normal diet. Bowel Movement: Patient is able to pass gas and has had a bowel movement. Voiding: Patient is able to void without difficult.. Vaginal Discharge: Denies heavy vaginal bleeding Skin Incision: Denies drainage, redness, or signs of infection. Medication: Denies questions or concerns about medication. Post op restrictions reviewed with patient including - activity- no heavy lifting, on pelvic rest - keep incision clean and dry. Ok to use mild antibacterial soap. - reviewed signs and symptoms to notify office including signs of infection, fever, heavy vaginal bleeding. - she is aware of post op appointment with [employer] [facility] on 08/26/2024 in [place] Patient verbalized understanding and denies further questions at this time. Understands to call theoffice with further concerns/questions. Survivorship treatment summary initiated: Awaiting pathology Tasha Herrera RN [facility]25 NoteHNO ID: [id number] Author: ?, ?, ? Service: ? Author Type: ? Type: Plan of Care Filed: 08/18/2024 13:23 Note Text: PHARMACY BEDSIDE DELIVERY SERVICE Patient Name: James Woods The marked outpatient medications were filled at [facility] and picked up at the pharmacy by Keyshawn Medication List START taking these medications acetaminophen 500 mg tablet Commonly known as: TYLENOL EXTRA STRENGTH Take 2 tablets by mouth every 6 hours as needed for pain for up to 14 days. JOSEFA-WENDY 8.6 mg Tab Generic drug: senna Take 1 tablet by mouth two times a day as needed for constipation. ibuprofen 600 mg tablet Commonly known as: MOTRIN Take 1 tablet by mouth every 6 hours as needed for pain. ondansetron orally disintegrating 4 mg disintegrating tablet Commonly known as: ZOFRAN ODT Take 1 tablet by mouth every 8 hours as needed for nausea/vomiting. oxyCODONE IR 5 mg immediate release tablet Commonly known as: ROXICODONE Take 1 tablet by mouth every 6 hours as needed for pain for up to 5 days. CONTINUE taking these medications amLODIPine 5 mg tablet Commonly known as: NORVASC atorvastatin 20 mg tablet Commonly known as: LIPITOR BIOTIN ORAL SUZI C ORAL estradiol 0.01 % (0.1 mg/gram) vaginal cream Commonly known as: ESTRACE levothyroxine 137 mcg tablet Commonly known as: SYNTHROID lisinopril 20 mg tablet Commonly known as: ZESTRIL MIRALAX 17 gram packet Generic drug: polyethylene glycol 3350 MULTI VITAMIN ORAL [id number]-FISH OIL ORAL You might also be taking other medications not listed above. If you have questions about any of your other medications, talk to the person who prescribed them or your Primary Care Provider. Jack Cerrato PAGER: [phone] August 18, 2024 1:22 [facility]01-24-2025 NoteHNO ID: [id number] Author: TRAY MONTAGUE MD Service: Anesthesiology Author Type: Anesthesiologist Type: Anesthesia Procedure Notes Filed: 08/14/2024 13:28 Note Text: ANESTHESIOLOGY PROCEDURE NOTE PIV General Information Procedure Start Time/Medication Administration: 08/14/2024 7:56 AM Procedure End Time: 08/14/2024 7:56 AM Patient Location: OR Staffing Anesthesiologist: Tray Montague MD EDUCATIONAL ADMINISTRATION TEACHER: Agata Mann APRN.EDUCATIONAL ADMINISTRATION TEACHER Performed by: anesthesiologist Preparation Sterility Preparation: hand hygiene performed prior to procedure, sterile gloves, drapes, and procedure tray, surgical cap used, mask used, skin prep agent completely dried prior to procedure Site Prep: Chloraprep Procedure Details Indication: need for IV access Needle Size/Type: 18 gauge angiocath Orientation: Right Location: Hand Imaging Guidance Used: No SIGNATURE: Agata Mann APRN.EDUCATIONAL ADMINISTRATION TEACHER PATIENT NAME: James Woods DATE: August 14, 2024 TIME: 9:00 AM CSN: [id number] NoteHNO ID: [id number] Author: AGATA MANN APRN.EDUCATIONAL ADMINISTRATION TEACHER Service: ? Author Type: Nurse Metal Tester Type: Anesthesia Procedure Notes Filed: 08/14/2024 09:00 Note Text: ANESTHESIOLOGY PROCEDURE NOTE Airway General Information Procedure Start Time/Medication Administration: 08/14/2024 7:58 AM Procedure End Time: 08/14/2024 7:58 AM Patient location during procedure: OR Timeout Performed Pre-procedure: timeout performed Consent Obtained: Yes Patient identity confirmed: arm band, care sports team manager and patient Staffing Anesthesiologist: Tray Montague MD EDUCATIONAL ADMINISTRATION TEACHER: Agata Mann APRN.EDUCATIONAL ADMINISTRATION TEACHER Performed by: KALIN Indications and Patient Condition Indications for airway management: anesthesia Preoxygenated: yes anesthesia circuit Patient position: sniffing Method: asleep Difficult Mask: No Airway Accessory: oral airway (90mm) Final Airway Details Final airway type: endotracheal airway Final Endotracheal Airway: ETT Cuffed: yes Successful intubation technique: direct laryngoscopy Devices used: intubating stylet Endotracheal tube insertion site: oral Blade: Betty Blade size: #3 ETT size (mm): 7.5 Measured from: lips Measurement (cm): 21 Placement verified by: chest auscultation and capnometry Cormack-Lehane Classification: grade IIa - partial view of glottis Number of attempts at approach: 1 Airway not difficult Comments Teeth and lips in pre-anesthetic condition. SIGNATURE: Agata Mann APRN.EDUCATIONAL ADMINISTRATION TEACHER PATIENT NAME: James Woods DATE: August 14, 2024 TIME: 8:59 AM CSN: [id number] History of Present illness Narrative* Annamarie Monroy, RT(R) - 08/06/2024 8:45 AM EST Radiology Service Progress Note PATIENT NAME: James Woods DATE OF SERVICE: August 06, 2024 TIME: 8:54 AM PATIENT IDENTITY VERIFICATION COMPLETED USING TWO (2) IDENTIFIERS: Name and Date of confirmedby patient verbally. FALL SCREENING: Has the patient had 2 falls in the last year or 1 fall with injury or currently using an Ambulatory Assistive Device (Walker, Cane, Wheelchair, Crutches, etc.)? No PATIENT GENDER DATA: Assigned female at . status: : No status:NO. PATIENT RELEVANT IMPLANT DATA REVIEWED: Not Applicable PATIENT PRESENTS WITH AN IMPLANTABLE OR ATTACHED BINDER AND BOX BUILDER: No RADIOLOGY DEPARTMENT: General X-ray: Exam(s) Completed: Chest X-Ray PERIPHERAL IV DATA: Not applicable SIGNED BY: RT Claudia(R) August 06, 2024 8:54 AM [facility]25 NoteHNO ID: [id number] Author: ANNAMARIE MONROY RT(R) Service: ? Author Type: Technologist Type: Progress Notes Filed: 08/06/2024 08:56 Note Text: Radiology Service Progress Note PATIENT NAME: James Woods DATE OF SERVICE: August 06, 2024 TIME: 8:54 AM PATIENT IDENTITY VERIFICATION COMPLETED USING TWO (2) IDENTIFIERS: Name and Date of confirmed by patient verbally. FALL SCREENING: Has the patient had 2 falls in the last year or 1 fall with injury or currently using an Ambulatory Assistive Device (Walker, Cane, Wheelchair, Crutches, etc.)? No PATIENT GENDER DATA: Assigned female at . status: : No status: NO. PATIENT RELEVANT IMPLANT DATA REVIEWED: Not Applicable PATIENT PRESENTS WITH AN IMPLANTABLE OR ATTACHED BINDER AND BOX BUILDER: No RADIOLOGY DEPARTMENT: General X-ray: Exam(s) Completed: Chest X-Ray PERIPHERAL IV DATA: Not applicable SIGNED BY: RT Claudia(Yamilet) August 06, 2024 8:54 [facility]01-16-2025 Instructions* Patient Instructions* Nhan Huynh APRN.BLOCKER METAL BASE - 08/06/2024 7:52 AM EST PATIENT PREOPERATIVE INSTRUCTIONS Chase Manning,* has scheduled you for your procedure at this surgery center: [facility]: [phone] --[id number] [address]. Please check in on the1st floor at registration desk 6. Please read below carefully for your personalized instructions. Dietary Restrictions: - No solid food after midnight. - You may have 12 ounces of clear liquids (water, clear juices such as apple juice or gatorade, carbonated beverages, clear tea, black coffee, jello) until 2 hours before scheduled arrival at facility. Medications: Unless instructed differently below, stay on all of your medications until your surgery. If you start any new medications after today's visit, please contact your surgeon. Please take these medications the morning of surgery: Levothyroxine(Synthroid), If you start any new medications after today's visit, please contact the surgeon's office. Blood Thinning Medications: - Stop NSAIDS (Ibuprofen, Advil, Aleve, Motrin, Celebrex, Mobic, etc.) 7 days before surgery, as directed by your surgeon. - Stop Aspirin 7 days before surgery, as directed by your surgeon. - Stop ALL herbal and dietary supplements 7 days before surgery. - You may take Tylenol (Acetaminophen) or any of your pain medications that do not contain aspirin or NSAIDS as needed. Important Reminders: - Candy, mints, and tobacco products are NOT permitted the morning of surgery. - Hearing aids, dentures and glasses may be worn the morning of surgery. - NO jewelry, body piercings, makeup, hairpins or contacts are to be worn the day of surgery. If you develop symptoms such as a fever, cold, or flu, or have other changes to your health within TWO DAYS of scheduled surgery or the morning of surgery, please contact the surgery center above. Personal Belongings: -Please have photo ID and insurance cards. -If you do not have a copy of advance directives on file with us, please bring a copy with you on the day of surgery. - Leave ALL valuables and money at home or with family members. For Outpatient Procedures: - YOU MUST HAVE A RESPONSIBLE BRANCH ASSOCIATE TELLER TAKE YOU HOME. A RECRUITING TEAM LEAD OR ADVOCACY DIRECTOR CANNOT BE MADE A RESPONSIBLE BRANCH ASSOCIATE TELLER. - We recommend that a responsible person stays with you overnight to take care of you. - You cannot stay in a hotel alone after outpatient surgery. You will not be permitted to have yoursurgery, if you do not have someone to take care of you. Arrival Time for Surgery: - The Surgery Center or hospital where you are having surgery will call the afternoon before surgery (or Saturday for Saturday surgery) with a scheduled arrival time. - If you have not heard by 4 pm, please contact the surgery center above. Please be aware that emergency situations arise, which may delay or change your surgical time. If this happens, we will notify you as soon as possible and regret any inconvenience. If you already have an Advance Directive, please fax a copy to [phone] or email to for it to be added to your chart. If you do not have an Advance Directive, you can find the appropriate form and more information at [email or web address]. We recommend that youcomplete the Advance Directive form found on the website and bring it with you the day of your surgery. It can be witnessed and scanned into your chart that day. Nhan Huynh APRN.CNP [facility] History and physical note * Nhan Huynh APRN.CNP - 08/06/2024 7:40 AM EST Images from the original note were not included. [facility] HISTORY AND PHYSICAL EXAMINATION SERVICE DATE: 08/06/2024 SERVICE TIME: 8:01 AM PRIMARY CARE PHYSICIAN: Marifer Boyle MD REASON FOR VISIT: James Woods is a 73 year old female who is scheduled for Bilateral - ROBOTIC LAPAROSCOPIC TOTALHYSTERECTOMY W/ BSO UTERUS=<250G at the request of Dr. Chase Manning for consultation. My final recommendation will be communicated back to the requesting physician by way of shared medical record or letter. Assessment Hypertension Assessment: Stable on medication Today 143/80 Does not complain of any chest pain, shortness of breath, lower extremity edema, or palpitations Hyperlipidemia Assessment: stable on medication Hypothyroid Assessment: stable on Levothyroxine(Synthroid) Former smoker Assessment: Current: 1.5 packs/day; Average: 1.5 packs/day for 25.1 years; Total pack years: 37.6; PONV (postoperative nausea and vomiting) Assessment: states gets PONV with Anesthesia Lou Activity Status Index: METS: Walk indoors, such as around the house (1.75 METs) Do light work around the house, such as dusting or washing dishes (2.70 METs) Take care of self; that is eating, dressing, bathing, using the toilet (2.75 METs) Walk a block or two on level ground (2.75 METs) Do moderate work around the house, such as vacuuming, sweeping floors, or carrying in groceries (3.50 METs) Do yardwork, such as raking leaves, weeding, or pushing a power mower (4.50 METs) Climb a flight of stairs or walk up a hill (5.50 METs) DASI Score: 23.45 Patient denies any chest pain or undue shortness of breath with the above physical activity. Clinical Frailty Scale: 2. Well STOP-Bang Score: Has or is being treated for high blood pressure Patient over 50 years old Denies snoring loudly Denies feeling tired, fatigued, or sleepy during the daytime Has not been observed to stop breathing or choking/gasping during sleep BMI less than or equal to 35 kg/m^2 Does not have a large neck Non-male patient STOP-Bang Score: 2 [id number] Score: Age: 65-74 Sex: female CHF history: No Hypertension history: Yes Stroke/TIA/thromboembolism history: No Vascular disease history: No Diabetes history: No [id number] Score: 3 ARISCAT Score: Age: 51-80 Preoperative SpO2: >=96% Respiratory infection in the last month: No Preoperative anemia: Yes Surgical incision: upper abdominal Duration of surgery: 2-3 hrs Emergency procedure: No ARISCAT Score: 45 ANESTHESIA FINDINGS: Intubation History: No history of difficult intubation. No abnormal airway history Significant Anesthesia Considerations: potential postop nausea/vomiting Airway History: No history of difficult airway No abnormal airway history I - PHYSICAL EVALUATION AIRWAY Patient intubated: No. Tracheostomy tube not present Mallampati: II. TM distance: >3 FB. Neck ROM: full ROM without neurological symptoms. Mouth opening: adequate. Short neck: no. Thick neck: no Dutton present: no Lip Bite Test: I Microretrognathia/Micronagthia/Recessed Chin: No DENTAL Dental findings: teeth intact. II - ANESTHESIA PLAN Anesthetic plan additional comments: *PACC/TCI - anesthesia choice. Beta Alysha Monitoring Plan Post Procedure Analgesic Plan Prepared for surgery: This patient is optimally prepared for surgery pending LABS, EKG, and CXR. CONSULTS: Patient does not require consults for optimization at this time. The Following Tests/Procedures Have Been Initiated: Orders Placed This Encounter Complete Blood Count and Differential Standing Status: Future Standing Expiration Date: 11/05/2024 CMP Standing Status: Future Standing Expiration Date: 11/05/2024 Confirm Blood Type Standing Status: Future Standing Expiration Date: 11/05/2024 Order Specific Question: Did Blood Bank direct you to place this order: Answer: No - Emergency ascorbic acid/bioflavonoids (SUZI C ORAL) Sig: Take by mouth once daily. polyethylene glycol 3350 (MIRALAX) 17 gram packet Sig: Take 17 g by mouth once daily. Dissolve dose in 4 - 8 ounces of liquid and take as directed. ECG (IN OFFICE) Planned Anesthetic: Per anesthesia choice Subjective CHIEF COMPLAINT: PMB HPI: 73 yo with c/o PMB. In February had 10 days of bleeding, started light, then heavy, then taperedoff. 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 Benton. Sono showed a thickened endometrium with possible polyp, and an echogenic lesion in the left ovary. CT was essentially normal, with an echogenic lesion in the left adnexa, but no ovarian masses/cysts or assoc signs of malignancy REVIEW OF SYSTEMS: PAIN ASSESSMENT: General: No weight loss, malaise or fevers. Neuro: No history of TIA's, stroke, SCHOOL AIDE tumor, impaired sensorium, hemiplegia, paraplegia or quadraplegia. No neurological symptoms or problems. Respiratory: Positive for Tobacco Use Former Smoker , Negative for No history of current cough or dyspnea, or pneumonia in the past 6 weeks. No history of respiratory/pulmonary symptoms or problems Cardiovascular: Positive for: HLD, Hypertension No history of angina, CHF, GA, cardiac surgery or stents. Denies rest pain, gangrene or revascularization/amputation for PVD GI: No history of GI symptoms or problems. No history of esophageal varices, recent ascites, or ETOH greater than 2 drinks per day. : No history of dysuria, frequency or incontinence,, stones or chronic kidney disease, No difficulty urinating, nocturia > 1 time per night or hematuria PATIENT SERVICES COORDINATOR: See HPI : Denies, No LMP recorded. Patient is postmenopausal. Endocrine: Hypothyroidism Hematology: No history of bleeding or clotting disorder. Pt is not taking anti- coagulation or platelet medications. No history of hematological symptoms or problems. Oncology: No history of CA metastasis, chemo within 30 days, or radiotherapy within 90 days. Has not lost 10% of body wt in 6 months. No history of oncological symptoms or problems. Psych: No history of psychiatric symptoms or problems. Marijuana use: No Musculoskeletal: Negative for joint pain or swelling, back pain or muscle pain. Skin: Negative for lesions, rash and itching. Implanted Devices: No The patient has the following: ACTIVE PROBLEM LIST Hypertension Hypothyroid Hyperlipidemia Current Smoker Ponv (Postoperative Nausea and Vomiting) Covid Immunization Dates Overdue - Covid-19 Vaccine () Overdue since 03/22/2024 09/01/2021 Imm Admin: COVID-19 original vaccine, age 12+ yr, monovalent (PFIZER- BIONTECH - CHRISTOPHER TOP) 02/02/2021 Imm Admin: COVID-19 original vaccine, age 12+ yr, monovalent (PFIZER- BIONTECH - PURPLE TOP) 01/12/2021 Imm Admin: COVID-19 original vaccine, age 12+ yr, monovalent (PFIZER- BIONTECH - PURPLE TOP) PAST MEDICAL HISTORY Diagnosis Date HLD (hyperlipidemia) HTN (hypertension) Hx of tonsillectomy Hypothyroidism PAST SURGICAL HISTORY Procedure Laterality Date D&C, DIAG AND/OR THERAPEUTIC D&C, DIAG AND/OR THERAPEUTIC REMOVAL GALLBLADDER TONSILLECTOMY & ADENOIDECTOMY URETHRAL DILATION, MALE SUBSQ FAMILY HISTORY Problem Relation Age of Onset Breast Cancer Mother Heart disease Mother Heart disease Father Heart disease Brother Diabetes Brother Stroke Maternal Grandmother Lung Cancer Paternal Grandfather Social History Tobacco Use Smoking status: Former Current packs/day: 1.50 Average packs/day: 1.5 packs/day for 25.1 years (37.6 ttl pk-yrs) Types: Cigarettes Start date: 07/01/1999 Smokeless tobacco: Never Tobacco comments: Quit in 1997 Vaping Use Vaping status: Never Used Substance Use Topics Alcohol use: Yes Comment: at least 1 mixed drink per day. Drug use: Not Currently Prior to Admission medications as of 08/06/24 0751 Medication Sig Last Dose Taking ascorbic acid/bioflavonoids (SUZI C ORAL) Take by mouth once daily. Yes [id number]-FISH OIL ORAL Take 2 tablets by mouth once daily. Yes multivit-min/ferrous fumarate (MULTI VITAMIN ORAL) Refill(s) 0 Yes lisinopril (ZESTRIL) 20 mg tablet .COMPLEX Yes levothyroxine (SYNTHROID) 137 mcg tablet once daily. Yes estradiol (ESTRACE) 0.01 % (0.1 mg/gram) vaginal cream INSERT 1 GRAM VAGINALLY SATURDAY, SATURDAY, and SATURDAY Yes amLODIPine (NORVASC) 5 mg tablet Take 5 mg by mouth once daily. Yes BIOTIN ORAL Take by mouth as directed. Yes atorvastatin (LIPITOR) 20 mg tablet .COMPLEX Yes polyethylene glycol 3350 (MIRALAX) 17 gram packet Take 17 g by mouth once daily. Dissolve dose in 4- 8 ounces of liquid and take as directed. No medication comments found. ALLERGIES Allergen Reactions Hydrocodone-Acetami* GI Upset Penicillins Hives, Rash, Unknown Objective PHYSICAL EXAM: VITALS: BP 143/80 Pulse 73 Temp (Src) 98.5 (Oral) Resp 16 Ht 5' 7 (1.70m) Wt 158 lb 11.7 oz (72.0kg) SpO2 98% BMI 24.85 kg/(m^2). General: Alert and oriented, No acute distress, Healthy appearance Skin: Normal color, no rash, no lesions. HEENT: EOM, pupils equal, round and reactive. Cardiovascular: Normal S1 & S2, no rubs, murmurs or gallops. No JVD. Pulse regular. Lungs: Normal breath sounds, no wheezes or crackles. Abdomen: Soft, non-tender, no rigidity., Positive bowel sounds Extremities: No deformity, no edema or tenderness, no joint swelling or clubbing. Neurological: Normal cognition and motor skills. Gait normal. No weakness or sensory deficit. Pulses: Carotid and radial pulses normal +2. Diagnostic tests reviewed for today's visit: Lab Value Units Date High Low HB No results within date range. HCT No results within date range. WBC No results within date range. PLT No results within date range. NA No results within date range. K No results within date range. GLUC No results within date range. BUN No results within date range. CREAT No results within date range. PTSEC No results within date range. INR No results within date range. APTT No results within date range. ALT No results within date range. AST No results within date range. TBILI No results within date range. TSH No results within date range. Lab Value Units Date High Low HCGQT No results within date range. UHCG No results within date range. HCG, BODY* No results within date range. Lab Value Units Date High Low ABORHD No results within date range. ABSCREEN No results within date range. ECG 12 lead Narrative Performed by [facility] Test Reason : Blood Pressure : */* mmHG Vent. Rate : 83 BPM Atrial Rate : 83 BPM P-R Int : 176 ms QRS Dur : 80 ms QT Int : 356 ms P-R-T Axes : 7 76 24 degrees QTcB Int : 418 ms Normal sinus rhythm Septal infarct , age undetermined Abnormal ECG No previous ECGs available Confirmed by [facility], [place] ([id number]) on 05/12/2024 2:37:47 PM Referred By: Electronically Signed By: DC CHENG MD [facility] Transcribed By: MUS Signed By Dc Cheng MD, [facility] 05/12/24 1437 No results found for: HBA1C All in Epic Instructions Given to Patient: Instructions located in the after visit summary. Patient given verbal and written preop instructions and voices comprehension and compliance. SIGNATURE: Nhan Huynh APRN.CNP PATIENT NAME: James Woods DATE: 08/06/2024 TIME: 8:06 AM [facility]01[facility] History and physical note* Nhan Huynh APRN.VALERIE - 08/06/2024 7:40 AM EST Images from the original note were not included. [facility] HISTORY AND PHYSICAL EXAMINATION SERVICE DATE: 08/06/2024 SERVICE TIME: 8:01 AM PRIMARY CARE PHYSICIAN: Marifer Boyle MD REASON FOR VISIT: James Woods is a 73 year old female who is scheduled for Bilateral - ROBOTIC LAPAROSCOPIC TOTALHYSTERECTOMY W/ BSO UTERUS=<250G at the request of Dr. Chase Manning for consultation. My final recommendation will be communicated back to the requesting physician by way of shared medical record or letter. Assessment Hypertension Assessment: Stable on medication Today 143/80 Does not complain of any chest pain, shortness of breath, lower extremity edema, or palpitations Hyperlipidemia Assessment: stable on medication Hypothyroid Assessment: stable on Levothyroxine(Synthroid) Former smoker Assessment: Current: 1.5 packs/day; Average: 1.5 packs/day for 25.1 years; Total pack years: 37.6; PONV (postoperative nausea and vomiting) Assessment: states gets PONV with Anesthesia Lou Activity Status Index: METS: Walk indoors, such as around the house (1.75 METs) Do light work around the house, such as dusting or washing dishes (2.70 METs) Take care of self; that is eating, dressing, bathing, using the toilet (2.75 METs) Walk a block or two on level ground (2.75 METs) Do moderate work around the house, such as vacuuming, sweeping floors, or carrying in groceries (3.50 METs) Do yardwork, such as raking leaves, weeding, or pushing a power mower (4.50 METs) Climb a flight of stairs or walk up a hill (5.50 METs) DASI Score: 23.45 Patient denies any chest pain or undue shortness of breath with the above physical activity. Clinical Frailty Scale: 2. Well STOP-Bang Score: Has or is being treated for high blood pressure Patient over 50 years old Denies snoring loudly Denies feeling tired, fatigued, or sleepy during the daytime Has not been observed to stop breathing or choking/gasping during sleep BMI less than or equal to 35 kg/m^2 Does not have a large neck Non-male patient STOP-Bang Score: 2 [id number] Score: Age: 65-74 Sex: female CHF history: No Hypertension history: Yes Stroke/TIA/thromboembolism history: No Vascular disease history: No Diabetes history: No [id number] Score: 3 ARISCAT Score: Age: 51-80 Preoperative SpO2: >=96% Respiratory infection in the last month: No Preoperative anemia: Yes Surgical incision: upper abdominal Duration of surgery: 2-3 hrs Emergency procedure: No ARISCAT Score: 45 ANESTHESIA FINDINGS: Intubation History: No history of difficult intubation. No abnormal airway history Significant Anesthesia Considerations: potential postop nausea/vomiting Airway History: No history of difficult airway No abnormal airway history I - PHYSICAL EVALUATION AIRWAY Patient intubated: No. Tracheostomy tube not present Mallampati: II. TM distance: >3 FB. Neck ROM: full ROM without neurological symptoms. Mouth opening: adequate. Short neck: no. Thick neck: no Dutton present: no Lip Bite Test: I Microretrognathia/Micronagthia/Recessed Chin: No DENTAL Dental findings: teeth intact. II - ANESTHESIA PLAN Anesthetic plan additional comments: *PACC/TCI - anesthesia choice. Beta Alysha Monitoring Plan Post Procedure Analgesic Plan Prepared for surgery: This patient is optimally prepared for surgery pending LABS, EKG, and CXR. CONSULTS: Patient does not require consults for optimization at this time. The Following Tests/Procedures Have Been Initiated: Orders Placed This Encounter Complete Blood Count and Differential Standing Status: Future Standing Expiration Date: 11/05/2024 CMP Standing Status: Future Standing Expiration Date: 11/05/2024 Confirm Blood Type Standing Status: Future Standing Expiration Date: 11/05/2024 Order Specific Question: Did Blood Bank direct you to place this order: Answer: No - Emergency ascorbic acid/bioflavonoids (SUZI C ORAL) Sig: Take by mouth once daily. polyethylene glycol 3350 (MIRALAX) 17 gram packet Sig: Take 17 g by mouth once daily. Dissolve dose in 4 - 8 ounces of liquid and take as directed. ECG (IN OFFICE) Planned Anesthetic: Per anesthesia choice Subjective CHIEF COMPLAINT: PMB HPI: 73 yo with c/o PMB. In February had 10 days of bleeding, started light, then heavy, then taperedoff. 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 Benton. Sono showed a thickened endometrium with possible polyp, and an echogenic lesion in the left ovary. CT was essentially normal, with an echogenic lesion in the left adnexa, but no ovarian masses/cysts or assoc signs of malignancy REVIEW OF SYSTEMS: PAIN ASSESSMENT: General: No weight loss, malaise or fevers. Neuro: No history of TIA's, stroke, SCHOOL AIDE tumor, impaired sensorium, hemiplegia, paraplegia or quadraplegia. No neurological symptoms or problems. Respiratory: Positive for Tobacco Use Former Smoker , Negative for No history of current cough or dyspnea, or pneumonia in the past 6 weeks. No history of respiratory/pulmonary symptoms or problems Cardiovascular: Positive for: HLD, Hypertension No history of angina, CHF, GA, cardiac surgery or stents. Denies rest pain, gangrene or revascularization/amputation for PVD GI: No history of GI symptoms or problems. No history of esophageal varices, recent ascites, or ETOH greater than 2 drinks per day. : No history of dysuria, frequency or incontinence,, stones or chronic kidney disease, No difficulty urinating, nocturia > 1 time per night or hematuria PATIENT SERVICES COORDINATOR: See HPI : Denies, No LMP recorded. Patient is postmenopausal. Endocrine: Hypothyroidism Hematology: No history of bleeding or clotting disorder. Pt is not taking anti- coagulation or platelet medications. No history of hematological symptoms or problems. Oncology: No history of CA metastasis, chemo within 30 days, or radiotherapy within 90 days. Has not lost 10% of body wt in 6 months. No history of oncological symptoms or problems. Psych: No history of psychiatric symptoms or problems. Marijuana use: No Musculoskeletal: Negative for joint pain or swelling, back pain or muscle pain. Skin: Negative for lesions, rash and itching. Implanted Devices: No The patient has the following: ACTIVE PROBLEM LIST Hypertension Hypothyroid Hyperlipidemia Current Smoker Ponv (Postoperative Nausea and Vomiting) Covid Immunization Dates Overdue - Covid-19 Vaccine () Overdue since 03/22/2024 09/01/2021 Imm Admin: COVID-19 original vaccine, age 12+ yr, monovalent (PFIZER- BIONTECH - CHRISTOPHER TOP) 02/02/2021 Imm Admin: COVID-19 original vaccine, age 12+ yr, monovalent (PFIZER- BIONTECH - PURPLE TOP) 01/12/2021 Imm Admin: COVID-19 original vaccine, age 12+ yr, monovalent (PFIZER- BIONTECH - PURPLE TOP) PAST MEDICAL HISTORY Diagnosis Date HLD (hyperlipidemia) HTN (hypertension) Hx of tonsillectomy Hypothyroidism PAST SURGICAL HISTORY Procedure Laterality Date D&C, DIAG AND/OR THERAPEUTIC D&C, DIAG AND/OR THERAPEUTIC REMOVAL GALLBLADDER TONSILLECTOMY & ADENOIDECTOMY <AGE 12 URETHRAL DILATION, MALE SUBSQ FAMILY HISTORY Problem Relation Age of Onset Breast Cancer Mother Heart disease Mother Heart disease Father Heart disease Brother Diabetes Brother Stroke Maternal Grandmother Lung Cancer Paternal Grandfather Social History Tobacco Use Smoking status: Former Current packs/day: 1.50 Average packs/day: 1.5 packs/day for 25.1 years (37.6 ttl pk-yrs) Types: Cigarettes Start date: 07/01/1999 Smokeless tobacco: Never Tobacco comments: Quit in 1997 Vaping Use Vaping status: Never Used Substance Use Topics Alcohol use: Yes Comment: at least 1 mixed drink per day. Drug use: Not Currently Prior to Admission medications as of 08/06/24 0751 Medication Sig Last Dose Taking ascorbic acid/bioflavonoids (SUZI C ORAL) Take by mouth once daily. Yes [id number]-EPA-FISH OIL ORAL Take 2 tablets by mouth once daily. Yes multivit-min/ferrous fumarate (MULTI VITAMIN ORAL) Refill(s) 0 Yes lisinopril (ZESTRIL) 20 mg tablet .COMPLEX Yes levothyroxine (SYNTHROID) 137 mcg tablet once daily. Yes estradiol (ESTRACE) 0.01 % (0.1 mg/gram) vaginal cream INSERT 1 GRAM VAGINALLY SATURDAY, SATURDAY, and SATURDAY Yes amLODIPine (NORVASC) 5 mg tablet Take 5 mg by mouth once daily. Yes BIOTIN ORAL Take by mouth as directed. Yes atorvastatin (LIPITOR) 20 mg tablet .COMPLEX Yes polyethylene glycol 3350 (MIRALAX) 17 gram packet Take 17 g by mouth once daily. Dissolve dose in 4- 8 ounces of liquid and take as directed. No medication comments found. ALLERGIES Allergen Reactions Hydrocodone-Acetami* GI Upset Penicillins Hives, Rash, Unknown Objective PHYSICAL EXAM: VITALS: BP 143/80 Pulse 73 Temp (Src) 98.5 (Oral) Resp 16 Ht 5' 7 (1.70m) Wt 158 lb 11.7 oz (72.0kg) SpO2 98% BMI 24.85 kg/(m^2). General: Alert and oriented, No acute distress, Healthy appearance Skin: Normal color, no rash, no lesions. HEENT: EOM, pupils equal, round and reactive. Cardiovascular: Normal S1 & S2, no rubs, murmurs or gallops. No JVD. Pulse regular. Lungs: Normal breath sounds, no wheezes or crackles. Abdomen: Soft, non-tender, no rigidity., Positive bowel sounds Extremities: No deformity, no edema or tenderness, no joint swelling or clubbing. Neurological: Normal cognition and motor skills. Gait normal. No weakness or sensory deficit. Pulses: Carotid and radial pulses normal +2. Diagnostic tests reviewed for today's visit: Lab Value Units Date High Low HB No results within date range. HCT No results within date range. WBC No results within date range. PLT No results within date range. NA No results within date range. K No results within date range. GLUC No results within date range. BUN No results within date range. CREAT No results within date range. PTSEC No results within date range. INR No results within date range. APTT No results within date range. ALT No results within date range. AST No results within date range. TBILI No results within date range. TSH No results within date range. Lab Value Units Date High Low HCGQT No results within date range. UHCG No results within date range. HCG, BODY* No results within date range. Lab Value Units Date High Low ABORHD No results within date range. ABSCREEN No results within date range. ECG 12 lead Narrative Performed by [facility] Test Reason : Blood Pressure : */* mmHG Vent. Rate : 83 BPM Atrial Rate : 83 BPM P-R Int : 176 ms QRS Dur : 80 ms QT Int : 356 ms P-R-T Axes : 7 76 24 degrees QTcB Int : 418 ms Normal sinus rhythm Septal infarct , age undetermined Abnormal ECG No previous ECGs available Confirmed by [facility], [place] ([id number]) on 05/12/2024 2:37:47 PM Referred By: Electronically Signed By: DC CHENG MD [facility] Transcribed By: MUS Signed By Dc Cheng MD, [facility] 05/12/24 9297 No results found for: HBA1C All in Epic Instructions Given to Patient: Instructions located in the after visit summary. Patient given verbal and written preop instructions and voices comprehension and compliance. SIGNATURE: Nhan Huynh APRN.CNP PATIENT NAME: James Woods DATE: 08/06/2024 TIME: 8:06 AM [facility] Telephone encounter Note * Telephone Encounter - Елена Amato RN - 07/24/2024 10:06 AM EST Procedure: Pelvic exam under anesthesia, laparoscopic removal of uterus, cervix, tubes and ovaries,possible : lymphadenectomy, omentectomy, blood transfusion, any other indicated procedure Physician: Chase Manning Location: [facility]: [phone] Date & Time: 08/14/24 MEDICAL CLEARANCE: TBD CARDIAC CLEARANCE: TBD PRE ADMISSION TESTIN08/06/24 AT: Todd Dubose THE FOLLOWING WAS EVALUATED Motivation To Learn: Interested Family/Significant Other Support: Unable to assess - Family not present Cognitive Ability: Alert and oriented Patient Learns Best By: Individual Instruction Verbal Instruction The Following Influencing Factors Were Barriers To This Education Session: None The Following Physical Limitations Were Barriers To This Education Session: None Instruction Provided To: Patient MEDICATION INFORMATION ASPIRIN and ADVIL can make you more prone to bleeding after surgery. Please STOP taking these medications at least (5) days before and for (3) days after surgery or procedure. Some common medicationsthat contain ASPIRIN or act like Aspirin are TO BE AVOIDED: This is a list of the medications you should avoid: Advill Celebrex Motrin Aggrenox Clinoril Naprosyn(naproxen) Agrylin NSAIDS Pepto-Bismol Aleve Ecotrin Persantine [place] Excedrin Plaquenil Anacin Heparin Plavix Ascriptin Herbals Pletal Aspergum Ibuprofen Ticlid Barrett Indocin Trental Bextra Midol [place] Bufferin Gingko Biloba Vitamin E (MVI) MEDICATIONS YOU MAY SUBSTITUTE Anacin 3 Fioricet * Tylenol with codeine * Darvocet N 100 * Plenadol Percocet * Datril Sine-Aide Tylenol Excedrin PM (*Denotes prescription needed to obtain these medications) Learning Topic: Pre/post op information Instructions reviewed for arrival time, parking and admission. Specific topics reviewed and discussed with all surgical patients include: No eating, drinking, or smoking after midnight prior to surgery. Medications as prescribed by anesthesia or the physician. Bowel Prep as indicated. None Review of information contained in surgical packet Pre-operative and intra-operative general activities were reviewed including: Holding Area, assessments, surgical positioning, and Family Waiting Area. Written post-operative instructions were given to the patient regarding post-op activity, pain control, symptoms to report. Post-operative instructions provided and reviewed with patient/family: ACTIVITY - No heavy lifting (>5-10 lbs), no pushing/pulling, OK to climb stairs DRIVING - No driving while taking prescription pain medication, or within 24 hours of anesthesia, OK to ride in a car. DIET - Advance diet as tolerated and as ordered by MD, drink 8 glasses of water a day, eat a diet high in protein and fiber unless otherwise directed by MD. CATHETER - Will be inserted during surgery, you may go home with a catheter. If you go home with a catheter you will have to come back to the office for a voiding trial, UTI symptoms reviewed and patient instructed to notify MD of any of these symptoms. INCISION CARE - Keep incision clean and dry, marquis to be removed 7-10 days after surgery, steristrips do not need to be removed by MD BATHING - OK to shower after surgery unless otherwise directed by MD, no tub baths. PAIN MEDICATION - IV pain medication after surgery, IV SOUND EFFECTS SUPERVISOR if ordered by MD, discharged home with aprescription for PO pain medication, pain management after surgery, side effects of pain medication(including constipation, dizziness, drowsiness, and medication interactions). DVT PROPHYLAXIS - Early ambulation, SCDs, injectable anticoagulants (heparin, lovenox, etc) RESPIRATORY - Incentive spirometer, coughing/deep breathing exercises, ambulation. RETURN TO WORK - As directed by physician, please send any FMLA papers to physician's admin secretary. SYMPTOMS TO NOTIFY MD - Fever, chills, nausea, vomiting, increased or severe pain, heavy vaginal bleeding, foul smelling vaginal drainage, pain or swelling in extremities. URGENT SYMPTOMS - Call 911 or go to ER if any shortness of breath, difficulty breathing, or chest pain. HOW TO CONTACT PHYSICIAN - Physician's office phone number given to patient, if after hours patientinstructed to call wastewater treatment plant operator and ask for the doctor chef concierge. Patient and family have phone number to call 24 hours/day. Patient Evaluation: Verbalizes understanding Patient and/or family express understanding of upcoming surgery and the operative process. Questions answered. Follow Up Plan: Follow up as needed Supplemental Material Given: Pre-operative teaching packet provided to the patient: INPATIENT/OUTPATIENT printed instructions; Post-operative instruction sheet, bowel prep instructionsheet For questions contact: Chase Manning's office at [phone] Instructed By Елена Amato RN Health01-03-2025 Miscellaneous Notes* Telephone Encounter - Елена Amato RN - 07/24/2024 10:06 AM EST Procedure: Pelvic exam under anesthesia, laparoscopic removal of uterus, cervix, tubes and ovaries,possible : lymphadenectomy, omentectomy, blood transfusion, any other indicated procedure Physician: Chase Manning Location: [facility]: [phone] Date & Time: 08/14/24 MEDICAL CLEARANCE: TBD CARDIAC CLEARANCE: TBD PRE ADMISSION TESTIN08/06/24 AT: Todd Dubose THE FOLLOWING WAS EVALUATED Motivation To Learn: Interested Family/Significant Other Support: Unable to assess - Family not present Cognitive Ability: Alert and oriented Patient Learns Best By: Individual Instruction Verbal Instruction The Following Influencing Factors Were Barriers To This Education Session: None The Following Physical Limitations Were Barriers To This Education Session: None Instruction Provided To: Patient MEDICATION INFORMATION ASPIRIN and ADVIL can make you more prone to bleeding after surgery. Please STOP taking these medications at least (5) days before and for (3) days after surgery or procedure. Some common medicationsthat contain ASPIRIN or act like Aspirin are TO BE AVOIDED: This is a list of the medications you should avoid: Advill Celebrex Motrin Aggrenox Clinoril Naprosyn(naproxen) Agrylin NSAIDS Pepto-Bismol Aleve Ecotrin Persantine [place]el[place] Excedrin Plaquenil Anacin Heparin Plavix Ascriptin Herbals Pletal Aspergum Ibuprofen Ticlid Barrett Indocin Trental Bextra Midol [place] Bufferin Gingko Biloba Vitamin E (MVI) MEDICATIONS YOU MAY SUBSTITUTE Anacin 3 Fioricet * Tylenol with codeine * Darvocet N 100 * Plenadol Percocet * Datril Sine-Aide Tylenol Excedrin PM (*Denotes prescription needed to obtain these medications) Learning Topic: Pre/post op information Instructions reviewed for arrival time, parking and admission. Specific topics reviewed and discussed with all surgical patients include: No eating, drinking, or smoking after midnight prior to surgery. Medications as prescribed by anesthesia or the physician. Bowel Prep as indicated. None Review of information contained in surgical packet Pre-operative and intra-operative general activities were reviewed including: Holding Area, assessments, surgical positioning, and Family Waiting Area. Written post-operative instructions were given to the patient regarding post-op activity, pain control, symptoms to report. Post-operative instructions provided and reviewed with patient/family: ACTIVITY - No heavy lifting (>5-10 lbs), no pushing/pulling, OK to climb stairs DRIVING - No driving while taking prescription pain medication, or within 24 hours of anesthesia, OK to ride in a car. DIET - Advance diet as tolerated and as ordered by MD, drink 8 glasses of water a day, eat a diet high in protein and fiber unless otherwise directed by MD. CATHETER - Will be inserted during surgery, you may go home with a catheter. If you go home with a catheter you will have to come back to the office for a voiding trial, UTI symptoms reviewed and patient instructed to notify MD of any of these symptoms. INCISION CARE - Keep incision clean and dry, marquis to be removed 7-10 days after surgery, steristrips do not need to be removed by MD BATHING - OK to shower after surgery unless otherwise directed by MD, no tub baths. PAIN MEDICATION - IV pain medication after surgery, IV SOUND EFFECTS SUPERVISOR if ordered by MD, discharged home with aprescription for PO pain medication, pain management after surgery, side effects of pain medication(including constipation, dizziness, drowsiness, and medication interactions). DVT PROPHYLAXIS - Early ambulation, SCDs, injectable anticoagulants (heparin, lovenox, etc) RESPIRATORY - Incentive spirometer, coughing/deep breathing exercises, ambulation. RETURN TO WORK - As directed by physician, please send any FMLA papers to physician's admin secretary. SYMPTOMS TO NOTIFY MD - Fever, chills, nausea, vomiting, increased or severe pain, heavy vaginal bleeding, foul smelling vaginal drainage, pain or swelling in extremities. URGENT SYMPTOMS - Call 911 or go to ER if any shortness of breath, difficulty breathing, or chest pain. HOW TO CONTACT PHYSICIAN - Physician's office phone number given to patient, if after hours patientinstructed to call wastewater treatment plant operator and ask for the doctor chef concierge. Patient and family have phone number to call 24 hours/day. Patient Evaluation: Verbalizes understanding Patient and/or family express understanding of upcoming surgery and the operative process. Questions answered. Follow Up Plan: Follow up as needed Supplemental Material Given: Pre-operative teaching packet provided to the patient: INPATIENT/OUTPATIENT printed instructions; Post-operative instruction sheet, bowel prep instructionsheet For questions contact: Chase Manning's office at [phone] Instructed By Елена Amato RN [facility] Instructions* Patient Instructions* Laurie Jones APRN.CNP - 07/01/2024 11:25 AM EST Images from the original note were not included. Please visit the following website for the [facility] surgery guide. [email or web address] PATIENT SURGICAL CHECKLIST - NEXT STEPS Your surgeon's office will call you to arrange your surgery date and pre- admission testing appointments. You should receive a call within 2-5 business days from our scheduling team. (If you do not receive a call within 5 days - please call [phone]) Pre-admission testing appointments include: - Preop anesthesia clearance with [facility] (pre-anesthesia consultation clinic). There are options for in person appointments or virtual appointments based on the recommendations from your surgeon. - Preop exam which can be done at the time of an in person pre-anesthesia appointment or by your surgeon's team depending on the complexity of your medical history. This needs to be done within 30 days of surgery. - Virtual shared preop nurse teaching appointment. - Lab work - Any other testing that the provider orders for prior to surgery if needed You will receive a call from the manager it security the business day prior to your surgery as to when and where to arrive on the day of your scheduled surgery PATIENT SERVICES COORDINATOR ONCOLOGY PHYSICIAN CONTACT INFORMATION ELYRIA [phone] Surgeons: Dr. Dorota Lin Director Of Instruction Oncology advanced practice providers: LOKI Wallis APRN.CNP Stephanie Hrnchar, APRN.CNP After 4:30 pm or on holidays or weekends, call: or . Ask the operatorto page the chemical radiation technician oncologist chef concierge. PRE-OPERATIVE CHECKLIST: PATIENT INSTRUCTIONS PRIOR TO SURGERY Our guidelines have changed, so please read these instructions carefully. Your surgery may be cancelled if you do not follow these instructions. MY ARRIVAL TIME IS: I have been instructed not to have any solid food to eat after midnight prior to my surgery (this includes no gum, mints, smoking). I am allowed to drink small amounts (up to 12 oz) of clear liquids up until 2 hours prior to my arrival time. Clear liquids include water, fruit juices without pulp, carbonated beverages (i.e. derek urban), electrolyte beverages (i.e. Gatorade), clear tea and black coffee, clear broth, popsicles and jello. (No milk). No alcohol the day before or day of surgery. I will bring this binder to all pre and post-operative appointments AND day of surgery. MEDICATION STOPPAGE: Unless my surgeon tells me differently, I will STOP THESE MEDICATIONS 7 DAYS PRIOR TO SURGERY: (Motrin/ibuprofen/Naproxen/Aleve/Advil), Aspirin, vitamin E, herbal medications, diet pills, and [id number]-[id number] medications. Tylenol (acetaminophen) is okay. I will not wear jewelry, body piercing(s), makeup, nail slovenian, hairpins, or contacts on the day ofsurgery. I am to leave valuables and money at home or with family members. If I am prescribed inhalers for breathing, I will use them and bring them to the hospital. Medication(s) to be taken on the morning of surgery with a few sips of water: If I am taking any of the following blood thinning medications - Aspirin, clopidogrel (Plavix), ticagrelor (Brilinta), prasugrel (Efficient), ticlodipine (Ticlid), warfarin (Coumadin), dibigatran (Pradaxa) or rivaroxaban (Xarelto) - I will discuss whether or not I should stop them before surgery with my surgeon. Discuss medication changes with your bakery worker or primary care physician as well. If I stopped taking my blood-thinning medication, I will ask the surgeon when to resume taking it. If I am an outpatient, a responsible person will drive me home and it was suggested that someone stay with me for 24 hours. I understand that a mid level business analyst or cabdriver is NOT a responsible caregiver. Patients with diabetes,I will not take my morning diabetes medication (pills) on the morning of surgery. If I am on insulin, someone has gone over those instructions with me for the morning of surgery. I understand if my surgery is delayed, I will notify the check in desk that I have diabetes. See the Diabetic GuidelinesBefore Surgery in the patient education section. If I have Obstructive Sleep Apnea and use a CPAP/BiPAP machine, I will bring my mask, tubing, and machine with me on the day of surgery. Pain management education material found in Your Surgical Guide was reviewed with me. To find out my arrival time for surgery, I must call my surgical nurse practitioner after 2pm the day beforesurgery. Pre-operative instructions given by: PREOP INSTRUCTIONS THE DAY OF SURGERY/CHECK IN Report to DESK 1-9 for surgery. A map is located in Your Surgical Guide Book. The online version of the surgical guide book can be found at: [email or web address] The address is [address] [place] [address] INFECTION PREVENTION Please notify your doctor if you have any signs of an infection (i.e. fever, severe cough, nasal congestion, pain with urination, abnormal vaginal discharge, diarrhea, etc). Your surgeon will let you know if a bowel prep is needed before your surgery. If so, please see theattached instructions. Shower the night before surgery AND the morning of surgery with Hibiclens (provided by your surgeon). If you are allergic to Hibiclens or unable to obtain the Hibiclens, please wash with antibacterial soap. Wash your body from the neck down, focusing on your abdomen, belly button and external genitalia. Do not forget to scrub any skin folds and creases. No lotions, oils, creams, or powders after your shower. Underarm deodorant is okay. No shaving (abdominal or pubic hair) or douching the day before surgery. You may be asked to apply an antiseptic solution called Chlorhexidine Gluconate (CHG) which will beprovided to you on arrival to the preop area. Hand washing is extremely important in preventing infection (for both you as the patient and for the caregivers). HOSPITALIZATION Before you leave the hospital, you typically need to be able to eat/drink, urinate, and have your pain controlled with oral medication. Your surgeon or other members of your surgeon s team will discuss any other specific medical issues related to your discharge with you. Your surgeon may order intermittent compression sleeves. These are massaging leg pumps to help prevent blood clots after surgery. See Your Surgical Guide Book for more information. It is also very important that you walk as soon as possible and as frequently as possible after surgery. This will help decrease your risk of blood clots, exercise your lungs and speed up your recovery after surgery. If you are admitted to the hospital overnight, you will be given an incentive spirometer, which is a breathing machine that will help make sure that you are taking deep breaths and expanding your lungs while in the hospital. See Your Surgical Guide Book for more information. [facility] TEAM At the [facility], we have a multidisciplinary team of caregivers that includes fellows, residents, nurse practitioners, physician assistants, clinical nurse specialists, nurses, medical assistants, patient care nursing assistants, social workers, upper caser and many others. We all have different roles and responsibilities but we are all here to help. POSTOP: LAPAROSCOPIC SURGERY WHAT TO EXPECT AT HOME Recovery from surgery is generally 2-6 weeks, but sometimes longer for more strenuous activity. It is normal to be very tired during this time. It is normal to have some drainage or a small amount of vaginal bleeding after surgery which may last up to 6 weeks. You will most likely experience gas pain, abdominal swelling, or shoulder pain for 24-72 hours after surgery. This is from the carbon dioxide gas put into your abdomen to better visualize your organs. A warm shower, heating pad, and/or walking may help. You will have 1-5 small incisions on your abdomen. There will be dissolvable stitches under your skin that do not need to be removed. You will also have surgical glue or steri-strips (paper tape) on the incisions. These may be removed when they start to fall off on their own, or in 7-10 days. ACTIVITY No heavy lifting/pushing/pulling for 4-6 weeks. Do not lift anything more than 10-15 lbs (such as laundry, groceries, children, pets), vacuum, push heavy doors or grocery carts, etc. You may climb stairs as tolerated. Do not put anything in the vagina for 6 weeks after surgery unless otherwise instructed by your doctor (including tampons, douching, sexual intercourse, etc). No driving for about 2-3 weeks after surgery, while you are taking narcotic pain medication, or until you feel that you are ready. Avoid sitting or lying in bed for more than 2 hours at a time while you are awake to reduce your risk of blood clots. Return to work when directed by your surgeon. Please contact your surgeon s office if any FMLA or other paperwork is needed. WOUND CARE You will have 1-5 small incisions on your abdomen. If you have a dressing (big, white, square band-aid), please remove it 24 hour after your surgery. You may have surgical glue or steri-strips on theincisions and these may be removed once they start to fall off. Shower daily after surgery. Wash your incision with antibacterial soap (such as Dial). Pat your incision dry with a clean towel. No tub baths until wound is completely healed. Wash your hands frequently, especially before touching your incision, changing any dressings, afterusing the restroom, and before eating. PAIN MANAGEMENT You will be given prescriptions for a variety of pain medications (opioid and non-opioid) before you leave the hospital. Surgery will cause pain and everyone has a different pain tolerance. It is safer to find the right combination and amount of medicine to manage your pain. We recommend that you take the non-opioid medication (acetaminophen and ibuprofen) on a regular schedule after surgery. You can take these medications on an alternating schedule so that you are taking one or the other every 3-4 hours. The maximum total daily dose of acetaminophen is 4,000mg and the maximum totaldaily dose of ibuprofen is 2,400mg. Take the opioid prescription ONLY when your pain is severe and never take more pills or more frequent doses than prescribed. Opioids (narcotics) can cause serious side effects. The risks increase the longer they are used. Taking opioids may cause: constipation, drowsiness, itching, nausea/vomiting. More serious side effects of opioids may include: addiction or dependence, life threatening overdose, or dizziness leading to falls/injury. Keep your pain medication locked in a safe place. Never share your pain medication with others. If you have any remaining opioid pills after you recover from surgery, please bring them to a medication disposal station (located in many of the [facility] pharmacies). Do not flush them down the toilet. Constipation is a common problem after surgery. You should take a stool softener (i.e. colace) twice a day, especially if you are taking opioids. If a stool softener alone is not helping to manage your constipation, you can also take Miralax and/or milk of magnesia as needed. WHEN TO CALL THE DOCTOR Call your doctor if you have any of the following symptoms: Fever (>100.4 F or 38.0 C) or chills. Incision problems such as redness, warmth, swelling, or foul smelling drainage. Severe nausea or persistent vomiting. Bright red vaginal bleeding (soaking >1 pad/hour) or foul smelling vaginal drainage. Severe pain not relieved with pain medication. Pain and swelling in your legs, especially if it is only on one side and not the other. Pain with urination, cloudy urine, or foul smelling urine. Or if you have any other problems or questions. CALL 911 or go to the ED if you have any shortness of breath, difficulty breathing, or chest pain. [facility] History of Present illness Narrative* Chase Manning MD - 07/01/2024 10:00 AM EST Images from the original note were not included. DATE OF SERVICE: 07/01/2024 REASON FOR VISIT: PMB, echogenic lesion left adnexa-[facility] Consultation requested by Dr. Benton. My final recommendations will be communicated back to the requesting physician by way of shared Medical record or letter to requesting physician via US mail. Communication back to the referring provider will be sent by way of medical record. DIAGNOSIS: atypical epithelial cells on path. HPI: James Woods is a 73 yo with a PMH of HTN, HLD, and hypothyroid. Patient presented to Dr Benton in February with c/o PMB. 10 days of bleeding, started light, then heavy, then tapered off. 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 Benton. Sono showed a thickened endometrium with possible polyp, and an echogenic lesion in the left ovary. CT was essentially normal, with an echogenic lesion in the left adnexa, but no ovarian masses/cysts or assoc signs of malignancy. Seeimaging below. On 05/27/2024 she underwent D&C with findings of: PATHOLOGY: fragments of benign endometrial stroma and cervical mucosa, with a MINUTE FOCUS OF MARKED EPITHELIAL ATYPIA Patient states she feels good overall. Patient reports bowel and bladder issues. She had her urethra stretched 3 years ago[address] She sees Dr[address] Cruz. She has diverticulosis. She is taking miralax and thathas helped. No bleeding, discharge, or pain. No shortness of breath, cough, or chest pain. [facility] path review: FINAL DIAGNOSIS Outside case [id number], collected 05/27/2024 Endometrium, curettage: - Limited superficial inactive endometrium (see comment). - Predominantly benign squamous and endocervical epithelium with atrophic changes. DATE OF LAST VISIT: n/a OBSTETRIC/ GYNECOLOGY HISTORY: Gynecologic surgery: D&C LMP: menopause Last Pap: 03/14-neg Last HPV: unsure-never PAST MEDICAL HISTORY Diagnosis Date HLD (hyperlipidemia) HTN (hypertension) Hx of tonsillectomy Hypothyroidism PAST SURGICAL HISTORY Procedure Laterality Date D&C, DIAG AND/OR THERAPEUTIC REMOVAL GALLBLADDER TONSILLECTOMY & ADENOIDECTOMY <AGE 13 URETHRAL DILATION, MALE SUBSQ Family History Problem Relation Age of Onset Breast Cancer Mother Heart disease Mother Heart disease Father Heart disease Brother Diabetes Brother Stroke Maternal Grandmother Lung Cancer Paternal Grandfather RECENT IMAGING: Date: 03/30/2024-CT ABD PEL- FINDINGS: Uterus is unremarkable. Left ovary contains a 7 mm calcification. However, no fat is present. Therefore, this is an incidental finding and a dermoid or teratoma is not confirmed. Right adnexa is unremarkable. No free fluid is present. There is moderate degenerative change of the hips. No fracture or osteolysis is apparent. IMPRESSION: Isolated small calcification in the left ovary. No additional features to suggest a teratoma are identified at this time. This is generally considered an incidental finding. Sonographic followup to document stability is recommended. All CT scans at this institution are performed using dose optimization techniques as appropriate for the performed exam including the following: Automated exposure control Adjustment of the mA and/or kV according to patient size Use of iterative reconstruction technique Date: 03/30/20241176-ikduxbvhik-fvdjlr HEALTH MAINTENANCE: Last mammogram: UTD normal Last colonoscopy: less than 5 years-needs 5 year follow up ECOG performance status ECOG PERFORMANCE STATUS: 0- Fully active, able to carry on all pre-disease performance w/o restriction. REVIEW OF SYSTEMS PAIN ASSESSMENT: Negative for pain, history of chronic pain, or current treatment for a chronic pain condition. GENERAL: No weight loss, malaise or fevers HEENT: Negative for frequent or significant headaches, No changes in hearing or vision, no nose bleeds or other nasal problems NECK: Negative for lumps, goiter, pain and significant neck swelling RESPIRATORY: Negative for cough, hemoptysis, wheezing, COPD, dyspnea or shortness of breath CARDIOVASCULAR: occasional palpitations-currently being treated, + HTN, neg CAD GI: No nausea, vomiting, or diarrhea : stopped estradiol cream, had UTI after D&C-completed antibiotics PATIENT SERVICES COORDINATOR: SEE HPI MUSCULOSKELETAL: Negative for joint pain or swelling, back pain or muscle pain SKIN: Negative for lesions, rash, and itching PSYCH: Negative for sleep disturbance, mood disorder and recent psychosocial stressors HEMATOLOGY/LYMPHOLOGY: Negative for prolonged bleeding, bruising easily or swollen nodes ENDOCRINE:neg DM on thyroid meds NEURO: No history of headaches, syncope, paralysis, seizures or tremors 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 GENERAL: alert, oriented, pleasant, and cooperative. HEART: Regular rate and rhythm, no murmurs. LUNGS: Clear to auscultation bilaterally. Good air exchange. ASSESSMENT: James Woods is a 73 year old y.o with PMH of HTN, HLD, and hypothyroid and PSH of d&c and gallbladder removal who presents for evaluation of PMB, thickened endometrium and echogenic lesion left adnexa-CAH. Documentation reviewed: office notes obgyn Pathology reviewed: 05/27/2022 pathology and [facility] path review Imaging reviewed: 04/07CT scan ,03/30/24 US (ET 12.5mm, left ovary 13mm echogenic structure with posterior shadowing and indistinct borders) PMB, thickened endometrium Reviewed D&C/hysteroscopy pathology which on [facility] reviewed and determine to be benign. There wasno polypoid structure visualized on hysteroscopy. It does not appear that the pathology reflects the endometrial thickening and with continued ongoing bleeding we discussed hysterectomy as a definitive option for complete pathologic evaluation. My concern for invasive cancer is low however cannot be ruled out without further sampling. Alternatively we can proceed with repeat hysteroscopy however if previous sample was limited and non diagnostic we may have the same problem. At this time patientwould like to move forward with hysterectomy. Discussed r/b/a in detail Echogenic left adnexal lesion I discussed possible etiologies including benign, borderline or malignant pathology. I discussed options of surgical intervention versus continued imaging surveillance. We discussed the r/b of each option. At this time patient would like to proceed with BSO time of hysterectomy with frozen pathology if concerning visible features and concurrent staging if necessary. We discussed the r/b/a of TLH, BSO, possible staging in detail and informed consent was obtained. PLAN: OR 08/14 per patient request Pre-op labs ordered - to include tumor markers SCRIBE ATTESTATION: By signing my name below, IMargaret Medical Scribe attest that this documentation has been prepared under the direction and in the presence of Chase Manning MD Electronically Signed: Socrates Christensen. July 01, 2024 10:34 AM. Chase Manning MD Medical Decision Making: Problems: Moderate: New problem with uncertain prognosis Data: Unique test result(s) reviewed: 3+ Independent interpretation of test from other physician/QHCP Risk: Moderate: Decision on elective major surgery w/o risk factors Medical Decision Making Level: 4 - Moderate No primary care provider on file. No referring provider defined for this encounter. [facility] NoteHNO ID: [id number] Author: CHASE MANNING MD Service: ? Author Type: Physician Type: Progress Notes Filed: 07/01/2024 11:51 Note Text: DATE OF SERVICE: 07/01/2024 REASON FOR VISIT: PMB, echogenic lesion left adnexa-CAH Consultation requested by Dr. Benton. My final recommendations will be communicated back to the requesting physician by way of shared Medical record or letter to requesting physician via US mail. Communication back to the referring provider will be sent by way of medical record. DIAGNOSIS: atypical epithelial cells on path. HPI: James Woods is a 73 yo with a PMH of HTN, HLD, and hypothyroid. Patient presented to Dr Benton in February with c/o PMB. 10 days of bleeding, started light, then heavy, then tapered off. 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 Benton. Sono showed a thickened endometrium with possible polyp, and an echogenic lesion in the left ovary. CT was essentially normal, with an echogenic lesion in the left adnexa, but no ovarian masses/cysts or assoc signs of malignancy. See imaging below. On 05/27/2024 she underwent DANDC with findings of: PATHOLOGY: fragments of benign endometrial stroma and cervical mucosa, with a MINUTE FOCUS OF MARKED EPITHELIAL ATYPIA Patient states she feels good overall. Patient reports bowel and bladder issues. She had her urethra stretched 3 years ago[address] She sees Dr[address] Cruz. She has diverticulosis. She is taking miralax and that has helped. No bleeding, discharge, or pain. No shortness of breath, cough, or chest pain. [facility] path review: FINAL DIAGNOSIS Outside case [id number], collected 05/27/2024 Endometrium, curettage: - Limited superficial inactive endometrium (see comment). - Predominantly benign squamous and endocervical epithelium with atrophic changes. DATE OF LAST VISIT: n/a OBSTETRIC/ GYNECOLOGY HISTORY: Gynecologic surgery: DANDC LMP: menopause Last Pap: 03/14-neg Last HPV: unsure-never PAST MEDICAL HISTORY Diagnosis Date HLD (hyperlipidemia) HTN (hypertension) Hx of tonsillectomy Hypothyroidism PAST SURGICAL HISTORY Procedure Laterality Date DANDC, DIAG AND/OR THERAPEUTIC REMOVAL GALLBLADDER TONSILLECTOMY AND ADENOIDECTOMY URETHRAL DILATION, MALE SUBSQ Family History Problem Relation Age of Onset Breast Cancer Mother Heart disease Mother Heart disease Father Heart disease Brother Diabetes Brother Stroke Maternal Grandmother Lung Cancer Paternal Grandfather RECENT IMAGING: Date: 03/30/2024-CT ABD PEL- FINDINGS: Uterus is unremarkable. Left ovary contains a 7 mm calcification. However, no fat is present. Therefore, this is an incidental finding and a dermoid or teratoma is not confirmed. Right adnexa is unremarkable. No free fluid is present. There is moderate degenerative change of the hips. No fracture or osteolysis is apparent. IMPRESSION: Isolated small calcification in the left ovary. No additional features to suggest a teratoma are identified at this time. This is generally considered an incidental finding. Sonographic followup to document stability is recommended. All CT scans at this institution are performed using dose optimization techniques as appropriate for the performed exam including the following: Automated exposure control Adjustment of the mA and/or kV according to patient size Use of iterative reconstruction technique Date: 03/30/20243853-byfxpuikgf-zacayy HEALTH MAINTENANCE: Last mammogram: UTD normal Last colonoscopy: less than 5 years-needs 5 year follow up ECOG performance status ECOG PERFORMANCE STATUS: 0- Fully active, able to carry on all pre-disease performance w/o restriction. REVIEW OF SYSTEMS PAIN ASSESSMENT: Negative for pain, history of chronic pain, or current treatment for a chronic pain condition. GENERAL: No weight loss, malaise or fevers HEENT: Negative for frequent or significant headaches, No changes in hearing or vision, no nose bleeds or other nasal problems NECK: Negative for lumps, goiter, pain and significant neck swelling RESPIRATORY: Negative for cough, hemoptysis, wheezing, COPD, dyspnea or shortness of breath CARDIOVASCULAR: occasional palpitations-currently being treated, + HTN, neg CAD GI: No nausea, vomiting, or diarrhea : stopped estradiol cream, had UTI after DANDC-completed antibiotics PATIENT SERVICES COORDINATOR: SEE HPI MUSCULOSKELETAL: Negative for joint pain or swelling, back pain or muscle pain SKIN: Negative for lesions, rash, and itching PSYCH: Negative for sleep disturbance, mood disorder and recent psychosocial stressors HEMATOLOGY/LYMPHOLOGY: Negative for prolonged bleeding, bruising easily or swollen nodes ENDOCRINE:neg DM on thyroid meds NEURO: No history of headaches, syncope, paralysis, seizures or tremors 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 Julio César Benton MD Obstetrics and Gynecology Patient: James Woods, : 1950 (73 y.o.) DOS 06/10/24 Exam Date: 06/10/2024 HPI: Pt is 2 weeks postop hysteroscopy/D+C for PMB. She is well. The uterine cavity looked normal and the endometrium was thin atrophic. PATHOLOGY: fragments of benign endometrial stroma and cervical mucosa, with a MINUTE FOCUS OF MARKED EPITHELIAL ATYPIA Visit Vitals BP 120/70 Wt 139 lb BMI 21.77 kg/m OB Status Postmenopausal Smoking Status Never BSA 1.73 m OB History Para Term AB Living 2 2 2 0 0 2 SAB IAB Ectopic Multiple Live Births 0 0 0 0 2 # Outcome Date GA Lbr Dean/2nd Weight Sex Type Anes PTL Lv 2 Term 1 Term Obstetric Comments Pap: 03/14-Neg EDER Mammo: Up to date and normal Menopausal Medication and Allergies Medication Documentation Review Audit Reviewed by Stephanie Easley MA (Renovator Machine Operator) on 06/10/24 at 1022 Medication Order Taking? Sig Documenting Provider Last Dose Status amLODIPine (Norvasc) 5 MG tablet [id number] Daily Julio César Benton MD Active atorvastatin (Lipitor) 20 MG tablet [id number] .COMPLEX Julio César Benton MD Active estradiol (Estrace) 0.1 MG/GM vaginal cream [id number] INSERT 1 GRAM VAGINALLY SATURDAY, SATURDAY, andSATURDAY Julio César Benton MD Active levothyroxine (Synthroid, Levoxyl) 112 MCG tablet [id number] 1 (one) time each day at the same time Julio César Benton MD Active lisinopril 20 MG tablet [id number] 20 mg Julio César Benton MD Active Macrobid 100 MG capsule [id number] Yes Take 100 mg by mouth Julio César Benton MD Active Allergies Allergen Reactions Hydrocodone Dizziness, Hives and GI intolerance Penicillamine Rash Penicillins Hives, Rash and Unknown Past Medical History: Diagnosis Date High blood pressure (CMS/HCC) Past Surgical History: Procedure Laterality Date CHOLECYSTECTOMY DILATION AND CURETTAGE OF UTERUS OTHER SURGICAL HISTORY Urethral dilation TONSILLECTOMY VAGINAL DELIVERY x2 Physical Exam: Objective OBGyn Exam Associated Treatments and Results - ICD-10-CM 1. PMB (postmenopausal bleeding) N95.0 2. Surgery follow-up Z09 3. Endometrial hyperplasia with atypia N85.02 I discussed the potential implications of endometrial atypia. I don't know the source of the abnormal tissue as the uterine cavity was hysteroscopically normal. Will refer to GynOnc for recommendations on further eval/tx Assessment/Plan No orders of the defined types were placed in this encounter. documented in this encounterChristian [id number] [facility] Discharge instructions Patient Education 06/09/2024 13:58:55 Atrophic Vaginitis Atrophic Vaginitis Atrophic vaginitis is [...] the vagina to get thinner and dryer. Thevagina may also shrink in size. It may [...] symptoms are. Treatment may include: Using an unqz-cyo-ddndwul vaginal lubricant before sex. Using a long-acting [...] Follow these instructions at home: Medicines Take ydkv-fmp-pxhzzuw and prescription medicines only as told by your health care provider. Do not use herbal or alternative medicines unless your health care provider says that you can. Use wwvi-kjd-yhlrqlv creams, lubricants, or moisturizers for dryness only [...] provider. Document Revised: 01/05/2021 Document Reviewed: 01/05/2021 [employer] Patient Education 2023 [employer]. 06/09/2024 13:58:53 Urinary Tract Infection, Adult Urinary Tract Infection, Adult A urinary tract infection (UTI) is an infection of any part of the urinary tract. The urinary tractincludes the kidneys, ureters, bladder, and urethra. These organs make, store, and get rid of urinein the body. An upper UTI affects the ureters and kidneys. A lower UTI affects the bladder and urethra. What are the causes? Most urinary tract infections are caused by bacteria in your genital area around your urethra, where urine leaves your body. These bacteria grow and cause inflammation of your urinary tract. What increases the risk? You are more likely to develop this condition if: You have a urinary catheter that stays in place. You are not able to control when you urinate or have a bowel movement (incontinence). You are female and you: ?Use a spermicide or diaphragm for control. ?Have low estrogen levels. ?Are . You have certain genes that increase your risk. You are sexually active. You take antibiotic medicines. You have a condition that causes your flow of urine to slow down, such as: ?An enlarged prostate, if you are male. ?Blockage in your urethra. ?A kidney stone. ?A nerve condition that affects your bladder control (neurogenic bladder). ?Not getting enough to drink, or not urinating often. You have certain medical conditions, such as: ?Diabetes. ?A weak disease-fighting system (immunesystem). ?Sickle cell disease. ?Gout. ?Spinal cord injury. What are the signs or symptoms? Symptoms of this condition include: Needing to urinate right away (urgency). Frequent urination. This may include small amounts of urine each time you urinate. Pain or burning with urination. Blood in the urine. Urine that smells bad or unusual. Trouble urinating. Cloudy urine. Vaginal discharge, if you are female. Pain in the abdomen or the lower back. You may also have: Vomiting or a decreased appetite. Confusion. Irritability or tiredness. A fever or chills. Diarrhea. The first symptom in older adults may be confusion. In some cases, they may not have any symptoms until the infection has worsened. How is this diagnosed? This condition is diagnosed based on your medical history and a physical exam. You may also have other tests, including: Urine tests. Blood tests. Tests for STIs (sexually transmitted infections). If you have had more than one UTI, a cystoscopy or imaging studies may be done to determine the cause of the infections. How is this treated? Treatment for this condition includes: Antibiotic medicine. Nfhw-yea-hlimxyz medicines to treat discomfort. Drinking enough water to stay hydrated. If you have frequent infections or have other conditions such as a kidney stone, you may need to see a health care provider who specializes in the urinary tract (urologist). In rare cases, urinary tract infections can cause sepsis. Sepsis is a life- threatening condition that occurs when the body responds to an infection. Sepsis is treated in the hospital with IV antibiotics, fluids, and other medicines. Follow these instructions at home: Medicines Take hvlw-xfw-itzyukb and prescription medicines only as told by your health care provider. If you were prescribed an antibiotic medicine, take it as told by your health care provider. Do notstop using the antibiotic even if you start to feel better. General instructions Make sure you: ?Empty your bladder often and completely. Do not hold urine for long periods of time. ?Empty your bladder after sex. ?Wipe from front to back after urinating or having a bowel movement if you are female. Use each tissue only one time when you wipe. Drink enough fluid to keep your urine pale yellow. Keep all follow-up visits. This is important. Contact a health care provider if: Your symptoms do not get better after 1 2 days. Your symptoms go away and then return. Get help right away if: You have severe pain in your back or your lower abdomen. You have a fever or chills. You have nausea or vomiting. Summary A urinary tract infection (UTI) is an infection of any part of the urinary tract, which includes the kidneys, ureters, bladder, and urethra. Most urinary tract infections are caused by bacteria in your genital area. Treatment for this condition often includes antibiotic medicines. If you were prescribed an antibiotic medicine, take it as told by your health care provider. Do notstop using the antibiotic even if you start to feel better. Keep all follow-up visits. This is important. This information is not intended to replace advice given to you by your health care provider. Make sure you discuss any questions you have with your health care provider. Document Revised: 02/12/2021 Document Reviewed: 02/17/2021 [employer] Patient Education 2023 [employer]. Follow Up Care 06/05/2024 13:18:13 With:ANTHONY BYRD, Alonso Woodard, URL Address: [address] [place] [id number] When: Unknown Comments:poss cysto/UD [facility] 11-19-2024 Evaluation + Plan note Diagnostic Tests Pending * Urine Culture 06/09/24 [facility] 11-19-2024 NotePatient Education Obstetrics and Gynecology Atrophic Vaginitis Atrophic [...] the vagina to get thinner and dryer. Thevagina may also shrink in size. It may [...] more likely to develop this condition if: ??? You are taking medicines that block estrogen. ??? You have had your ovaries removed. ??? You are being treated for cancer with radiation or medicines (chemotherapy). ??? You have given or are . ??? You are older than age 50. ??? You smoke. What are the signs or symptoms? Symptoms of this condition include: ??? Pain, soreness, a feeling of pressure, or bleeding during sex (dyspareunia). ??? Vaginal burning, irritation, or itching. ??? Pain or bleeding when a speculum is used in a vaginal exam. ??? Having burning pain while urinating. ??? Vaginal discharge. In some cases, there are no symptoms. How is this diagnosed? This condition is diagnosed based on your medical history and a physical exam. This will include a pelvic exam that checks the vaginal tissues. Though rare, you may also have other tests, including: ??? A urine test. ??? A test that checks the acid balance in your vagina (acid balance test). How is this treated? Treatment for this condition depends on how severe your symptoms are. Treatment may include: ??? Using an vyas-avn-djguhlm vaginal lubricant before sex. ??? Using a long-acting vaginal moisturizer. ??? Using low-dose estrogen for moderate to severe [...] treatment. Follow these instructions at home: Medicines ??? Take hwxe-siw-bcvlgna and prescription medicines only as told by your health care provider. ??? Do not use herbal or alternative medicines unless your health care provider says that you can. ??? Use kbcl-pkb-nijdsla creams, lubricants, or moisturizers for dryness only as told by your health care provider. General instructions ??? If your atrophic vaginitis is caused by menopause, discuss all of your menopause symptoms and treatment options with your health care provider. ??? Do not douche. ??? Do not use products that can make your vagina dry. These include: ? Scented feminine sprays. ? Scented tampons. ? Scented soaps. ??? Vaginal sex can help to improve blood flow and elasticity of vaginal tissue. If you choose to have sex and it hurts, try using a water-soluble lubricant or moisturizer right before having sex. Contact a health care provider if: ??? Your discharge looks different than normal. ??? Your vagina has an unusual smell. ??? You have new symptoms. ??? Your symptoms do not improve with treatment. ??? Your symptoms get worse. Summary ??? Atrophic vaginitis is a condition in which the tissues that line the vagina become dry and thin. It is most common in women who have stopped having regular menstrual periods (are in menopause). ??? Treatment options include using vaginal lubricants and low-dose vaginal estrogen. ??? Contact a health care provider if your vagina has an unusual smell, or if your symptoms get worse or do not improve after treatment. This information is not intended to replace advice given to you by your health care provider. Make sure you discuss any questions you have with your health care provider. Document Revised: 01/05/2021 Document Reviewed: 01/05/2021 [employer] Patient Education ? 2023 [employer]. Urinary Tract Infection, Adult A urinary tract infection (UTI) is an infection of any part of the urinary tract. The urinary tractincludes the kidneys, ureters, bladder, and urethra. These organs make, store, and get rid of urinein the body. An upper UTI affects the ureters and kid (more content not included)...[facility]09-24-2024 History of Present illness Narrative* Julio César Benton MD - 04/14/2024 1:30 PM EDT Images from the original note were not included. Julio César Benton MD Obstetrics and Gynecology Patient: James Woods, : 1950 (73 y.o.) DOS 04/14/24 Exam Date: 04/14/2024 HPI: Pt presented with PMB. Sono showed a thickened endometrium with possible polyp, and an echogenic lesion in the left ovary. CT was essentially normal, with an echogenic lesion in the left adnex, but no ovarian masses/cysts or assoc signs of malig. Visit Vitals BP 128/76 Wt 150 lb BMI 23.49 kg/m OB Status Postmenopausal Smoking Status Never BSA 1.79 m OB History Para Term AB Living 2 2 2 0 0 2 SAB IAB Ectopic Multiple Live Births 0 0 0 0 2 # Outcome Date GA Lbr Dean/2nd Weight Sex Type Anes PTL Lv 2 Term 1 Term Obstetric Comments Pap: 03/14-Neg EDER Mammo: Up to date and normal Menopausal Medication and Allergies Medication Documentation Review Audit Reviewed by Stephanie Easley MA (Renovator Machine Operator) on 04/14/24 at 1322 Medication Order Taking? Sig Documenting Provider Last Dose Status amLODIPine (Norvasc) 5 MG tablet [id number] Daily uJlio César Benton MD Active atorvastatin (Lipitor) 20 MG tablet [id number] .COMPLEX Julio César Benton MD Active estradiol (Estrace) 0.1 MG/GM vaginal cream [id number] INSERT 1 GRAM VAGINALLY SATURDAY, SATURDAY, andSATURDAY Julio César Benton MD Active levothyroxine (Synthroid, Levoxyl) 112 MCG tablet [id number] 1 (one) time each day at the same time Julio César Benton MD Active lisinopril 20 MG tablet [id number] 20 mg Julio César Benton MD Active Allergies Allergen Reactions Hydrocodone Dizziness, Hives and GI intolerance Penicillins Hives, Rash and Unknown Past Medical History: Diagnosis Date High blood pressure (CMS/HCC) Past Surgical History: Procedure Laterality Date CHOLECYSTECTOMY DILATION AND CURETTAGE OF UTERUS OTHER SURGICAL HISTORY Urethral dilation TONSILLECTOMY VAGINAL DELIVERY x2 Physical Exam: Objective OBGyn Exam Associated Treatments and Results - ICD-10-CM 1. PMB (postmenopausal bleeding) N95.0 2. Ovarian mass, left N83.8 Plan: hysteroscopy/D+C Repeat sono 4 mos to re-eval ovaries Assessment/Plan No orders of the defined types were placed in this encounter. documented in this encounterChristian [id number] History of Present illness Narrative* Julio César Benton MD - 03/30/2024 3:30 PM EDT Images from the original note were not included. uJlio César Benton MD Obstetrics and Gynecology Patient: James Woods, : 1950 (73 y.o.) DOS 03/30/24 Exam Date: 03/30/2024 HPI: Pt seen for PMB. Her PAP is normal. The bleeding has ceased. Sono today shows 12mm endometrium and an echogenic mas in the left ovary. No ascites Visit Vitals BP 122/72 Wt 151 lb BMI 23.65 kg/m OB Status Postmenopausal Smoking Status Never BSA 1.8 m OB History Para Term AB Living 2 2 2 0 0 2 SAB IAB Ectopic Multiple Live Births 0 0 0 0 2 # Outcome Date GA Lbr Dean/2nd Weight Sex Type Anes PTL Lv 2 Term 1 Term Obstetric Comments Pap: 03/14-Neg EDER Mammo: Up to date and normal Menopausal Medication and Allergies Medication Documentation Review Audit Reviewed by Stephanie Easley MA (Renovator Machine Operator) on 03/30/24 at 1546 Medication Order Taking? Sig Documenting Provider Last Dose Status amLODIPine (Norvasc) 5 MG tablet [id number] Daily Julio César Benton MD Active atorvastatin (Lipitor) 20 MG tablet [id number] .COMPLEX Julio César Benton MD Active estradiol (Estrace) 0.1 MG/GM vaginal cream [id number] INSERT 1 GRAM VAGINALLY SATURDAY, SATURDAY, andSATURDAY Julio César Benton MD Active levothyroxine (Synthroid, Levoxyl) 112 MCG tablet [id number] 1 (one) time each day at the same time Julio César Benton MD Active lisinopril 20 MG tablet [id number] 20 mg Julio César Benton MD Active Allergies Allergen Reactions Acetaminophen Hives Hydrocodone Dizziness, Hives and GI intolerance Penicillins Hives, Rash and Unknown Past Medical History: Diagnosis Date High blood pressure (CMS/HCC) Past Surgical History: Procedure Laterality Date CHOLECYSTECTOMY DILATION AND CURETTAGE OF UTERUS OTHER SURGICAL HISTORY Urethral dilation TONSILLECTOMY VAGINAL DELIVERY x2 Physical Exam: Objective OBGyn Exam Associated Treatments and Results - ICD-10-CM 1. PMB (postmenopausal bleeding) N95.0 CT pelvis wo IV contrast 2. Ovarian mass, left N83.8 CT pelvis wo IV contrast I suspect a possible polyp and a possible dermoid. Check CT of pelvis, then we will decide on EMB or D+C Assessment/Plan Orders Placed This Encounter Procedures CT pelvis wo IV contrast Order Specific Question: Reason for exam: Answer: see dx codes documented in this encounterChristian [id number] History of Present illness Narrative* Julio César Benton MD - 03/10/2024 2:15 PM EDT Images from the original note were not included. Julio César Benton MD Obstetrics and Gynecology Patient: James Woods, : 1950 (73 y.o.) DOS 03/10/24 Exam Date: 03/10/2024 HPI: Pt had PMB for a week last week. Visit Vitals BP 128/82 Wt 150 lb BMI 23.49 kg/m OB Status Postmenopausal Smoking Status Never BSA 1.79 m OB History Para Term AB Living 2 2 2 0 0 2 SAB IAB Ectopic Multiple Live Births 0 0 0 0 2 # Outcome Date GA Lbr Dean/2nd Weight Sex Type Anes PTL Lv 2 Term 1 Term Obstetric Comments Pap: ? Mammo: Up to date and normal Menopausal Medication and Allergies Medication Documentation Review Audit Reviewed by Stephanie Easley MA (Renovator Machine Operator) on 03/10/24 at 1405 Medication Order Taking? Sig Documenting Provider Last Dose Status amLODIPine (Norvasc) 5 MG tablet [id number] Yes Daily Julio César Benton MD Active atorvastatin (Lipitor) 20 MG tablet [id number] Yes .COMPLEX Julio César Benton MD Active estradiol (Estrace) 0.1 MG/GM vaginal cream [id number] Yes INSERT 1 GRAM VAGINALLY SATURDAY, SATURDAY,and SATURDAY Julio César Benton MD Active levothyroxine (Synthroid, Levoxyl) 112 MCG tablet [id number] 1 (one) time each day at the same time Julio César Benton MD Active lisinopril 20 MG tablet [id number] Yes 20 mg Julio César Benton MD Active Allergies Allergen Reactions Hydrocodone Dizziness, Hives and GI intolerance Penicillins Hives, Rash and Unknown Past Medical History: Diagnosis Date High blood pressure (CMS/HCC) Past Surgical History: Procedure Laterality Date CHOLECYSTECTOMY DILATION AND CURETTAGE OF UTERUS OTHER SURGICAL HISTORY Urethral dilation TONSILLECTOMY VAGINAL DELIVERY x2 Physical Exam: Objective Physical Exam Constitutional: Appearance: Normal appearance. Genitourinary: Vulva normal. No vaginal bleeding. Right Adnexa: not palpable. Left Adnexa: not palpable. No cervical lesion. Uterus is not enlarged or tender. Breasts: Right: Normal. Left: Normal. Pulmonary: Effort: Pulmonary effort is normal. Abdominal: General: Abdomen is flat. Palpations: Abdomen is soft. Neurological: Mental Status: She is alert. Associated Treatments and Results - ICD-10-CM 1. Well woman exam with routine gynecological exam Z01.419 2. Cervical cancer screening Z12.4 PAP IG, RFX HPV ALL PTH ([facility]) 3. Screening for HPV (human papillomavirus) Z11.51 PAP IG, RFX HPV ALL PTH ([facility]) 4. Other screening mammogram Z12.31 5. PMB (postmenopausal bleeding) N95.0 Chck sono and follwup after Assessment/Plan Orders Placed This Encounter Procedures PAP IG, RFX HPV ALL PTH ([facility]) Order Specific Question: Print requisition? Answer: No documented in this encounterChristian [id number] Telephone encounter Note* Telephone Encounter - [facility] Juliocesar - 03/04/2024 11:18 AM EDT Patient has had recent vaginal bleeding the last few days and wanted to be see. She is scheduled next Saturday in the afternoon. Christian [id number] Miscellaneous Notes* Telephone Encounter - [facility] Juliocesar - 03/04/2024 11:18 AM EDT Patient has had recent vaginal bleeding the last few days and wanted to be see. She is scheduled next Saturday in the afternoon. documented in this encounterChristian [id number] Hospital Discharge instructions Patient Education 11/26/2023 09:47:56 Atrophic Vaginitis [...] the vagina to get thinner and dryer. Thevagina may also shrink in size. It may [...] symptoms are. Treatment may include: Using an pvlj-tcq-mhxwvkb vaginal lubricant before sex. Using a long-acting [...] Follow these instructions at home: Medicines Take yhdo-ffw-xilsjqc and prescription medicines only as told by your health care provider. Do not use herbal or alternative medicines unless your health care provider says that you can. Use zjmm-fuf-ouimahj creams, lubricants, or moisturizers for dryness only [...] provider. Document Revised: 01/05/2021 Document Reviewed: 01/05/2021 [employer] Patient Education 2022 [employer]. 11/26/2023 09:47:53 Urinary Incontinence Urinary Incontinence Urinary incontinence refers to a condition in which a person is unable to control where and when topass urine. A person with this condition will urinate involuntarily. This means that the person urinates when he or she does not mean to. What are the causes? This condition may be caused by: Medicines. Infections. Constipation. Overactive bladder muscles. Weak bladder muscles. Weak pelvic floor muscles. These muscles provide support for the bladder, intestine, and, in women,the uterus. Enlarged prostate in men. The prostate [...] a small amount, or constantly dribbling urine (overflowincontinence). Urinating because you cannot get to the [...] fiber include beans, whole grains, and fresh fruitsand vegetables. Behavioral changes, such as: ?Pelvic floor [...] (electrical nerve stimulation). ?For women, using a emergency medical tech to prevent urine leaks. This is a small, tampon-like, disposabledevice that is inserted into the urethra. ?Injecting [...] right after experiencing incontinence. General instructions Take ojww-arn-qfpcaoi and prescription medicines only as told by [...] important. Where to find more information National [place] of Diabetes and Digestive and Kidney Diseases: www.niddk.nih.gov [place] [employer]: www.urologyhealth.org Contact a health care [...] is unable to control where and when topass urine. This condition may be caused by medicines, infection, weak bladder muscles, weak pelvic floor muscles, enlargement of the prostate (in men), or surgery. Factors such as older age, obesity, and childbirth, menopause, neurological diseases, andchronic coughing may increase your risk for developing [...] provider. Document Revised: 02/10/2021 Document Reviewed: 02/10/2021 [employer] Patient Education 2022 [employer]. 11/26/2023 09:47:52 Kegel Exercises Kegel Exercises Kegel [...] muscles. These are the same muscles you squeezewhen you try to stop the flow of [...] tight lift in your rectal area. If youare a female, you should also feel a [...] provider. Document Revised: 11/16/2021 Document Reviewed: 11/16/2021 [employer] Patient Education 2022 [employer]. Follow Up Care 08/31/2022 11:36:52 With:ANA LUISA Salas APRN, CHRISTOPHER Mcclelland, URL Address: When: Unknown Comments:1 year [facility] 02-12-2024 Evaluation note* Encounter Date Diagnosis Assessment Notes Treatment Notes Treatment Clinical Notes Aug, Acute cough (ICD-10 - R05.1) Aug, Uvulitis (ICD-10 - K12.2) This. Plenty of fluids. Take ewwv-nys-jmkxknr Tylenol Motrin as needed for fever or [...] can continue with rest, fluids, Tylenol Motrin umuz-jxd-xqtmcxh for fever or discomfort. [employer] [facility] 01-16-2024 Evaluation note* Encounter Date Diagnosis Assessment Notes Treatment Notes Treatment Clinical Notes Jul, Hypothyroid (ICD-10 - E03.9) [employer] [facility] 12-20-2023 Evaluation note* Encounter Date Diagnosis Assessment Notes Treatment Notes Treatment Clinical Notes Jun, Acute COVID-19 (ICD-10 - U07.1) Discussed quarantine protocol. had COVID before her. She agrees to the steroid and inhaler due to chest tightness. Tara understands to hold her lipitor while on paxlovid. [employer] [facility] 10-27-2023 Evaluation note* Encounter Date Diagnosis Assessment Notes Treatment Notes Treatment Clinical Notes Apr, Hypothyroid (ICD-10 - E03.9) Increased dose. Recheck labs in ~6 weeks. Chronic problem. Monitor results. [employer] [facility] 08-18-2023 Evaluation note* Encounter Date Diagnosis [...] best 2/3 readings w/ goal < 135-85 [employer] [facility] 02-10-2023 Hospital Discharge instructions Patient Education [...] symptoms are. Treatment may include: Using an rwun-ndn-kkrbqae vaginal lubricant before sex. Using a long-acting [...] Follow these instructions at home: Medicines Take zrll-jey-navdtcy and prescription medicines only as told by your health care provider. Do not use herbal or alternative medicines unless your health care provider says that you can. Use iovt-jsd-nbcriiz creams, lubricants, or moisturizers for dryness only [...] 11/22/2015 Document Revised: 06/20/2018 Document Reviewed: 04/03/2018 [employer] Patient Education 2020 [employer]. 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 [employer] Other Evaluation + Plan note Future Appointments Appointment Date:09/06/2023 11:45:00 AM Scheduled Provider:Alonso CRUZ MD Location:[facility] Appointment Type:URO Office Visit [facility] evaluation noteNo InformationNortCommunity [employer] Other Evaluation note* Diagnosis Onset Date Resolution Status Left hand pain acute [facility] Work Phone: Evaluation note* Diagnosis Onset Date Resolution Status Left hand pain acute Dyspnea on exertion acute Medicare annual wellness visit, subsequent acute [facility] Work Phone: Evaluation note* Diagnosis Onset Date Resolution Status Left hand pain acute Dyspnea on exertion acute Hyperlipidemia acute Hypertension acute Hypothyroid acute Medicare annual wellness visit, subsequent acute Screening mammogram, encounter for acute [facility] Work Phone: Evaluation note* Diagnosis Onset Date Resolution Status Dyspnea on exertion acute Hyperlipidemia acute Hypertension acute Hypothyroid acute Medicare annual wellness visit, subsequent acute Allergic rhinitis due to allergen acute Hypertension acute Screening mammogram, encounter for acute Left carpal tunnel syndrome acute [facility] Work Phone: evaluation note* Diagnosis Onset Date Resolution Status Allergic rhinitis due to allergen acute Hypertension acute Screening mammogram, encounter for acute Left carpal tunnel syndrome acute [facility] Work Phone: evaluation note* Diagnosis Onset Date Resolution Status Allergic rhinitis due to allergen acute Hypertension acute Screening mammogram, encounter for acute Left carpal tunnel syndrome acute Left carpal tunnel syndrome acute [facility] Work Phone: evaluation note* Diagnosis Onset Date Resolution Status Left carpal tunnel syndrome acute Left carpal tunnel syndrome acute [facility] Work Phone: evaluation note* Diagnosis Onset Date Resolution Status Left carpal tunnel syndrome acute Left carpal tunnel syndrome acute Encounter for immunization a cute [facility] Work Phone: evaluation note* Diagnosis Onset Date Resolution Status Left carpal tunnel syndrome acute Encounter for immunization a cute Left carpal tunnel syndrome acute [facility] Work Phone: evaluation note* Diagnosis PMB (postmenopausal bleeding)- Primary Postmenopausal bleeding Surgery follow-up Endometrial hyperplasia with atypia documented in this encounter [facility]* Diagnosis Endometrial cancer (HCC)- Primary Malignant neoplasm of corpus uteri, except isthmus [facility]* Diagnosis Complex atypical endometrial hyperplasia- Primary Endometrial hyperplasia with atypia Post-menopausal bleeding Postmenopausal bleeding Thickened endometrium Nonspecific (abnormal) findings on radiological and other examination of genitourinary organs Left ovarian cyst Other and unspecified ovarian cyst Preop examination Preoperative examination, unspecified Other abnormal tumor markers [facility]* Diagnosis Well woman exam with routine gynecological exam Routine gynecological examination Cervical cancer screening Screening for malignant neoplasm of the cervix Screening for HPV (human papillomavirus) Special screening examination for human papillomavirus (HPV) Other screening mammogram PMB (postmenopausal bleeding) Postmenopausal bleeding documented in this encounter [facility]* Diagnosis PMB (postmenopausal bleeding) Postmenopausal bleeding Ovarian mass, left [facility] Diagnosis PMB (postmenopausal bleeding) Postmenopausal bleeding Ovarian mass, left [facility]* Diagnosis Hypertension, unspecified type- Primary Hyperlipidemia, unspecified hyperlipidemia type Hypothyroidism, unspecified type Current smoker Tobacco use disorder Complex atypical endometrial hyperplasia Endometrial hyperplasia with atypia Post-menopausal bleeding Postmenopausal bleeding Thickened endometrium Nonspecific (abnormal) findings on radiological and other examination of genitourinary organs Left ovarian cyst Other and unspecified ovarian cyst Preop examination Preoperative examination, unspecified PONV (postoperative nausea and vomiting) Nausea with vomiting Encounter for other prophylactic surgery Complex atypical endometrial hyperplasia Endometrial hyperplasia with atypia Post-menopausal bleeding Postmenopausal bleeding Thickened endometrium Nonspecific (abnormal) findings on radiological and other examination of genitourinary organs Left ovarian cyst Other and unspecified ovarian cyst Preop examination Preoperative examination, unspecified * Assessment & Plan Note - Nhan Huynh APRN.CNP - 08/06/2024 8:02 AM ESTAssociated Problem(s): PONV (postoperative nausea and vomiting) Assessment: states gets PONV with Anesthesia * Assessment & Plan Note - Nhan Huynh APRN.CNP - 08/05/2024 11:20 AM ESTAssociated Problem(s): Current smoker Assessment: Current: 1.5 packs/day; Average: 1.5 packs/day for 25.1 years; Total pack years: 37.6; * Assessment & Plan Note - Nhan Huynh APRN.CNP - 08/05/2024 10:28 AM ESTAssociated Problem(s): Hypothyroid Assessment: stable on Levothyroxine(Synthroid) * Assessment & Plan Note - Nhan Huynh APRN.CNP - 08/05/2024 10:28 AM ESTAssociated Problem(s): Hyperlipidemia Assessment: stable on medication * Assessment & Plan Note - Nhan Huynh APRN.CNP - 08/05/2024 10:27 AM ESTAssociated Problem(s): Hypertension Assessment: Stable on medication Today To take medication morning of surgery Does not complain of any chest pain, shortness of breath, lower extremity edema, or palpitations documented in this encounter [facility] note* Diagnosis Hypertension, unspecified type- Primary Hyperlipidemia, unspecified hyperlipidemia type Hypothyroidism, unspecified type Current smoker Tobacco use disorder Complex atypical endometrial hyperplasia Endometrial hyperplasia with atypia Post-menopausal bleeding Postmenopausal bleeding Thickened endometrium Nonspecific (abnormal) findings on radiological and other examination of genitourinary organs Left ovarian cyst Other and unspecified ovarian cyst Preop examination Preoperative examination, unspecified PONV (postoperative nausea and vomiting) Nausea with vomiting Encounter for other prophylactic surgery Complex atypical endometrial hyperplasia Endometrial hyperplasia with atypia Post-menopausal bleeding Postmenopausal bleeding Thickened endometrium Nonspecific (abnormal) findings on radiological and other examination of genitourinary organs Left ovarian cyst Other and unspecified ovarian cyst Preop examination Preoperative examination, unspecified Complex atypical endometrial hyperplasia Endometrial hyperplasia with atypia Post-menopausal bleeding Postmenopausal bleeding Thickened endometrium Nonspecific (abnormal) findings on radiological and other examination of genitourinary organs Left ovarian cyst Other and unspecified ovarian cyst Preop examination Preoperative examination, unspecified documented in this encounter [facility] note* Diagnosis Hypertension, unspecified type- Primary Hyperlipidemia, unspecified hyperlipidemia type Hypothyroidism, unspecified type Current smoker Tobacco use disorder Complex atypical endometrial hyperplasia Endometrial hyperplasia with atypia Post-menopausal bleeding Postmenopausal bleeding Thickened endometrium Nonspecific (abnormal) findings on radiological and other examination of genitourinary organs Left ovarian cyst Other and unspecified ovarian cyst Preop examination Preoperative examination, unspecified PONV (postoperative nausea and vomiting) Nausea with vomiting Encounter for other prophylactic surgery Postop check- Primary Follow-up examination, following unspecified surgery Complex atypical endometrial hyperplasia Endometrial hyperplasia with atypia Urinary frequency documented in this encounter [facility] note* Diagnosis Onset Date Resolution Status Admit Date Left carpal tunnel syndrome acute September 08, 2024 10:50am [facility] Work Phone: Evaluation note* Diagnosis Hypertension, unspecified type- Primary Hyperlipidemia, unspecified hyperlipidemia type Hypothyroidism, unspecified type Current smoker Tobacco use disorder Complex atypical endometrial hyperplasia Endometrial hyperplasia with atypia Post-menopausal bleeding Postmenopausal bleeding Thickened endometrium Nonspecific (abnormal) findings on radiological and other examination of genitourinary organs Left ovarian cyst Other and unspecified ovarian cyst Preop examination Preoperative examination, unspecified PONV (postoperative nausea and vomiting) Nausea with vomiting Encounter for other prophylactic surgery Postop check- Primary Follow-up examination, following unspecified surgery [facility]No assessment [facility] Work Phone: History general Narrative - Reported* Type Description Date Medical History High blood pressure Medical History High cholesterol Medical History Thyroid disease Surgical History tonsillectomy and adenoidectomy Surgical History laparoscopy cholecystectomy Surgical History D&C Hospitalization History Cellulitis [facility] [facility] [employer] Other [place] general Narrative - Reported* Type Description Date [...] History Cellulitis Hospitalization History SEE SRUGICAL HX [employer] [facility] [employer] Other Hospital course Narrative No data available for this section [facility] Hospital Discharge instructions No data available for this section [facility] Progress note No data available for this section [facility] reason for referral (narrative)* Outpatient Procedure (Routine) - New Request Specialty Diagnoses / Procedures Referred By Weston arce [facility] Diagnoses Hypertension, unspecified type Hyperlipidemia, unspecified hyperlipidemia type Hypothyroidism, unspecified type Current smoker Complex atypical endometrial hyperplasia Post-menopausal bleeding Thickened endometrium Left ovarian cyst Preop examination PONV (postoperative nausea and vomiting) Procedures ECG COMPLETE ECG ROUTINE ECG W/LEAST 12 LDS W/I&R Nhan Huynh APRN.CNP [address] [place] [address] [facility] [address] [place] [id number] Referral ID Status Reason Start Date Expiration Date Visits Requested Visits Authorized [id number] New Request Auto-Generat ed Referral 08/06/2024 08/06/2025 1 1 [facility] for referral (narrative)No reason for referral [facility] Work Phone: Summary Purpose Family History Relationship Condition Age at Onset Recorded Date/T corky brother Heart disease Unknown Diabetes mellitus Unknown father Unknown Heart disease Unknown Not Specified Unknown Malignant neoplasm Unknown Relationship Condition Age at Onset Recorded Date/T corky brother Heart disease Unknown Diabetes mellitus Unknown father Unknown Heart disease Unknown mother Unknown Malignant neoplasm Unknown Advance Directives Advance Directive Response Recorded Date/ Time Advance Directives No October 20 10:14am Advance Directive Response Recorded Date/ Time Advance Directives No October 20 9:14am Documents on File Type Date Recorded Patient Developer Relations Manager Expl anation Advance Directive(s) 08/06/2024 8:06 AM Advance Directive(s) 08/06/2024 8:01 AM Documents on File Type Date Recorded Patient Developer Relations Manager Expl anation Advance Directive(s) 08/06/2024 8:06 AM Advance Directive(s) 08/06/2024 8:01 AM Chief Complaint and Reason for Visit Chief [...] wellness visit, subsequent Screening mammogram, encounter for Chief Complaint Medicare Wellness cough CONSULT DR MARIFER BOYLE LT HAND PAIN Reason for Visit Dyspnea on exertion Hyperlipidemia Hypertension Hypothyroid Medicare annual wellness visit, subsequent Allergic rhinitis due to allergen Hypertension Screening mammogram, encounter for Left carpal tunnel syndrome Chief Complaint cough CONSULT DR MARIFER BOYLE LT HAND PAIN G56.02 Reason for Visit Allergic rhinitis du e to allergen Hypertension Screening mammogram, encounter for Left carpal tunnel syndrome Chief Complaint cough CONSULT DR MARIFER BOYLE LT HAND PAIN G56.02 4 WK RECHECK Reason for Visit Allergic rhinitis du e to allergen Hypertension Screening mammogram, encounter for Left carpal tunnel syndrome Left carpal tunnel syndrome Chief Complaint CONSULT DR MARIFER BAUTISTA LT HAND PAIN G56.02 4 WK RECHECK G56.02 flu shot Reason for Visit Left carpal tunnel s yndrome Left carpal tunnel syndrome Chief Complaint CONSULT DR MARIFER BAUTISTA LT HAND PAIN G56.02 4 WK RECHECK G56.02 flu shot z01.818 Reason for Visit Left carpal tunnel s yndrome Left carpal tunnel syndrome Encounter for immunization Chief Complaint G56.02 4 WK RECHECK G56.02 flu shot z01.818 8 WEEKS Reason for Visit Left carpal tunnel s yndrome Encounter for immunization Left carpal tunnel syndrome Chief Complaint Admit Date 3-4 MONTHS September 08, 2024 10:50am Reason for Visit Admit Date Left carpal tunnel syndrome August 10:50am Chief Complaint Admit Date 3-4 MONTHS September 08, 2024 10:50am 4 WEEKS October 09, 2024 10: 08am Reason for Visit Admit Date Left carpal tunnel syndrome August 10:50am Arthritis of carpometacarpal (CMC) joint of left thumb October 09, 2024 10:08am Left carpal tunnel syndrome October 09, 2024 10:08am Chief Complaint Admit Date Cough, head congestion March 02, 2025 8:01am Reason for Referral Specialty Diagnoses / Procedures Referred By Weston arce Referred To Contact Radiology Diagnoses PMB (postmenopausal bleeding) Ovarian mass, left Procedures CT pelvis wo IV contrast Julio César Benton MD [address] [address] Referral ID Status Reason Start Date Expiration Date V isits Requested Visits Authorized [id number] Pending Review 03/30/2024 09/26/2024 1 1 Specialty Diagnoses / Procedures Referred By Contac t Referred To Contact Diagnoses Complex atypical endometrial hyperplasia Post-menopausal bleeding Thickened endometrium Left ovarian cyst Preop examination Procedures REFER TO [facility] PREOPERATIVE OPTIMIZATION OFFICE/OUTPATIENT [facility] 60 MINUTES Laurie Jones APRN.[employer] [address] [id number] Referral ID Status Reason Start Date Expiration Date Visits Requested Visits Authorized [id number] Authorized PCP Requested Referral 4 07/01/2025 1 1 Specialty Diagnoses / Procedures Referred By Weston t Referred To [facility] Diagnoses Complex atypical endometrial hyperplasia Post-menopausal bleeding Thickened endometrium Left ovarian cyst Preop examination Procedures ECG COMPLETE ECG ROUTINE ECG W/LEAST 12 LDS W/I&R Laurie Jones APRN.[employer] [address] [id number] [facility] [address] [address] Referral ID Status Reason Start Date Expiration Date Visits Requested Visits Authorized [id number] New Request Auto-Generat ed Referral 4 07/01/2025 1 1 Additional Source Comments REASON FOR VISIT (unrecogniz ed section and content) Reason Comments Consult Reason Comments Pre-Op Teaching Reason Comments Pre-Op Visit Specialty Diagnoses / Procedures Referred By Weston arce Referred To Contact Diagnoses Complex atypical endometrial hyperplasia Post-menopausal bleeding Thickened endometrium Left ovarian cyst Preop examination Procedures REFER TO [facility] - PREOPERATIVE OPTIMIZATION OFFICE/OUTPATIENT [facility] 60 MINUTES Laurie Jones, CEASAR.[employer] [address] [id number] Referral ID Status Reason Start Date Expiration Date V isits Requested Visits Authorized [id number] Closed PCP Requested Referral 07/01/2024 07/01/2025 1 1 Reason Comments Radiology XR Reason Comments Surgical Followup Reason Comments Complex atypical endometrial hyperplasia Reason Comments Post-Op Visit Patient Care team informatio n (unrecognized section and content) Team Status: Active Member Role Status Dates Marifer Boyle MD Primary Care Provider Active Team Status: Inactive Member Role Status Dates Marifer Boyle MD Primary Care Provide r, Attending Provider Active Start: November 27, 2023 End: November 27, 2023 Team Status: Inactive Member Role Status Dates Marifer Boyle MD Primary Care Provide r, Attending Provider Active Start: December 19, 2023 End: December 19, 2023 Team Status: Inactive Member Role Status Dates Marifer Boyle MD Primary Care Provider Active Start: February 19, 2024 End: February 19, 2024 Lisa Frank MD Attending Provider Active Start: February 19, 2024 End: February 19, 2024 Team Status: Active Member Role Status Dates Marifer Boyle MD Primary Care Provider Active Start: October 21, 2023 HERIBERTO Triana Attending Provider Active Start : October 21, 2023 Team Status: Inactive Member Role Status Dates Marifer Boyle MD Primary Care Provide r, Attending Provider Active Start: October 29, 2023 End: October 29, 2023 Team Status: Inactive Member Role Status Dates Marifer Boyle MD Primary Care Provider Active Start: March 04, 2024 End: March 04, 2024 Lisa Frank MD Attending Provider Active Start: March 04, 2024 End: March 04, 2024 Team Status: Inactive Member Role Status Dates Marifer Boyle MD Primary Care Provider Active Start: March 18, 2024 End: March 18, 2024 Lisa Frank MD Attending Provider Active Start: March 18, 2024 End: March 18, 2024 Lithoduplicator Operator Relationship Specialty Start Date End Date Unallocated, MD Peng Rizo0 [address] [facility] [place] [address] PCP - General Family Medicine 03/10/24 Team Status: Active Member Role Status Dates Marifer Boyle MD Primary Care Provider Active Start: April 14, 2024 Lisa Frank MD Other Provider Active Star t: April 14, 2024 Chuy Huitron MD Attending Provider Active Start: April 14, 2024 Team Status: Inactive Member Role Status Dates Marifer Boyle MD Primary Care Provide r, Attending Provider Active Start: April 30, 2024 End: April 30, 2024 Lithoduplicator Operator Relationship Specialty Start Date End Date Unallocated, MD Peng Rizo [place] [address] PCP - General Family Medicine 03/10/24 Team Status: Inactive Member Role Status Dates Marifer Boyle MD Primary Care Provider Active Start: May 12, 2024 End: May 12, 2024 Julio César Benton MD Attending Provider Active Star t: May 12, 2024 End: May 12, 2024 Team Status: Inactive Member Role Status Dates Marifer Boyle MD Primary Care Provider Active Start: May 20, 2024 End: May 20, 2024 Lisa Frank MD Attending Provider Active Start: May 20, 2024 End: May 20, 2024 Team Status: Inactive Member Role Status Dates Julio César Benton MD Attending Provider Active Star t: May 27, 2024 End: May 27, 2024 Lithoduplicator Operator Relationship Specialty Start Date End Date Unallocated, Tico Ford MD [facility] [place] [address] PCP - General Family Medicine 03/10/24 Lithoduplicator Operator Relationship Specialty Start Date End Date Unallocated, Tico Ford MD [facility] [place] [address] PCP - General Family Medicine 03/10/24 Lithoduplicator Operator Relationship Specialty Start Date End Date Julio César Benton MD [address] [id number] Obstetrics 06/11/24 Lithoduplicator Operator Relationship Specialty Start Date End Date Marifer Boyle MD [address] [place] [address] PCP - General Family Medicine 07/01/24 Julio César Benton MD [address] [place] [address] Obstetrics 06/11/24 Lithoduplicator Operator Relationship Specialty Start Date End Date Unallocated, Tico Ford MD [facility] [place] [address] PCP - General Family Medicine 03/10/24 Lithoduplicator Operator Relationship Specialty Start Date End Date Unallocated, N[place] MD [address] [place] [address] PCP - General Family Medicine 03/10/24 Lithoduplicator Operator Relationship Specialty Start Date End Date Unallocated, Tico Ford MD [address] [place] [address] PCP - General Family Medicine 03/10/24 Lithoduplicator Operator Relationship Specialty Start Date End Date Unallocated, Tico Ford MD [address] [place] [address] PCP - General Family Medicine 03/10/24 Lithoduplicator Operator Relationship Specialty Start Date End Date Unallocated, Tico Ford MD [address] [place] [address] PCP - General Family Medicine 03/10/24 Lithoduplicator Operator Relationship Specialty Start Date End Date Unallocated, Tico Ford MD [address] [place] [address] PCP - General Family Medicine 03/10/24 Lithoduplicator Operator Relationship Specialty Start Date End Date Marifer Boyle MD [address] [place] [address] PCP - General Family Medicine 07/01/24 Julio César Benton MD [address] [place] [phone] Obstetrics 06/11/24 Lithoduplicator Operator Relationship Specialty Start Date End Date Marifer Boyle MD [address] [place] [address] PCP - General Family Medicine 07/01/24 Julio César Benton MD [address] [place] [address] Obstetrics 06/11/24 Lithoduplicator Operator Relationship Specialty Start Date End Date Marifer Boyle MD [address] [place] [address] PCP - General Family Medicine 07/01/24 Julio César Benton MD [address] [place] [address] Obstetrics 06/11/24 Lithoduplicator Operator Relationship Specialty Start Date End Date Marifer Boyle MD [address] [place] [address] PCP - General Family Medicine 07/01/24 Julio César Benton MD [address] [place] [phone] Obstetrics 06/11/24 Team Status: Active Member Role Status Dates NON STAFF Primary Care Provider Active Team Status: Active Member Role Status Dates Nhan Huynh NP-C Attending Provider Active Start: August 06, 2024 Team Status: Active Member Role Status Dates Laurie Jones APRN [employer] OFFICER-C Attending Provider Bobby e Start: August 26, 2024 Team Status: Inactive Member Role Status Dates Lisa Frank MD Attending Provider Active Start: September 08, 2024 End: September 08, 2024 NON STAFF Primary Care Provider Active Start: September 08, 2024 End: September 08, 2024 Lithoduplicator Operator Relationship Specialty Start Date End Date Marifer Boyle MD [address] [place] [address] PCP - General Family Medicine 07/01/24 Julio César Benton MD [address] [place] [phone] Obstetrics 06/11/24 Team Status: Inactive Member Role Status Dates NON STAFF Primary Care Provider Active Start: October 09, 2024 End: October 09, 2024 Lisa Frank MD Attending Provider Active Start: October 09, 2024 End: October 09, 2024 Team Status: Inactive Member Role Status Dates Marifer Boyle MD Primary Care Provider Active Start: March 02, 2025 End: March 02, 2025 Madison Lozano APRN [employer]PPORT[employer] OFFICER-C Attending Provider Act tremayne Start: March 02, 2025 End: March 02, 2025 INFORMATION SOURCE (unrecogn ized section and content) DATE CREATED AUTHOR 09/29/2022 [facility] DATE CREATED AUTHOR AUTHOR'S ORGANIZ ATION 06/07/2024 [facility] DATE CREATED AUTHOR AUTHOR'S ORGANIZ ATION 06/13/2024 [facility] DATE CREATED AUTHOR AUTHOR'S ORGANIZ ATION 06/14/2024 [facility] DATE CREATED AUTHOR AUTHOR'S ORGANIZ ATION 08/23/2024 [facility] DATE CREATED AUTHOR AUTHOR'S ORGANIZ ATION 09/11/2024 [facility] DATE CREATED AUTHOR AUTHOR'S ORGANIZ ATION 09/19/2024 [facility] DATE CREATED AUTHOR AUTHOR'S ORGANIZ ATION 09/25/2024 [facility] Goals (unrecognized section and content) Goals may be documented in a n alternate section Source Comments (unrecognize d section and content) In the event this informatio n is protected by the Federal Confidentiality of Alcohol and Drug Abuse Patient Records regulations: The Federal rules restrict any use of the information to criminally investigate or prosecute any alcohol or drug abuse patient.[facility] the event this information is protected by the Federal Confidentiality of Alcohol and Drug Abuse Patient Records regulations: The Federal rules restrict any use of the information to criminally investigate or prosecute any alcohol or drug abuse patient.[facility] the event this information is protected by the Federal Confidentiality of Alcohol and Drug Abuse Patient Records regulations: The Federal rules restrict any use of the information to criminally investigate or prosecute any alcohol or drug abuse patient.[facility] the event this information is protected by the Federal Confidentiality of Alcohol and Drug Abuse Patient Records regulations: The Federal rules restrict any use of the information to criminally investigate or prosecute any alcohol or drug abuse patient.[facility] the event this information is protected by the Federal Confidentiality of Alcohol and Drug Abuse Patient Records regulations: The Federal rules restrict any use of the information to criminally investigate or prosecute any alcohol or drug abuse patient.[facility] the event this information is protected by the Federal Confidentiality of Alcohol and Drug Abuse Patient Records regulations: The Federal rules restrict any use of the information to criminally investigate or prosecute any alcohol or drug abuse patient.[facility] the event this information is protected by the Federal Confidentiality of Alcohol and Drug Abuse Patient Records regulations: The Federal rules restrict any use of the information to criminally investigate or prosecute any alcohol or drug abuse patient.[facility] the event this information is protected by the Federal Confidentiality of Alcohol and Drug Abuse Patient Records regulations: The Federal rules restrict any use of the information to criminally investigate or prosecute any alcohol or drug abuse patient.[facility] FOR RECORDS PERTAINING TO PATIENTS WHO ARE [...] BE BASED ON THE PRIMARY CLINICAL RECORDS. [facility] [employer] [facility]. provides no warranty or guarantee of the accuracy or completeness of information in this document.
[2025-03-09 06:53] LABS: Hematocrit 44.2 % (36.0-48.0); Hemoglobin 15.4 g/dL (12.0-16.0); Immature Granulocytes Abs Auto 0.15 10^3/uL (0.00-0.03); Immature Granulocytes Pct Auto 1.8 % (0.0-0.5); Lymphocytes Absolute Auto 2.4 10^3/uL (1.2-3.8); Mean Corpuscular HGB Conc 34.8 g/dL (29.9-35.2); Mean Corpuscular Hemoglobin 31.2 pg (26.7-34.0); Mean Corpuscular Volume 89.5 fL (81.0-99.0); Platelet Count 304 10^3/uL (150-450); Red Blood Count 4.94 10^6/uL (4.20-5.40); White Blood Count 8.3 10^3/uL (4.0-11.0)
[2025-03-09 07:43] LABS: Alanine Aminotransferase 36 U/L (14-59); Albumin Globulin Ratio 1.2; Albumin Level 3.8 g/dL (3.4-5.0); Alkaline Phosphatase 96 U/L (46-116); Anion Gap 7.6; Aspartate Amino Transferase 13 U/L (15-37); Blood Urea Nitrogen 14.0 mg/dL (7.0-18.0); Calcium 9.2 mg/dL (8.5-10.1); Carbon Dioxide 33.3 mmol/L (21.0-32.0); Chloride 103 mmol/L (98-107); Cholesterol 216 mg/dL (<=200); Estimated GFR (African America >60 (>=60 mL/min/1.73m^2); Estimated GFR (Non-African Ame >60 (>=60 mL/min/1.73m^2); Globulin 3.3 g/dL; Glucose 90 mg/dL (74-106); HDL Cholesterol 55 mg/dL (40-60); Potassium 3.9 mmol/L (3.5-5.1); Sodium 140 mmol/L (136-145); Thyroid Stimulating Hormone 2.319 uIU/mL (0.358-3.740); Total Protein 7.1 g/dL (6.4-8.2); Triglycerides 345 mg/dL (<=150); VLDL CHOLESTEROL 69.0 mg/dL
[2025-03-09 08:54] LABS: Microalbum Creatinine Ratio Ur 89.2 mg/g (0.0-29.9)
== END 2025-03-09 06:30 | disposition home or self-care (01) ==
LOC: LAB 06:33
PROVIDERS: PCP Family Medicine; Visit Provider Family Medicine
DX: Z00.00 Encounter for general adult medical examination without abnormal findings (principal); E78.5 Hyperlipidemia, unspecified; I10 Essential (primary) hypertension; E03.9 Hypothyroidism, unspecified
CPT/HCPCS: 36415; 80053; 80061; 82043; 82570; 84439; 84443; 85025

== ENCOUNTER 2025-03-24 07:18 | Outpatient (OUT) | payer MEDICARE, OTHER, SELFPAY ==
--- NOTE | 2025-03-24 07:21 | MM_ITS ---
Patient Name: JAMES WOODS MR#: [id number] : 1950 Exam Date: 03/24/2025 Ordering Doctor: DR MARIFER BOYLE M.D. RADIOLOGY REPORT PROCEDURE: MM TOMOSYNTHESIS SCREENING BI COMPARISON: MM TOMOSYNTHESIS SCREENING BI, 01/08/2024. MG MAMM SCREEN 3D GISELE CAD, 09/26/2022. MG MAMM SCREEN 3D GISELE CAD, 04/17/2021. MG MAMM GISELE SCRN W CAD DIG, 09/15/2013. INDICATIONS: Screening Calculator Name NCI Breast Cancer Risk Assessment Tool 5 Year Breast Cancer Risk 5.00% Lifetime Breast Cancer Risk 12.00% Personal Breast Cancer No Personal Ovarian Cancer No Treatments None Family Cancers Mother with breast cancer at age 50; Daughter with nasal cancer cancer at age ~20; Unknown with brain cancer cancer at age 5. LOCATION: [facility] BREAST COMPOSITION: There are scattered areas of fibroglandular density. FINDINGS: RIGHT BREAST: No significant suspicious finding. Benign-appearing calcifications are present. Benign-appearing lymph nodes are noted along the chest wall. LEFT BREAST: No significant suspicious finding. Benign-appearing calcifications are present. Benign-appearing lymph nodes are noted along the chest wall. DIAGNOSTIC CATEGORY 2--BENIGN FINDING. NO CHANGE FROM COMPARISON. RECOMMENDATIONS: ROUTINE MAMMOGRAM AND CLINICAL EVALUATION IN 12 MONTHS. Dictated by: Rodrigue Márquez MD on 03/24/2025 at 15:44 Approved by: Rodrigue Márquez MD on 03/24/2025 at 15:49
--- OUTSIDE RECORDS SUMMARY | 2025-03-24 07:21 | XMS_ITS | CCD ---
Author Organization [facility] CliniSyut Care Team Providers Care Service Specialist Name Role Phone Gabriella Means Unavailable MARIFER BOYLE Primary Care Physician [phone] Marifer Boyle Unavailable [place], DR MARIFER Hwang [...] Unavailable MD Marifer Boyle Primary Care Provider MD Lisa Frank Attending Provider Unallocatharis BYRD, [place] Provider Primary Care Provi ksenia Unallocatharis BYRD [place] Provider Primary Care Provi ksenia MD Julio César Benton Attending Provider MD Marifer Boyle Primary Care Provider MD Lisa Frank Attending Provider MD Julio César Benton Attending Provider [phone] Julio César Benton Attending Unavailable Julio César Benton Admyovanny Unavailable Marifer Boyle Primary Care Unavailable Julio César Benton Attending Unavailable Julio César Benotn Admitting Unavailable Marifer Boyle Primary Care Unavailable Lisa Frank Attending Unavailable Lisa Frank Admitting Unavailable Julio César Benton MD Unavailable [phone] JULIO CÉSAR BENTON Attending Unavailable JULIO CÉSAR [...] Care Unavailable MARIFER BOYLE Primary Care Unavailable SUROVEArun, LAURIE Referring Unavailable MARIFER BOYLE Primary Care Unavailable CHASE MANNING Attending Unavailab le SUROVEC, LAURIE Attending Unavailable MARIFER BOYLE Primary Care Unavailable MARIFER BOYLE Primary Care Unavailable SUROVEC, LAURIE Attending Unavailable MARIFER BOYLE Primary Care Unavailable SUROVEArun, LAURIE Referring Unavailable MARIFER BOYLE Primary Care Unavailable Marifer Boyle MD Primary Care Provider Madison Lozano APRN Attending Provider [phone] Marifer Boyle MD Attending Provider Allergies Allergy Classification Reported Allergen(s) Allergy Type Date of Onset Reaction(s) Facility (20 sources) penicillAMINE Drug Allergy 4 [facility] (20 sources) Acetaminophen / HYDROcodone; Translations: [acetaminophen-hy drocodone] Drug Allergy 4 Nausea (finding), GI Upset [facility] (8 sources) Penicillin; Translations: [penicillin] Drug Allergy Unknown (qualifier value) [facility] (1 source) Acetaminophen / HYDROcodone Drug Allergy [facility] (18 sources) Penicillins; Translations: [PENICILLINS] Drug allergy (disorder) 4 Hives, Rash, Unknown [facility] Repository Comment on above: Onset Date: 06/27/20 21 (11 sources) Substance with penicillin structure and antibacterial mechanism of action (substance) Drug allergy 1 Unknown [place] Other (18 sources) Acetaminophen; Translations: [acetaminophen] Drug Allergy 4 Hives [facility] (20 sources) HYDROcodone; Translations: [hydrocodone] Drug Allergy 2 Dizziness, Hives, GI intolerance [facility] (15 sources) Penicillins Drug Allergy 2 Hives, Rash, Unknown [facility] (1 source) penicillAMINE Drug Allergy 4 [facility] Repository (1 source) Penicillins Drug allergy (disorder) 4 [facility] Repository (2 sources) penicillAMINE Drug Allergy 4 Rash [facility] (6 sources) Penicillins Drug Allergy 2 Hives, Rash, Unknown [facility] (2 sources) Acetaminophen / HYDROcodone; Translations: [HYDROCODONE-ACET AMINOPHEN] Drug Allergy 4 [facility] Other [place] Repository Medications Current Medications Medication Drug Class(es) Dates Sig (Normalized) Sig (Original) acetaminophen 500 mg oral tablet (2 sources) Start: 08-14-2024 End: 08-28-2024 take 2 tablets by mouth every six hours as needed acetaminophen (TYLENOL EXTRA STRENGTH) 500 mg tablet Take 2 tablets by mouth every 6 hours as needed for pain for up to 14 days. 50 tablet 08/14/2024 08/28/2024 Active amLODIPine 5 mg oral tablet (20 sources) Dihydropyridine Calcium Channel Alysha Start: 06-09-2024 amLODIPine 5 mg Tab 5 mg = 1 tab(s), Refills(s) 0 Start Date: 06/09/24 Status: Ordered Start: 03-10-2024 End: 08-18-2024 Amlodipine 5 mg tablet Disco ntinued 0 .ROUTE .COMPLEX 90 June 04, 2024 5:05pm August 18, 2024 [...] 21, 2023 11:53am Atorvastatin Carlos cium Active Biotin (7 sources) BIOTIN ORAL Take by mouth as directed. Active Suzi-C (6 sources) Start: 11-04-2020 Suzi-C Oral, Daily, Refills(s) 0 Start Date: 11/04/20 Status: Ordered estrogens, conjugated (mcfp) 0.625 mg/ml vaginal cream (20 sources) Estrogen [...] October 21, 2023 11:53am Lisinopril Activ e Multi Vitamin+ (6 sources) Start: 11-04-2020 Multi [...] 100 mg by mouth 06/09/2024 06/14/2024 Active [place] 3 (11 sources) [place] 3 Active [place]-3 (6 sources) Start: 11-04-2020 [place]-3 Refill(s) 0 Start Date: 11/04/20 Status: Ordered [id number] H OIL ORAL (7 sources) take 2 tablets by mouth once daily [id number] SH OIL ORAL Take 2 tablets by [...] tablet 08/14/2024 08/19/2024 Active polyethylene glycol 3350 94080 mg powder for oral solution (16 sources) Osmotic Laxative polyethylene glycol 3350 (MIRALAX) 17 gram packet Take 17 g by mouth once daily. Dissolve dose in 4 - 8 ounces of liquid and take as directed. Active MiraLax Active sennosides, mcfp 8.6 mg oral tablet (3 sources) Start: 08-14-2024 take 1 tablet by mouth every twelve hours as needed Senna 8.6 mg tab Take 1 tablet by mouth two times a day as needed for constipation. 60 tablet 08/14/2024 10:33 AM EST 08/14/2024 Active Womens Multi (11 sources) Womens Multi Act tremayne Completed/Discontinued Medications Medication Drug Class(es) Dates Sig (Normalized) Sig (Original) [id number] 200 actuat albuterol 0.09 mg/actuat metered dose inhaler (20 sources) beta2-Adrenergic Agonist Start: 03-02-2025 End: 03-16-2025 take 1 puff(s) by inhalation every four hours Albuterol Sulfate 90 mcg/actuation HFA aerosol inhaler Discontinued 2 PUFF INHALATION Every 4 hours 8.5 30 March 02, 2025 8:20am March 16, 2025 9:43am Start: 10-25-2023 End: 03-02-2025 take 2 puff(s) [...] Inhalation every 4 hrs prn Jun, Not-Taking/PRN azithromycin 250 mg oral tablet (4 sources) Macrolide Antimicrobial Start: 03-02-2025 End: 03-16-2025 Azithromycin 250 mg tablet Discontinued 0 PO daily 6 5 March 02, 2025 12:00am March 16, 2025 9:43am Take 2 on day 1 and then take 1 for the next 4 days (days 2-5) Start: 09-02-2023 Azithromycin 2 50 MG Take 2 tablets on first day then 1 tablet daily for 4 days Orally as directed for 5 Aug, Active benzonatate 200 mg oral capsule (20 sources) Non-narcotic Antitussive Start: 12-20-2023 End: 03-16-2025 Benzonatate 200 mg capsule Discontinued 200 MG PO 2-3 TIMES PER DAY as needed for cough March 02, 2025 8:21am March 16, 2025 9:43am Start: 10-25-2023 End: 10-25-2023 take 1 capsule by mouth three times daily Benzonatate 200 mg capsule Discontinued 1 CAP PO Three times daily October 25, 2023 12:00am October 25, 2023 2:07pm [employer] capsule Orally Three times a day; Note: Source Status: Start; Refills: 0; Qty: 30 Capsule; Provider: [place] Hwang Start: 07-10-2023 take 1 capsule by mo [facility] every eight hours Benzonatate 200 MG 1 capsule Orally Three times a day for 10 day(s) Jun, Not-Taking/PRN doxycycline hyclate 100 mg oral capsule (20 sources) Tetracycline-class Drug Start: 10-25-2023 End: 10-25-2023 take 1 capsule by mouth twice daily Doxycycline Hyclate 100 mg capsule Discontinued 1 CAP PO Twice daily October 25, 2023 12:00am October 25, 2023 2:07pm [employer] capsule Orally twice daily; Note: Source Status: Taking; Refills: 0; Provider: Elgin Hwang Start: 03-08-2023 take 1 capsule by mo [facility] twice daily as needed Doxycycline Hyclate 100 MG 1 capsule Orally twice daily for 7 days Feb, Not-Taking/PRN estradiol 0.1 mg/ml vaginal cream (20 sources) Estrogen Start: 09-17-2024 estradiol 0.1 mg/g Vag Crm See Instructions, 42.5 gm, Refill(s) 4, Apply pea-sized amount around the urethra 3x per week., [employer] #72, 170, cm, 09/17/24 11:39:00 EST, Height/Length Dosing, 73, kg, 09/17/24 11:39:00 EST, Weight Dosing Start Date: 09/17/24 Status: Ordered Start: 02-14-2024 estradiol 0.1 mg/g Vag Crm 1 gm, Vaginal, MonWedFri, 42.5 gm, Refill(s) 4, [employer] #72, 170, cm, 11/26/23 9:23:00 EDT, Height/Length Dosing, 72.7, kg, 11/26/23 9:23:00 EDT, Weight Dosing Start Date: 02/14/24 Status: Ordered Start: 01-09-2023 estradiol 0.1 mg/g Vag Crm 1 gm, Vaginal, MonWedFri, 42.5 gm, Refill(s) 4, [employer] #72, 170, cm, 08/31/22 11:21:00 EST, Height/Length Dosing, 69.1, kg, 08/31/22 11:21:00 EST, Weight Dosing Start Date: 01/09/23 Status: Ordered Start: 12-29-2021 estradiol 0.1 mg/g Vag Crm 1 gm, Vaginal, MonWedFri, 42.5 gm, Refill(s) 4, [employer] #72, 170, cm, 08/28/21 14:33:00 EST, Height/Length Dosing, 70, kg, 08/28/21 14:33:00 EST, Weight Dosing Start Date: 12/29/21 Status: Ordered Start: 11-08-2020 estradiol (EST RACE) 0.01 % (0.1 mg/gram) vaginal cream INSERT 1 GRAM VAGINALLY SATURDAY, SATURDAY, and Saturday11/08/2020 Active Estradiol Active Melatonin (11 sources) Melatonin Not-Ta alexander/PRN Melatonin Active methylPREDNISolone 4 mg oral tablet (20 sources) Corticosteroid Start: 03-02-2025 End: 03-16-2025 take 1 tablet by mouth once Methylprednisolone (Medrol (Jovany)) 4 mg tablets,dose pack Discontinued 0 PO per package directions March 02, 2025 12:00am March 16, 2025 9:43am PO PER PKG DIR Start: 12-19-2023 End: 02-19-2024 take 1 tablet by mouth once Methylprednisolone (Medrol (Jovany)) 4 mg tablets,dose pack Discontinued 0 PO per package directions December 19, 2023 12:00am February 19, 2024 7:52am PO PER PKG DIR for 6 days Start: 07-10-2023 methylPREDNISo lone 4 MG as directed Orally for 6 days Jun, Not-Taking/PRN paxlovid (300/100) 20 x 150 mg [...] Chronic Chronic obstructive pulmonary disease and bronchiectasis (3 sources) Bronchitis; Translations: [Bronchitis, not specified as acute [...] Episodic Immunizations and screening for infectious disease (12 sources) Patient encounter status; Translations: [Encounter for immunization] 04-30-2024 Episodic Menopausal disorders (20 sources) Atrophic vaginitis; Translations: [Postmenopausal atrophic vaginitis] Onset: 08-31-2022 Chronic Mycoses (6 sources) Candidiasis of vagina 11-03-2020 Episodic Nausea and vomiting (19 sources) Nausea with vomiting, unspecified; Translations: [Nausea] Onset: 12-28-2021 08-06-2024 Episodic Osteoarthritis (4 sources) Arthritis of first carpometacarpal joint of [...] limb] 10-29-2023 Episodic Other connective tissue disease (2 sources) Pain of left hand; Translations: [Pain in [...] abnormalities] 11-27-2023 Episodic Other nervous system disorders (11 sources) Carpal tunnel syndrome of left wrist; [...] 01-04-2022 11-03-2020 Episodic Other upper respiratory disease (11 sources) Allergic rhinitis; Translations: [Allergic rhinitis, unspecified] [...] for other prophylactic surgery] Onset: 08-06-2024 Episodic Residual codes; unclassified (2 sources) Menopause present; Translations: [Asymptomatic menopausal state] 03-16-2025 Episodic Skin and subcutaneous tissue infections (1 [...] Test Name Value Interpretation Reference Range Facility Basophils Auto (Bld) [#/Vol] Ordered By: Marifer Boyle on 03-09-2025 Basophils (Bld) [#/Vol] 0.1 10 3/uL 0.0-0.1 [facility] Basophils/100 WBC Auto (Bld) Ordered By: Marifer Boyle on 03-09-2025 Basophils/100 WBC (Bld) 0.6 % 0.2-2.0 [facility] Cholesterol in LDL Calc [Mas s/Vol]Ordered By: Marifer Boyle on 03-09-2025 Cholesterol in LDL [Mass/Vol] 92.0 mg/dL [facility] Comment on above: <100 mg/dl [id number] 0-129 mg/dl NEAR OR ABOVE [id number] mg/dl BORDERLINE [id number] mg/dl HIGH>190 mg/dl VERY HIGH Cholesterol in VLDL Calc [Ma ss/Vol]Ordered By: Marifer Boyle on 03-09-2025 Cholesterol in VLDL [Mass/Vol] 69.0 mg/dL [facility] Eosinophils/100 WBC Auto (Bl d)Ordered By: Marifer Boyle on 03-09-2025 Eosinophils/100 WBC (Bld) 2.9 % 0.9-7.0 [facility] Erythrocyte distribution wid th Auto (RBC) [Ratio]Ordered By: Marifer Boyle on 03-09-2025 Erythrocyte distribution width (RBC) [Ratio] 12.2 % 11.0-15.0 [facility] Globulin Calc (S) [Mass/Vol] Ordered By: Marifer Boyle on 03-09-2025 Globulin (S) [Mass/Vol] 3.3 g/dL [facility] Glomerular filtration rate ( GFR) estimation in non- AmericanOrdered By: Marifer Boyle on 03-09-2025 GFR/1.73 sq M.predicted among non-blacks MDRD (S/P/Bld) [Vol rate/Area] mL/min/{1.73_m2} >=60 mL/min/1.7 3m 2 [facility] Hematocrit Auto (Bld) [Volum e fraction]Ordered By: Marifer Boyle on 03-09-2025 Hematocrit (Bld) [Volume fraction] 44.2 % 36.0-48.0 [facility] Hemoglobin [Mass/volume] in BloodOrdered By: Marifer Boyle on 03-09-2025 Hemoglobin (Bld) [Mass/Vol] 15.4 g/dL 12.0-16.0 [facility] Laboratory - Chemistry and C hemistry - challengeOrdered By: Marifer Boyle on 03-09-2025 Albumin [Mass/Vol] 3.8 g/dL 3.4-5.0 [facility] ALP [Catalytic activity/Vol] 96 U/L 46-116 [facility] ALT [Catalytic activity/Vol] 36 U/L 14-59 [facility] AST [Catalytic activity/Vol] 13 U/L Low 15-37 [facility] Bilirubin [Mass/Vol] 0.4 mg/dL 0.2-1.0 [facility] Calcium [Mass/Vol] 9.2 mg/dL 8.5-10.1 [facility] Chloride [Moles/Vol] 103 mmol/L 98-107 [facility] Cholesterol [Mass/Vol] 216 mg/dL High <=200 [facility] Cholesterol in HDL [Mass/Vol] 55 mg/dL 40-60 [facility] Comment on above: > or =60 mg/dl - LOW CARDIOVASCULAR RISK<40 mg/dl - HIGH CARDIOVASCULAR RISK CO2 [Moles/Vol] 33.3 mmol/L High 21.0-32.[address] [facility] Creatinine [Mass/Vol] 0.54 mg/dL Low 0.55-1.02 [facility] Free T4 [Mass/Vol] 1.48 ng/dL High 0.76-1.46 [facility] GFR/1.73 sq M.predicted MDRD (S/P/Bld) [Vol rate/Area] mL/min/{1.73_m2} >=60 mL/min/1.7 3m 2 [facility] Glucose [Mass/Vol] 90 mg/dL 74-106 [facility] Potassium [Moles/Vol] 3.9 mmol/L 3.5-5.1 [facility] Protein [Mass/Vol] 7.1 g/dL 6.4-8.2 [facility] Sodium [Moles/Vol] 140 mmol/L 136-145 [facility] Triglyceride [Mass/Vol] 345 mg/dL High <=150 [facility] TSH Qn 2.319 m[IU]/L 0.358-3.74 0 [facility] Urea nitrogen [Mass/Vol] 14.0 mg/dL 7.0-18.0 [facility] Urea nitrogen/Creatinine [Mass ratio] 25.9 mg/mg [facility] Laboratory - Hematology and Cell countsOrdered By: Marifer Boyle on 03-09-2025 Immature granulocytes/100 WBC (Bld) 1.8 % High 0.0-0.5 [facility] Leukocytes [#/volume] correc carl for nucleated erythrocytes in Blood by Automated counOrdered By: Marifer Boyle on 03-09-2025 WBC corrected for nucl RBC Auto (Bld) [#/Vol] 8.3 10 3/uL 4.0-11.0 [facility] Lymphocytes Auto (Bld) [#/Vo l]Ordered By: Marifer Boyle on 03-09-2025 Lymphocytes (Bld) [#/Vol] 2.4 10 3/uL 1.2-3.8 [facility] Lymphocytes/100 WBC Auto (Bl d)Ordered By: Marifer Boyle on 03-09-2025 Lymphocytes/100 WBC (Bld) 28.5 % 20.5-60.0 [facility] MCH Auto (RBC) [Entitic mass ]Ordered By: Marifer Boyle on 03-09-2025 MCH (RBC) [Entitic mass] 31.2 pg 26.7-34.0 [facility] MCHC Auto (RBC) [Mass/Vol]Or dered By: Marifer Boyle on 03-09-2025 MCHC (RBC) [Mass/Vol] 34.8 g/dL 29.9-35.2 [facility] MCV Auto (RBC) [Entitic vol] Ordered By: Marifer Boyle on 03-09-2025 MCV (RBC) [Entitic vol] 89.5 fL 81.0-99.0 [facility] Microalbumin [Mass/volume] i n UrineOrdered By: Marifer Boyle on 03-09-2025 Albumin DL <= 20 mg/L (U) [Mass/Vol] mg/dL <=30.0 [facility] Monocytes Auto (Bld) [#/Vol] Ordered By: Marifer Boyle on 03-09-2025 Monocytes (Bld) [#/Vol] 0.7 10 3/uL 0.3-0.8 [facility] Monocytes/100 WBC Auto (Bld) Ordered By: Marifer Boyle on 03-09-2025 Monocytes/100 WBC (Bld) 7.9 % 1.7-12.0 [facility] Neutrophils Auto (Bld) [#/Vo l]Ordered By: Marifer Boyle on 03-09-2025 Neutrophils (Bld) [#/Vol] 4.9 10 3/uL 1.4-6.5 [facility] Neutrophils/100 WBC Auto (Bl d)Ordered By: Marifer Boyle on 03-09-2025 Neutrophils/100 WBC (Bld) 58.3 % 43.0-75.0 [facility] No Panel InformationOrdered By: Marifer Boyle on 03-09-2025 Urine Random Creatinine 14.56 mg/dL Low 20.00-300. 00 [facility] Eosinophils # (Auto) 0.2 10 3/uL 0.0-0.7 [facility] Immature Granulocyte # (Auto) 0.15 10 3/uL High 0.00-0.03 [facility] Platelet mean volume Auto (B ld) [Entitic vol]Ordered By: Marifer Boyle on 03-09-2025 Platelet mean volume (Bld) [Entitic vol] 9.1 fL Low 9.5-13.5 [facility] Platelets Auto (Bld) [#/Vol] Ordered By: Marifer Boyle on 03-09-2025 Platelets (Bld) [#/Vol] 304 10 3/uL 150-450 [facility] RBC Auto (Bld) [#/Vol]Ordere d By: Marifer Boyle on 03-09-2025 RBC (Bld) [#/Vol] 4.94 10 6/uL 4.20-5.40 [facility] Serum or plasma albumin/glob ulin mass ratioOrdered By: Marifer Boyle on 03-09-2025 Albumin/Globulin [Mass ratio] 1.2 {ratio} [facility] Serum or plasma anion gap de terminationOrdered By: Marifer Boyle on 03-09-2025 Anion gap [Moles/Vol] 7.6 mmol/L [facility] Serum or plasma total choles terol/high density lipoprotein (HDL) cholesterol mass ratOrdered By: Marifer Boyle on 03-09-2025 Cholesterol.total/Chol esterol in HDL [Mass ratio] 3.9 {ratio} [facility] Comment on above: 3.3 - 4.4 LOW RISK4. 4 - 7.1 AVERAGE RISK7.1 - 11.0 MODERATE RISK>11.0 HIGH RISK Urine microalbumin/creatinin e mass ratioOrdered By: Marifer Boyle on 03-09-2025 Albumin/Creatinine DL <= 20 mg/L (U) [Mass ratio] 89.2 mg/g High 0.0-29.9 [facility] Comment on above: NO MICROALBUMINURIA 0-29 MG/GCLINICAL MICROALBUMINURIA 30-300 MG/GMACROALBUMINURIA >300 MG/G CNOVSPon 09-23-2024 CNOVSP Visit (SP) Office ([facility]) ----- JAMES WOODS ([id number]) 1950 F Date Time Provider Department 09/23/24 11:00 AM LAURIE JONES During your visit today, we recorded the following information about you: Temperature Pulse Respiration Blood pressure 97.9 degrees 83/minute 18/minute 127/79 Weight 72.9 kg Laurie Jones 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 Hadn't had vp integrity exam in years and she made first [...] [facility] path review: FINAL DIAGNOSIS Outside case [id number], collected 05/27/2024 Endometrium, curettage: - Limited superficial [...] size Use of iterative reconstruction technique Date: 03/30/20247117-[id number] s SURGICAL PROCEDURE-08/14/2024-Robo tic assisted total laparoscopic [...] new noc (more content not included)... Normal [facility] Urology Office/Clinic Noteon 09-17-2024 Urology Office/Clinic [...] for use/risks/benefits/side effects discussed. 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 All questions answered. Ordered: Body Mass Index (BMI) documented 3008F Current tobacco non-user 1036F Depression Screening Negative 3352F E&M of Est. Patient Low 20-29 Min 28057 Influenza immunization status assessed 1030F Medication list [...] Urnls Dip Stick Auto w/o Microscopy POC [id number] Orders: estradiol topical, See Instructions, 42.5 gm, Refill(s) 4, Apply pea-sized amount around the urethra 3x per week., [employer] #72, 170, cm, 09/17/24 11:39:00 EST, Height/Length Dosing, 73, kg, 09/17/24 11:39:00 EST, Weight Dosing Follow-up With When Contact Information [facility] Additional Instructions: Only if needed/new problems arise. [...] 20 mg Tab, Oral, Daily Multi Vitamin+ [place]-3 Allergies Vicodin (Nausea) penicillin (Unknown) Social History [...] 05/22/2023 Recorded tetanus-diphtheria toxoids 12/11/2021 Recorded SARSCoV2 mRNA(ifwehlnaw-zfiz-sygci s) vac 09/01/2021 Recorded SARS-CoV-2 (COVID-19) mRNA [...] Urine Dipstick (more content not included)... Normal [facility] Comment on above: Result Comment: Elec tronically Signed By: MADISON MORAN PA-C\.br\Date and Time Signed: 09/17/24 12:18 EST Provider Letteron 09-09-2024 Provider Letter Provider Letter September 09, 2024 JAMES WOODS [address] [place] [id number] : 1950 Dear Ms. James Woods, During review of your medical record we noticed that a follow up appointment was not scheduled. We have attempted to reach you to verify your condition and conclude treatment. Please call our office today to reschedule this appointment. Sincerely, [facility] [place] [address] ext.[phone] [facility] Reminderson 09-09-2024 Reminders Reminders From: Silvia Mckenzie To: [facility] - Administrative; Sent: 11/26/2023 09:38:12 EDT Show up: 11/26/2023 09:38:00 EDT Subject: Ambulatory Reminder Reminder/Recall Patient needs scheduled for a 1 yr follow up with [facility] office, around 11/28/24 Letter sent to pt stating call back to schedule appointment. Normal [facility] CNOVSPon 08-26-2024 CNOVSP Visit (SP) Office ([facility]) ----- JAMES WOODS ([id number]) 1950 F Date Time Provider Department 08/26/24 [...] atypical epithelial cells on path. HPI: James Gold is a 73 yo with a PMH of HTN, HLD, and hypothyroid. Patient presented to Dr Benton in February with c/o PMB. 10 days of bleeding, started light, then heavy, then tapered off. Hadn't had vp integrity exam in years and she made first [...] [facility] path review: FINAL DIAGNOSIS Outside case [id number], collected 05/27/2024 Endometrium, curettage: - Limited superficial [...] size Use of iterative reconstruction technique Date: 03/30/20242586-yjcfsxrtty-[id number] s SURGICAL PROCEDURE-08/14/2024-Robo tic assisted total laparoscopic [...] or constipation. (more content not included)... Normal [facility] Laboratory - Chemistry and C hemistry - challengeon 08-26-2024 Bilirubin Ql (U) Negative Negative [facility] Glucose (U) [Mass/Vol] Negative Negative [facility] Ketones Ql (U) Trace Abnormal Negative [facility] pH (U) 5.5 [pH] <8.5 [facility] Specific gravity (U) [Rel density] 1.024 1.005-1.03 0 [facility] Laboratory - Specimen inform ationon 08-26-2024 Appearance (U) Clear Clear [facility] Color (U) Yellow Yellow [facility] Laboratory - Urinalysison Bacteria LM.HPF (Urine sed) [#/Area] Negative Negative [facility] Hyaline casts LM Ql (Urine sed) 0 /LPF 0 /LPF [facility] Leukocyte esterase Test strip Ql (U) 1+ Abnormal Negative [facility] Nitrite Ql (U) Negative Negative [facility] Protein Ql (U) Negative Negative [facility] No Panel Informationon 08-26 Urine Calcium Oxalate Crystals Few [HPF] Abnormal None Seen [facility] Urine Occult Blood Negative Negative [facility] Urine RBC 3-5 /HPF Abnormal 0-2 /HPF [facility] Urine Squamous Epithelial Cells Few [HPF] [facility] Urine Urobilinogen 0.2 EU/dL 0.2-1.0 EU/dL [facility] Urine WBC 0-5 /HPF 0-5 /HPF [facility] Urinalysis complete panel (U )on 08-26-2024 Bacteria LM.HPF (Urine sed) [#/Area] Negative Negative /HPF [facility] Bilirubin Ql (U) Negative Negative [facility] Calcium Oxalate Crystals Few Abnormal None Seen /HPF [facility] Clarity (Unsp spec) Clear Clear [facility] Color (U) Yellow Yellow [facility] Epithelial cells LM.HPF (Urine sed) [#/Area] Few /HPF [facility] Glucose Test strip (U) [Mass/Vol] Negative Negative [facility] Hemoglobin Ql (U) Negative Negative [facility] Hyaline casts (Urine sed) [#/Area] 0 /[LPF] 0 /LPF [facility] Interpretation and review of laboratory results Abnormal [facility] Ketones Ql (U) Trace Abnormal Negative [facility] Leukocyte esterase Test strip Ql (U) 1+ Abnormal Negative [facility] Nitrite Ql (U) Negative Negative [facility] pH (U) 5.5 [pH] NINF - 8.5 [facility] Protein (U) [Mass/Vol] Negative Negative [facility] RBC LM.HPF (Urine sed) [#/Area] 3-5 /HPF Abnormal 0-2 /HPF [facility] Specific gravity (U) [Rel density] 1.024 1.005 - 1.030 [facility] Urobilinogen Ql (U) 0.2 EU/dL 0.2-1.0 EU/dL [facility] WBC LM.HPF (Urine sed) [#/Area] 0-5 /HPF 0-5 /HPF [facility] This test was develo ped and its performance characteristics determined by [facility]'s [place] [facility] Pathology and Laboratory Medicine [place] ([facility] It has not been cleared or approved by the FDA. -[facility] is regulated under CLIA as qualified to perform high-complexity testing. This test is used for clinical purposes. It should not be regarded as investigational or for research. [facility] Bacteria LM.HPF (Urine sed) [#/Area] Negative Normal Negative [facility] Comment on above: Order Comment: Speci men Type: BLOOD SPECIMEN Ordering Facility: [facility] Address: [address] [place] [address] Performed By: #### 2 41083, 2038-12 #### [facility] CLIA [id number] [address] [place] [address] [place] Bilirubin Ql (U) Negative Normal Negative [facility] Comment on above: Order Comment: Speci men Type: BLOOD SPECIMEN Ordering Facility: [facility] Address: [address] [place] [address] Performed By: #### 2 8, 2038-12 #### [facility] CLIA [id number] [address] [place] [address] [place] CALCIUM OXALATE CRYSTALS (UA) Few Abnormal None Seen [facility] Comment on above: Order Comment: Speci men Type: BLOOD SPECIMEN Ordering Facility: [facility] Address: [address] [place] [address] Performed By: #### 2 8-3, 2038-12 #### [facility] CLIA [id number] [address] [place] [address] [place] Clarity (Unsp spec) Clear Normal Clear [facility] Comment on above: Order Comment: Speci men Type: BLOOD SPECIMEN Ordering Facility: [facility] Address: [address] [place] [address] Performed By: #### 2 8-3, 2038-12 #### [facility] CLIA [id number] [address] [place] [address] [place] Color (U) Yellow Normal Yellow [facility] Comment on above: Order Comment: Speci men Type: BLOOD SPECIMEN Ordering Facility: [facility] Address: [address] [place] [address] Performed By: #### 2 4107-3, 2038-12 #### [facility] CLIA [id number] [address] [place] [address] [place] Epithelial cells LM.HPF (Urine sed) [#/Area] Few Normal [facility] Comment on above: Order Comment: Speci men Type: BLOOD SPECIMEN Ordering Facility: [facility] Address: [address] [place] [address] Performed By: #### 2 4107-09, 2038-12 #### [facility] CLIA [id number] [address] [place] [address] [place] Glucose Test strip (U) [Mass/Vol] Negative Normal Negative [facility] Comment on above: Order Comment: Speci men Type: BLOOD SPECIMEN Ordering Facility: [facility] Address: [address] [place] [address] Performed By: #### 2 3, 2038-12 #### [facility] CLIA [id number] [address] [place] [address] [place] Hemoglobin Ql (U) Negative Normal Negative [facility] Comment on above: Order Comment: Speci men Type: BLOOD SPECIMEN Ordering Facility: [facility] Address: [address] [place] [address] Performed By: #### 2 3, 2038-12 #### [facility] CLIA [id number] [address] [place] [address] [place] Hyaline casts (Urine sed) [#/Area] 0 /[LPF] Normal 0 /LPF [facility] Comment on above: Order Comment: Speci men Type: BLOOD SPECIMEN Ordering Facility: [facility] Address: [address] [place] [address] Performed By: #### 2 8-3, 2038-12 #### [facility] CLIA [id number] [address] [place] [address] [place] Ketones Ql (U) Trace Abnormal Negative [facility] Comment on above: Order Comment: Speci men Type: BLOOD SPECIMEN Ordering Facility: [facility] Address: [address] [place] [address] Performed By: #### 2 4107-3, 2038-12 #### [facility] CLIA [id number] [address] [place] [address] [place] Leukocyte esterase Test strip Ql (U) 1+ Abnormal Negative [facility] Comment on above: Order Comment: Speci men Type: BLOOD SPECIMEN Ordering Facility: [facility] Address: [address] [place] [address] Performed By: #### 2 83, 2038-12 #### [facility] CLIA [id number] [address] [place] [address] [place] Nitrite Ql (U) Negative Normal Negative [facility] Comment on above: Order Comment: Speci men Type: BLOOD SPECIMEN Ordering Facility: [facility] Address: [address] [place] [address] Performed By: #### 2 8-3, 2038-12 #### [facility] CLIA [id number] [address] [place] [address] [place] pH (U) 5.5 [pH] Normal <8.5 [facility] Comment on above: Order Comment: Speci men Type: BLOOD SPECIMEN Ordering Facility: [facility] Address: [address] [place] [address] Performed By: #### 2 4107-3, 2038-12 #### [facility] CLIA [id number] [address] [place] [address] [place] Protein (U) [Mass/Vol] Negative Normal Negative [facility] Comment on above: Order Comment: Speci men Type: BLOOD SPECIMEN Ordering Facility: [facility] Address: [address] [place] [address] Performed By: #### 2 4108-3, 2038-12 #### [facility] CLIA [id number] [address] [place] [address] [place] RBC LM.HPF (Urine sed) [#/Area] 3-5 /HPF Abnormal 0-2 /HPF [facility] Comment on above: Order Comment: Speci men Type: BLOOD SPECIMEN Ordering Facility: [facility] Address: [address] [place] [address] Performed By: #### 2 41083, 2038-12 #### [facility] CLIA [id number] [address] [place] [address] [place] Specific gravity (U) [Rel density] 1.024 Normal 1.005-1.03 0 [facility] Comment on above: Order Comment: Speci men Type: BLOOD SPECIMEN Ordering Facility: [facility] Address: [address] [place] [address] Performed By: #### 2 41083, 2038-12 #### [facility] CLIA [id number] [address] [place] [address] [place] Urobilinogen Ql (U) 0.2 EU/dL Normal 0.2-1.0 EU/dL [facility] Comment on above: Order Comment: Speci men Type: BLOOD SPECIMEN Ordering Facility: [facility] Address: [address] [place] [address] Performed By: #### 2 4108-3, 2038-12 #### [facility] CLIA [id number] [address] [place] [address] [place] WBC LM.HPF (Urine sed) [#/Area] 0-5 /HPF Normal 0-5 /HPF [facility] Comment on above: Order Comment: Speci men Type: BLOOD SPECIMEN Ordering Facility: [facility] Address: [address] [place] [address] Performed By: #### 2 4108-3, 2039-6 #### [facility] CLIA [id number] [address] [place] [address] [place] CNPNon 08-17-2024 CNPN Telephone (URR) ----- JAMES WOODS ([id number]) 1950 F Date Time Provider Department 08/17/24 TASHA HERRERA [facility] During your visit today, we recorded the [...] is aware of post op appointment with EDUCATION SPECIALIST on 08/26/2024 in [place] Patient verbalized understanding and denies further questions [...] of liquid and take as directed. - OWOEF-1A-ORF-EPA-FISH OIL ORAL Take 2 tablets by mouth [...] Encounter Status:Closed by TASHA HERRERA on 08/17/24 [facility] ANES POSTPROC EVALon 025 ANES POSTPROC EVAL HNO ID: [id number] Author: TRAY MONTAGUE MD Service: Anesthesiology Author Type: Anesthesiologist Type: Anesthesia Postprocedure Evaluation Filed: 08/14/2024 13:28 Note Text: POST ANESTHESIA EVALUATION NOTE : 1950 Procedure Summary Date: 08/14/24 Room / Location: OR / OR Anesthesia Start: 740 Anesthesia Stop: 1033 Procedure: ROBOTIC LAPAROSCOPIC TOTAL [...] August 14, 2024 TIME: 1:28 PM CSN: [id number] [facility] ANES PRE-OPon 08-14-2024 ANES PRE-OP HNO ID: [id number] Author: TRAY MONTAGUE MD Service: Anesthesiology Author [...] and consent discussed: yes. Patient / Responsible Republican agrees to proceed: yes Patient / Surrogate [...] none. Vitals Value Taken Time BP 153/83 08/14/24628 Pulse 77 08/14/24628 Resp 16 08/14/24628 Temp 37 ?C (98.6 ?F) 08/14/24628 SpO2 96 % 08/14/24628 Facility-Administered Medications as of 08/14/2024 Medication Dose [...] August 14, 2024 TIME: 7:12 AM CSN: [id number] [facility] BRIEF OP NOTon 08-14-2024 BRIEF OP NOT HNO ID: [id number] Author: KENIA ARORA MD Service: Gynecology Oncology Author Type: Fellow Type: Brief Op Note Filed: 08/14/2024 10:34 Note Text: BRIEF OPERATIVE / PROCEDURE NOTE LOG ID: [id number] SURGERY/PROCEDURE DATE: 08/14/2024 INCISION/PROCEDURE START TIME: 8:22 AM INCISION CLOSE/PROCEDURE END TIME: 10:18 AM SURGEON(S)/PROCEDURALIST( S) AND REVENUE CYCLE SPECIALIST(S): Surgeons and Role: * Chase Manning MD - Primary * Kenia Arora MD - Fellow Physician Machine Mover: Yissel Khoury PA-C SURGERY/PROCEDURE(S): RA-TLH, BSO, cysto [...] DATE: August 14, 2024 TIME: 10:31 AM [facility] OPERATIVE NOon 08-14-2024 OPERATIVE NO HNO ID: [id number] Author: CHASE MANNING MD Service: Gynecology Oncology Author Type: Physician Type: Operative Report Filed: 08/14/2024 10:40 Note Text: OPERATIVE/PROCEDURE REPORT LOG ID: [id number] SURGERY/PROCEDURE DATE: 08/14/2024 INCISION/PROCEDURE START TIME: 8:22 AM INCISION CLOSE/PROCEDURE END TIME: 10:18 AM SURGEON(S)/PROCEDURALIST( S) AND REVENUE CYCLE SPECIALIST(S): Surgeons and Role: * Chase Manning MD - Primary * Kenia Arora MD - Fellow Physician Machine Mover: Yissel Khoury PA-C SURGERY/PROCEDURE(S): Robotic assisted total [...] to 7cm and was serially dilated. A vcare uterine manipulator was carefully placed into the [...] AGENTS: N (more content not included)... Normal [facility] SURGICAL PATHOLOGYon 025 CASE REPORT Normal [facility] Comment on above: Order Comment: Speci men Type: TISSUE SPECIMEN Ordering Facility: [facility] Address: [address] [place], [place] [address] Result Comment: Surg [facility] Pathology Report Case: [id number] Authorizing Provider: Chase Manning MD Collected: 08/14/2024 09:13 AM Ordering Location: [facility] Received: 08/14/2024 09:24 AM Operating Room Pathologist: Meghna Gramajo MD Intraop: Karen Lainez MD Specimen: Uterus, Cervix, Bilateral Fallopian Tubes, and Bilateral Ovaries Performed By: #### S #### [facility] CLIA [id number] [address] [place] [address] LABORATORY CLIA [id number] [address] [place] [address] CLINICAL HISTORY Normal [facility] Comment on above: Order Comment: Speci men Type: TISSUE SPECIMEN Ordering Facility: [facility] Address: [address] [place] [address] Result Comment: Pre- op diagnosis: 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] Post-menopausal bleeding [N95.0] Thickened endometrium [R93.89] Left ovarian cyst [N83.202] Preop examination [Z01.818] Performed By: #### S #### [facility] CLIA [id number] [address] [place] [address] LABORATORY CLIA [id number] [address] [place] [address] DIAGNOSIS COMMENT Normal [facility] Comment on above: Order Comment: Speci men Type: TISSUE SPECIMEN Ordering Facility: [facility] Address: [address] [place] [address] Result Comment: Immu nohistochemical stain for GATA3 is positive and PAX8 is negative on A2, supporting the diagnosis of Matthew tumor. Laboratory Developed Test (LDT) Disclaimer: Performance characteristics of immunohistochemical, immunofluorescent and chromogenic in-situ hybridization tests have been determined by the performing laboratory within [facility]???s [place] Pathology and Laboratory Medicine Department ([facility], [place], [facility], [facility], [facility], [facility], [facility], or [facility]) in a manner consistent with CLIA requirements. One or more of these tests have not been cleared or approved by the FDA. [facility] is regulated under CLIA as qualified to perform high-complexity testing. These tests are used for clinical purposes. They should not be regarded as investigational or for research. Positive and negative controls stain appropriately. Performed By: #### S #### [facility] CLIA [id number] [address] [place] [address] LABORATORY CLIA [id number] [address] [place] [address] FINAL DIAGNOSIS Normal [facility] Comment on above: Order Comment: Speci men Type: TISSUE SPECIMEN Ordering Facility: [facility] Address: [address] [place] [address] Result Comment: A. U terus, cervix, bilateral fallopian tubes and ovaries, hysterectomy and bilateral salpingooophorectomy: Cervix: Nabothian cysts and chronic cervicitis. Endometrium- Inactive endometrium. Myometrium- Extensive adenomyosis. 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 Left and right fallopian tubes - No significant pathologic findings. Performed By: #### S #### [facility] CLIA [id number] [address] [place] [address] LABORATORY CLIA [id number] [address] [place] [address] OF [facility] FINAL PERFORMING LAB Normal [facility] Comment on above: Order Comment: Speci men Type: TISSUE SPECIMEN Ordering Facility: [facility] Address: [address] [place] [address] Result Comment: Diag nostic interpretation performed at: [facility], [address] [place], [place] [address] CLIA# [id number] [employer] Craftsman: Fermin Mcdaniels MD Performed By: #### S #### [facility] CLIA [id number] [address] [place] [address] [facility] CLIA [id number] [address] [place] [address] [place] GROSS DESCRIPTION Normal [facility] Comment on above: Order Comment: Speci men Type: TISSUE SPECIMEN Ordering Facility: [facility] Address: [address], [place] [id number] Result Comment: A. U terus, Cervix, Bilateral [...] greatest dimension containing a clear mucinous material. High Density Press Operator sections are submitted as follows: FSA1 endometrium with uterine wall full-thickness, FSA2 left ovarian nodule, A3 anterior uterine wall full-thickness, A4-A5 remainder anterior endometrium, A6 posterior uterine wall full-thickness, A7-A8 remainder posterior endometrium, A9 largest myometrial mass, A10 second largest myometrial mass, A11 third largest myometrial mass, A12 right fallopian tube fimbriated end totally submitted along with insurance sales representative cross-sections, A13 right ovary nodule, A14 focal area of right ovary submitted after light formic decalcification, A15 left fallopian tube fimbriated end totally submitted along with insurance sales representative cross-sections, A16 left ovary with nodule, A17 anterior cervix, A18 posterior cervix. BF August 14, 2024 12:10 PM Gross examination performed at [facility], [address] [place] [address] Performed By: #### S #### [facility] CLIA [id number] [address] [place] [address] LABORATORY CLIA [id number] [address] [place] [address] [place] INTRAOPERATIVE DIAGNOSIS Normal [facility] Comment on above: Order Comment: Speci men Type: TISSUE SPECIMEN Ordering Facility: [facility] Address: [address] [place] [address] Result Comment: A. U terus, Cervix, Bilateral Fallopian Tubes, and Bilateral Ovaries FSA1 endometrium-benign endometrium with adenomyosis (Dr. Lainez). 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 Intraoperative diagnosis performed at [facility], [address] [place] [address] CLIA # [id number] Performed By: #### S #### [facility] CLIA [id number] [address] [place] [address] [facility] CLIA [id number] [address] [place] [address] [place] Basophils Auto (Bld) [#/Vol] on 08-06-2024 Basophils (Bld) [#/Vol] Automated basophil count <0.11 [facility] Basophils/100 WBC Auto (Bld) on 08-06-2024 Basophils/100 WBC (Bld) Automated basophil % [facility] Blood manual differential co mment interpretation narrativeon 08-06-2024 Manual differential comment Aries (Bld) [Interp] Blood manual differential comment interpretation narrative [facility] CBC W Auto Differential pane l (Bld)on 08-06-2024 Basophils (Bld) [#/Vol] 0.04 10*3/uL Normal <0.11 [facility] Comment on above: Order Comment: Speci men Type: BLOOD SPECIMEN Ordering Facility: [facility] Address: [address] [place] [address] Performed By: #### 2 4108-3, 2038-12 #### [facility] CLIA [id number] [address] [place] [address] [place] Basophils/100 WBC (Bld) 0.6 % Normal [facility] Comment on above: Order Comment: Speci men Type: BLOOD SPECIMEN Ordering Facility: [facility] Address: [address] [place] [address] Performed By: #### 2 4108-3, 2038-12 #### [facility] CLIA [id number] [address] [place] [address] [place] Differential cell count method Nom (Bld) Auto Normal [facility] Comment on above: Order Comment: Speci men Type: BLOOD SPECIMEN Ordering Facility: [facility] Address: [address] [place] [address] Performed By: #### 2 4108-3, 2038-12 #### [facility] CLIA [id number] [address] [place] [address] [place] Eosinophils (Bld) [#/Vol] 0.09 10*3/uL Normal <0.46 [facility] Comment on above: Order Comment: Speci men Type: BLOOD SPECIMEN Ordering Facility: [facility] Address: [address] [place] [address] Performed By: #### 2 4108-3, 2038-12 #### [facility] CLIA [id number] [address] [place] [address] [place] Eosinophils/100 WBC (Bld) 1.3 % Normal [facility] Comment on above: Order Comment: Speci men Type: BLOOD SPECIMEN Ordering Facility: [facility] Address: [address] [place] [address] Performed By: #### 2 4108-3, 2038-12 #### [facility] CLIA [id number] [address] [place] [address] [place] Erythrocyte distribution width (RBC) [Ratio] 12.3 % Normal 11.5-15.0 [facility] Comment on above: Order Comment: Speci men Type: BLOOD SPECIMEN Ordering Facility: [facility] Address: [address] [place] [address] Performed By: #### 2 41083, 2038-12 #### [facility] CLIA [id number] [address] [place] [address] [place] Hematocrit (Bld) [Volume fraction] 45.3 % Normal 36.0-46.0 [facility] Comment on above: Order Comment: Speci men Type: BLOOD SPECIMEN Ordering Facility: [facility] Address: [address] [place] [address] Performed By: #### 2 41083, 2038-12 #### [facility] CLIA [id number] [address] [place], [place] [address] [place] Hemoglobin (Bld) [Mass/Vol] 14.9 g/dL Normal 11.5-15.5 [facility] Comment on above: Order Comment: Speci men Type: BLOOD SPECIMEN Ordering Facility: [facility] Address: [address] [place], [place] [address] Performed By: #### 2 4108-3, 2038-12 #### [facility] CLIA [id number] [address] [place] [address] [place] Immature granulocytes (Bld) [#/Vol] 10*3/uL Normal <0.10 [facility] Comment on above: Order Comment: Speci men Type: BLOOD SPECIMEN Ordering Facility: [facility] Address: [address] [place] [address] Performed By: #### 2 4108-3, 2038-12 #### [facility] CLIA [id number] [address] [place] [address] [place] Immature granulocytes/100 WBC (Bld) 0.3 % Normal [facility] Comment on above: Order Comment: Speci men Type: BLOOD SPECIMEN Ordering Facility: [facility] Address: [address] [place] [address] Performed By: #### 2 4108-3, 2038-12 #### [facility] CLIA [id number] [address] [place] [address] [place] Lymphocytes (Bld) [#/Vol] 1.65 10*3/uL Normal 1.00-4.00 [facility] Comment on above: Order Comment: Speci men Type: BLOOD SPECIMEN Ordering Facility: [facility] Address: [address] [place] [address] Performed By: #### 2 4108-3, 2038-12 #### [facility] CLIA [id number] [address] [place] [address] [place] Lymphocytes/100 WBC (Bld) 24.1 % Normal [facility] Comment on above: Order Comment: Speci men Type: BLOOD SPECIMEN Ordering Facility: [facility] Address: [address] [place] [address] Performed By: #### 2 4108-3, 2038-12 #### [facility] CLIA [id number] [address] [place] [address] [place] MCH (RBC) [Entitic mass] 30.1 pg Normal 26.0-34.0 [facility] Comment on above: Order Comment: Speci men Type: BLOOD SPECIMEN Ordering Facility: [facility] Address: [address] [place] [address] Performed By: #### 2 4108-3, 2038-12 #### [facility] CLIA [id number] [address] [place] [address] [place] MCHC (RBC) [Mass/Vol] 32.9 g/dL Normal 30.5-36.0 [facility] Comment on above: Order Comment: Speci men Type: BLOOD SPECIMEN Ordering Facility: [facility] Address: [address] [place] [address] Performed By: #### 2 4108-3, 2038-12 #### [facility] CLIA [id number] [address] [place] [address] [place] MCV (RBC) [Entitic vol] 91.5 fL Normal 80.0-100.0 [facility] Comment on above: Order Comment: Speci men Type: BLOOD SPECIMEN Ordering Facility: [facility] Address: [address] [place] [address] Performed By: #### 2 4108-3, 2038-12 #### [facility] CLIA [id number] [address] [place] [address] [place] Monocytes (Bld) [#/Vol] 0.63 10*3/uL Normal <0.87 [facility] Comment on above: Order Comment: Speci men Type: BLOOD SPECIMEN Ordering Facility: [facility] Address: [address] [place] [address] Performed By: #### 2 4108-3, 2038-12 #### [facility] CLIA [id number] [address] [place] [address] [place] Monocytes/100 WBC (Bld) 9.2 % Normal [facility] Comment on above: Order Comment: Speci men Type: BLOOD SPECIMEN Ordering Facility: [facility] Address: [address] [place] [address] Performed By: #### 2 4108-3, 2038-12 #### [facility] CLIA [id number] [address] [place] [address] [place] Neutrophils (Bld) [#/Vol] 4.41 10*3/uL Normal 1.45-7.50 [facility] Comment on above: Order Comment: Speci men Type: BLOOD SPECIMEN Ordering Facility: [facility] Address: [address] [place] [address] Performed By: #### 2 8-3, 2038-12 #### [facility] CLIA [id number] [address] [place] [address] [place] Neutrophils/100 WBC (Bld) 64.5 % Normal [facility] Comment on above: Order Comment: Speci men Type: BLOOD SPECIMEN Ordering Facility: [facility] Address: [address] [place] [address] Performed By: #### 2 8-3, 2038-12 #### [facility] CLIA [id number] [address] [place] [address] [place] Nucleated RBC (Bld) [#/Vol] 10*3/uL Normal <0.01 [facility] Comment on above: Order Comment: Speci men Type: BLOOD SPECIMEN Ordering Facility: [facility] Address: [address] [place] [address] Performed By: #### 2 8-3, 2038-12 #### [facility] CLIA [id number] [address] [place] [address] [place] Nucleated RBC/100 WBC (Bld) [Ratio] 0.0 /100 WBC Normal [facility] Comment on above: Order Comment: Speci men Type: BLOOD SPECIMEN Ordering Facility: [facility] Address: [address] [place] [address] Performed By: #### 2 4108-3, 2038-12 #### [facility] CLIA [id number] [address] [place] [address] [place] Platelet mean volume (Bld) [Entitic vol] 9.5 fL Normal 9.0-12.7 [facility] Comment on above: Order Comment: Speci men Type: BLOOD SPECIMEN Ordering Facility: [facility] Address: [address] [place] [address] Performed By: #### 2 4108-3, 2038-12 #### [facility] CLIA [id number] [address] [place], [place] [id number] [place] Platelets (Bld) [#/Vol] 293 10*3/uL Normal 150-400 [facility] Comment on above: Order Comment: Speci men Type: BLOOD SPECIMEN Ordering Facility: [facility] Address: [address] [place] [address] Performed By: #### 2 4108-3, 2038-12 #### [facility] CLIA [id number] [address] [place] [address] [place] RBC (Bld) [#/Vol] 4.95 10*6/uL Normal 3.90-5.20 [facility] Comment on above: Order Comment: Speci men Type: BLOOD SPECIMEN Ordering Facility: [facility] Address: [address] [place] [address] Performed By: #### 2 4108-3, 2038-12 #### [facility] CLIA [id number] [address] [place], [place] [id number] [place] WBC (Bld) [#/Vol] 6.84 10*3/uL Normal 3.70-11.00 [facility] Comment on above: Order Comment: Speci men Type: BLOOD SPECIMEN Ordering Facility: [facility] Address: [address] [place], [place] [address] Performed By: #### 2 4108-3, 2038-12 #### [facility] CLIA [id number] [address] [place] [address] [place] CEA SerPl-mCncon 08-06-2024 Carcinoembryonic Ag [Mass/Vol] 1.6 ng/mL Normal <=2.9 [facility] Comment on above: Order Comment: Speci men Type: BLOOD SPECIMEN Ordering Facility: [facility] Address: [address] [place] [address] Result Comment: Carc inoembryonic antigen test is used as an aid in monitoring response to treatment or recurrence in patients with established colorectal, breast, lung, prostatic, pancreatic, and ovarian carcinomas. Clinical correlation is required. The Carcinoembryonic antigen test was performed using the Peer[employer] DXI paramagnetic particle chemiluminescent immunoassay method. Results obtained with different assay methods or kits cannot be used interchangeably. Performed By: #### 2 4108-3, 2039-6 #### [facility] CLIA [id number] [address] [place] [address] [place] CONFIRM BLOOD TYPEon 025 ABO O Normal [facility] Comment on above: Order Comment: Speci men Type: BLOOD SPECIMEN Ordering Facility: [facility] Address: [address] [place] [address] Performed By: #### C ONABO #### [facility] CLIA [id number] [address] [place] [address] [place] Rh Nom (Bld) Negative Normal [facility] Comment on above: Order Comment: Speci men Type: BLOOD SPECIMEN Ordering Facility: [facility] Address: [address] [place] [address] Performed By: #### C ONABO #### [facility] CLIA [id number] [address] [place] [address] [place] Cancer Ag125 SerPl-aCncon Cancer Ag 125 Qn 6 [arb'U]/mL Normal <39 [facility] Comment on above: Order Comment: Speci men Type: BLOOD SPECIMEN Ordering Facility: [facility] Address: [address] [place], [place] [address] Result Comment: CA 1 25 test methodology [...] (CA 125 II) [package insert V 1.0 Slovak]. [employer], [place], [place] (April 2015) Performed By: #### 2 4108-3, 2038-12 #### [facility] CLIA [id number] [address] [place] [address] [place] Cancer Ag19-9 SerPl-aCncon 0 08-06-2024 Cancer Ag 19-9 Qn 7.0 [arb'U]/mL Normal <36.0 [facility] Comment on above: Order Comment: Specfredi anton Type: BLOOD SPECIMEN Ordering Facility: [facility] Address: [address] [place] [address] Result Comment: Rust er antigen 19-9 test is used as an aid in monitoring response to treatment or recurrence in patients with established pancreatic, hepatobiliary, or gastrointestinal malignancies. Clinical correlation is required. The CA 19-9 Antigen test was performed using the Dwayne Osgood Un[employer] DXI paramagnetic particle chemiluminescent immunoassay method. Results obtained with different assay methods or kits cannot be used interchangeably. Performed By: #### 2 41083, 2038-12 #### [facility] CLIA [id number] [address] [place] [address] [place] Comprehensive metabolic 2000 panelon 08-06-2024 Albumin [Mass/Vol] 4.8 g/dL Normal 3.9-4.9 [facility] Comment on above: Order Comment: Specfredi anton Type: BLOOD SPECIMEN Ordering Facility: [facility] Address: [address] [place] [address] Performed By: #### 2 4108-3, 2038-12 #### [facility] CLIA [id number] [address] [place] [address] [place] ALP [Catalytic activity/Vol] 85 U/L Normal 34-123 [facility] Comment on above: Order Comment: Speci men Type: BLOOD SPECIMEN Ordering Facility: [facility] Address: [address] [place] [address] Performed By: #### 2 4108-3, 2038-12 #### [facility] CLIA [id number] [address] [place] [address] [place] ALT [Catalytic activity/Vol] 22 U/L Normal 7-38 [facility] Comment on above: Order Comment: Speci men Type: BLOOD SPECIMEN Ordering Facility: [facility] Address: [address] [place] [address] Performed By: #### 2 4108-3, 2038-12 #### [facility] CLIA [id number] [address] [place] [address] [place] Anion gap [Moles/Vol] 8 mmol/L Normal 8-15 [facility] Comment on above: Order Comment: Speci men Type: BLOOD SPECIMEN Ordering Facility: [facility] Address: [address] [place] [address] Performed By: #### 2 4108-3, 2038-12 #### [facility] CLIA [id number] [address] [place] [address] [place] AST [Catalytic activity/Vol] 20 U/L Normal 13-35 [facility] Comment on above: Order Comment: Speci men Type: BLOOD SPECIMEN Ordering Facility: [facility] Address: [address] [place] [address] Performed By: #### 2 4108-3, 2038-12 #### [facility] CLIA [id number] [address] [place], [place] [id number] [place] Bilirubin [Mass/Vol] 0.4 mg/dL Normal 0.2-1.3 [facility] Comment on above: Order Comment: Speci men Type: BLOOD SPECIMEN Ordering Facility: [facility] Address: [address] [id number] Performed By: #### 2 4108-3, 2038-12 #### [facility] CLIA [id number] [address] [place], [place] [address] [place] Calcium [Mass/Vol] 10.0 mg/dL Normal 8.5-10.2 [facility] Comment on above: Order Comment: Speci men Type: BLOOD SPECIMEN Ordering Facility: [facility] Address: [address] [place], [place] [address] Performed By: #### 2 4108-3, 2038-12 #### [facility] CLIA [id number] [address] [place] [address] [place] Chloride [Moles/Vol] 104 mmol/L Normal 98-107 [facility] Comment on above: Order Comment: Speci men Type: BLOOD SPECIMEN Ordering Facility: [facility] Address: [address] [place], [place] [address] Performed By: #### 2 4108-3, 2038-12 #### [facility] CLIA [id number] [address] [place] [address] [place] CO2 [Moles/Vol] 28 mmol/L Normal 22-30 [facility] Comment on above: Order Comment: Speci men Type: BLOOD SPECIMEN Ordering Facility: [facility] Address: [address] [place], [place] [address] Performed By: #### 2 4108-3, 2038-12 #### [facility] CLIA [id number] [address] [place] [address] [place] Creatinine [Mass/Vol] 0.53 mg/dL Low 0.58-0.96 [facility] Comment on above: Order Comment: Speci men Type: BLOOD SPECIMEN Ordering Facility: [facility] Address: [address] [place], [place] [address] Performed By: #### 2 4108-3, 2038-12 #### [facility] CLIA [id number] [address] [place] [address] [place] Creatinine and Glomerular filtration rate.predicted panel (S/P/Bld) 98 mL/min/1.73m??? Normal >=60 [facility] Comment on above: Order Comment: Mu anton Type: BLOOD SPECIMEN Ordering Facility: [facility] Address: [address] [place] [address] Result Comment: Ni mated Glomerular Filtration Rate [...] reflect actual GFR. Performed By: #### 2 41083, 2038-12 #### [facility] CLIA [id number] [address] [place] [address] [place] Glucose [Mass/Vol] 109 mg/dL High 74-99 [facility] Comment on above: Order Comment: Mu anton Type: BLOOD SPECIMEN Ordering Facility: [facility] Address: [address] [place] [address] Result Comment: The [place] Diabetes Association (ADA) provides guidance for cutoff [...] Standards of Medical Care in Diabetes 2016, [place] [employer] Association. Diabetes Care. 2016.39(Suppl 1). Performed By: #### 2 4108-3, 2038-12 #### [facility] CLIA [id number] [address] [place], [place] [id number] [place] Potassium [Moles/Vol] 4.5 mmol/L Normal 3.7-5.1 [facility] Comment on above: Order Comment: Speci men Type: BLOOD SPECIMEN Ordering Facility: [facility] Address: [address] [place] [address] Performed By: #### 2 4108-3, 2038-12 #### [facility] CLIA [id number] [address] [place] [address] [place] Protein [Mass/Vol] 7.3 g/dL Normal 6.3-8.0 [facility] Comment on above: Order Comment: Speci men Type: BLOOD SPECIMEN Ordering Facility: [facility] Address: [address] [place] [address] Performed By: #### 2 4108-3, 2038-12 #### [facility] CLIA [id number] [address] [place] [address] [place] Sodium [Moles/Vol] 140 mmol/L Normal 136-144 [facility] Comment on above: Order Comment: Speci men Type: BLOOD SPECIMEN Ordering Facility: [facility] Address: [address] [place] [address] Performed By: #### 2 4108-3, 2038-12 #### [facility] CLIA [id number] [address] [place] [address] [place] Urea nitrogen [Mass/Vol] 12 mg/dL Normal 7-21 [facility] Comment on above: Order Comment: Speci men Type: BLOOD SPECIMEN Ordering Facility: [facility] Address: [address] [place] [address] Performed By: #### 2 4108-3, 2038-12 #### [facility] CLIA [id number] [address] [place], [place] [id number] [place] ECG COMPLETEon 08-06-2024 ECG COMPLETE Ventricular Rate : 7 5 BPM Atrial Rate : 75 BPM P-R Interval : 180 ms QRS Duration : 80 ms Q-T Interval : 392 ms QTC Calculation(Bazett) : 437 ms Calculated P Mccall : 46 degrees Calculated R Mccall : -10 degrees Calculated T Mccall : 34 degrees NORMAL SINUS RHYTHM CANNOT EXCLUDE INFERIOR MYOCARDIAL INFARCTION , AGE UNDETERMINED ABNORMAL ECG Confirmed by GARIMA RODRIGUEZ MD ([id number]) on 08/07/2024 6:26:38 AM NAME : JAMES WOODS PID : [id number] : 1950 Gender : Female Race : ORD : [id number] Procedure Date : Aug 06 2024 07:58:04 [...] CHASE MANNING Acquired by : am, Normal [facility] Eosinophils/100 WBC Auto (Bl d)on 08-06-2024 Eosinophils/100 WBC (Bld) Automated eosinophil % [facility] Erythrocyte distribution wid th Auto (RBC) [Ratio]on 08-06-2024 Erythrocyte distribution width (RBC) [Ratio] Erythrocyte distribution width [Ratio] by Automated count 11.5-15.0 [facility] HISTORY PHYSICALon HISTORY PHYSICAL HNO ID: [id number] Author: NHAN HUYNH APRN.CNP Service: ? Author Type: Nurse Practitioner [...] large neck Non-male patient STOP-Bang Score: 2 [id number] Score: Age: 65-74 Sex: female CHF history: No Hypertension history: Yes Stroke/TIA/thromboembolis m history: No Vascular disease history: No Diabetes history: No [id number] Score: 3 ARISCAT Score: Age: 51-80 Preoperative [...] then heavy, then tapered off. Hadn't had vp integrity exam in years and she made first [...] history of (more content not included)... Normal [facility] Hematocrit Auto (Bld) [Volum e fraction]on 08-06-2024 Hematocrit (Bld) [Volume fraction] Hematocrit [Volume Fraction] of Blood by Automated count 36.0-46.0 [facility] Hemoglobin [Mass/volume] in Bloodon 08-06-2024 Hemoglobin (Bld) [Mass/Vol] Hemoglobin [Mass/volume] in Blood 11.5-15.5 [facility] Laboratory - Chemistry and C hemistry - challengeon 08-06-2024 Albumin [Mass/Vol] 4.8 g/dL 3.9-4.9 [facility] ALP [Catalytic activity/Vol] 85 U/L 34-123 [facility] ALT [Catalytic activity/Vol] 22 U/L 7-38 [facility] AST [Catalytic activity/Vol] 20 U/L 13-35 [facility] Bilirubin [Mass/Vol] 0.4 mg/dL 0.2-1.3 [facility] Calcium [Mass/Vol] 10.0 mg/dL 8.5-10.2 [facility] Chloride [Moles/Vol] 104 mmol/L 98-107 [facility] CO2 [Moles/Vol] 28 mmol/L 22-30 [facility] Creatinine [Mass/Vol] 0.53 mg/dL Low 0.58-0.96 [facility] Glucose [Mass/Vol] 109 mg/dL High 74-99 [facility] Comment on above: The [place] Diabete s Association (ADA) provides guidance for [...] Standards of Medical Care in Diabetes 2016, [place] Diabetes [employer]. Diabetes Care. 2016.39(Suppl 1). Potassium [Moles/Vol] 4.5 mmol/L 3.7-5.1 [facility] Sodium [Moles/Vol] 140 mmol/L 136-144 [facility] Urea nitrogen [Mass/Vol] 12 mg/dL 7-21 [facility] Laboratory - Hematology and Cell countson 08-06-2024 Eosinophils (Bld) [#/Vol] 0.09 10*3/uL <0.46 [facility] Immature granulocytes/100 WBC (Bld) 0.3 % [facility] Leukocytes [#/volume] correc carl for nucleated erythrocytes in Blood by Automated counon 08-06-2024 WBC corrected for nucl RBC Auto (Bld) [#/Vol] Leukocytes [#/volume] corrected for nucleated erythrocytes in Blood by Automated coun 3.70-11.00 [facility] Lymphocytes Auto (Bld) [#/Vo l]on 08-06-2024 Lymphocytes (Bld) [#/Vol] Lymphocytes [#/volume] in Blood by Automated count 1.00-4.00 [facility] Lymphocytes/100 WBC Auto (Bl d)on 08-06-2024 Lymphocytes/100 WBC (Bld) Lymphocytes/100 leukocytes in Blood by Automated count [facility] MCH Auto (RBC) [Entitic mass ]on 08-06-2024 MCH (RBC) [Entitic mass] MCH [Entitic mass] by Automated count 26.0-34.0 [facility] MCHC Auto (RBC) [Mass/Vol]on 08-06-2024 MCHC (RBC) [Mass/Vol] MCHC [Mass/volume] by Automated count 30.5-36.0 [facility] MCV Auto (RBC) [Entitic vol] on 08-06-2024 MCV (RBC) [Entitic vol] MCV [Entitic volume] by Automated count 80.0-100.0 [facility] Monocytes Auto (Bld) [#/Vol] on 08-06-2024 Monocytes (Bld) [#/Vol] Automated blood monocyte count <0.87 [facility] Monocytes/100 WBC Auto (Bld) on 08-06-2024 Monocytes/100 WBC (Bld) Automated monocyte % [facility] Neutrophils Auto (Bld) [#/Vo l]on 08-06-2024 Neutrophils (Bld) [#/Vol] Neutrophils [#/volume] in Blood by Automated count 1.45-7.50 [facility] Neutrophils/100 WBC Auto (Bl d)on 08-06-2024 Neutrophils/100 WBC (Bld) Automated neutrophil % [facility] No Panel Informationon 08-06 Estimated GFR (CKD-EPI) 98 mL/min/1.73m??? >=60 [facility] Comment on above: Estimated Glomerular Filtration [...] Immature Granulocyte # (Auto) <0.03 k/uL <0.10 [facility] Nucleated RBC Auto (Bld) [#/ Vol]on 08-06-2024 Nucleated RBC (Bld) [#/Vol] Nucleated erythrocytes [#/volume] in Blood by Automated count <0.01 [facility] Nucleated erythrocytes [Pres ence] in Blood by Automated counton 08-06-2024 Nucleated RBC Auto Ql (Bld) Nucleated erythrocytes [Presence] in Blood by Automated count [facility] Platelet mean volume Auto (B ld) [Entitic vol]on 08-06-2024 Platelet mean volume (Bld) [Entitic vol] Platelet mean volume [Entitic volume] in Blood by Automated count 9.0-12.7 [facility] Platelets Auto (Bld) [#/Vol] on 08-06-2024 Platelets (Bld) [#/Vol] Platelets [#/volume] in Blood by Automated count 150-400 [facility] Protein [Mass/volume] in Ser um or Plasmaon 08-06-2024 Protein [Mass/Vol] Protein [Mass/volume ] in Serum or Plasma 6.3-8.0 [facility] RBC Auto (Bld) [#/Vol]on RBC (Bld) [#/Vol] Erythrocytes [#/volu me] in Blood by Automated count 3.90-5.20 [facility] Serum or plasma anion gap de terminationon 08-06-2024 Anion gap [Moles/Vol] Serum or plasma an ion gap determination 8-15 [facility] Serum or plasma cancer antig en 125 (CA-125) measurement (units/volume)on 08-06-2024 Cancer Ag 125 Qn Serum or plasma canc er antigen 125 (CA-125) measurement (units/volume) <39 [facility] Comment on above: CA 125 test [...] (CA 125 II) [package insert V 1.0 Slovak]. [employer], [place], [place] (April 2015) Serum or plasma cancer antig en 19-9 measurement (units/volume)on 08-06-2024 Cancer Ag 19-9 Qn Serum or plasma canc er antigen 19-9 measurement (units/volume) <36.0 [facility] Comment on above: Cancer antigen 19-9 test is used as an aid in monitoring response to treatment or recurrence in patients with established pancreatic, hepatobiliary, or gastrointestinal malignancies. Clinical correlation is required.The CA 19-9 Antigen test was performed using the Dwayne Fengguo [employer] DXI paramagnetic particle chemiluminescent immunoassay method. Results obtained with different assay methods or kits cannot be used interchangeably. TYPE AND SCREEN,30 DAYon ABO O Normal [facility] Comment on above: Order Comment: Speci men Type: BLOOD SPECIMEN Ordering Facility: [facility] Address: [address] [place] [address] Performed By: #### T SCR30 #### [facility] MAIN BLOOD BANK [place] [id number] [address] [place], [place] [address] [address] [place] Rh Nom (Bld) Negative Normal [facility] Comment on above: Order Comment: Speci men Type: BLOOD SPECIMEN Ordering Facility: [facility] Address: [address] [place] [address] Performed By: #### T SCR30 #### [facility] BLOOD BANK [place] [id number] [id number] [facility] [address] XR CHEST 2V FRONTAL/LATon XR CHEST 2V [...] is unremarkable. IMPRESSION: No acute cardiopulmonary process. Nut Processing Supervisor: [facility] Transcribe Date/Time: Aug 06 2024 9:01A Dictated by : SASCHA CLEMENS MD This examination was interpreted and the report reviewed and electronically signed by: SASCHA CLEMENS MD on Aug 06 2024 9:05AM EST [id number] Normal [facility] XR Chest PA and Lateralon IMPRESSION: No acute cardiopulmonary process. Nut Processing Supervisor: [facility] Transcribe Date/Time: Aug 06 2024 9:01A Dictated by : SASCHA CLEMENS MD This examination was interpreted and the report reviewed and electronically signed by: SASCHA CLEMENS MD on Aug 06 2024 9:05AM EST DIVISION OF RADIOLOGY * * *Final Report* [...] vasculature is unremarkable. DIVISION OF RADIOLOGY Provider, [facility] - 08/06/2024 * * *Final Report* * [...] unremarkable. IMPRESSION IMPRESSION: No acute cardiopulmonary process. Nut Processing Supervisor: [facility] Transcribe Date/Time: Aug 06 2024 9:01A Dictated by : SASCHA CLEMENS MD This examination was interpreted and the report reviewed and electronically signed by: SASCHA CLEMENS MD on Aug 06 2024 9:05AM EST [facility] Radiology Study observation (narrative) [facility] XR Chest PA and LateralOrder ed By: [facility] Provider on 08-06-2024 [facility] CNPNon 07-24-2024 CNPN Telephone (GYNML) ----- JAMES WOODS ([id number]) 1950 F Date Time Provider Department 07/24/24 ЕЛЕНА AMATO GYNRENE During your visit today, we recorded the following information about you: Елена Amato, RN 07/24/2024 10:08 AM Signed Procedure: Pelvic exam under anesthesia, laparoscopic removal of uterus, cervix, tubes and ovaries, possible : lymphadenectomy, omentectomy, blood transfusion, any other indicated procedure Physician: Chase Manning Location: [facility]: [phone] Date AND Time: 08/14/24 MEDICAL CLEARANCE: TBD CARDIAC CLEARANCE: TBD PRE ADMISSION TESTIN08/06/24 AT: Facundo Dubose THE FOLLOWING WAS EVALUATED Motivation To [...] Naprosyn(naproxen) Agrylin NSAIDS Pepto-Bismol Aleve Ecotrin Persantine Janel-[place] Excedrin Plaquenil Anacin Heparin Plavix Ascriptin Herbals [...] - IV pain medication after surgery, IV HEAVY TRUCK TECHNICIAN if ordered by MD, discharged home with a prescription for PO pain medication, pain management after surgery, side effects of pain medication (including constipation, dizziness, drowsiness, and medication interactions). DVT PROPHYLAXIS - Early ambulation, SCDs, injectable anticoagulants (heparin, lovenox, etc) RESPIRATORY - Incentive spirometer, coughing/deep breathing exercises, ambulation. RETURN TO WORK - As directed by physician, please send any FMLA papers to physician's alumni secretary. SYMPTOMS TO NOTIFY MD - Fever, [...] if after hours patient instructed to call boiler/chiller operator and ask for the doctor balloon maker. Patient and family have phone number to call 24 hours/day. Patient Evaluation: Verbalizes understanding Patient and/or family express understanding of upcoming surgery and the operative process. Questions answered. Follow Up Plan: Follow up as needed Supplemental Material Given: Pre-operative te (more content not included)... Normal [facility] CNOVSPon 07-01-2024 CNOVS Visit (SP) Office (GYNOSA) ----- JAMES WOODS ([id number]) 1950 F Date Time Provider Department 07/01/24 10:00 AM KUZNICKI, CHASE MARTÍN GYNOSA During your visit today, we recorded the [...] then heavy, then tapered off. Hadn't had vp integrity exam in years and she made first [...] [facility] path review: FINAL DIAGNOSIS Outside case [id number], collected 05/27/2024 Endometrium, curettage: - Limited superficial [...] size Use of iterative reconstruction technique Date: 03/30/20248991-jadsdeclvh-[id number] s HEALTH MAINTENANCE: Last mammogram: UTD normal [...] estradiol cream, had UTI after DANDC-completed antibiotics UNDERWRITING ACCOUNT REPRESENTATIVE: SEE HPI MUSCULOSKELETAL: Negative for joint pain or swelling, back pain or muscle pain SKIN: Negative for lesions, rash, and itching PSYCH: Negative for sleep disturbance, mood disorder and recent psychosocial stressors HEMATOLOGY/L (more content not included)... Normal [facility] OUTSIDE SURG PATH SLIDE REVI EWon 06-15-2024 CASE REPORT Normal [facility] Comment on above: Order Comment: Speci men Type: FORMALIN-FIXED PARAFFIN-EMBEDDED TISSUE SPECIMEN Ordering Facility: [facility] Outside Review Address: , , Result Comment: Surg [facility] Pathology Report Case: [id number] Authorizing Provider: Chase Manning MD Collected: 06/15/2024 08:58 AM Ordering Location: [facility] Received: 06/15/2024 08:57 AM [facility] Pathologist: Meghna Gramajo MD Specimen: Slide(s), 2 SLIDES [id number] Performed By: #### L [id number] #### [facility] CLIA [id number] [address] [place] [address] DIAGNOSIS COMMENT Follow-up and anothe r sampling is recommended if clinically indicated. This case has been reviewed at the gynecologic pathology consensus meeting with Drs. Ross, Meena, Messi, Ida and Esther , who concur. Normal [facility] Comment on above: Order Comment: Speci men Type: FORMALIN-FIXED PARAFFIN-EMBEDDED TISSUE SPECIMEN Ordering Facility: [facility] Outside Review Address: , , Performed By: #### L [id number] #### [facility] CLIA [id number] [address] [place] [address] FINAL DIAGNOSIS Normal [facility] Comment on above: Order Comment: Speci men Type: FORMALIN-FIXED PARAFFIN-EMBEDDED TISSUE SPECIMEN Ordering Facility: [facility] Outside Review Address: , , Result Comment: Outs chris case [id number], collected 05/27/2024 Endometrium, curettage: - Limited superficial inactive endometrium (see comment). - Predominantly benign squamous and endocervical epithelium with atrophic changes. Performed By: #### L [id number] #### [facility] CLIA [id number] [address] [place] [address] FINAL PERFORMING LAB Normal [facility] Comment on above: Order Comment: Speci men Type: FORMALIN-FIXED PARAFFIN-EMBEDDED TISSUE SPECIMEN Ordering Facility: [facility] Outside Review Address: , , Result Comment: Diag nostic interpretation performed at: [facility], [facility], Desk [place] [address] CLIA# [id number] [employer] Door Craftsman: Fermin Mcdaniels MD Performed By: #### L [id number] #### [facility] CLIA [id number] [facility] DESK [address] C Urineon 06-11-2024 Bacteria identified Cx Nom (U) Microbiology PROCEDURE: Urine Culture [R1] SOURCE: U Random BODY SITE: COLLECTED DATE/TIME: 06/09/2024 13:38 EST RECEIVED DATE/TIME: 06/09/2024 17:56 EST START DATE/TIME: 06/09/2024 17:56 EST FREE TEXT SOURCE: ASHLEY Salas APRN-Arun, ASHLEY Salas APRN-Arun, Sanam Marion X FINAL REPORTS Final Report [] Verified [...] Locations R1: This test was performed at: [facility], [address] [place] [address], [address] , , [facility] Comment on above: Performed By: #### 2 [id number] #### [facility] [address] [place] [address] Urology Office/Clinic Noteon 06-09-2024 Urology Office/Clinic Note [...] with voice recognition artificial intelligence software, specifically [employer], [employer] and or [employer]. Substitutions may have occurred due to the [...] days. She did have recent D&C with UNDERWRITING ACCOUNT REPRESENTATIVE on 05/27/2024. UA today with large blood, [...] day(s), # 10 cap(s), Refills(s) 0, Pharmacy: [facility], 170, cm, 06/09/24 13:30:00 EST, Height/Length [...] resolve with treatment of possible infection Ordered: [id number] Measure Post Void residual urine and/or bladder [...] does routinel (more content not included)... Normal [facility] Comment on above: Result Comment: Elec tronically Signed By: ANA LUISA Salas APRN, [place] X\.br\Date and Time Signed: 06/09/24 13:59 EST [place] 05-27-2024 L ----- Specimen: [id number] Received: 05/27/24 Status: YULI Johnston Num: [id number] Spec Type: Surgical Subm Dr: JULIO CÉSAR BENTON MD Tissues: A Endometrium - Curettings (ENDOMETRIAL CURETTINGS) Procedures: HE/2Rosalva/Feliz L4 Age/ Patient Sex Location Account Attending Physician James Woods 73/F ANAI [id number] JULIO CÉSAR BENTON MD SPEC NUM: [id number] RECD: 05/27/24 STATUS: YULI JOHNSTON NUM: [id number] RICKY: 05/27/[address] [facility] [address]: JULIO CÉSAR BENTON MD ENTERED: 05/27/[address] [facility] [address]: [facility] SPEC TYPE: Surgical DEPT: S ENTERED BY: [id number] RECV BY: [id number] ORDERED: LONI/Geovany, Gross/Micro L4 ORDERED: HE/2, Gross/Micro L4 Pathological [...] submitted in a single cassette. (1, ns, [id number]) CPT Codes 70260 Specimen: [id number] Received: 05/27/24 Status: YULI Johnston Num: [id number] Spec Type: Surgical Subm Dr: JULIO CÉSAR BENTON MD Tissues: A Endometrium - Curettings (ENDOMETRIAL CURETTINGS) Procedures: HE/Geovany, Gross/Micro L4 Patient: James Woods [id number] (Continued) Signed (signature on file) Valeriano Anaya MD 05/28/24 1540 Normal [facility] Alanine aminotransferase [En zymatic activity/volume] in Serum or PlasmaOrdered By: JULIO CÉSAR BENTON on 05-12-2024 ALT [Catalytic activity/Vol] 20 U/L Normal 7-52 [facility] Comment on above: Performed By: #### C CRISTOPHER, CMP #### [facility] [address] [place] [address] [place] Albumin [Mass/volume] in Ser um or Plasma by Bromocresol green (BCG) dye binding methoOrdered By: JULIO CÉSAR BENTON on 05-12-2024 Albumin BCG dye [Mass/Vol] 4.3 g/dL 3.5-5.7 [facility] Alkaline phosphatase [Enzyma tic activity/volume] in Serum or PlasmaOrdered By: JULIO CÉSAR BENTON on 05-12-2024 ALP [Catalytic activity/Vol] 71 U/L Normal 34-104 [facility] Comment on above: Result Comment: PERF ORMED BY: [facility] [address] [place] [address] PATHOLOGIST ASPHALT PAVER OPERATOR KASSANDRA GARCIA M.D. Performed By: #### C CRISTOPHER, CMP #### [facility] [address] [place] [address] [place] Aspartate aminotransferase [ Enzymatic activity/volume] in Serum or PlasmaOrdered By: JULIO CÉSAR BENTON on 05-12-2024 AST [Catalytic activity/Vol] 17 U/L Normal 13-39 [facility] Comment on above: Performed By: #### C BC, CMP #### [address] Automated basophil %Ordered By: JULIO CÉSAR BENTON on 05-12-2024 Basophils/100 WBC (Bld) 0.4 % Normal . [facility] Comment on above: Performed By: #### C BC, CMP #### [address] Automated basophil countOrde red By: JULIO CÉSAR BENTON on 05-12-2024 Basophils (Bld) [#/Vol] 0.0 10*3/uL Normal 0.0-0.2 [facility] Comment on above: Result Comment: PERF ORMED BY: [place] [address] PATHOLOGIST ASPHALT PAVER OPERATOR KASSANDRA GARCIA M.D. Performed By: #### C BC, CMP #### [address] Automated blood monocyte cou ntOrdered By: JULIO CÉSAR BENTON on 05-12-2024 Monocytes (Bld) [#/Vol] 0.6 10*3/uL Normal 0.0-0.8 [facility] Comment on above: Performed By: #### C BC, CMP #### [address] Automated eosinophil %Ordere d By: JULIO CÉSAR BENTON on 05-12-2024 Eosinophils/100 WBC (Bld) 2.0 % Normal . [facility] Comment on above: Performed By: #### C BC, CMP #### [address] Automated eosinophil countOr dered By: JULIO CÉSAR BENTON on 05-12-2024 Eosinophils (Bld) [#/Vol] 0.1 10*3/uL Normal 0.0-0.45 [facility] Comment on above: Performed By: #### C BC, CMP #### [address] Automated monocyte %Ordered By: JULIO CÉSAR BENTON on 05-12-2024 Monocytes/100 WBC (Bld) 8.8 % Normal . [facility] Comment on above: Performed By: #### C BC, CMP #### [facility] [address] Automated neutrophil %Ordere d By: JULIO CÉSAR BENTON on 05-12-2024 Neutrophils/100 WBC (Bld) 73.3 % Normal . [facility] Comment on above: Performed By: #### C BC, CMP #### [address] Bilirubin.total [Mass/volume ] in Serum or PlasmaOrdered By: JULIO CÉSAR BENTON on 05-12-2024 Bilirubin [Mass/Vol] 0.5 mg/dL Normal 0.3-1.0 [facility] Comment on above: Performed By: #### C BC, CMP #### [address] CBC W Auto Differential pane l (Bld)on 05-12-2024 Basophils (Bld) [#/Vol] 0 10*3/uL 0.0 - 0.2 10*3/uL [facility] Basophils/100 WBC Manual cnt (Syn fld) 0.4 % . [facility] Eosinophils (Bld) [#/Vol] 0.1 10*3/uL 0.0 - 0.45 10*3/uL [facility] Eosinophils/100 WBC Manual cnt (Syn fld) 2 % . [facility] Erythrocyte distribution width (RBC) [Ratio] 13.2 % 11.9 - 15.3 % [facility] Hematocrit (Bld) [Volume fraction] 42.1 % 34.0 - 46.4 % [facility] Hemoglobin (Bld) [Mass/Vol] 14.4 g/dL 11.8 - 15.4 g/dL [facility] Lymphocytes (Bld) [#/Vol] 1.1 10*3/uL 1.00 - 4.8 10*3/uL [facility] Lymphocytes/100 WBC Manual cnt (Syn fld) 15.5 % . [facility] MCH (RBC) [Entitic mass] 30.6 pg 24.7 - 34.3 pg [facility] MCHC (RBC) [Mass/Vol] 34.1 g/dL 32.0 - 35.0 g/dL [facility] MCV (RBC) [Entitic vol] 89.9 fL 80 - 100 fL [facility] Monocytes (Bld) [#/Vol] 0.6 10*3/uL 0.0 - 0.8 10*3/uL [facility] Monocytes+Macrophages/ 100 WBC Manual cnt (Syn fld) 8.8 % . [facility] Neutrophils (Bld) [#/Vol] 5.3 10*3/uL 1.8 - 7.7 10*3/uL [facility] Neutrophils/100 WBC Manual cnt (Syn fld) 73.3 % . [facility] NRBC 0.1 /100{WBC} 0 - 0.5 /100{WBC} [facility] Platelet mean volume (Bld) [Entitic vol] 7.8 fL 6.3 - 10.7 fL [facility] Platelets (Bld) [#/Vol] 242 10*3/uL 150 - 450 10*3/uL [facility] RBC LM.HPF (Urine sed) [#/Area] 4.69 /[HPF] 3.60 - 5.00 [facility] WBC (Bld) [#/Vol] 7.2 10*3/uL 3.8 - 11.6 10*3/uL [facility] WBC LM.HPF (Urine sed) [#/Area] 7.2 10*3/uL 3.8 - 11.6 10*3/uL [facility] Calcium [Mass/volume] in Ser um or PlasmaOrdered By: JULIO CÉSAR BENTON on 05-12-2024 Calcium [Mass/Vol] 9.5 mg/dL Normal 8.6-10.3 [facility] Comment on above: Performed By: #### C BC, CMP #### [facility] [address] Carbon dioxide, total [Moles /volume] in Serum or PlasmaOrdered By: JULIO CÉSAR BENTON on 05-12-2024 CO2 [Moles/Vol] 28.9 mmol/L Normal 21.0-31.[address] [facility] Comment on above: Performed By: #### C BC, CMP #### [facility] [address] Chloride [Moles/volume] in S alfie or PlasmaOrdered By: JULIO CÉSAR BENTON on 05-12-2024 Chloride [Moles/Vol] 104 mmol/L Normal 98-107 [facility] Comment on above: Performed By: #### C BC, CMP #### [address] Complete Blood Count Auto Di ffon 05-12-2024 Mean Corpuscular HGB Conc 34.1 g/dL Normal 32.0-35.0 [facility] Comment on above: Performed By: #### C BC, CMP #### [address] NRBC% 0.1 /100{WBC} Normal 0-0.5 [facility] Comment on above: Performed By: #### C BC, CMP #### [address] Comprehensive Metabolic Pane clinton 05-12-2024 Albumin [Mass/Vol] 4.3 g/dL Normal 3.5-5.7 [facility] Comment on above: Performed By: #### C BC, CMP #### [address] GFR/1.73 sq M.predicted MDRD (S/P/Bld) [Vol rate/Area] mL/min/{1.73_m2} Normal [facility] Comment on above: Performed By: #### C BC, CMP #### [address] Comprehensive metabolic pane clinton 05-12-2024 Albumin [Mass/Vol] 4.3 g/dL 3.5 - 5.7 g/dL [facility] Albumin/Globulin [Mass ratio] 1.9 {ratio} [facility] ALP [Catalytic activity/Vol] 71 U/L 34 - 104 U/L [facility] ALT [Catalytic activity/Vol] 20 U/L 7 - 52 U/L [facility] Anion gap [Moles/Vol] 12.5 mmol/L 6.0 - 15.0 [facility] AST [Catalytic activity/Vol] 17 U/L 13 - 39 U/L [facility] Bilirubin [Mass/Vol] 0.5 mg/dL 0.3 - 1 .0 mg/dL [facility] Calcium [Mass/Vol] 9.5 mg/dL 8.6 - 10. 3 mg/dL [facility] Chloride [Moles/Vol] 104 mmol/L 98 - 10 7 mmol/L [facility] CO2 [Moles/Vol] 28.9 mmol/L 21.0 - 31.0 mmol/L [facility] Creatinine (U) [Mass/Vol] 0.58 mg/dL Low 0.60 - 1.20 mg/dL [facility] GFR/1.73 sq M.predicted MDRD (S/P/Bld) [Vol rate/Area] mL/min/{1.73_m2} [facility] Globulin (S) [Mass/Vol] 2.3 g/dL [facility] Glucose [Mass/Vol] 99 mg/dL 70 - 100 mg/dL [facility] Comment on above: Random Glucose Refer ence Range is dependent on time and content of last meal. Glucose of more than 200 mg/dL in a nonstressed, ambulatory subject supports the diagnosis of Diabetes Mellitus. ADA recommended reference range Interpretation and review of laboratory results Abnormal [facility] Potassium [Moles/Vol] 4.4 mmol/L 3.5 - 5.1 mmol/L [facility] Protein [Mass/Vol] 6.6 g/dL 6.4 - 8.9 g/dL [facility] Sodium [Moles/Vol] 141 mmol/L 136 - 145 mmol/L [facility] Urea nitrogen [Mass/Vol] 13 mg/dL 7 - 25 mg/dL [facility] Creatinine [Mass/volume] in Serum or PlasmaOrdered By: JULIO CÉSAR BENTON on 05-12-2024 Creatinine [Mass/Vol] 0.58 mg/dL Low 0.60-1.20 [facility] Comment on above: Performed By: #### C BC, CMP #### [facility] [address] ECG 12 lead ECGon 05-12-2024 ECG 12 lead ECG [facility] [place] [address] [place] [address] Electrocardiograph Report Signed Patient: James Woods MR#: [id number] : 1950 Acct:[id number] Age/Sex: 73 / F ADM Date: 05/12/24 Loc: Room: Type: [facility] Attending Dr: Julio César Benton MD [...] previous ECGs available Confirmed by SKYLAR BYRD [facility], [place] ([id number]) on 05/12/2024 2:37:47 PM Referred By: Electronically Signed By: DC CHENG MD [facility] Transcribed By: MUS Signed By Dc Cheng MD, FACC 05/12/24 1437 Normal [facility] Erythrocyte distribution wid th [Ratio] by Automated countOrdered By: JULIO CÉSAR BENTON on 05-12-2024 Erythrocyte distribution width (RBC) [Ratio] 13.2 % Normal 11.9-15.3 [facility] Comment on above: Performed By: #### C BC, CMP #### [facility] [address] Erythrocytes [#/volume] in B lood by Automated countOrdered By: JULIO CÉSAR BENTON on 05-12-2024 RBC (Bld) [#/Vol] 4.69 10*6/uL Normal 3.60-5.00 [facility] Comment on above: Performed By: #### C BC, CMP #### [facility] [address] Glucose [Mass/volume] in Ser um or PlasmaOrdered By: JULIO CÉSAR BENTON on 05-12-2024 Glucose [Mass/Vol] 99 mg/dL Normal 70-100 [facility] Comment on above: ADA recommended refe rence rangeRandom Glucose Reference Range is dependent on time and content of last meal. Glucose of more than 200 mg/dL in a nonstressed, ambulatory subject supports the diagnosis of Diabetes Mellitus. Result Comment: [facility] Glucose Reference Range is dependent on time and content of last meal. Glucose of more than 200 mg/dL in a nonstressed, ambulatory subject supports the diagnosis of Diabetes Mellitus. ADA recommended reference range Performed By: #### C CRISTOPHER, CMP #### [address] Hematocrit [Volume Fraction] of Blood by Automated countOrdered By: JULIO CÉSAR BENTON on 05-12-2024 Hematocrit (Bld) [Volume fraction] 42.1 % Normal 34.0-46.4 [facility] Comment on above: Performed By: #### C CRISTOPHER, CMP #### [address] Hemoglobin [Mass/volume] in BloodOrdered By: JULIO CÉSAR BENTON on 05-12-2024 Hemoglobin (Bld) [Mass/Vol] 14.4 g/dL Normal 11.8-15.4 [facility] Comment on above: Performed By: #### C CRISTOPHER, CMP #### [address] Leukocytes [#/volume] correc carl for nucleated erythrocytes in Blood by Automated counOrdered By: JULIO CÉSAR BENTON on 05-12-2024 WBC corrected for nucl RBC Auto (Bld) [#/Vol] 7.2 10*3/uL 3.8-11.6 [facility] Leukocytes [#/volume] in Blo od by Automated countOrdered By: JULIO CÉSAR BENTON on 05-12-2024 WBC (Bld) [#/Vol] 7.2 10*3/uL Normal 3.8-11.6 [facility] Comment on above: Performed By: #### C CRISTOPHER, CMP #### [place] [address] [place] Lymphocytes [#/volume] in Bl ood by Automated countOrdered By: JULIO CÉSAR BENTON on 05-12-2024 Lymphocytes (Bld) [#/Vol] 1.1 10*3/uL Normal 1.00-4.8 [facility] Comment on above: Performed By: #### C BC, CMP #### [address] Lymphocytes/100 leukocytes i n Blood by Automated countOrdered By: JULIO CÉSAR BENTON on 05-12-2024 Lymphocytes/100 WBC (Bld) 15.5 % Normal . [facility] Comment on above: Performed By: #### C BC, CMP #### [address] MCH [Entitic mass] by Automa carl countOrdered By: JULIO CÉSAR BENTON on 05-12-2024 MCH (RBC) [Entitic mass] 30.6 pg Normal 24.7-34.3 [facility] Comment on above: Performed By: #### C CRISTOPHER, CMP #### [address] MCHC Auto (RBC) [Mass/Vol]Or dered By: JULIO CÉSAR BENTON on 05-12-2024 MCHC (RBC) [Mass/Vol] 34.1 g/dL 32.0-35.0 [facility] MCV [Entitic volume] by Auto mated countOrdered By: JULIO CÉSAR BENTON on 05-12-2024 MCV (RBC) [Entitic vol] 89.9 fL Normal 80-100 [facility] Comment on above: Performed By: #### C CRISTOPHER, CMP #### [address] Neutrophils [#/volume] in Bl ood by Automated countOrdered By: JULIO CÉSAR BENTON on 05-12-2024 Neutrophils (Bld) [#/Vol] 5.3 10*3/uL Normal 1.8-7.7 [facility] Comment on above: Performed By: #### C BC, CMP #### [address] No Panel InformationOrdered By: JULIO CÉSAR BENTON on 05-12-2024 Estimated GFR (CKD-EPI) > 60.0 mL/Min [facility] Creatinine Clearance (Chem N/A [facility] Nucleated erythrocytes [Pres ence] in Blood by Automated countOrdered By: JULIO CÉSRA BENTON on 05-12-2024 Nucleated RBC Auto Ql (Bld) 0.1 /100{WBC} 0-0.5 [facility] Platelet mean volume [Entiti c volume] in Blood by Automated countOrdered By: JULIO CÉSAR BENTON on 05-12-2024 Platelet mean volume (Bld) [Entitic vol] 7.8 fL Normal 6.3-10.7 [facility] Comment on above: Performed By: #### C BC, CMP #### [address] Platelets [#/volume] in Bloo d by Automated countOrdered By: JULIO CÉSAR BENTON on 05-12-2024 Platelets (Bld) [#/Vol] 242 10*3/uL Normal 150-450 [facility] Comment on above: Performed By: #### C BC, CMP #### [address] Potassium [Moles/volume] in Serum or PlasmaOrdered By: JULIO CÉSAR BENTON on 05-12-2024 Potassium [Moles/Vol] 4.4 mmol/L Normal 3.5-5.1 [facility] Comment on above: Performed By: #### C BC, CMP #### [address] Protein [Mass/volume] in Ser um or PlasmaOrdered By: JULIO CÉSAR BENTON on 05-12-2024 Protein [Mass/Vol] 6.6 g/dL Normal 6.4-8.9 [facility] Comment on above: Performed By: #### C BC, CMP #### [address] Serum globulin measurement b y calculation (mass/volume)Ordered By: JULIO CÉSAR BENTON on 05-12-2024 Globulin (S) [Mass/Vol] 2.3 g/dL Normal [facility] Comment on above: Performed By: #### C BC, CMP #### [address] Serum or plasma albumin/glob ulin mass ratioOrdered By: JULIO CÉSAR BENTON on 05-12-2024 Albumin/Globulin [Mass ratio] 1.9 {ratio} Normal [facility] Comment on above: Performed By: #### C BC, CMP #### [address] Serum or plasma anion gap de terminationOrdered By: JULIO CÉSAR BENTON on 05-12-2024 Anion gap [Moles/Vol] 12.5 mmol/L Normal 6.0-15.0 [facility] Comment on above: Performed By: #### C BC, CMP #### [address] Sodium [Moles/volume] in Ser um or PlasmaOrdered By: JULIO CÉSAR BENTON on 05-12-2024 Sodium [Moles/Vol] 141 mmol/L Normal 136-145 [facility] Comment on above: Performed By: #### C BC, CMP #### [address] Urea nitrogen [Mass/volume] in Serum or PlasmaOrdered By: JULIO CÉSAR BENTON on 05-12-2024 Urea nitrogen [Mass/Vol] 13 mg/dL Normal 7-25 [facility] Comment on above: Performed By: #### C BC, CMP #### [address] PELVIS WO IV CONTRASTon 0 03-30-2024 CT PELVIS WO IV CONTRAST EXAM: CT [...] report is generated using voice recognition reporting (GeeYee). On occasion [employer] erroneously drops words from the report or replaces the spoken word with similar sounding words. Please call with any questions/concerns regarding this report.* Dictated and transcribed 04/07/2024/jf This report has been electronically signed and approved by the interpreting radiologist. Electronically Signed Amrit Sullivan M.D. 2024-04-07 17:14:05 Normal Not Available IGP,rfx Aptima HPV all pthon 03-16-2024 . Comment [facility] Comment on above: The HPV DNA reflex c riteria were not met with this specimen result therefore, no HPV testing was performed. Milker Machine Cyto stain Nom (Cvx/Vag) [ID] Comment [facility] Comment on above: Marine daugherty, Garnett Feeder (ASCP) Cytology report Cyto stain Doc (Cvx/Vag) Comment [facility] Comment on above: NEGATIVE FOR INTRAEP ITHELIAL LESION OR MALIGNANCY. Cytology report Cyto stain.thin prep Doc (Cvx/Vag) Comment [facility] Comment on above: This liquid based Th inPrep(R) pap test was screened with the use of an image guided system. Diagnosis ICD code [Identifier] Comment [facility] Comment on above: Z12.4 Z11.51 Microscopic observation Other stain Nom (Unsp spec) . [facility] Note: Comment [facility] Comment on above: The Pap smear is a s creening test designed to aid in the detection of premalignant and malignant conditions of the uterine cervix. It is not a diagnostic procedure and should not be used as the sole means of detecting cervical cancer. Both false-positive and false-negative reports do occur. Statement of adequacy Cyto stain (Cvx/Vag) [Interp] Comment [facility] Comment on above: Satisfactory for nya luation. Endocervical and/or squamous metaplastic cells (endocervical component) are present. Performed at: [address] [id number] Television Schedule Coordinator: Wanda Bradley MD, Phone: [phone] Specimen Comment: No. of containers..01 ThinPrep Vial [facility] Screenson 11-27-2023 Screens [id number] Lamar Ornelas [facility] Patient Educationon 11-26-19 24 Patient Education Obstetrics [...] are. Treatment may include: ? Using an scut-wit-jnefszz vaginal lubricant before sex. ? Using a [...] these instructions at home: Medicines ? Take heei-kmd-vqjdsxz and prescription medicines only as told by your health care provider. ? Do not use herbal or alternative medicines unless your health care provider says that you can. ? Use ooem-vli-dvfpygu creams, lubricants, or moisturizers for dryness only [...] provider. Document Revised: 01/05/2021 Document Reviewed: 01/05/2021 Elsevier Patient Education ? 2022 [employer]. Kegel Exercises Kegel exercises can help strengthen [...] not require (more content not included)... Normal Ornelas [facility] Urology Office/Clinic Noteon 11-26-2023 Urology Office/Clinic [...] with voice recognition artificial intelligence software, specifically [employer], [employer] and or [employer]. Substitutions may have occurred due to the [...] Urnls Dip Stick Auto w/o Microscopy POC 08008 2. Incomplete bladder emptying (R33.9: Retention of urine, unspecified) Patient notes that she routinely double voids and uses voiding maneuvers. She does feel empty after doing that. Ordered: Urnls Dip Stick Auto w/o Microscopy POC 74705 3. Other urethral stricture, female (N35.82: Other urethral stricture, female) S/p Cysto/UD done 11/08/20 [1] She denies any stream issues at this time. Does not feel that she needs repeat dilation. Ordered: Urnls Dip Stick Auto w/o Microscopy POC 18313 4. Stress incontinence (N39.3: Stress incontinence (female) (male)) BBSQ 12-13 Mild leaking with laughing Only wears a pad when she feels it is necessary which is rare Not bothersome to the patient at this time Strengthening pelvic floor with Kegel exercises, timed voids. Ordered: Urnls Dip Stick Auto w/o Microscopy POC 99434 Follow-up With When Contact Information ANA LUISA Salas APRN, Sanam X, FAM, URL Additional Instructions: 1 [...] 20 mg Tab, Oral, Daily Multi Vitamin+ [place]-3 Allergies Vicodin (Nausea) penicillin (Unknown) Social History Tobacco Former smoker, quit more than 30 days ago Tobacco Use:., 11/26/2023 Family History Hypertension: Mother and Father. Migraine: Child. Primary malignant neoplasm of female breast: Mother. Primary malignant neoplasm of lung: Grandparent. Stroke: Grandparent. Immunizations Vaccine Date Status influenza virus vaccine, inactivated 05/22/2023 Recorded tetanus-diphtheria toxoids 12/11/2021 Recorded SARSCoV2 mRNA(lbhixqmjg-rxel-syrub s) vac 09/01/2021 Recorded SARS-CoV-2 (COVID-19) mRNA BNT-162b2 vax 02/02/2021 Recorded SARS-CoV-2 (COVID-19) mRNA BNT-162b2 vax 01/12/2021 Recorded SARS-CoV-2 (COVID-19) mRNA BNT-162b2 vax 2020 Recorded influenza virus vaccine, inactivated 05/12/2020 Recorded pneumococcal 23-valent vaccine 06/05/2018 Alf (more content not included)... Normal [facility] Comment on above: Result Comment: Elec tronically Signed By: ANA LUISA Salas APRN, Sanam Allen\.br\Date and Time Signed: 11/26/23 09:48 EDT COVID + FLU Quick Testingon 09-02-2023 SARS-CoV-2 (COVID-19) RNA ZOIE+probe Ql (Unsp spec) Negative [facility] [employer] Other COVID + FLU Quick Testing Negative [employer] [facility] [employer] Other CBC AUTO DIFFon 09-26-2022 BASO # 0.0 103/ul Normal 0.0-0.1 [facility] Comment on above: Performed By: #### C BC #### [facility] [address] [address] [address] Pam Rodgers Basophils/100 WBC (Bld) 0.6 % Normal 0.2-2.0 [facility] Comment on above: Performed By: #### C BC #### [facility] [address], [place] [address] Dr. Pam Rodgers EO # 0.2 103/ul Normal 0.0-0.7 [facility] Comment on above: Performed By: #### C BC #### [facility] [address] [place] [address] Dr. Pam Rodgers Eosinophils/100 WBC (Bld) 2.4 % Normal 0.9-7.0 [facility] Comment on above: Performed By: #### C BC #### [facility] [address] [place] [address] Dr. Pam Rodgers Erythrocyte distribution width (RBC) [Ratio] 12.0 % Normal 11.0-15.0 [facility] Comment on above: Performed By: #### C BC #### [facility] [address] [place] [address] Dr. Pam Rodgers Hematocrit (Bld) [Volume fraction] 44.2 % Normal 36.0-48.0 [facility] Comment on above: Performed By: #### C BC #### [facility] [address] [place] [address] Dr. Pam Rodgers Hemoglobin (Bld) [Mass/Vol] 15.0 g/dL Normal 12.0-16.0 [facility] Comment on above: Performed By: #### C BC #### [facility] [address] [place] [address] Dr. Pam Rodgers IG # 0.01 10e3/ul Normal 0.00-0.03 [facility] Comment on above: Performed By: #### C BC #### [facility] [address] [place] [address] Dr. Pam Rodgers IG % 0.2 % Normal 0.0-0.5 [facility] Comment on above: Performed By: #### C BC #### [facility] [address] [place] [address] Dr. Pam Rodgers LYMPH # 1.4 103/ul Normal 1.2-3.8 [facility] Comment on above: Performed By: #### C BC #### [facility] [address] [place] [address] Dr. Pam Rodgers Lymphocytes/100 WBC (Bld) 22.6 % Normal 20.5-60.0 [facility] Comment on above: Performed By: #### C BC #### [facility] [address] [place] [address] Dr. Pam Rodgers MANUAL DIFF REQ NO Normal [place] Comment on above: Performed By: #### C BC #### [facility] [address] [place] [address] Dr. Pam Rodgers MCH (RBC) [Entitic mass] 30.0 pg Normal 26.7-34.0 [facility] Comment on above: Performed By: #### C BC #### [facility] [address] [place] [address] Dr. Pam Rodgers MCHC (RBC) [Mass/Vol] 33.9 g/dL Normal 29.9-35.2 [facility] Comment on above: Performed By: #### C BC #### [facility] [address] [place] [address] Dr. Pam Rodgers MCV (RBC) [Entitic vol] 88.4 fL Normal 81.0-99.0 [facility] Comment on above: Performed By: #### C BC #### [facility] [address] [place] [address] Dr. Pam Rodgers MONO # 0.6 103/ul Normal 0.3-0.8 [facility] Comment on above: Performed By: #### C BC #### [facility] [address] [place] [address] Dr. Pam Rodgers Monocytes/100 WBC (Bld) 8.8 % Normal 1.7-12.0 [facility] Comment on above: Performed By: #### C BC #### [facility] [address] [place] [address] Dr. Pam Rodgers NEUT # 4.2 103/ul Normal 1.4-6.5 [facility] Comment on above: Performed By: #### C BC #### [facility] [address] [place] [address] Dr. Pam Rodgers Neutrophils/100 WBC (Bld) 65.4 % Normal 43.0-75.0 [facility] Comment on above: Performed By: #### C BC #### [facility] [address] [place] [address] Dr. Pam Rodgers Platelet mean volume (Bld) [Entitic vol] 9.2 fL Critically low 9.5-13.5 [facility] Comment on above: Performed By: #### C BC #### [facility] [address] [place] [address] Dr. Pam Rodgers PLT 243 103/ul Normal 150-450 [facility] Comment on above: Performed By: #### C BC #### [facility] [address] [address] [address] Pam Rodgers RBC 5.00 106/ul Normal 4.20-5.40 [facility] Comment on above: Performed By: #### C BC #### [facility] [address] [place] [address] Dr. Pam Rodgers WBC 6.4 103/ul Normal 4.0-11.0 [facility] Comment on above: Performed By: #### C BC #### [facility] [address] [place] [address] Dr. Pam Rodgers FREE T4on 09-26-2022 Free T4 [Mass/Vol] 1.06 ng/dL Normal 0.76-1.46 [facility] Comment on above: Performed By: #### F T4 #### [facility] [address] [place] [address] Dr. Pam Rodgers LIPID PROFILEon 09-26-2022 CHOL-HDL RATIO NORM SEE BELOW Normal [facility] Comment on above: Result Comment: 3.3 - 4.4 LOW RISK 4.4 - 7.1 AVERAGE RISK 7.1 - 11.0 MODERATE RISK >11.0 HIGH RISK Performed By: #### L IPID, TSH, CMP #### [facility] [address] [place] [address] Dr. Pam Rodgers Cholesterol [Mass/Vol] 189 mg/dL Normal <=200 [facility] Comment on above: Performed By: #### L IPID, TSH, CMP #### [facility] [address] [place] [address] Dr. Pam Rodgers Cholesterol in HDL [Mass/Vol] 60 mg/dL Normal 40-60 [facility] Comment on above: Performed By: #### L IPID, TSH, CMP #### [facility] [address] [address] [address] Pam Rodgers Cholesterol in LDL [Mass/Vol] 97.0 mg/dL Normal [facility] Comment on above: Performed By: #### L IPID, TSH, CMP #### [facility] [address] [address] [address] Pam Rodgers Cholesterol.total/Chol esterol in HDL [Mass ratio] 3.2 {ratio} Normal [facility] Comment on above: Performed By: #### L IPID, TSH, CMP #### [facility] [address] [place] [address] Dr. Pam Rodgers HDL NORMAL > or = 60 mg/dl - LO W CARDIOVASCULAR RISK <40 mg/dl - HIGH CARDIOVASCULAR RISK Normal [facility] Comment on above: Performed By: #### L IPID, TSH, CMP #### [facility] [address] [place] [address] Dr. Pam Rodgers LDL CALC NORMAL SEE BELOW Normal [facility] Comment on above: Result Comment: <100 mg/dl OPTIMAL 100 - 129 mg/dl NEAR OR ABOVE OPTIMAL 130 - 159 mg/dl BORDERLINE HIGH 160 - 189 mg/dl HIGH >190 mg/dl VERY HIGH Performed By: #### L IPID, TSH, CMP #### [facility] [address] [address] [address] Pam Rodgers Triglyceride [Mass/Vol] 160 mg/dL Critically high <=150 [facility] Comment on above: Performed By: #### L IPID, TSH, CMP #### [facility] [address] [place] [address] Dr. Pam Rodgers VLDL CALC 32.0 mg/dL Normal [facility] Comment on above: Performed By: #### L IPID, TSH, CMP #### [facility] [address] [address] [address] Pam Rodgers MG MAMM SCREEN 3D GISELE CADon 09-26-2022 MG MAMM SCREEN 3D GISELE CAD Patient: JAMES WOODS Exam Date: 09/26/2022 : 1950 Gender:F Ordering : DR MARIFER BOYLE M.D. Admission #: [id number] Family : Order #: [id number] CLICK HERE TO VIEW EXAM RADIOLOGY REPORT [...] cancer cancer at age 6. LOCATION: [facility] BREAST COMPOSITION: Scattered areas fibroglandular density. [...] Knight M.D. on 09/26/2022 at 17:14 Normal [facility] PROF 14(COMP METB)on 023 Albumin [Mass/Vol] 4.1 g/dL Normal 3.4-5.0 [facility] Comment on above: Performed By: #### L IPID, TSH, CMP #### [facility] [address] [address] [address] Pam Rodgers Albumin/Globulin [Mass ratio] 1.3 {ratio} Normal [facility] Comment on above: Performed By: #### L IPID, TSH, CMP #### [facility] [address] [address] [address] Pam Rodgers ALP [Catalytic activity/Vol] 63 U/L Normal 46-116 [facility] Comment on above: Performed By: #### L IPID, TSH, CMP #### [facility] [address] [place] [address] Dr. Pam Rodgers ALT [Catalytic activity/Vol] 27 U/L Normal 14-59 [facility] Comment on above: Performed By: #### L IPID, TSH, CMP #### [facility] [address] [place] [address] Dr. Pam Rodgers Anion gap [Moles/Vol] 12.1 mmol/L Normal [facility] Comment on above: Performed By: #### L IPID, TSH, CMP #### [facility] [address] [place] [address] Dr. Pam Rodgers AST [Catalytic activity/Vol] 22 U/L Normal 15-37 [facility] Comment on above: Performed By: #### L IPID, TSH, CMP #### [facility] [address] [place] [address] Dr. Pam Rodgers Bilirubin [Mass/Vol] 0.6 mg/dL Normal 0.2-1.0 [facility] Comment on above: Performed By: #### L IPID, TSH, CMP #### [facility] [address] [place] [address] Dr. Pam Rodgers Calcium [Mass/Vol] 9.3 mg/dL Normal 8.5-10.1 [facility] Comment on above: Performed By: #### L IPID, TSH, CMP #### [facility] [address] [place] [address] Dr. Pam Rodgers Chloride [Moles/Vol] 104 mmol/L Normal 98-107 [facility] Comment on above: Performed By: #### L IPID, TSH, CMP #### [facility] [address] [place] [address] Dr. Pam Rodgers CO2 [Moles/Vol] 28.2 mmol/L Normal 21.0-32.0 [facility] Comment on above: Performed By: #### L IPID, TSH, CMP #### [facility] [address] [address] [address] Pam Rodgers Creatinine [Mass/Vol] 0.62 mg/dL Normal 0.55-1.02 [facility] Comment on above: Performed By: #### L IPID, TSH, CMP #### [facility] [address] [address] [address] Pam Rodgers EGFR-AF EMIRATI >60 Normal >=60 [facility] Comment on above: Performed By: #### L IPID, TSH, CMP #### [facility] [address] [address] [address] Pam Rodgers EGFR-NON AF EMIRATI >60 Normal >=60 [facility] Comment on above: Performed By: #### L IPID, TSH, CMP #### [facility] [address] [address] [address] Pam Rodgers Globulin (S) [Mass/Vol] 3.2 g/dL Normal [facility] Comment on above: Performed By: #### L IPID, TSH, CMP #### [facility] [address] [address] [address] Pam Rodgers Glucose [Mass/Vol] 108 mg/dL Critically high 74-106 [facility] Comment on above: Performed By: #### L IPID, TSH, CMP #### [facility] [address] [address] [address] Pam Rodgers Potassium [Moles/Vol] 4.3 mmol/L Normal 3.5-5.1 [facility] Comment on above: Performed By: #### L IPID, TSH, CMP #### [facility] [address] [address] [address] Pam Rodgers Protein [Mass/Vol] 7.3 g/dL Normal 6.4-8.2 [facility] Comment on above: Performed By: #### L IPID, TSH, CMP #### [facility] [address] [address] [address] Pam Rodgers Sodium [Moles/Vol] 140 mmol/L Normal 136-145 [facility] Comment on above: Performed By: #### L IPID, TSH, CMP #### [facility] [address] [address] [address] Pam Rodgers Urea nitrogen [Mass/Vol] 12.0 mg/dL Normal 7.0-18.0 [facility] Comment on above: Performed By: #### L IPID, TSH, CMP #### [facility] [address] [place] [address] Dr. Pam Rodgers Urea nitrogen/Creatinine [Mass ratio] 19.4 mg/mg Normal [facility] Comment on above: Performed By: #### L IPID, TSH, CMP #### [facility] [address] [place] [address] Dr. Pam Rodgers TSHon 09-26-2022 TSH 5.421 uIU/mL Critically high 0.358-3.74 0 [facility] Comment on above: Performed By: #### L IPID, TSH, CMP #### [facility] [address] [place] [address] Dr. Pam Rodgers NM STRESS/REST MULTIon 01-04 NM STRESS/REST MULTI Patient: Sharri WOODS Exam Date: 01/04/2022 : 1950 Gender:F Ordering : DR SIMONE EISENBERG D.O. Admission #: [id number] Family : Order #: [id number] CLICK HERE TO VIEW EXAM RADIOLOGY REPORT [...] M.D. on 01/05/2022 at 12:03 Normal [facility] CBC AUTO DIFFon 12-27-2021 BASO # 0.0 103/ul Normal 0.0-0.1 [facility] Comment on above: Performed By: #### C BC #### [facility] [address] [place] [address] Dr. Pam Rodgers Basophils/100 WBC (Bld) 0.5 % Normal 0.2-2.0 [facility] Comment on above: Performed By: #### C BC #### [facility] [address] [address] [address] Pam Rodgers EO # 0.1 103/ul Normal 0.0-0.7 [facility] Comment on above: Performed By: #### C BC #### [facility] [address] [address] [address] Pam Rodgers Eosinophils/100 WBC (Bld) 1.1 % Normal 0.9-7.0 [facility] Comment on above: Performed By: #### C BC #### [facility] [address] [address] [address] Pam Rodgers Erythrocyte distribution width (RBC) [Ratio] 17.7 % Critically high 11.0-15.0 [facility] Comment on above: Performed By: #### C BC #### [facility] [address] [place] [address] Dr. Pam Rodgers Hematocrit (Bld) [Volume fraction] 38.4 % Normal 36.0-48.0 [facility] Comment on above: Performed By: #### C BC #### [facility] [address] [place] [address] Dr. Pam Rodgers Hemoglobin (Bld) [Mass/Vol] 12.6 g/dL Normal 12.0-16.0 [facility] Comment on above: Performed By: #### C BC #### [facility] [address] [place] [address] Dr. Pam Rodgers IG # 0.03 10e3/ul Normal 0.00-0.03 [facility] Comment on above: Performed By: #### C BC #### [facility] [address] [place] [address] Dr. Pam Rodgers IG % 0.4 % Normal 0.0-0.5 [facility] Comment on above: Performed By: #### C BC #### [facility] [address] [place] [address] Dr. Pam Rodgers LYMPH # 1.4 103/ul Normal 1.2-3.8 [facility] Comment on above: Performed By: #### C BC #### [facility] [address] [place] [address] Dr. Pam Rodgers Lymphocytes/100 WBC (Bld) 18.3 % Critically low 20.5-60.0 [facility] Comment on above: Performed By: #### C BC #### [facility] [address] [place] [address] Dr. Pam Rodgers MANUAL DIFF REQ NO Normal [place] Comment on above: Performed By: #### C BC #### [facility] [address] [place] [address] Dr. Pam Rodgers MCH (RBC) [Entitic mass] 27.9 pg Normal 26.7-34.0 [facility] Comment on above: Performed By: #### C BC #### [facility] [address] [place] [address] Dr. Pam Rodgers MCHC (RBC) [Mass/Vol] 32.8 g/dL Normal 29.9-35.2 [facility] Comment on above: Performed By: #### C BC #### [facility] [facility] [address] [address] [address] Pam Rodgers MCV (RBC) [Entitic vol] 85.1 fL Normal 81.0-99.0 [facility] Comment on above: Performed By: #### C BC #### [facility] [address] [address] [address] Pam Rodgers MONO # 0.6 103/ul Normal 0.3-0.8 [facility] Comment on above: Performed By: #### C BC #### [facility] [address] [place] [address] Dr. Pam Rodgers Monocytes/100 WBC (Bld) 7.3 % Normal 1.7-12.0 [facility] Comment on above: Performed By: #### C BC #### [facility] [address] [place] [address] Dr. Pam Rodgers NEUT # 5.7 103/ul Normal 1.4-6.5 [facility] Comment on above: Performed By: #### C BC #### [facility] [address] [place] [address] Dr. Pam Rodgers Neutrophils/100 WBC (Bld) 72.4 % Normal 43.0-75.0 [facility] Comment on above: Performed By: #### C BC #### [facility] [address] [place] [address] Dr. Pam Rodgers Platelet mean volume (Bld) [Entitic vol] 9.2 fL Critically low 9.5-13.5 [facility] Comment on above: Performed By: #### C BC #### [facility] [address] [place] [address] Dr. Pam Rodgers PLT 242 103/ul Normal 150-450 [facility] Comment on above: Performed By: #### C BC #### [facility] [address] [place] [address] Dr. Pam Rodgers RBC 4.51 106/ul Normal 4.20-5.40 [facility] Comment on above: Performed By: #### C BC #### [facility] [address] [place] [address] Dr. Pam Rodgers WBC 7.9 103/ul Normal 4.0-11.0 [facility] Comment on above: Performed By: #### C BC #### [facility] [address] [place] [address] HEAD WO CONon [...] Mona OROSCO Date: 2021-12-26 23:43 Normal [facility] PROF 14(COMP METB)on 022 Albumin [Mass/Vol] 3.6 g/dL Normal 3.4-5.0 [facility] Comment on above: Performed By: #### C MP #### [facility] [address] [place] [address] Dr. Pam Rodgers Albumin/Globulin [Mass ratio] 1.1 {ratio} Normal [facility] Comment on above: Performed By: #### C MP #### [facility] [address] [place] [address] Dr. Pam Rodgers ALP [Catalytic activity/Vol] 77 U/L Normal 46-116 [facility] Comment on above: Performed By: #### C MP #### [facility] [address] [place] [address] Dr. Pam Rodgers ALT [Catalytic activity/Vol] 29 U/L Normal 14-59 [facility] Comment on above: Performed By: #### C MP #### [facility] [address] [address] [address] Pam Rodgers Anion gap [Moles/Vol] 11.2 mmol/L Normal [facility] Comment on above: Performed By: #### C MP #### [facility] [address] [address] [address] Pam Rodgers AST [Catalytic activity/Vol] 20 U/L Normal 15-37 [facility] Comment on above: Performed By: #### C MP #### [facility] [address] [address] [address] Pam Rodgers Bilirubin [Mass/Vol] 0.4 mg/dL Normal 0.2-1.0 [facility] Comment on above: Performed By: #### C MP #### [facility] [address] [place] [address] Dr. Pam Rodgers Calcium [Mass/Vol] 8.4 mg/dL Critically low 8.5-10.1 [facility] Comment on above: Performed By: #### C MP #### [facility] [address] [place] [address] Dr. Pam Rodgers Chloride [Moles/Vol] 104 mmol/L Normal 98-107 [facility] Comment on above: Performed By: #### C MP #### [facility] [address] [place] [address] Dr. Pam Rodgers CO2 [Moles/Vol] 27.7 mmol/L Normal 21.0-32.0 [facility] Comment on above: Performed By: #### C MP #### [facility] [address] [place] [address] Dr. Pam Rodgers Creatinine [Mass/Vol] 0.63 mg/dL Normal 0.55-1.02 [facility] Comment on above: Performed By: #### C MP #### [facility] [address] [place] [address] Dr. Pam Rodgers EGFR-AF EMIRATI >60 Normal >=60 [facility] Comment on above: Performed By: #### C MP #### [facility] [address] [place] [address] Dr. Pam Rodgers EGFR-NON AF EMIRATI >60 Normal >=60 [facility] Comment on above: Performed By: #### C MP #### [facility] [address] [address] [address] Pam Rodgers Globulin (S) [Mass/Vol] 3.2 g/dL Normal [facility] Comment on above: Performed By: #### C MP #### [facility] [address] [address] [address] Pam Rodgers Glucose [Mass/Vol] 131 mg/dL Critically high 74-106 [facility] Comment on above: Performed By: #### C MP #### [facility] [address] [address] [address] Pam Rodgers Potassium [Moles/Vol] 3.9 mmol/L Normal 3.5-5.1 [facility] Comment on above: Performed By: #### C MP #### [facility] [address] [place] [address] Dr. Pam Rodgers Protein [Mass/Vol] 6.8 g/dL Normal 6.4-8.2 [facility] Comment on above: Performed By: #### C MP #### [facility] [address] [place] [address] Dr. Pam Rodgers Sodium [Moles/Vol] 139 mmol/L Normal 136-145 [facility] Comment on above: Performed By: #### C MP #### [facility] [address] [address] [address] Pam Rodgers Urea nitrogen [Mass/Vol] 15.0 mg/dL Normal 7.0-18.0 [facility] Comment on above: Performed By: #### C MP #### [facility] [address] [address] [address] Pam Rodgers Urea nitrogen/Creatinine [Mass ratio] 23.8 mg/mg Normal [facility] Comment on above: Performed By: #### C MP #### [facility] [address] [place] [address] Dr. Pam Rodgers Vital Signs Date Time Vital Sign Value Performing Clinician Facility 03-16-2025 09:43-0400 Body height 170.18 cm Marifer Boyle MD Work Phone: [facility] 03-16-2025 09:43-0400 Body mass index (BMI) [Ratio] 24.7 kg/m2 Marifer Boyle MD Work Phone: [facility] 03-16-2025 09:43-0400 Body weight 71.66 kg Marifer Boyle MD Work Phone: [facility] 03-16-2025 09:43-0400 Diastolic blood pressure 76 mm[Hg] Marifer Boyle MD Work Phone: [phone] [place] [address] 03-16-2025 09:43-0400 Heart rate 92 /min Marifer Boyle MD Work Phone: [facility] 03-16-2025 09:43-0400 Respiratory rate 12 /min Marifer Boyle MD Work Phone: [facility] 03-16-2025 09:43-0400 SaO2% (BldA) [Mass fraction] 98 % Marifer Boyle MD Work Phone: [facility] 03-16-2025 09:43-0400 Systolic blood pressure 142 mm[Hg] Marifer Boyle MD Work Phone: [facility] 03-02-2025 08:06-0400 Body height 170.18 cm Marifer Boyle MD Work Phone: [facility] 03-02-2025 08:06-0400 Body mass index (BMI) [Ratio] 24.7 kg/m2 Marifer Boyle MD Work Phone: [facility] 03-02-2025 08:06-0400 Body temperature 97.9 [degF] Marifer Boyle MD Work Phone: [facility] 03-02-2025 08:06-0400 Body weight 71.66 kg Marifer Boyle MD Work Phone: [facility] 03-02-2025 08:06-0400 Diastolic blood pressure 82 mm[Hg] Marifer Boyle MD Work Phone: [facility] 03-02-2025 08:06-0400 Heart rate 74 /min Marifer Boyle MD Work Phone: [facility] 03-02-2025 08:06-0400 SaO2% (BldA) [Mass fraction] 96 % Marifer Boyle MD Work Phone: [facility] 03-02-2025 08:06-0400 Systolic blood pressure 130 mm[Hg] Marifer Boyle MD Work Phone: [facility] 09-23-2024 10:50-0500 Body mass index (BMI) [Ratio] 25.17 kg/m2 Laurie Surovec GANG DRILL PRESS OPERATOR.SECONDARY ART TEACHER Work Phone: [facility] 09-23-2024 10:50-0500 Body temperature 97.9 [degF] Laurie Surovec GANG DRILL PRESS OPERATOR.SECONDARY ART TEACHER Work Phone: [facility] 09-23-2024 10:50-0500 Body weight 72.9 kg Laurie Surovec GANG DRILL PRESS OPERATOR.SECONDARY ART TEACHER Work Phone: [facility] 09-23-2024 10:50-0500 Diastolic blood pressure 79 mm[Hg] Laurie Surovec GANG DRILL PRESS OPERATOR.SECONDARY ART TEACHER Work Phone: [facility] 09-23-2024 10:50-0500 Heart rate 83 /min Laurie Surovec GANG DRILL PRESS OPERATOR.SECONDARY ART TEACHER Work Phone: [facility] 09-23-2024 10:50-0500 Respiratory rate 18 /min Laurie Surovec GANG DRILL PRESS OPERATOR.SECONDARY ART TEACHER Work Phone: [facility] 09-23-2024 10:50-0500 SaO2% (BldA) [Mass fraction] 97 % Laurie Surovec GANG DRILL PRESS OPERATOR.SECONDARY ART TEACHER Work Phone: [facility] 09-23-2024 10:50-0500 Systolic blood pressure 127 mm[Hg] Laurie Surovec GANG DRILL PRESS OPERATOR.SECONDARY ART TEACHER Work Phone: [facility] 09-17-2024 11:36-0500 Blood Pressure Location MADISON MORAN [facility] 09-17-2024 11:36-0500 Diastolic blood pressure 81 mm[Hg] MADISON MORAN [facility] 09-17-2024 11:36-0500 Heart rate 73 /min MADISON MORAN [facility] 09-17-2024 11:36-0500 Respiratory rate 18 /min MADISON MORAN [facility] 09-17-2024 11:36-0500 Systolic blood pressure 137 mm[Hg] MADISON MORAN [facility] 08-26-2024 10:17-0500 Body height 170.2 cm Laurie Butcherc GANG DRILL PRESS OPERATOR.SECONDARY ART TEACHER Work Phone: [facility] 08-26-2024 10:17-0500 Body mass index (BMI) [Ratio] 25.03 kg/m2 Laurie Perezovec GANG DRILL PRESS OPERATOR.SECONDARY ART TEACHER Work Phone: [facility] 08-26-2024 10:17-0500 Body temperature 98.01 [degF] Laurie Perezovec GANG DRILL PRESS OPERATOR.SECONDARY ART TEACHER Work Phone: [facility] 08-26-2024 10:17-0500 Body weight 72.5 kg Laurie Butcherc G[employer] DRILL PRESS OPERATOR.SECONDARY ART TEACHER Work Phone: [facility] 08-26-2024 10:17-0500 Diastolic blood pressure 72 mm[Hg] Laurie Perezovec GANG DRILL PRESS OPERATOR.SECONDARY ART TEACHER Work Phone: [facility] 08-26-2024 10:17-0500 Heart rate 82 /min Laurie Butcherc GANG DRILL PRESS OPERATOR.SECONDARY ART TEACHER Work Phone: [facility] 08-26-2024 10:17-0500 Respiratory rate 16 /min Laurie Butcher GANG DRILL PRESS OPERATOR.SECONDARY ART TEACHER Work Phone: [facility] 08-26-2024 10:17-0500 SaO2% (BldA) [Mass fraction] 96 % Laurie Butcher GANG DRILL PRESS OPERATOR.SECONDARY ART TEACHER Work Phone: [facility] 08-26-2024 10:17-0500 Systolic blood pressure 129 mm[Hg] [facility] GANG DRILL PRESS OPERATOR.SECONDARY ART TEACHER Work Phone: [facility] 08-06-2024 07:42-0500 Body height 170.2 cm Pacc 2 Work Phone: [facility] 08-06-2024 07:42-0500 Body mass index (BMI) [Ratio] 24.86 kg/m2 Pacc 2 Work Phone: [facility] 08-06-2024 07:42-0500 Body temperature 98.49 [degF] Pacc 2 Work Phone: [facility] 08-06-2024 07:42-0500 Body weight 72 kg Pacc 2 Work Phone: [facility] 08-06-2024 07:42-0500 Diastolic blood pressure 80 mm[Hg] Pacc 2 Work Phone: [facility] 08-06-2024 07:42-0500 Heart rate 73 /min Pacc 2 Work Phone: [facility] 08-06-2024 07:42-0500 Respiratory rate 16 /min Pacc 2 Work Phone: [facility] 08-06-2024 07:42-0500 SaO2% (BldA) [Mass fraction] 98 % Pacc 2 Work Phone: [facility] 08-06-2024 07:42-0500 Systolic blood pressure 143 mm[Hg] Pacc 2 Work Phone: [facility] 07-01-2024 09:46-0500 Body height 170.3 cm Chase Manning MD Work Phone: [facility] Comment on above: shoes off verified 2 MA's 07-01-2024 09:46-0500 Body mass index (BMI) [Ratio] 24.45 kg/m2 Chase Manning MD Work Phone: [facility] 07-01-2024 09:46-0500 Body temperature 97.9 [degF] Chase Manning MD Work Phone: [facility] 07-01-2024 09:46-0500 Body weight 70.9 kg Chase Manning MD Work Phone: [facility] 07-01-2024 09:46-0500 Diastolic blood pressure 84 mm[Hg] Chase Manning MD Work Phone: [facility] 07-01-2024 09:46-0500 Heart rate 91 /min Chase Manning MD Work Phone: [facility] 07-01-2024 09:46-0500 Respiratory rate 16 /min Chase Manning MD Work Phone: [facility] 07-01-2024 09:46-0500 SaO2% (BldA) [Mass fraction] 99 % Chase Manning MD Work Phone: [facility] 07-01-2024 09:46-0500 Systolic blood pressure 151 mm[Hg] Chase Manning MD Work Phone: [facility] 06-10-2024 10:17-0500 Body mass index (BMI) [Ratio] 21.77 kg/m2 Julio César Benton MD Work Phone: [facility] 06-10-2024 10:17-0500 Body weight 63.05 kg Julio César Benton MD Work Phone: [facility] 06-10-2024 10:17-0500 Diastolic blood pressure 70 mm[Hg] Julio César Benton MD Work Phone: [facility] 06-10-2024 10:17-0500 Systolic blood pressure 120 mm[Hg] Julio César Benton MD Work Phone: [facility] 06-09-2024 13:30-0500 Diastolic blood pressure 86 mm[Hg] Sanam Orzech [facility] 06-09-2024 13:30-0500 Mean blood pressure 105 mm[Hg] Sanam Orzech [facility] 06-09-2024 13:30-0500 Systolic blood pressure 143 mm[Hg] Sanam Orzech [facility] 06-09-2024 13:26-0500 Blood Pressure Location Sanam Orzech [facility] 06-09-2024 13:26-0500 Body temperature 98.6 [degF] Sanam Orzech [facility] 06-09-2024 13:26-0500 Diastolic blood pressure 88 mm[Hg] Sanam Orzech [facility] 06-09-2024 13:26-0500 Heart rate 84 /min Sanam Orzech [facility] 06-09-2024 13:26-0500 Respiratory rate 16 /min Sanam Orzech [facility] 06-09-2024 13:26-0500 Systolic blood pressure 155 mm[Hg] Sanam Orzech [facility] 04-14-2024 13:20-0400 Body mass index (BMI) [Ratio] 23.49 kg/m2 Julio César Benton MD Work Phone: [facility] 04-14-2024 13:20-0400 Body weight 68.04 kg Julio César Benton MD Work Phone: [facility] 04-14-2024 13:20-0400 Diastolic blood pressure 76 mm[Hg] Julio César Benton MD Work Phone: [facility] 04-14-2024 13:20-0400 Systolic blood pressure 128 mm[Hg] Julio César Benton MD Work Phone: [facility] 03-30-2024 15:44-0400 Body mass index (BMI) [Ratio] 23.65 kg/m2 Julio César Benton MD Work Phone: [facility] 03-30-2024 15:44-0400 Body weight 68.49 kg Julio César Benton MD Work Phone: [facility] 03-30-2024 15:44-0400 Diastolic blood pressure 72 mm[Hg] Julio César Benton MD Work Phone: [facility] 03-30-2024 15:44-0400 Systolic blood pressure 122 mm[Hg] Julio César Benton MD Work Phone: [facility] 03-10-2024 14:00-0400 Body mass index (BMI) [Ratio] 23.49 kg/m2 Julio César Benton MD Work Phone: [facility] 03-10-2024 14:00-0400 Body weight 68.04 kg Julio César Benton MD Work Phone: [facility] 03-10-2024 14:00-0400 Diastolic blood pressure 82 mm[Hg] Julio César Benton MD Work Phone: [facility] 03-10-2024 14:00-0400 Systolic blood pressure 128 mm[Hg] Julio César Benton MD Work Phone: [facility] 12-19-2023 11:55-0400 Body height 170.18 cm [facility] 12-19-2023 11:55-0400 Body mass index (BMI) [Ratio] 25 kg/m2 [facility] 12-19-2023 11:55-0400 Body temperature 98.3 [degF] [facility] 12-19-2023 11:55-0400 Body weight 72.57 kg [facility] 12-19-2023 11:55-0400 Diastolic blood pressure 81 mm[Hg] [facility] 12-19-2023 11:55-0400 Heart rate 80 /min [facility] 12-19-2023 11:55-0400 Systolic blood pressure 144 mm[Hg] [facility] 11-27-2023 08:33-0400 Body height 170.18 cm [facility] 11-27-2023 08:33-0400 Body mass index (BMI) [Ratio] 25.3 kg/m2 [facility] 11-27-2023 08:33-0400 Body weight 73.48 kg [facility] 11-27-2023 08:33-0400 Diastolic blood pressure 82 mm[Hg] [facility] 11-27-2023 08:33-0400 Heart rate 80 /min [facility] 11-27-2023 08:33-0400 Systolic blood pressure 159 mm[Hg] [facility] 11-26-2023 09:18-0400 Body temperature 98.06 [degF] Sanam Orzech [facility] 11-26-2023 09:18-0400 Diastolic blood pressure 87 mm[Hg] Sanam Orzech [facility] 11-26-2023 09:18-0400 Heart rate 84 /min Sanam Orzech [facility] 11-26-2023 09:18-0400 Respiratory rate 16 /min Sanam Orzech [facility] 11-26-2023 09:18-0400 Systolic blood pressure 139 mm[Hg] Sanam Orzech [facility] 10-29-2023 08:35-0400 Body height 170.18 cm [facility] 10-29-2023 08:35-0400 Body mass index (BMI) [Ratio] 25 kg/m2 [facility] 10-29-2023 08:35-0400 Body weight 72.68 kg [facility] 10-29-2023 08:35-0400 Diastolic blood pressure 78 mm[Hg] [facility] 10-29-2023 08:35-0400 Heart rate 87 /min [facility] 10-29-2023 08:35-0400 Systolic blood pressure 142 mm[Hg] [facility] 09-02-2023 09:25-0500 Body height 170.18 cm Stephanie Stanislaw Other [facility] [employer] Other 09-02-2023 09:25-0500 Body mass index (BMI) [Ratio] 25.06 kg/m2 Stephanie Stanislaw Other [facility] Other 09-02-2023 09:25-0500 Body temperature 99.8 [degF] Stephanie Stanislaw Other [facility] Other 09-02-2023 09:25-0500 Body weight 72.58 kg Stephanie Stanislaw Other [facility] Other 09-02-2023 09:25-0500 Respiratory rate 18 /min Stephanie Stanislaw Other [facility] Other 09-02-2023 09:25-0500 SaO2% (BldA) [Mass fraction] 97 % Stephanie Stanislaw Other [facility] Other 05-17-2023 09:30-0400 Body height 170.18 cm Marifer Boyle Other [facility] Other 05-17-2023 09:30-0400 Body mass index (BMI) [Ratio] 25.21 kg/m2 Marifer Boyle Other [facility] Other 05-17-2023 09:30-0400 Body weight 73.03 kg Marifer Montana Other [facility] Other 05-17-2023 09:30-0400 Diastolic blood pressure 74 mm[Hg] Marifer Montana Other [facility] Other 05-17-2023 09:30-0400 Systolic blood pressure 144 mm[Hg] Marifer Montana Other [facility] Other 03-08-2023 10:30-0400 Body height 170.18 cm Simone Ball Other [facility] Other 03-08-2023 10:30-0400 Body mass index (BMI) [Ratio] 25.09 kg/m2 Simone Ball Other [facility] Other 03-08-2023 10:30-0400 Body weight 72.67 kg Simone Ball Other [facility] Other 03-08-2023 10:30-0400 Diastolic blood pressure 77 mm[Hg] Simone Ball Other [facility] Other 03-08-2023 10:30-0400 Respiratory rate 12 /min Simone Ball Other [facility] Other 03-08-2023 10:30-0400 Systolic blood pressure 160 mm[Hg] Simone Ball Other [facility] Other 08-31-2022 11:03-0500 Blood Pressure Location Alonso CRUZ [facility] 02-10-2023 11:03-0500 Diastolic blood pressure 83 mm[Hg] Alonso CRUZ [facility] 08-31-2022 11:03-0500 Heart rate 80 /min Alonso CRUZ [facility] 08-31-2022 11:03-0500 Respiratory rate 16 /min Alonso CRUZ [facility] 08-31-2022 11:03-0500 Systolic blood pressure 130 mm[Hg] Alonso CRUZ [facility] 12-11-2021 17:30-0400 Body temperature 97.9 [degF] Gabriella Leongmond Other [facility] Other 12-11-2021 17:30-0400 Respiratory rate 18 /min Gabriella Means Other [facility] Other 12-11-2021 17:30-0400 SaO2% (BldA) [Mass fraction] 98 % Gabriella Clary Other [facility] Other Encounters Encounter Date Encounter Type Care Provider Facility Start: 03-16-2025 End: 03-16-2025 ambulatory Marifer Boyle MD Work Phone: [facility] Work Phone: Start: 03-16-2025 End: 03-16-2025 Patient encounter procedure Marifer Boyle MD -[facility] Work Phone: Start: 03-09-2025 Non-patient / Non-visit Marifer cardona MD -[place] [employer] Work Phone: Start: 03-02-2025 End: 03-02-2025 ambulatory Marifer Boyle MD Work Phone: [facility] Work Phone: Start: 03-02-2025 End: 03-02-2025 Patient encounter procedure Madison Lozano APRN SECONDARY ART TEACHER -[facility] Work Phone: Start: 10-09-2024 End: 10-09-2024 ambulatory [facility] Work Phone: Start: 10-09-2024 End: 10-09-2024 Patient encounter procedure [facility] Work Phone: Start: 09-23-2024 End: 09-23-2024 ambulatory Laurie Butcher GANG DRILL PRESS OPERATOR.SECONDARY ART TEACHER Work Phone: [facility] Comment on above: Postop check (Primar y Dx) Start: 09-23-2024 End: 09-23-2024 Patient encounter procedure Laurie Jones GANG DRILL PRESS OPERATOR.SECONDARY ART TEACHER Work Phone: [facility]cology [facility]cology Start: 09-17-2024 End: 09-17-2024 ambulatory AISHA MORAN Facility:[facility] Start: 09-17-2024 End: 09-17-2024 Patient encounter procedure AMDISON MORAN [facility] Start: 09-08-2024 End: 09-08-2024 ambulatory [facility] Work Phone: Start: 09-08-2024 End: 09-08-[address] [facility] Work Phone: Start: 08-26-2024 Non-patient / Non-visit [facility] Work Phone: Start: 08-26-2024 End: 08-26-2024 ambulatory Laurie Butcherc GANG DRILL PRESS OPERATOR.SECONDARY ART TEACHER Work Phone: Gynecology Oncology Comment on above: Postop check (Primar y Dx); Complex atypical endometrial hyperplasia; Urinary frequency Start: 08-26-2024 End: 08-26-2024 Patient encounter procedure Laurie Butcher GANG DRILL PRESS OPERATOR.SECONDARY ART TEACHER Work Phone: Gynecology Oncology Start: 08-17-2024 End: 08-17-2024 Telephone encounter Tasha Herrera RN Work Phone: Urology Comment on above: Surgical Followup Start: 08-14-2024 End: 08-14-2024 ambulatory MARIFER BOYLE Facility:[facility] Start: 08-14-2024 Encounter for other preprocedural examination CHASE RESENDIZ [facility] Start: 08-06-2024 Non-patient / Non-visit [facility] Work Phone: Start: 08-06-2024 End: 08-06-2024 ambulatory LAURIE BUTCHER Facility:[facility] Start: 08-06-2024 End: 08-06-2024 Subsequent hospital visit by physician X[facility] Comment on above: Complex atypical end ometrial hyperplasia [N85.02] Start: 08-06-2024 End: 08-06-2024 Admission to establishment [facility] Work Phone: Pre Anesthesia Start: 08-06-2024 End: 08-06-2024 Admission to same day surgery center [facility] Work Phone: Pre Anesthesia Comment on above: Hypertension, unspec ified type (Primary Dx); Hyperlipidemia, unspecified hyperlipidemia type; Hypothyroidism, unspecified type; Current smoker; Complex atypical endometrial hyperplasia; Post-menopausal bleeding; Thickened endometrium; Left ovarian cyst; Preop examination; PONV (postoperative nausea and vomiting); Encounter for other prophylactic surgery Start: 08-06-2024 Encounter for other preprocedural examination CHASE MANNING [facility] Start: 08-06-2024 End: 08-06-2024 Preprocedural examination done [facility] Work Phone: [facility] Start: 08-06-2024 End: 08-06-2024 ambulatory MARIFER BOYLE Facility:[facility] Start: 07-24-2024 End: 07-24-2024 Telephone encounter Елена [...] examination done Chase Manning MD Work Phone: [facility] Start: 06-12-2024 End: 06-12-2024 Orders Only Laurie Jones GANG DRILL PRESS OPERATOR.SECONDARY ART TEACHER Work Phone: Gynecology Oncology Comment on above: Endometrial cancer ( HCC) (Primary Dx) Start: 06-10-2024 End: 06-10-2024 Bamboo flowsheet Julio César Benton MD Work Phone: [facility] Start: 06-10-2024 End: 06-10-2024 Bamboo flowsheet Julio César Bentno MD Work Phone: [facility] Start: 06-10-2024 End: 06-10-2024 Postop follow up visit related to original px Julio César Benton MD Work Phone: [facility] Comment on above: PMB (postmenopausal bleeding) (Primary Dx); Surgery follow-up; Endometrial hyperplasia with atypia Start: 06-10-2024 End: 06-10-2024 ambulatory JULIO CÉSAR BENTON Not Available Start: 06-09-2024 End: 06-09-2024 Lab Drop off Sanam X Orzech [facility] Start: 06-09-2024 End: 06-09-2024 ambulatory Sanam X Orzech Facility:[facility] Start: 06-09-2024 End: 06-09-2024 Patient encounter procedure Sanam X Orzech [facility] Start: 05-27-2024 End: 05-27-2024 ambulatory MD Marifer Boyle Work Phone: [facility] Work Phone: Start: 05-27-2024 End: 05-27-2024 Departed Referred MD Marifer Boyle Work Phone: [facility] [place] Work Phone: Start: 05-20-2024 End: 05-20-2024 ambulatory MD Marifer Boyle Work Phone: [facility] Work Phone: Start: 05-20-2024 End: 05-20-2024 Patient encounter procedure MD Marifer Boyle Work Phone: [facility] Work Phone: Start: 05-12-2024 End: 05-12-2024 External Result Encounter Julio César Benton MD Work Phone: [facility] External Department Unsolicited Start: 05-12-2024 End: 05-12-2024 External Result Encounter Julio César Benton MD Work Phone: [facility] External Department Unsolicited Start: 05-12-2024 End: 05-12-2024 Patient encounter procedure MD Marifer Boyle Work Phone: [facility] Work Phone: Start: 05-12-2024 End: 05-12-2024 ambulatory MD Marifer Boyle Work Phone: [facility] Work Phone: Start: 05-12-2024 Encounter for other preprocedural examination Julio César Benton [facility] Start: 04-30-2024 End: 04-30-2024 ambulatory MD Marifer Boyle Work Phone: [facility] Work Phone: Start: 04-30-2024 End: 04-30-2024 Patient encounter procedure MD Marifer Boyle Work Phone: [facility] Work Phone: Start: 04-14-2024 End: 04-14-2024 Bamboo flowsheet Julio César Benton MD Work Phone: [facility] Start: 04-14-2024 End: 04-14-2024 Bamboo flowsmarianela Benton MD Work Phone: [facility] Start: 04-14-2024 End: 04-14-2024 Office outpatient visit 25 minutes Julio César Benton MD Work Phone: [facility] Comment on above: PMB (postmenopausal bleeding); Ovarian mass, left Start: 04-14-2024 End: 04-14-2024 ambulatory JULIO CÉSAR BENTON Not Available Start: 04-14-2024 Non-patient / Non-visit MD Trina Boyle Work Phone: [facility] Work Phone: Start: 04-07-2024 End: 04-07-2024 ambulatory JULIO CÉSAR Nichole PRINTY Not Available Start: 03-30-2024 End: 03-30-2024 Office outpatient visit 15 minutes Julio César Benton MD Work Phone: [facility] Comment on above: PMB (postmenopausal bleeding); Ovarian mass, left Start: 03-30-2024 End: 03-30-2024 ambulatory JULIO CÉSAR Nichole PRINTY Not Available Start: 03-30-2024 End: 03-30-2024 Bamboo flowsmarianela Benton MD Work Phone: [facility] Start: 03-30-2024 End: 03-30-2024 Bamboo flowsmarianela Benton MD Work Phone: [facility] Start: 03-18-2024 End: 03-18-2024 ambulatory MD Marifer Boyle Work Phone: [facility] Work Phone: Start: 03-18-2024 End: 03-18-2024 Patient encounter procedure MD Marifer Boyle Work Phone: [facility] Work Phone: Start: 03-10-2024 End: 03-10-2024 Office outpatient new 45 minutes Julio César Benton MD Work Phone: [facility] Comment on above: Well [...] encounter procedure MD Marifer Boyle Work Phone: [facility] Work Phone: Start: 03-04-2024 End: 03-04-2024 ambulatory MD Marifer Boyle Work Phone: [facility] Work Phone: Start: 02-19-2024 End: 02-19-2024 ambulatory [facility] Work Phone: Start: 02-19-2024 End: 02-19-2024 Patient encounter procedure [facility] Work Phone: Start: 12-19-2023 End: 12-19-2023 ambulatory [facility] Work Phone: Start: 12-19-2023 End: 12-19-2023 Patient encounter procedure [facility] Work Phone: Start: 11-27-2023 End: 11-27-2023 ambulatory [facility] Work Phone: Start: 11-27-2023 End: 11-27-2023 Patient encounter procedure [facility] Work Phone: Start: 11-26-2023 End: 11-26-2023 ambulatory Sanam X Orzech Facility:[facility] Start: 11-26-2023 End: 11-26-2023 Patient encounter procedure Sanam X Orzech [facility] Start: 11-19-2023 ambulatory Alonso Woodard ANTHONY Frias ty:[facility] Start: 10-29-2023 End: 10-29-2023 ambulatory [facility] Work Phone: Start: 10-29-2023 End: 10-29-2023 Patient encounter procedure [facility] Work Phone: Start: 10-21-2023 Non-patient / Non-visit [facility] Professional [employer] Work Phone: Start: 09-02-2023 End: 09-02-2023 ambulatory Stephanie Stanislaw Other [facility] [employer] Other Start: 09-02-2023 Office outpatient vi sit 15 minutes Stephanie Stanislaw [facility] Start: 09-02-2023 Telephone encounter Marifer Montana [facility] Start: 08-06-2023 End: 08-06-2023 ambulatory Marifer Montana Other [employer] Other Start: 08-06-2023 Telephone encounter Marifer Montana [facility] Start: 08-05-2023 End: 08-05-2023 ambulatory Marifer Montana Other [employer] Other Start: 08-05-2023 Encounter by kelin Boyle [facility] Start: 07-10-2023 End: 07-10-2023 ambulatory Marifer Montana Other [employer] Other Start: 07-10-2023 Office outpatient vi sit 15 minutes Marifer Boyle [facility] Start: 05-17-2023 End: 05-17-2023 ambulatory Marifer Montana Other [employer] Other Start: 05-17-2023 Office outpatient vi sit 15 minutes Marifer Boyle [facility] Start: 05-10-2023 End: 05-10-2023 ambulatory Marifer Montana Other [employer] Other Start: 05-10-2023 Telephone encounter Marifer Montana [facility] Start: 04-01-2023 End: 04-01-2023 ambulatory Marifer Montana Other [employer] Other Start: 04-01-2023 Telephone encounter Marifer Montana [facility] Start: 03-08-2023 End: 03-08-2023 ambulatory Simone Eisenberg Other [employer] Other Start: 03-08-2023 Office outpatient vi sit 15 minutes Simone Eisenberg [facility] Start: 09-26-2022 End: 09-27-[address] SIMONE EISENBERG Facility:[facility] Start: 08-31-2022 End: 08-31-2022 Patient encounter procedure Alonso Womack [facility] Start: 08-03-2022 End: 08-03-2022 ambulatory Marifer Boyle Other [employer] Other Start: 08-03-2022 Telephone encounter Marifer Eisenberg [facility] Start: 01-04-2022 End: 01-05-[address] SIMONE EISENBERG Facility:[facility] Start: 12-27-2021 End: 12-27-[address] MARIFER BOYLE Facility:[facility] Start: 12-11-2021 End: 12-11-2021 ambulatory Gabriella Means Other [employer] Other Start: 12-11-2021 Office outpatient ne w 20 minutes Gabriella Means [facility] Procedures Date Procedure Procedure Detail Performing Clinician Start: 08-06-2024 Radiologic exam ches t 2 views Laurie Surovec GANG DRILL PRESS OPERATOR.SECONDARY ART TEACHER Work Phone: Start: 08-06-2024 Antibody screen SANDRITA MANNING Comment on above: Order Comment: Speci men Type: BLOOD SPECIMEN Ordering Facility: [facility] Address: [address] [place] [address] Performed By: #### T [id number] #### CC MAIN BLOOD BANK [facility] [id number] [address] [place], [place] [address] [address] [place] Start: 08-06-2024 Carcinoembryonic ant igen cea Comment on above: Carcinoembryonic ant igen test is used as an aid in monitoring response to treatment or recurrence in patients with established colorectal, breast, lung, prostatic, pancreatic, and ovarian carcinomas. Clinical correlation is required.The Carcinoembryonic antigen test was performed using the [employer] Unicel DXI paramagnetic particle chemiluminescent immunoassay method. Results obtained with different assay methods or kits cannot be used interchangeably. Start: 05-27-2024 Dilation and curettage Sanam Salas Start: 05-12-2024 Complete blood count with white cell differential, automated Julio César Benton MD Work Phone: Start: 05-12-2024 Comprehensive metabo lic panel Julio César Benton MD Work Phone: Start: 03-10-2024 Cytp c/v auto thin l yr prepj scr mnl rescr phys Julio César Benton MD Work Phone: Cholecystectomy Alnoso MATIAS Colonoscopy Alonso CRUZ Hyperlipidemia (disorder) Pa maribelmona CRUZ Hypertensive disorde r, systemic arterial (disorder) Alonso CRUZ Hysterectomy Sanam Salas Laboratory test resu lt abnormal Other abnormal tumor markers Chase Manning MD Work Phone: Tonsillectomy Alonso CRUZ Plan of Treatment Date Care Activity Detail Author Start: 08-06-2027 Diabetes Screening Diabetes Screening [facility] Start: 05-12-2027 Diabetes Screening Diabetes Screening [facility] Start: 11-27-2026 RSV Vaccine (1 - 1-dose 75+ series) RSV Vaccine (1 - 1-dose 75+ series) [facility] Start: 09-23-2025 BP Controlled (<130/80) BP Controlled (<130/80) [facility] Start: 08-26-2025 BP Controlled (<130/80) BP Controlled (<130/80) [facility] Start: 09-23-2024 End: 09-23-2024 ambulatory 09/23/2024 9:30 AM EST Visit (SP) Office Gynecology Oncology [address] [place] [address] [place] [address] Laurie Jones APRN.SECONDARY ART TEACHER [address] [place] [address] POST OP Gynecology Oncology Comment on above: POST OP Start: 08-26-2024 End: 08-26-2024 ambulatory 08/26/2024 10:30 AM EST Visit (SP) Office Gynecology Oncology [address] [place] [address] [place] [address] Laurie Jones APRN.SECONDARY ART TEACHER [address] [place] [address] POST OP Gynecology Oncology Comment on above: POST OP Start: 08-14-2024 End: 08-14-2024 Admission to same day surgery center 08/14/2024 7:30 AM EST - 08/14/2024 10:20 AM EST Surgery [facility] Operating Room [address] [place], [place] [id number] Chase Manning MD [address] [place] [address] ROBOTIC LAPAROSCOPIC TOTAL HYSTERECTOMY W/ BSO UTERUS=<250G [facility] Comment on above: ROBOTIC LAPAROSCOPIC TOTAL HYSTERECTOMY W/ BSO UTERUS=<250G Start: 08-14-2024 End: 08-14-2024 Laps total hysterect 250 gm/< w/rmvl tube/ovary ROBOTIC LAPAROSCOPIC TOTAL HYSTERECTOMY W/ BSO UTERUS=<250G Complex atypical endometrial hyperplasia Post-menopausal bleeding Thickened endometrium Left ovarian cyst Preop examination 08/14/2024 7:30 AM EST [facility] Start: 08-14-2024 Subsequent hospital visit by physician 08/14/2024 7:30 AM EST Hospital Encounter [facility] Operating Room [address] [place] [id number] Chase Manning MD [address] [place] [address] 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], Post-menopausal bleeding [N95.0], Thickened endometrium [R93.89], Left ovarian cyst [N83.202], Preop examination [Z01.818] [facility] Comment on above: 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], Post-menopausal bleeding [N95.0], Thickened endometrium [R93.89], Left ovarian cyst [N83.202], Preop examination [Z01.818] Start: 08-06-2024 End: 11-05-2024 CBC W Auto Differential panel - Blood [facility] Comment on above: Expected: 08/06/2024, Expires: Start: 08-06-2024 End: 11-05-2024 Comprehensive metabolic 2000 panel - Serum or Plasma [facility] Comment on above: Expected: 08/06/2024, Expires: Start: 08-06-2024 End: 11-05-2024 CONFIRM BLOOD TYPE [facility] Work Phone: Comment on above: Expected: 08/06/2024, Expires: Start: 08-06-2024 End: 08-06-2024 Anesthesia consultation 08/06/2024 7:40 AM EST PAT Pre Anesthesia [address] [place] [address] 2, [facility] [address] [place] [address] [facility] Pre Anesthesia Comment on above: [facility] Start: 07-22-2024 Advance Directive Discussion Advance Directive Discussion [facility] Start: 07-01-2024 End: 09-30-2024 Cancer Ag 125 [Units/volume] in Serum or Plasma CA 125 Lab Routine Left ovarian cyst Other abnormal tumor markers Expected: 07/01/2024, Expires: 09/30/2024 [facility] Work Phone: Comment on above: Expected: 07/01/2024, Expires: Start: 07-01-2024 End: 09-30-2024 Cancer Ag 19-9 [Units/volume] in Serum or Plasma CA 19-9 Lab Routine Left ovarian cyst Other abnormal tumor markers Expected: 07/01/2024, Expires: 09/30/2024 [facility] Comment on above: Expected: 07/01/2024, Expires: Start: 07-01-2024 End: 09-30-2024 Carcinoembryonic Ag [Mass/volume] in Serum or Plasma CARCINOEMBRYONIC ANTIGEN Lab Routine Left ovarian cyst Other abnormal tumor markers Expected: 07/01/2024, Expires: 09/30/2024 [facility] Comment on above: Expected: 07/01/2024, Expires: Start: 07-01-2024 End: 08-01-2024 CBC panel - Blood by Automated count COMPLETE BLOOD COUNT Lab Routine Complex atypical endometrial hyperplasia Post-menopausal bleeding Thickened endometrium Left ovarian cyst Preop examination Expected: 07/01/2024, Expires: 08/01/2024 [facility] Comment on above: Expected: 07/01/2024, Expires: Start: 07-01-2024 End: 08-01-2024 Comprehensive metabolic 2000 panel - Serum or Plasma COMPREHENSIVE METABOLIC PANEL Lab Routine Complex atypical endometrial hyperplasia Post-menopausal bleeding Thickened endometrium Left ovarian cyst Preop examination Expected: 07/01/2024 (Approximate), Expires: 08/01/2024 [facility] Comment on above: Expected: 07/01/2024 (Approximate), Expi res: 08/01/2024 Start: 07-01-2024 End: 09-30-2024 TYPE AND SCREEN,30 DAY TYPE AND SCREEN,30 DAY Blood Bank Routine Complex atypical endometrial hyperplasia Post-menopausal bleeding Thickened endometrium Left ovarian cyst Preop examination Expected: 07/01/2024, Expires: 09/30/2024 [facility] Comment on above: Expected: 07/01/2024, Expires: Start: 07-01-2024 End: 07-01-2024 ambulatory 07/01/2024 10:00 AM EST Visit (SP) Office Gynecology Oncology [address] [place] [address] [place] [address] Chase Manning MD [address] [place] [address] DX Endometrail Intrapithelial Neoplasia/Postmenopausal Bleeding Gynecology Oncology Comment on above: DX Endometrail Intrapithelial Neoplasia/ Postmenopausal Bleeding Start: 06-10-2024 End: 06-10-2024 Patient encounter procedure [facility] Comment on above: Surgery follow-up; PMB (postmenopausal bleeding) Start: 04-14-2024 End: 04-14-2024 Patient encounter procedure 04/14/2024 1:30 PM EDT Office Visit [facility] [address] [place] [id number] Julio César Benton MD [address] [facility] [address] [place] [address] PMB (postmenopausal bleeding); Ovarian mass, left [facility] Comment on above: PMB (postmenopausal bleeding); Ovarian mass, left Start: 03-30-2024 End: 03-30-2024 Patient encounter procedure [facility] Comment on above: PMB (postmenopausal bleeding) Start: 03-30-2024 End: 03-30-2024 Professional / ancillary services management [facility] Comment on above: PMB (postmenopausal bleeding) Start: 03-22-2024 Covid-19 Vaccine () Covid-19 Vaccine () [facility] Start: 03-22-2024 Covid-19 Vaccine () Covid-19 Vaccine () [facility] Start: 03-22-2024 Influenza vaccination Influenza Vaccine (#1) [facility] Start: 03-10-2024 End: 03-10-2024 Patient encounter procedure 03/10/2024 2:15 PM EDT Office Visit [facility] [address] [facility] [address] [place] [phone] Julio César Benton MD [address] [facility] [address] [place] [address] Well woman exam with routine gynecological exam; Cervical cancer screening; Screening for HPV (human papillomavirus); Other screening mammogram; PMB (postmenopausal bleeding) [facility] Comment on above: Well woman exam with routine gynecologic al exam; Cervical cancer screening; Screening for HPV (human papillomavirus); Other screening mammogram; PMB (postmenopausal bleeding) Start: 07-22-2023 Advance Directive Discussion Advance Directive Discussion [facility] Start: 12-12-2021 Urine microalbumin profile DTaP,Tdap,Td Vaccine (1 - Tdap) [facility] Start: 11-27-2016 Pneumococcal Vaccine: 65+ (1 of 1 - PCV) Pneumococcal Vaccine: 65+ (1 of 1 - PCV) [facility] Start: 11-27-2016 Screening for osteoporosis Bone Density Screening [facility] Start: 08-30-2014 Shingrix Vaccine (2 of 3) Shingrix Vaccine (2 of 3) [facility] Start: 2011 RSV Vaccine (1 - Risk 60-74 years 1-dose series) RSV Vaccine (1 - Risk 60-74 years 1-dose series) [facility] Start: 11-27-2001 Shingrix Vaccine (1 of 2) Shingrix Vaccine (1 of 2) [facility] Start: 11-27-1996 Lipid panel Lipid Screening [facility] Start: 11-27-1996 Screening for malignant neoplasm of colon [facility] Start: 1991 Screening for malignant neoplasm of breast [facility] Start: 11-27-1970 Urine microalbumin profile DTaP,Tdap,Td Vaccine (1 - Tdap) [facility] Start: 11-27-1969 Annual PCP Team Chronic Disease Visit Annual PCP Team Chronic Disease Visit [facility] Start: 11-27-1969 Anxiety Screening Anxiety Screening [facility] Start: 11-27-1969 BP Controlled (<130/80) BP Controlled (<130/80) [facility] Start: 11-27-1969 Depression Screening Depression Screening [facility] Start: 11-27-1969 Hepatitis C screening Hepatitis C Screening [facility] Start: 1950 Medicare Annual Wellness (AWV) Medicare Annual Wellness (AWV) [facility] Start: 1950 Screening for malignant neoplasm of colon [facility] CT Pelvis WO contrast CT pelvis wo IV contrast Imaging Routine PMB (postmenopausal bleeding) Ovarian mass, left Ordered: 03/30/2024 [facility] Work Phone: Comment on above: Ordered: 03/30/2024 DXA Skeletal system. axial Views for bone density [facility] End: 07-01-2025 ECG COMPLETE ECG COMPLETE ECG Routine Complex atypical endometrial hyperplasia Post-menopausal bleeding Thickened endometrium Left ovarian cyst Preop examination 1 Occurrences starting 07/01/2024 until 07/01/2025 [facility] Comment on above: 1 Occurrences starting 07/01/2024 until 07/01/2025 ECG COMPLETE ECG COMPLETE ECG Routine Hypertension, unspecified type Hyperlipidemia, unspecified hyperlipidemia type Hypothyroidism, unspecified type Current smoker Complex atypical endometrial hyperplasia Post-menopausal bleeding Thickened endometrium Left ovarian cyst Preop examination PONV (postoperative nausea and vomiting) Ordered: 08/06/2024 [facility] Comment on above: Ordered: 08/06/2024 Electromyography [facility] Laps total hysterect 250 gm/< w/rmvl tube/ovary LAPAROSCOPIC HYSTERECTOMY TOTAL FOR UTERUS 250 G OR LESS W/REMOVAL TUBE(S) AND/OR OVARY(S) Complex atypical endometrial hyperplasia Post-menopausal bleeding Thickened endometrium Left ovarian cyst Preop examination [facility] MG Breast - bilatera l Screening [facility] MG Breast - bilatera l Screening [facility] OUTSIDE SURG PATH SL CHRIS REVIEW OUTSIDE SURG PATH SLIDE REVIEW Lab Routine Endometrial cancer (HCC) Ordered: 06/12/2024 [facility] Work Phone: Comment on above: Ordered: 06/12/2024 PAP IG, RFX HPV ALL PTH ([facility]) PAP IG, RFX HPV ALL PTH ([facility]) Lab Routine Cervical cancer screening Screening for HPV (human papillomavirus) Ordered: 03/10/2024 [facility] Work Phone: Comment on above: Ordered: 03/10/2024 REFER FOR ADMIT INTERVIEW REFER FOR ADMIT INTERVIEW Procedures Routine Complex atypical endometrial hyperplasia Post-menopausal bleeding Thickened endometrium Left ovarian cyst Preop examination Ordered: 07/01/2024 [facility] Comment on above: Ordered: 07/01/2024 US Heart Transthoracic [facility] End: 07-31-2025 XR Chest PA and Lateral XR CHEST 2V FRONTAL/LAT Radiology Routine Complex atypical endometrial hyperplasia Post-menopausal bleeding Thickened endometrium Left ovarian cyst Preop examination 1 Occurrences starting 07/01/2024 until 07/31/2025 [facility] Work Phone: Comment on above: 1 Occurrences starting 07/01/2024 until 07/31/2025 XR Hand - left GE 3 Views [facility] Immunizations Immunization Date Immunization Notes Care Provider J Luis mireles 04-30-2024 influenza virus vaccine, unspecified formulation Sanam Salas [facility] 04-30-2024 influenza, high dose seasonal, preservative-free MD Marifer Boyle Work Phone: [facility] 05-22-2023 influenza virus vaccine, unspecified formulation Sanam GarzaSalesforcetoña [facility] 04-30-2022 influenza virus vaccine, split virus (incl. purified surface antigen) Simone Eisenberg Other [facility] Other 04-30-2022 influenza virus vaccine, unspecified formulation [facility] 12-11-2021 tetanus and diphther ia toxoids, adsorbed, preservative free, for adult use (5 Lf of tetanus toxoid and 2 Lf of diphtheria toxoid) Gabriella Means Other [facility] 12-11-2021 tetanus and diphther ia toxoids, adsorbed, preservative free, for adult use (2 Lf of tetanus toxoid and 2 Lf of diphtheria toxoid) [employer] [facility] 09-01-2021 SARS-CoV-2 mRNA (vgppjztohtt-vifg-qnlib se) vaccine Sanam [employer] [facility] 05-24-2021 influenza virus vaccine, split virus (incl. purified surface antigen) Simone Eisenberg Other [facility] Other 05-24-2021 influenza virus vaccine, unspecified formulation [facility] 02-02-2021 COVID-19 Vaccine Pfi zer - Documentation Purposes Only Simone Eisenberg Other [facility] 01-12-2021 COVID-19 Vaccine Pfi zer - Documentation Purposes Only Simone Eisenberg Other [facility] 07-22-2020 SARS-CoV-2 (COVID-19 ) mRNA BNT-162b2 vax Alonso ANTHONY [facility] 05-12-2020 influenza virus vaccine, unspecified formulation [place] GregSalesforcetoña [facility] 04-26-2020 influenza virus vaccine, split virus (incl. purified surface antigen) Simone Eisenberg Other [facility] Other 04-26-2020 influenza virus vaccine, unspecified formulation [facility] 05-21-2019 influenza virus vaccine, split virus (incl. purified surface antigen) Simone Eisenberg Other [facility] Other 05-21-2019 influenza virus vaccine, unspecified formulation [facility] 06-05-2018 influenza virus vaccine, split virus (incl. purified surface antigen) Simone Eisenberg Other [facility] [employer] Other 06-05-2018 influenza virus vaccine, unspecified formulation [facility] 06-05-2018 pneumococcal polysaccharide vaccine, 23 valent Simone Eisenberg Other [facility] 04-10-2017 influenza virus vaccine, split virus (incl. purified surface antigen) Simone Eisenberg Other [facility] Other 04-10-2017 influenza virus vaccine, unspecified formulation [facility] 04-10-2017 pneumococcal conjuga te vaccine, 13 valent Simone Eisenberg Other [facility] 05-07-2016 influenza virus vaccine, unspecified formulation Sanam [employer] [facility] 07-05-2014 zoster vaccine, live Benjami yoni Eisenberg Other [facility] 05-05-2013 tetanus and diphther ia toxoids, adsorbed, preservative free, for adult use (5 Lf of tetanus toxoid and 2 Lf of diphtheria toxoid) Simone Eisenberg Other [facility] Payers Date Payer Category Payer Self-pay 2023 Unknown [id number] 2019 Private Health Insurance [id number] 2016 Medicare [id number] 1959 Medicare [id number] 2.1 [id number] 1959 Unknown [id number] 2.16 .[id number] 1951 Unknown [id number] 2.16.84 0.1.221824.3.579.2.593 1951 Unknown [id number] 2.16.84 0.1.388956.3.579.2.593 1951 Unknown [id number] 2.16.84 0.1.193163.3.579.2.593 1951 Unknown [id number] 2.16.84 0.1.065298.3.579.2.1259 1951 Unknown [id number] 2.16.84 0.1.703996.3.579.2.1259 1951 Unknown [id number] 2.16.84 0.1.131949.3.579.2.1259 1951 Unknown [id number] 2.16.84 0.1.775916.3.579.2.1259 1951 Unknown [id number] 2.16.84 0.1.456070.3.579.2.1259 1951 Unknown [id number] 2.16.84 0.1.137110.3.579.2.1259 1951 Unknown [id number] 2.16.8 40.1.543639.3.579.2.727 1951 Unknown [id number] 2.16.8 40.1.189542.3.579.2.727 1951 Unknown [id number] 2.16.8 40.1.379875.3.579.2.727 1951 Unknown [id number] 2.16.8 40.1.231967.3.579.2.727 1951 Unknown [id number] 2.16.8 40.1.396258.3.579.2.727 1951 Unknown [id number] 2.16.8 40.1.288649.3.579.2.727 Unknown [id number] 2.16.8 40.1.807288.3.579.2.531 Unknown [id number] 2.16.8 40.1.998663.3.579.2.531 Unknown [id number] 2.16.8 40.1.573674.3.579.2.531 Social History Date Type Detail Facility Unknown if ever smoked [facility] Other Start: 04-14-2024 End: 08-06-2024 Sex Assigned At [facility] Start: 11-04-2020 End: 11-27-2023 Tobacco smoking status Ex-smoker (finding) [facility] Start: 1950 Sex Assigned At Female F [facility] Tobacco smoking status HIIS Tobacco smoking consumption unknown [facility] Start: 04-14-2024 End: 08-06-2024 History of Social function [facility] Start: 03-04-2024 Gender identity Identifies as female gender (finding) [facility] Start: 03-10-2024 Tobacco smoking status HIIS Never smoked tobacco [facility] Start: 03-10-2024 End: 08-06-2024 Tobacco use and exposure Smokeless tobacco non-user [facility] Start: 04-14-2024 End: 09-23-2024 Alcoholic beverage intake Current drinker of alcohol (finding) [facility] Tobacco smoking status Never [facility] Start: 1950 Sex assigned at Not on file [facility] Start: 07-01-1999 History of tobacco use Current smoker [facility] Start: 07-01-1999 History of tobacco use Cigarette Smoker [facility] Start: 08-06-2024 Tobacco Comment Quit in 1997 [facility] Start: 08-06-2024 Alcohol Comment at least 1 mix ed drink per day. [facility] Start: 09-08-2024 End: 10-09-2024 Sex Female (finding) [facility] Functional Status Date Assessment Result Facility 09-17-2024 Functional Status N/A [facility] 06-09-2024 Functional Status N/A [facility] 11-26-2023 Functional Status N/A [facility] 08-31-2022 Functional Status N/A [facility] Clinical Notes 12-11-2021 to 03-02-2025 Note Date & Type Note Facility 03-02-2025 Evaluation note Diagnosis Onset Date Resolution Bronchitis acute March 02, 025 8:01am Medicare annual wellness visit, subsequent acute March 16 9:57am Menopause acute March 16 025 9:57am Screening mammogram, encounter for acute March 16 9:57am [facility] Work Phone: 1(643) 337-215503-05-2025 History of Present illness Narrative* Laurie Jones APRN.SECONDARY ART TEACHER - 09/23/2024 11:00 AM EST Images from the original note [...] then heavy, then tapered off. Hadn't had vp integrity exam in years and she made first [...] [facility] path review: FINAL DIAGNOSIS Outside case [id number], collected 05/27/2024 Endometrium, curettage: - Limited superficial [...] size Use of iterative reconstruction technique Date: 03/30/20245754-dxfpqrfejr-wudqvz SURGICAL PROCEDURE-08/14/2024-Robotic assisted total laparoscopic hysterectomy with [...] all pre-disease performance without restriction). Laurie Jones, CEASAR.SECONDARY ART TEACHER 09/23/24-Patient states she feels well overall. Patient [...] no palpable cords, and no skin changes. [employer] for exam: n/a ASSESSMENT: James Woods is [...] benign pathology PLAN: Path benign, continue yearly UNDERWRITING ACCOUNT REPRESENTATIVE exams Cuff healed, ok'd for lifting, regular activity. Laurie Jones APRN.CNP The previous note from Dr. Manning on 08/26/2024 was copied forward and the necessary changes were made above. documented in [facility] NoteHNO ID: [id number] Author: LAURIE JONES APRN.VALERIE Service: ? Author Type: Nurse Practitioner [...] then heavy, then tapered off. Hadn't had vp integrity exam in years and she made first [...] [facility] path review: FINAL DIAGNOSIS Outside case [id number], collected 05/27/2024 Endometrium, curettage: - Limited superficial [...] size Use of iterative reconstruction technique Date: 03/30/20240725-jrwzvcojod-prymsq SURGICAL PROCEDURE-08/14/2024-Robotic assisted total laparoscopic hysterectomy with [...] all pre-disease performance without restriction). Laurie Jones, GANG DRILL PRESS OPERATOR.SECONDARY ART TEACHER 09/23/24-Patient states she feels well overall. Patient reports no bowel or bladder issues. No bleeding, dischar (more content not included)...[facility]02-27-2025 Hospital Discharge instructions Patient Education 09/17/2024 12:01:26 Urethral Stricture Urethral Stricture Urethral stricture is when the tube that drains pee (urine) from the bladder out of the body (urethra) becomes too narrow. The urethra can become narrow because of scar tissue, infection, surgery, beverly injury. This can make it difficult to [...] peeing. This may cause decreased pee flow, dribbling,or spraying of pee. Other symptom of this [...] camera on the end (urethroscope) is used tolook at the urethra. A CT scan or [...] reconstructed. Follow these instructions at home: Take yzzb-awi-uqulbej and prescription medicines only as told by [...] provider. Document Revised: 05/02/2023 Document Reviewed: 05/02/2023 [employer] Patient Education 2023 [employer]. Follow Up Care 09/17/2024 10:36:52 With:[facility] Address: When: Unknown Comments:Only if needed/new problems arise. No scheduled appointment indicated at this time. [facility] 02-27-2025 NotePatient Education Urology Urethral Stricture Urethral stricture is when the tube that drains pee (urine) from the bladder out of the body (urethra) becomes too narrow. The urethra can become narrow because of scar tissue, infection, surgery, beverly injury. This can make it difficult to [...] peeing. This may cause decreased pee flow, dribbling,or spraying of pee. Other symptom of this [...] into the urethra and then an X-ray istaken. ??? Urethroscopy. This is when a thin [...] Follow these instructions at home: ??? Take uohl-lyt-cdsbgot and prescription medicines only as told by your health care provider. ??? If you were prescribed antibiotics, take them as told by your provider. Do not stop using the antibiotic even if you start to feel better. ??? Drink enough fluid to keep your pee pale yellow. ??? Keep all follow-up visits. Your provider will check your healing and adjust your treatment dania needed. Contact a health care provider if: [...] provider. Document Revised: 05/02/2023 Document Reviewed: 05/02/2023 [employer] Patient Education ? 2023 [employer].[facility] 09-08-2024 Evaluation note* Diagnosis Onset Date Resolution Status Admit Date Left carpal tunnel syndrome acute September 08, 2024 10:50am Arthritis of carpometacarpal (CMC) joint of left thumb acute October 09, 2024 10:08am Left carpal tunnel syndrome acute October 09, 2024 10:08am [facility] Work Phone: 1(565) 547-517502-05-2025 History of Present illness Narrative* Laurie Jones APRN.[facility] - 08/26/2024 10:30 AM EST Images from [...] then heavy, then tapered off. Hadn't had vp integrity exam in years and she made first [...] [facility] path review: FINAL DIAGNOSIS Outside case [id number], collected 05/27/2024 Endometrium, curettage: - Limited superficial [...] size Use of iterative reconstruction technique Date: 03/30/20243936-hvvubctfsg-zmpvvf SURGICAL PROCEDURE-08/14/2024-Robotic assisted total laparoscopic hysterectomy with [...] all pre-disease performance without restriction). Laurie Jones APRN.SECONDARY ART TEACHER OBJECTIVE: VITALS: BP 129/72 Pulse 82 Temp (Src) 98 (Temporal) Resp 16 Ht 5' 7.008 (1.70m) Wt 159 lb 13.3 oz (72.5kg) SpO2 96% BMI 25.03 kg/(m^2). GENERAL-well appearing ABDOMEN: Abdomen soft, non-tender, no hepatosplenomegaly. Incision healing well. LOWER EXTREMITIES: No pitting edema, no palpable cords, and no skin changes. [employer] for exam: n/a 08/26/24-Patient states she feels [...] benign pathology PLAN: Path benign, continue yearly UNDERWRITING ACCOUNT REPRESENTATIVE exams RTC 6 weeks cuff check Laurie Jones APRN.CNP The previous note from Dr. Manning on 07/01/2024 was copied forward and the necessary changes weremade above. documented in this encounterC[facility]25 NoteHNO ID: [id number] Author: LAURIE JONES APRN.CNP Service: ? Author [...] then heavy, then tapered off. Hadn't had vp integrity exam in years and she made first [...] [facility] path review: FINAL DIAGNOSIS Outside case [id number], collected 05/27/2024 Endometrium, curettage: - Limited superficial [...] size Use of iterative reconstruction technique Date: 03/30/20242504-tcfrktssmg-yhuaaw SURGICAL PROCEDURE-08/14/2024-Robotic assisted total laparoscopic hysterectomy with [...] all pre-disease performance without restriction). Laurie Jones, GANG DRILL PRESS OPERATOR.SECONDARY ART TEACHER OBJECTIVE: VITALS: BP 129/72 Pulse 82 Temp (Src) 98 (Temporal) Resp 16 Ht 5' 7.008 (1.70m) Wt 159 l (more content not included)...[facility] 08-17-2024 Telephone encounter Note* Telephone Encounter [...] is aware of post op appointment with EDUCATION SPECIALIST on 08/26/2024 in [place] Patient verbalized understanding and denies further questions at this time. Understands to call theoffice with further concerns/questions. Survivorship treatment summary initiated: Awaiting pathology Tasha Herrera RN [facility] Work Phone: 1(162) 900-353101-27-2025 Miscellaneous Notes* Telephone Encounter - Tasha Herrera [...] is aware of post op appointment with EDUCATION SPECIALIST on 08/26/2024 in [place] Patient verbalized understanding and denies further questions at this time. Understands to call theoffice with further concerns/questions. Survivorship treatment summary initiated: Awaiting pathology Tasha Herrera RN documented in this encounterC[facility]01-24-2025 NoteHNO ID: [id number] Author: ?, ?, ? Service: ? Author Type: ? Type: Plan of Care Filed: 08/18/2024 13:23 Note Text: PHARMACY BEDSIDE DELIVERY SERVICE Patient Name: James Woods The marked outpatient medications were filled at [facility] and picked up at the [...] drug: polyethylene glycol 3350 MULTI VITAMIN ORAL ODCLT-4B-FAI-EPA-FISH OIL ORAL You might also be taking other medications not listed above. If you have questions about any of your other medications, talk to the person who prescribed them or your Primary Care Provider. Jack Cerrato PAGER: [phone] August 18, 2024 1:22 [facility]01-24-2025 NoteHNO ID: [id number] Author: TRAY MONTAGUE MD Service: Anesthesiology Author Type: Anesthesiologist Type: Anesthesia Procedure Notes Filed: 08/14/2024 13:28 Note Text: ANESTHESIOLOGY PROCEDURE NOTE PIV General Information Procedure Start Time/Medication Administration: 08/14/2024 7:56 AM Procedure End Time: 08/14/2024 7:56 AM Patient Location: OR Staffing Anesthesiologist: Tray Montague MD INSURANCE BUSINESS ANALYST: Agata Mann APRN.INSURANCE BUSINESS ANALYST Performed by: anesthesiologist Preparation Sterility Preparation: hand hygiene performed prior to procedure, sterile gloves, drapes, and procedure tray, surgical cap used, mask used, skin prep agent completely dried prior to procedure Site Prep: Chloraprep Procedure Details Indication: need for IV access Needle Size/Type: 18 gauge angiocath Orientation: Right Location: Hand Imaging Guidance Used: No SIGNATURE: Agata Mann APRN.INSURANCE BUSINESS ANALYST PATIENT NAME: James Woods DATE: August 14, 2024 TIME: 9:00 AM CSN: [id number] NoteHNO ID: [id number] Author: AGATA MANN APRN.INSURANCE BUSINESS ANALYST Service: ? Author Type: Nurse Baby Sitter Type: Anesthesia Procedure Notes Filed: 08/14/2024 09:00 Note Text: ANESTHESIOLOGY PROCEDURE NOTE Airway General Information Procedure Start Time/Medication Administration: 08/14/2024 7:58 AM Procedure End Time: 08/14/2024 7:58 AM Patient location during procedure: OR Timeout Performed Pre-procedure: timeout performed Consent Obtained: Yes Patient identity confirmed: arm band, care call center team leader and patient Staffing Anesthesiologist: Tray Montague MD INSURANCE BUSINESS ANALYST: Agata Mann APRN.INSURANCE BUSINESS ANALYST Performed by: KALIN Indications and Patient Condition [...] lips in pre-anesthetic condition. SIGNATURE: Agata Mann APRN.INSURANCE BUSINESS ANALYST PATIENT NAME: James Woods DATE: August 14, 2024 TIME: 8:59 AM CSN: [id number] History of Present illness Narrative* Annamarie Monroy RT(R) - 08/06/2024 8:45 AM EST Radiology [...] PATIENT PRESENTS WITH AN IMPLANTABLE OR ATTACHED LABORATORY MANAGER: No RADIOLOGY DEPARTMENT: General X-ray: Exam(s) Completed: Chest X-Ray PERIPHERAL IV DATA: Not applicable SIGNED BY: LAURA Taylor) August 06, 2024 8:54 AM documented in this encounterC[facility]01-16-2025 NoteHNO ID: [id number] Author: ANNAMARIE MONROY RT(R) Service: ? Author [...] PATIENT PRESENTS WITH AN IMPLANTABLE OR ATTACHED LABORATORY MANAGER: No RADIOLOGY DEPARTMENT: General X-ray: Exam(s) Completed: Chest X-Ray PERIPHERAL IV DATA: Not applicable SIGNED BY: Annamarie Monroy RT(R) August 06, 2024 8:54 [facility]01-16-2025 Instructions* Patient Instructions* Nhan Huynh APRN.SECONDARY ART TEACHER - 08/06/2024 7:52 AM EST PATIENT PREOPERATIVE INSTRUCTIONS Chase Manning,* has scheduled you for your procedure at this surgery center: [facility]: [phone] --[id number] [address]. Please check in on the1st floor at [...] Procedures: - YOU MUST HAVE A RESPONSIBLE MARKETING BUSINESS ANALYST TAKE YOU HOME. A PICTURE PAINTER OR BANQUET SET UP PERSON CANNOT BE MADE A RESPONSIBLE MARKETING BUSINESS ANALYST. - We recommend that a responsible person [...] Advance Directive, please fax a copy to [phone] or email to for it to be [...] into your chart that day. Nhan Huynh APRN.SECONDARY ART TEACHER documented in this encounterC[facility]01-[facility]25 History and physical note * Nhan Huynh APRN.CNP - 08/06/2024 7:40 AM EST Images from the original note were not included. [facility] Peri[facility] Pre-Anesthesia Consultation [facility] HISTORY [...] large neck Non-male patient STOP-Bang Score: 2 [id number] Score: Age: 65-74 Sex: female CHF history: No Hypertension history: Yes Stroke/TIA/thromboembolism history: No Vascular disease history: No Diabetes history: No [id number] Score: 3 ARISCAT Score: Age: 51-80 Preoperative [...] light, then heavy, then taperedoff. Hadn't had vp integrity exam in years and she made first [...] fevers. Neuro: No history of TIA's, stroke, AUTOMOBILE TESTER tumor, impaired sensorium, hemiplegia, paraplegia or quadraplegia. No neurological symptoms or problems. Respiratory: Positive for Tobacco Use Former Smoker , Negative for No history of current cough or dyspnea, or pneumonia in the past 6 weeks. No history of respiratory/pulmonary symptoms or problems Cardiovascular: Positive for: HLD, Hypertension No history of angina, CHF, [place], cardiac surgery or stents. Denies rest pain, gangrene or revascularization/amputation for PVD GI: No history of GI symptoms or problems. No history of esophageal varices, recent ascites, or ETOH greater than 2 drinks per day. : No history of dysuria, frequency or incontinence,, stones or chronic kidney disease, No difficulty urinating, nocturia > 1 time per night or hematuria UNDERWRITING ACCOUNT REPRESENTATIVE: See HPI : Denies, No LMP recorded. [...] ORAL) Take by mouth once daily. Yes [id number]-EPA-FISH OIL ORAL Take 2 tablets by mouth [...] range. ECG 12 lead Narrative Performed by [facility] Test Reason : Blood Pressure : */* mmHG Vent. Rate : 83 BPM Atrial Rate : 83 BPM P-R Int : 176 ms QRS Dur : 80 ms QT Int : 356 ms P-R-T Axes : 7 76 24 degrees QTcB Int : 418 ms Normal sinus rhythm Septal infarct , age undetermined Abnormal ECG No previous ECGs available Confirmed by SKYLAR BYRD [facility], [place] ([id number]) on 05/12/2024 2:37:47 PM Referred By: Electronically Signed By: DC CHENG MD [facility] Transcribed By: MUS Signed By Dc Cheng MD, [facility] 05/12/24 9015 No results found for: HBA1C All in Epic Instructions Given to Patient: Instructions located in the after visit summary. Patient given verbal and written preop instructions and voices comprehension and compliance. SIGNATURE: Nhan Huynh APRN.CNP PATIENT NAME: James Woods DATE: 08/06/2024 TIME: 8:06 AM [facility]01-16-2025 History and physical note* Nhan Huynh APRN.CNP - 08/06/2024 7:40 AM [...] large neck Non-male patient STOP-Bang Score: 2 [id number] Score: Age: 65-74 Sex: female CHF history: No Hypertension history: Yes Stroke/TIA/thromboembolism history: No Vascular disease history: No Diabetes history: No [id number] Score: 3 ARISCAT Score: Age: 51-80 Preoperative [...] light, then heavy, then taperedoff. Hadn't had vp integrity exam in years and she made first [...] fevers. Neuro: No history of TIA's, stroke, AUTOMOBILE TESTER tumor, impaired sensorium, hemiplegia, paraplegia or quadraplegia. No neurological symptoms or problems. Respiratory: Positive for Tobacco Use Former Smoker , Negative for No history of current cough or dyspnea, or pneumonia in the past 6 weeks. No history of respiratory/pulmonary symptoms or problems Cardiovascular: Positive for: HLD, Hypertension No history of angina, CHF, [place], cardiac surgery or stents. Denies rest pain, gangrene or revascularization/amputation for PVD GI: No history of GI symptoms or problems. No history of esophageal varices, recent ascites, or ETOH greater than 2 drinks per day. : No history of dysuria, frequency or incontinence,, stones or chronic kidney disease, No difficulty urinating, nocturia > 1 time per night or hematuria UNDERWRITING ACCOUNT REPRESENTATIVE: See HPI : Denies, No LMP recorded. [...] ORAL) Take by mouth once daily. Yes [id number]-EPA-FISH OIL ORAL Take 2 tablets by mouth [...] range. ECG 12 lead Narrative Performed by [facility] Test Reason : Blood Pressure : */* mmHG Vent. Rate : 83 BPM Atrial Rate : 83 BPM P-R Int : 176 ms QRS Dur : 80 ms QT Int : 356 ms P-R-T Axes : 7 76 24 degrees QTcB Int : 418 ms Normal sinus rhythm Septal infarct , age undetermined Abnormal ECG No previous ECGs available Confirmed by SKYLAR BYRD [facility] [place] ([id number]) on 05/12/2024 2:37:47 PM Referred By: Electronically Signed By: DC CHENG MD [facility] Transcribed By: MUS Signed By Dc Cheng MD, [facility] 05/12/24 1437 No results found for: HBA1C All in Epic Instructions Given to Patient: Instructions located in the after visit summary. Patient given verbal and written preop instructions and voices comprehension and compliance. SIGNATURE: Nhan Huynh APRN.CNP PATIENT NAME: James Woods DATE: 08/06/2024 TIME: 8:06 AM documented in this encounterC[facility]01-03-2025 Telephone encounter Note * Telephone Encounter - Елена Amato RN - 07/24/2024 10:06 AM EST Procedure: Pelvic exam under anesthesia, laparoscopic removal of uterus, cervix, tubes and ovaries,possible : lymphadenectomy, omentectomy, blood transfusion, any other indicated procedure Physician: Chase Manning Location: [facility]: [phone] Date & Time: 08/14/24 MEDICAL CLEARANCE: TBD CARDIAC CLEARANCE: TBD PRE ADMISSION TESTIN08/06/24 AT: Fac[facility] Dubose THE FOLLOWING WAS EVALUATED Motivation To [...] Naprosyn(naproxen) Agrylin NSAIDS Pepto-Bismol Aleve Ecotrin Persantine [place] Excedrin Plaquenil Anacin Heparin Plavix Ascriptin Herbals [...] - IV pain medication after surgery, IV HEAVY TRUCK TECHNICIAN if ordered by MD, discharged home with aprescription for PO pain medication, pain management after surgery, side effects of pain medication(including constipation, dizziness, drowsiness, and medication interactions). DVT PROPHYLAXIS - Early ambulation, SCDs, injectable anticoagulants (heparin, lovenox, etc) RESPIRATORY - Incentive spirometer, coughing/deep breathing exercises, ambulation. RETURN TO WORK - As directed by physician, please send any FMLA papers to physician's alumni secretary. SYMPTOMS TO NOTIFY MD - Fever, chills, nausea, vomiting, increased or severe pain, heavy vaginal bleeding, foul smelling vaginal drainage, pain or swelling in extremities. URGENT SYMPTOMS - Call 911 or go to ER if any shortness of breath, difficulty breathing, or chest pain. HOW TO CONTACT PHYSICIAN - Physician's office phone number given to patient, if after hours patientinstructed to call boiler/chiller operator and ask for the doctor balloon maker. Patient and family have phone number to call 24 hours/day. Patient Evaluation: Verbalizes understanding Patient and/or family express understanding of upcoming surgery and the operative process. Questions answered. Follow Up Plan: Follow up as needed Supplemental Material Given: Pre-operative teaching packet provided to the patient: INPATIENT/OUTPATIENT printed instructions; Post-operative instruction sheet, bowel prep instructionsheet For questions contact: Chase Manning's office at [phone] Instructed By Елена Amato RN [facility]01-03-2025 Miscellaneous Notes* Telephone Encounter - Елена Amato RN - 07/24/2024 10:06 AM EST Procedure: Pelvic exam under anesthesia, laparoscopic removal of uterus, cervix, tubes and ovaries,possible : lymphadenectomy, omentectomy, blood transfusion, any other indicated procedure Physician: Chase Manning Location: [facility]: [phone] Date & Time: 08/14/24 MEDICAL CLEARANCE: TBD CARDIAC CLEARANCE: TBD PRE ADMISSION TESTIN08/06/24 AT: Facundo Dubose THE FOLLOWING WAS EVALUATED Motivation To [...] Naprosyn(naproxen) Agrylin NSAIDS Pepto-Bismol Aleve Ecotrin Persantine [place] Excedrin Plaquenil Anacin Heparin Plavix Ascriptin Herbals [...] - IV pain medication after surgery, IV HEAVY TRUCK TECHNICIAN if ordered by MD, discharged home with aprescription for PO pain medication, pain management after surgery, side effects of pain medication(including constipation, dizziness, drowsiness, and medication interactions). DVT PROPHYLAXIS - Early ambulation, SCDs, injectable anticoagulants (heparin, lovenox, etc) RESPIRATORY - Incentive spirometer, coughing/deep breathing exercises, ambulation. RETURN TO WORK - As directed by physician, please send any FMLA papers to physician's alumni secretary. SYMPTOMS TO NOTIFY MD - Fever, chills, nausea, vomiting, increased or severe pain, heavy vaginal bleeding, foul smelling vaginal drainage, pain or swelling in extremities. URGENT SYMPTOMS - Call 911 or go to ER if any shortness of breath, difficulty breathing, or chest pain. HOW TO CONTACT PHYSICIAN - Physician's office phone number given to patient, if after hours patientinstructed to call boiler/chiller operator and ask for the doctor balloon maker. Patient and family have phone number to call 24 hours/day. Patient Evaluation: Verbalizes understanding Patient and/or family express understanding of upcoming surgery and the operative process. Questions answered. Follow Up Plan: Follow up as needed Supplemental Material Given: Pre-operative teaching packet provided to the patient: INPATIENT/OUTPATIENT printed instructions; Post-operative instruction sheet, bowel prep instructionsheet For questions contact: Chase Manning's office at [phone] Instructed By Елена Amato RN documented [facility] Instructions* Patient Instructions* Laurie Jones APRN.SECONDARY ART TEACHER - 07/01/2024 11:25 AM EST Images from the original note were not included. Please visit the following website for the [facility] surgery guide. [email or web address] PATIENT SURGICAL CHECKLIST - NEXT STEPS Your surgeon's office will call you to arrange your surgery date and pre- admission testing appointments. You should receive a call within 2-5 business days from our scheduling team. (If you do not receive a call within 5 days - please call [phone]) Pre-admission testing appointments include: - Preop anesthesia [...] You will receive a call from the valve seater operator the business day prior to your surgery as to when and where to arrive on the day of your scheduled surgery UNDERWRITING ACCOUNT REPRESENTATIVE ONCOLOGY PHYSICIAN CONTACT INFORMATION [facility] [phone] Surgeons: Dr. Dorota Lin Sales Representative [employer] [facility] advanced practice providers: Nhan Craven APRN.VALERIE Robbins APRN.VALERIE Zacarias APRN.VALERIE After 4:30 pm or on holidays or weekends, call: or . Ask the operatorto page the vp integrity oncologist balloon maker. PRE-OPERATIVE CHECKLIST: PATIENT INSTRUCTIONS PRIOR TO SURGERY [...] vitamin E, herbal medications, diet pills, and coge-ykf-fyhecfk medications. Tylenol (acetaminophen) is okay. I will not wear jewelry, body piercing(s), makeup, nail beninese, hairpins, or contacts on the day ofsurgery. [...] my surgeon. Discuss medication changes with your knit goods mender or primary care physician as well. If I stopped taking my blood-thinning medication, I will ask the surgeon when to resume taking it. If I am an outpatient, a responsible person will drive me home and it was suggested that someone stay with me for 24 hours. I understand that a entry level business analyst or cabdriver is NOT [...] for surgery, I must call my surgical resident after 2pm the day beforesurgery. Pre-operative instructions given by: PREOP INSTRUCTIONS THE DAY OF SURGERY/CHECK IN Report to [facility] for surgery. A map is located in Your Surgical Guide Book. The online version of the surgical guide book can be found at: [email or web address] The address is [address] [place] [address]/[place] [address] INFECTION PREVENTION Please notify your doctor if [...] Your Surgical Guide Book for more information. [facility] TEAM At the [facility], we have a multidisciplinary team of caregivers that includes fellows, residents, nurse practitioners, physician assistants, clinical nurse specialists, nurses, medical assistants, patient care nursing assistants, social workers, supervisor case loading and many others. We all have different [...] disposal station (located in many of the [facility] pharmacies). Do not flush them down [...] breathing, or chest pain. documented in this encounterC[facility]12-[facility] History of Present illness Narrative* Chase [...] then heavy, then tapered off. Hadn't had vp integrity exam in years and she made first [...] [facility] path review: FINAL DIAGNOSIS Outside case [id number], collected 05/27/2024 Endometrium, curettage: - Limited superficial [...] size Use of iterative reconstruction technique Date: 03/30/20242767-mbkeukokog-dsbijz HEALTH MAINTENANCE: Last mammogram: UTD normal Last [...] estradiol cream, had UTI after D&C-completed antibiotics UNDERWRITING ACCOUNT REPRESENTATIVE: SEE HPI MUSCULOSKELETAL: Negative for joint pain or swelling, back pain or muscle pain SKIN: Negative for lesions, rash, and itching PSYCH: Negative for sleep disturbance, mood disorder and recent psychosocial stressors HEMATOLOGY/LYMPHOLOGY: Negative for prolonged bleeding, bruising easily or swollen nodes ENDOCRINE:neg DM on thyroid meds NEURO: No history of headaches, syncope, paralysis, seizures or tremors Laurie Jones, GANG DRILL PRESS OPERATOR.SECONDARY ART TEACHER\ OBJECTIVE: VITALS: BP 151/84 Pulse 91 Temp [...] SCRIBE ATTESTATION: By signing my name below, I,Margaret Gold Manager Regulatory attest that this documentation has been prepared under the direction and in the presence of Chase Maninng MD Electronically Signed: oScrates Christensen. July 01, 2024 10:34 AM. Chase [...] defined for this encounter. documented in this encounterC[facility]12-[facility]-2024 NoteHNO ID: [id number] Author: CHASE MANNING MD Service: ? Author [...] then heavy, then tapered off. Hadn't had vp integrity exam in years and she made first [...] [facility] path review: FINAL DIAGNOSIS Outside case [id number], collected 05/27/2024 Endometrium, curettage: - Limited superficial [...] size Use of iterative reconstruction technique Date: 03/30/20249867-tdmmpugbqz-gnwuoj HEALTH MAINTENANCE: Last mammogram: UTD normal Last [...] estradiol cream, had UTI after DANDC-completed antibiotics UNDERWRITING ACCOUNT REPRESENTATIVE: SEE HPI MUSCULOSKELETAL: Negative for joint pain or swelling, back pain or muscle pain SKIN: Negative for lesions, rash, and itching PSYCH: Negative for sleep disturbance, mood disorder and recent psychosocial stressors HEMATOLOGY/LYMPHOLOGY: Negative for prolonged bleeding, bruising easily or swollen nodes ENDOCRINE:neg DM on thyroid meds NEURO: No history of headaches, syncope, paralysis, seizures or tremors Laurie Jones, GANG DRILL PRESS OPERATOR.SECONDARY ART TEACHER OBJECTIVE: VITALS: BP 151/84 Pulse 91 Temp (Src) 97.9 (Temporal) Resp 16 Ht 5' 7.047 [shoes off verified 2 (more content not included)...[facility]11-20-2024 History of Present illness Narrative* Julio [...] Review Audit Reviewed by Stephanie Easley MA (Substance Addiction Coordinator) on 06/10/24 at 1022 Medication Order Taking? Sig Documenting Provider Last Dose Status amLODIPine (Norvasc) 5 MG tablet [id number] Daily Julio César Benton MD Active atorvastatin (Lipitor) 20 MG tablet [id number] .COMPLEX Julio César Benton MD Active estradiol (Estrace) 0.1 MG/GM vaginal cream [id number] INSERT 1 GRAM VAGINALLY SATURDAY, SATURDAY, andSATURDAY Julio César Benton MD Active levothyroxine (Synthroid, Levoxyl) 112 MCG tablet [id number] 1 (one) time each day at the same time Julio César Benton MD Active lisinopril 20 MG tablet [id number] 20 mg Julio César Benton MD Active Macrobid 100 MG capsule [id number] Yes Take 100 mg by mouth Julio [...] placed in this encounter. documented in this encounterCox [id number] Hospital Discharge instructions Patient Education 06/09/2024 13:58:55 [...] symptoms are. Treatment may include: Using an khak-daz-hvzpveb vaginal lubricant before sex. Using a long-acting [...] Follow these instructions at home: Medicines Take ugrr-zdk-kynusos and prescription medicines only as told by your health care provider. Do not use herbal or alternative medicines unless your health care provider says that you can. Use wtmv-sfz-svcqclg creams, lubricants, or moisturizers for dryness only [...] provider. Document Revised: 01/05/2021 Document Reviewed: 01/05/2021 Julio Patient Education 2023 [employer]. 06/09/2024 13:58:53 Urinary Tract Infection, Adult Urinary [...] Treatment for this condition includes: Antibiotic medicine. Sfck-cwj-hssoves medicines to treat discomfort. Drinking enough water [...] Follow these instructions at home: Medicines Take saol-vul-bxhlfhb and prescription medicines only as told by [...] provider. Document Revised: 02/12/2021 Document Reviewed: 02/17/2021 Julio Patient Education 2023 [employer]. Follow Up Care 06/05/2024 13:18:13 With:ANTHONY BYRD, Alonso Woodard, URL Address: [address] [place] [address] [place] [address]- When: Unknown Comments:poss cysto/UD [facility] 11-19-2024 Evaluation + Plan note Diagnostic Tests Pending * Urine Culture 06/09/24 [facility] 11-19-2024 NotePatient Education Obstetrics and Gynecology Atrophic [...] are. Treatment may include: ??? Using an wxwl-lsy-qrmsxkp vaginal lubricant before sex. ??? Using a [...] these instructions at home: Medicines ??? Take tbdi-tvz-fewwlyb and prescription medicines only as told by your health care provider. ??? Do not use herbal or alternative medicines unless your health care provider says that you can. ??? Use zyeo-dex-ddarqyy creams, lubricants, or moisturizers for dryness only [...] provider. Document Revised: 01/05/2021 Document Reviewed: 01/05/2021 [employer] Patient Education ? 2023 [employer]. Urinary Tract Infection, Adult A urinary tract infection (UTI) is an infection of any part of the urinary tract. The urinary tractincludes the kidneys, ureters, bladder, and urethra. These organs make, store, and get rid of urinein the body. An upper UTI affects the ureters and kid (more content not included)...[facility]09-24-2024 History of Present illness Narrative* Julio César [...] Review Audit Reviewed by Stephanie Easley MA (Substance Addiction Coordinator) on 04/14/24 at 1322 Medication Order Taking? Sig Documenting Provider Last Dose Status amLODIPine (Norvasc) 5 MG tablet [id number] Daily Julio César Benton MD Active atorvastatin (Lipitor) 20 MG tablet [id number] .COMPLEX Julio César Benton MD Active estradiol (Estrace) 0.1 MG/GM vaginal cream [id number] INSERT 1 GRAM VAGINALLY SATURDAY, SATURDAY, Julio César Benton MD Active levothyroxine (Synthroid, Levoxyl) 112 MCG tablet [id number] 1 (one) time each day at the same time Julio César Benton MD Active lisinopril 20 MG tablet [id number] 20 mg Julio César Benton MD Active [...] placed in this encounter. documented in this encounterCox [id number] History of Present illness Narrative* Julio César [...] Review Audit Reviewed by Stephanie Easley MA (Substance Addiction Coordinator) on 03/30/24 at 1546 Medication Order Taking? Sig Documenting Provider Last Dose Status amLODIPine (Norvasc) 5 MG tablet [id number] Daily Julio César Benton MD Active atorvastatin (Lipitor) 20 MG tablet [id number] .COMPLEX Julio César Benton MD Active estradiol (Estrace) 0.1 MG/GM vaginal cream [id number] INSERT 1 GRAM VAGINALLY SATURDAY, SATURDAY, Julio César Benton MD Active levothyroxine (Synthroid, Levoxyl) 112 MCG tablet [id number] 1 (one) time each day at the same time Julio César Benton MD Active lisinopril 20 MG tablet [id number] 20 mg Julio César Benton MD Active [...] Answer: see dx codes documented in this encounterCox [id number] History of Present illness Narrative* Julio César [...] Review Audit Reviewed by Stephanie Easley MA (Substance Addiction Coordinator) on 03/10/24 at 1405 Medication Order Taking? Sig Documenting Provider Last Dose Status amLODIPine (Norvasc) 5 MG tablet [id number] Yes Daily Julio César Benton MD Active atorvastatin (Lipitor) 20 MG tablet [id number] Yes .COMPLEX Julio César Benton MD Active estradiol (Estrace) 0.1 MG/GM vaginal cream [id number] Yes INSERT 1 GRAM VAGINALLY SATURDAY, SATURDAY,and SATURDAY Julio César Benton MD Active levothyroxine (Synthroid, Levoxyl) 112 MCG tablet [id number] 1 (one) time each day at the same time Julio César Benton MD Active lisinopril 20 MG tablet [id number] Yes 20 mg Julio César Benton MD [...] Z12.4 PAP IG, RFX HPV ALL PTH ([facility]) 3. Screening for HPV (human papillomavirus) Z11.51 PAP IG, RFX HPV ALL PTH ([facility]) 4. Other screening mammogram Z12.31 5. PMB (postmenopausal bleeding) N95.0 Chck sono and follwup after Assessment/Plan Orders Placed This Encounter Procedures PAP IG, RFX HPV ALL PTH ([facility]) Order Specific Question: Print requisition? Answer: No documented in this encounterCox [id number] Telephone encounter Note* Telephone Encounter - [facility] Sanglora - 03/04/2024 11:18 AM EDT Patient has had recent vaginal bleeding the last few days and wanted to be see. She is scheduled next Saturday in the afternoon. [id number] Miscellaneous Notes* Telephone Encounter - [facility] Juliocesar - 03/04/2024 11:18 AM EDT Patient has had recent vaginal bleeding the last few days and wanted to be see. She is scheduled next Saturday in the afternoon. documented in this [facility]05-07-2024 Hospital Discharge instructions Patient Education 11/26/2023 09:47:56 [...] symptoms are. Treatment may include: Using an dysj-esk-lyptyah vaginal lubricant before sex. Using a long-acting [...] Follow these instructions at home: Medicines Take chki-arp-ogtkckp and prescription medicines only as told by your health care provider. Do not use herbal or alternative medicines unless your health care provider says that you can. Use fbez-gds-oeehwuh creams, lubricants, or moisturizers for dryness only [...] provider. Document Revised: 01/05/2021 Document Reviewed: 01/05/2021 [employer] Patient Education 2022 [employer]. 11/26/2023 09:47:53 Urinary Incontinence Urinary Incontinence Urinary [...] (electrical nerve stimulation). ?For women, using a ophthalmic medical assistant to prevent urine leaks. This is [...] right after experiencing incontinence. General instructions Take xmim-rmf-yptkxgb and prescription medicines only as told by [...] important. Where to find more information National [place] of Diabetes and Digestive and Kidney Diseases: www.niddk.nih.gov [employer]: www.urologyhealth.org Contact a health care [...] provider. Document Revised: 02/10/2021 Document Reviewed: 02/10/2021 [employer] Patient Education 2022 [employer]. 11/26/2023 09:47:52 Kegel Exercises Kegel Exercises Kegel [...] provider. Document Revised: 11/16/2021 Document Reviewed: 11/16/2021 [employer] Patient Education 2022 [employer]. Follow Up Care 08/31/2022 11:36:52 With:ANA LUISA Salas APRN, CHRISTOPHER Mcclelland, URL Address: When: Unknown Comments:1 year [facility] Evaluation note* Encounter Date Diagnosis Assessment Notes Treatment Notes Treatment Clinical Notes Aug, Acute cough (ICD-10 - R05.1) Aug, Uvulitis (ICD-10 - K12.2) This. Plenty of fluids. Take isox-lpf-cgwysck Tylenol Motrin as needed for fever or [...] can continue with rest, fluids, Tylenol Motrin yyaa-tsp-qmvsffp for fever or discomfort. [facility] Other 01-16-2024 Evaluation note* Encounter Date Diagnosis Assessment Notes Treatment Notes Treatment Clinical Notes Jul, Hypothyroid (ICD-10 - E03.9) [facility] Other 12-20-2023 Evaluation note* Encounter Date Diagnosis Assessment Notes Treatment Notes Treatment Clinical Notes Jun, Acute COVID-19 (ICD-10 - U07.1) Discussed quarantine protocol. had COVID before her. She agrees to the steroid and inhaler due to chest tightness. Tara understands to hold her lipitor while on paxlovid. [facility] Other 10-27-2023 Evaluation note* Encounter Date Diagnosis Assessment Notes Treatment Notes Treatment Clinical Notes Apr, Hypothyroid (ICD-10 - E03.9) Increased dose. Recheck labs in ~6 weeks. Chronic problem. Monitor results. [facility] Other 08-18-2023 Evaluation note* Encounter Date Diagnosis [...] best 2/3 readings w/ goal < 135-85 [facility] Other 02-10-2023 Hospital Discharge instructions Patient Education [...] symptoms are. Treatment may include: Using an voxl-zef-zpwpeaq vaginal lubricant before sex. Using a long-acting [...] Follow these instructions at home: Medicines Take bcym-geo-tyrqtec and prescription medicines only as told by your health care provider. Do not use herbal or alternative medicines unless your health care provider says that you can. Use xrwt-hne-qzkzgxq creams, lubricants, or moisturizers for dryness only [...] 11/22/2015 Document Revised: 06/20/2018 Document Reviewed: 04/03/2018 [employer] Patient Education 2020 [employer] Follow Up Care 08/28/2021 15:08:21 With:ANTHONY BYRD, Alonso Woodard, URL Address: [address] [place] [address]- When: Unknown [facility] 05-23-2022 Evaluation note* Encounter Date Diagnosis [...] Other Laceration repa ir material was printed [facility] Other Evaluation + Plan note Future Appointments Appointment Date:09/06/2023 11:45:00 AM Scheduled Provider:Alonso CRUZ MD Location:[facility] Appointment Type:URO Office Visit [facility] evaluation noteNo InformationNortGroove Customer Support Other Evaluation note* Diagnosis Onset Date Resolution Status Left hand pain acute [facility] Work Phone: Evaluation note* Diagnosis Onset Date Resolution Status Left hand pain acute Dyspnea on exertion acute Medicare annual wellness visit, subsequent acute [facility] Work Phone: Evaluation note* Diagnosis Onset Date Resolution Status Left hand pain acute Dyspnea on exertion acute Hyperlipidemia acute Hypertension acute Hypothyroid acute Medicare annual wellness visit, subsequent acute Screening mammogram, encounter for acute [facility] Work Phone: Evaluation note* Diagnosis Onset Date Resolution Status Dyspnea on exertion acute Hyperlipidemia acute Hypertension acute Hypothyroid acute Medicare annual wellness visit, subsequent acute Allergic rhinitis due to allergen acute Hypertension acute Screening mammogram, encounter for acute Left carpal tunnel syndrome acute [facility] Work Phone: Evaluation note* Diagnosis Onset Date Resolution Status Allergic rhinitis due to allergen acute Hypertension acute Screening mammogram, encounter for acute Left carpal tunnel syndrome [facility] Work Phone: Evaluation note* Diagnosis Onset Date Resolution Status Allergic rhinitis due to allergen acute Hypertension acute Screening mammogram, encounter for acute Left carpal tunnel syndrome acute Left carpal tunnel syndrome acute [facility] Work Phone: evaluation note* Diagnosis Onset Date Resolution Status Left carpal tunnel syndrome acute Left carpal tunnel syndrome acute [facility] Work Phone: Evaluation note* Diagnosis Onset Date Resolution Status Left carpal tunnel syndrome acute Left carpal tunnel syndrome acute Encounter for immunization a [facility] Work Phone: Evaluation note* Diagnosis Onset Date Resolution Status Left carpal tunnel syndrome acute Encounter for immunization a cute Left carpal tunnel syndrome acute [facility] Work Phone: Evaluation note* Diagnosis PMB (postmenopausal bleeding)- Primary Postmenopausal bleeding Surgery follow-up Endometrial hyperplasia with atypia [facility]* Diagnosis Endometrial cancer (HCC)- Primary Malignant neoplasm of corpus uteri, except isthmus [facility] Diagnosis Complex atypical endometrial hyperplasia- Primary Endometrial hyperplasia with atypia Post-menopausal bleeding Postmenopausal bleeding Thickened endometrium Nonspecific (abnormal) findings on radiological and other examination of genitourinary organs Left ovarian cyst Other and unspecified ovarian cyst Preop examination Preoperative examination, unspecified Other abnormal tumor markers [facility] Diagnosis Well woman exam with routine gynecological exam Routine gynecological examination Cervical cancer screening Screening for malignant neoplasm of the cervix Screening for HPV (human papillomavirus) Special screening examination for human papillomavirus (HPV) Other screening mammogram PMB (postmenopausal bleeding) Postmenopausal bleeding [facility]* Diagnosis PMB (postmenopausal bleeding) Postmenopausal bleeding Ovarian mass, left documented in this encounter [facility] HealthcareEvaluation note* Diagnosis PMB (postmenopausal bleeding) Postmenopausal bleeding Ovarian mass, left documented in this encounter [facility] HealthcareEvaluation note* Diagnosis Hypertension, unspecified type- Primary [...] edema, or palpitations documented in this encounter [facility] note* Diagnosis Hypertension, unspecified type- Primary Hyperlipidemia, [...] Preoperative examination, unspecified documented in this encounter [facility] note* Diagnosis Hypertension, unspecified type- Primary Hyperlipidemia, [...] atypia Urinary frequency documented in this encounter [facility] note* Diagnosis Onset Date Resolution Status Admit Date Left carpal tunnel syndrome acute September 08, 2024 10:50am [facility] Work Phone: Evaluation note* Diagnosis Hypertension, unspecified [...] following unspecified surgery documented in this encounter [facility] noteNo assessment information [facility] Work Phone: Hispfxp general Narrative - Reported* Type Description Date Medical History High blood pressure Medical History High cholesterol Medical History Thyroid disease Surgical History tonsillectomy and adenoidectomy Surgical History laparoscopy cholecystectomy Surgical History D&C Hospitalization History Cellulitis [facility] [employer] Other Hisg[facility] general Narrative - Reported* Type Description Date [...] History Cellulitis Hospitalization History SEE SRUGICAL HX [employer] [facility] [employer] Other Hospital course Narrative No data available for this section [facility] Hospital Discharge instructions No data available for this section [facility] Progress note No data available for this section [facility] reason for referral (narrative)* Outpatient Procedure (Routine) - New Request Specialty Diagnoses / Procedures Referred By Weston t Referred To [facility] Diagnoses Hypertension, unspecified type Hyperlipidemia, unspecified hyperlipidemia type Hypothyroidism, unspecified type Current smoker Complex atypical endometrial hyperplasia Post-menopausal bleeding Thickened endometrium Left ovarian cyst Preop examination PONV (postoperative nausea and vomiting) Procedures ECG COMPLETE ECG ROUTINE ECG W/LEAST 12 LDS W/I&R Nhan Huynh, GANG DRILL PRESS OPERATOR.SECONDARY ART TEACHER [address] [place] [address] [facility] [address] [place] [id number] Referral ID Status Reason Start Date Expiration Date Visits Requested Visits Authorized [id number] New Request Auto-Generat ed Referral 08/06/2024 08/06/2025 [facility]No reason for referral information [facility] Work Phone: Summary Purpose Family History Relationship [...] Documents on File Type Date Recorded Patient High Density Press Operator Expl anation Advance Directive(s) 08/06/2024 8:06 AM Advance Directive(s) 08/06/2024 8:01 AM Documents on File Type Date Recorded Patient High Density Press Operator Expl anation Advance Directive(s) 08/06/2024 8:06 AM [...] tunnel syndrome Chief Complaint CONSULT DR MARIFER BR AUN LT HAND PAIN G56.02 4 WK RECHECK G56.02 flu shot Reason for Visit Left carpal tunnel s yndrome Left carpal tunnel syndrome Chief Complaint CONSULT DR MARIFER WHELAN AUN LT HAND PAIN G56.02 4 WK RECHECK [...] Cough, head congestion March 02, 2025 8:01am Chief Complaint Admit Date Cough, head congestion March 02, 2025 8:01am Wellness March 16, 2025 9: 57am Reason for Visit Admit Date Bronchitis March 02, 2025 8: 01am Medicare annual wellness visit, subseque nt March 16, 2025 9:57am Menopause March 16, 2025 9: 57am Screening mammogram, encounter for Augus t 2024 9:57am Reason for Referral Specialty Diagnoses / Procedures Referred By Weston arce Referred To Contact Radiology Diagnoses PMB (postmenopausal bleeding) Ovarian mass, left Procedures CT pelvis wo IV contrast Julio César Benton MD [address] [place] [id number] Referral ID Status Reason Start Date Expiration Date V isits Requested Visits Authorized [id number] Pending Review 03/30/2024 09/26/2024 1 1 Specialty Diagnoses / Procedures Referred By Weston arce Referred To Contact Diagnoses Complex atypical endometrial hyperplasia Post-menopausal bleeding Thickened endometrium Left ovarian cyst Preop examination Procedures REFER TO [facility] - PREOPERATIVE OPTIMIZATION OFFICE/OUTPATIENT [facility] 60 MINUTES Laurie Jones, GANG DRILL PRESS OPERATOR.SECONDARY ART TEACHER [address] [place] [address] Referral ID Status Reason Start Date Expiration Date Visits Requested Visits Authorized [id number] Authorized PCP Requested Referral 4 07/01/2025 1 1 Specialty Diagnoses / Procedures Referred By Contac t Referred To [facility] Diagnoses Complex atypical endometrial hyperplasia Post-menopausal bleeding Thickened endometrium Left ovarian cyst Preop examination Procedures ECG COMPLETE ECG ROUTINE ECG W/LEAST 12 LDS W/I&R GwendolynLaurie, GANG DRILL PRESS OPERATOR.SECONDARY ART TEACHER [address] [place] [address] [facility] [address] [place] [address] Referral ID Status Reason Start Date Expiration Date Visits Requested Visits Authorized [id number] New Request Auto-Generat ed Referral 4 07/01/2025 1 1 Additional Source Comments REASON FOR VISIT (unrecogniz ed section and content) Reason Comments Consult Reason Comments Pre-Op Teaching Reason Comments Pre-Op Visit Specialty Diagnoses / Procedures Referred By Contac t Referred To Contact Diagnoses Complex atypical endometrial hyperplasia Post-menopausal bleeding Thickened endometrium Left ovarian cyst Preop examination Procedures REFER TO [facility] - PREOPERATIVE OPTIMIZATION OFFICE/OUTPATIENT [facility] 60 [facility]UTES [facility] GANG DRILL PRESS OPERATOR.SECONDARY ART TEACHER [address] [place] [address] Referral ID Status Reason Start Date Expiration Date V isits Requested Visits Authorized [id number] Closed PCP Requested Referral 07/01/2024 07/01/2025 1 [...] March 18, 2024 End: March 18, 2024 Service Specialist Relationship Specialty Start Date End Date Unallocated, MD Darrick [facility]izo [place] [address] PCP - General Family Medicine 03/10/24 Team [...] April 30, 2024 End: April 30, 2024 Service Specialist Relationship Specialty Start Date End Date Unallocated, MD Darrick Rizo [place] [address] PCP - General Family Medicine 03/10/24 Team [...] May 27, 2024 End: May 27, 2024 Service Specialist Relationship Specialty Start Date End Date Unallocated, Tico Ford MD [address] [place] [address] PCP - General Family Medicine 03/10/24 Service Specialist Relationship Specialty Start Date End Date Unallocated, Tico Ford MD [address] [place] [address] PCP - General Family Medicine 03/10/24 Service Specialist Relationship Specialty Start Date End Date Julio César Benton MD [address] [place] [address] Obstetrics 06/11/24 Service Specialist Relationship Specialty Start Date End Date Marifer Boyle MD [address] [place] [address] PCP - General Family Medicine 07/01/24 Julio César Benton MD [address] [place] [phone] Obstetrics 06/11/24 Service Specialist Relationship Specialty Start Date End Date Unallocated, Tico Ford MD [facility] [place] [address] PCP - General Family Medicine 03/10/24 Service Specialist Relationship Specialty Start Date End Date Unallocated, Tico Ford MD [address] [place] [address] PCP - General Family Medicine 03/10/24 Service Specialist Relationship Specialty Start Date End Date Unallocated, Tico Ford MD [address] [place] [address] PCP - General Family Medicine 03/10/24 Service Specialist Relationship Specialty Start Date End Date Unallocated, Tico Ford MD [address] [place] [address] PCP - General Family Medicine 03/10/24 Service Specialist Relationship Specialty Start Date End Date Unallocated, Tico Ford MD [address] [place] [address] PCP - General Family Medicine 03/10/24 Service Specialist Relationship Specialty Start Date End Date Unallocated, Tico Ford MD [address] [place] [address] PCP - General Family Medicine 03/10/24 Service Specialist Relationship Specialty Start Date End Date Marifer Boyle MD [address] [place] [address] PCP - General Family Medicine 07/01/24 Julio César Benton MD [address] [facility] [address] [place] [phone] Obstetrics 06/11/24 Service Specialist Relationship Specialty Start Date End Date Marifer Boyle MD [address] [place] [address] PCP - General Family Medicine 07/01/24 Julio César Benton MD [address] [place] [phone] Obstetrics 06/11/24 Service Specialist Relationship Specialty Start Date End Date Marifer Boyle MD [address] [place] [address] PCP - General Family Medicine 07/01/24 Julio César Benton MD [address] [place] [phone] Obstetrics 06/11/24 Service Specialist Relationship Specialty Start Date End Date Marifer Boyle MD [address] [place] [address] PCP - General Family Medicine 07/01/24 Julio César Benton MD [address] [place] [phone] Obstetrics 06/11/24 Team Status: Active Member Role Status Dates NON STAFF Primary Care Provider Active Team Status: Active Member Role Status Dates Nhan Huynh , EDUCATION SPECIALIST-C Attending Provider Active Start: August 06, 2024 Team Status: Active Member Role Status Dates Laurie Jones APRN EDUCATION SPECIALIST-C Attending Provider oBbby e Start: August 26, 2024 Team Status: Inactive Member Role Status Dates Lisa Frank MD Attending Provider Active Start: September 08, 2024 End: September 08, 2024 NON STAFF Primary Care Provider Active Start: September 08, 2024 End: September 08, 2024 Service Specialist Relationship Specialty Start Date End Date Marifer Boyle MD [address] [place] [address] PCP - General Family Medicine 07/01/24 Julio César Benton MD [address] [place] [phone] Obstetrics 06/11/24 Team Status: Inactive Member Role Status Dates NON STAFF Primary Care Provider Active Start: October 09, 2024 End: October 09, 2024 Lisa Frank MD Attending Provider Active Start: October 09, 2024 End: October 09, 2024 Team Status: Inactive Member Role Status Dates Marifer Boyle MD Primary Care Provider Active Start: March 02, 2025 End: March 02, 2025 Madison Lozano APRN EDUCATION SPECIALIST-C Attending Provider Act tremayne Start: March 02, 2025 End: March 02, 2025 Team Status: Active Member Role Status Dates Marifer Boyle MD Primary Care Provider Active Start: March 09, 2025 Marifer Boyle MD Attending Provider Active St art: March 09, 2025 Team Status: Inactive Member Role Status Dates Marifer Boyle MD Primary Care Provider Active Start: March 16, 2025 End: March 16, 2025 Marifer Boyle MD Attending Provider Active St art: March 16, 2025 End: March 16, 2025 INFORMATION SOURCE (unrecogn ized section and content) DATE CREATED AUTHOR 09/29/2022 [facility] DATE CREATED AUTHOR AUTHOR'S ORGANIZ ATION 06/07/2024 [facility] DATE CREATED AUTHOR AUTHOR'S ORGANIZ ATION 06/13/2024 [facility] EPIC DATE CREATED AUTHOR AUTHOR'S ORGANIZ ATION 06/14/2024 [facility] DATE CREATED AUTHOR AUTHOR'S ORGANIZ ATION 08/23/2024 [facility] DATE CREATED AUTHOR AUTHOR'S ORGANIZ ATION 09/11/2024 [facility] DATE CREATED AUTHOR AUTHOR'S ORGANIZ ATION 09/19/2024 [facility] DATE CREATED AUTHOR AUTHOR'S ORGANIZ ATION 09/25/2024 [facility] Goals (unrecognized section and content) Goals may be documented in a n alternate section Source Comments (unrecognize d section and content) In the event this informatio n is protected by the Federal Confidentiality of Alcohol and Drug Abuse Patient Records regulations: The Federal rules restrict any use of the information to criminally investigate or prosecute any alcohol or drug abuse patient.[facility] the event this information is protected by the Federal Confidentiality of Alcohol and Drug Abuse Patient Records regulations: The Federal rules restrict any use of the information to criminally investigate or prosecute any alcohol or drug abuse patient.[facility] the event this information is protected by the Federal Confidentiality of Alcohol and Drug Abuse Patient Records regulations: The Federal rules restrict any use of the information to criminally investigate or prosecute any alcohol or drug abuse patient.[facility] the event this information is protected by the Federal Confidentiality of Alcohol and Drug Abuse Patient Records regulations: The Federal rules restrict any use of the information to criminally investigate or prosecute any alcohol or drug abuse patient.[facility] Hospital[facility] the event this information is protected by the Federal Confidentiality of Alcohol and Drug Abuse Patient Records regulations: The Federal rules restrict any use of the information to criminally investigate or prosecute any alcohol or drug abuse patient.[facility] Hospital[facility] the event this information is protected by the Federal Confidentiality of Alcohol and Drug Abuse Patient Records regulations: The Federal rules restrict any use of the information to criminally investigate or prosecute any alcohol or drug abuse patient.[facility] Hospital[facility] the event this information is protected by the Federal Confidentiality of Alcohol and Drug Abuse Patient Records regulations: The Federal rules restrict any use of the information to criminally investigate or prosecute any alcohol or drug abuse patient.[facility] Hospital[facility] the event this information is protected by the Federal Confidentiality of Alcohol and Drug Abuse Patient Records regulations: The Federal rules restrict any use of the information to criminally investigate or prosecute any alcohol or drug abuse patient.[facility] FOR RECORDS PERTAINING TO PATIENTS WHO [...] BE BASED ON THE PRIMARY CLINICAL RECORDS. [employer] [facility]. provides no warranty or guarantee of the accuracy or completeness of information in this document.
== END 2025-03-24 07:19 | disposition home or self-care (01) ==
LOC: MAMMO 07:18
PROVIDERS: PCP Family Medicine; Visit Provider Family Medicine
DX: Z12.31 Encounter for screening mammogram for malignant neoplasm of breast (principal); Z78.0 Asymptomatic menopausal state; Z80.3 Family history of malignant neoplasm of breast; Z80.8 Family history of malignant neoplasm of other organs or systems; M85.88 Other specified disorders of bone density and structure, other site
CPT/HCPCS: 77063; 77067; 77080